=== PATIENT | male | born 1950 | race Caucasian/White ===

== ENCOUNTER 2018-06-30 00:02 | Inpatient (IN) | payer BC, MEDICARE ==
[2018-06-30 00:31] LABS: Actual Bicarbonate (HCO3a) 14.6 mEq/L (22-28); Analyzer IN Cardio ER; Base Excess (BEa) -11.5 mEq/L (-2.0 to +3.0); CO2 Tension 33.8 mmHg (35.0-45.0); Calcium, Ionized 1.04 mmol/L (1.12-1.30); Carboxyhemoglobin (COHb) 1.6 gm% (0.0-3.0); Hemoglobin (Hb) 13.7 g/dL (14.0-18.0); O2 Tension (PaO2) 92.9 mmHg (> 80.0); Potassium - ABG Lab 3.51 mmol/L (3.70-5.30)
[2018-06-30 00:34] LABS: pH, Arterial 7.25 (7.35-7.45)
[2018-06-30 00:35] LABS: Puncture Site RRA
[2018-06-30 00:57] LABS: Band 21 % (5-11); Hemoglobin 13.1 g/dL (14.0-18.0); Lymphocytes 8 % (21-51); MDiff Complete? YES; Mean Corpuscular HGB CONC 34.9 g/dL (32.0-36.0); Mean Corpuscular Hemoglobin 32.2 pg (27.0-31.0); Mean Corpuscular Volume 92.2 fL (78.0-98.0); Mean Platelet Volume 9.7 fL (7.4-10.4); Metamyelocyte 2 % (0-0); Monocytes 11 % (0-10); Myelocyte 4 % (0-0); Neutrophil 54 % (42-75); Platelet Count 93 thou/uL (130-400); Platelet Morphology Comment Appears Decreased; Red Blood Cell (RBC) Count 4.07 mill/uL (4.70-6.10); Toxic Granulation SLIGHT; White Blood Cell (WBC) Count 10.9 thou/uL (4.8-10.8)
[2018-06-30 00:58] LABS: ALT (SGPT) 26 U/L (8-55); AST (SGOT) 37 U/L (5-34); Albumin 2.7 g/dL (3.4-4.8); Alkaline Phosphatase 66 U/L (40-150); Anion Gap 23 mmol/L (10-20); BUN (Urea Nitrogen) 45 mg/dL (8.4-25.7); Bilirubin, Total 0.8 mg/dL (0.2-1.2); Calc. Creatinine Clearance 0 mL/min (70-130); Calcium 7.9 mg/dL (7.8-10.44); Carbon Dioxide 14 mmol/L (23-31); Chloride 94 mmol/L (98-107); Estimated GFR-MDRD 16; Glucose 477 mg/dL (80-115); Protein, Total 5.7 g/dL (5.8-8.1); Sodium 127 mmol/L (136-145)
[2018-06-30] MEDS ORDERED: Norepinephrine 8 MG/0.9% NS 250 ML ONE (01:38)
[2018-06-30] MEDS ORDERED: Insulin Regular 100 units/100 ml in NS IVPB SCH (02:00)
[2018-06-30] MEDS ORDERED: NS 0.9% w/ 40 MEQ KCL 1,000 ML IV SCH (02:00)
[2018-06-30 02:48] LABS: Anion Gap 22 mmol/L (10-20); BUN (Urea Nitrogen) 46 mg/dL (8.4-25.7); Calc. Creatinine Clearance 0 mL/min (70-130); Calcium 7.9 mg/dL (7.8-10.44); Carbon Dioxide 14 mmol/L (23-31); Chloride 94 mmol/L (98-107); Estimated GFR-MDRD 17; Glucose 430 mg/dL (80-115); Potassium 3.6 mmol/L (3.5-5.1); Sodium 126 mmol/L (136-145)
[2018-06-30] MEDS ORDERED: Norepinephrine 8 MG/250 ML BAG IVPB PRN (03:31)
[2018-06-30] MEDS ORDERED: NS 0.9% w/ 20 MEQ KCL 1,000 ML/1,000 ML BAG IV PRN ×2 (03:34)
[2018-06-30] MEDS ORDERED: Dextrose 5% in Water 1,000 ML IV PRN (03:34)
[2018-06-30] MEDS ORDERED: Dextrose 5 %-0.45 % NaCl 1,000 ML IV PRN ×2 (03:34→04:49)
[2018-06-30] MEDS ORDERED: Dextrose 50% Abboject 50 ML SYRINGE SLOW IVP PRN (03:34)
[2018-06-30] MEDS ORDERED: D5 1/2 NS w/20 mEq KCL 1,000 ML IV PRN (03:34)
[2018-06-30] MEDS ORDERED: Sodium Chloride 0.9% 1,000 ML IV PRN ×8 (03:34→04:49)
[2018-06-30] MEDS ORDERED: CCU ELECTROLYTE REPLACEMENT PROTOCOL FS PRN ×2 (03:35→05:19)
[2018-06-30] MEDS ORDERED: Magnesium Oxide 400 MG TAB PO PRN ×4 (03:35→05:19)
[2018-06-30] MEDS ORDERED: Potassium Phosphate 9 MMOL in Sodium Chloride 0.9% 100 ML IVPB PRN ×2 (03:35→05:19)
[2018-06-30] MEDS ORDERED: Potassium Chloride 20 MEQ TAB PO PRN ×2 (03:35→05:19)
[2018-06-30] MEDS ORDERED: Potassium Phosphate 15 MMOL in Sodium Chloride 0.9% 250 ML 250 ML IV PRN ×2 (03:35→05:19)
[2018-06-30] MEDS ORDERED: Potassium Chloride 40 MEQ in Premix Bag 1 BAG IVPB PRN ×2 (03:35→05:19)
[2018-06-30] MEDS ORDERED: Potassium Phosphate 12 MMOL in Sodium Chloride 0.9% 250 ML 250 ML IV PRN ×2 (03:35→05:19)
[2018-06-30] MEDS ORDERED: Potassium Chloride 40 MEQ in Sodium Chloride 0.9% 250 ML 250 ML IVPB PRN ×2 (03:35→05:19)
[2018-06-30] MEDS ORDERED: Magnesium 2 GM/NS 0.9% 100 ML 2 GM in Premix Bag 1 BAG IVPB PRN ×2 (03:35→05:19)
[2018-06-30 03:41] VITALS: BMI 33.7
[2018-06-30] MEDS ORDERED: HUMULIN R 100 UNITS in Sodium Chloride 0.9% 100 ML IVPB SCH (03:45)
[2018-06-30] MEDS ORDERED: ADD ELECTROLYTE REPLACEMENT SET TO PROFILE FS SCH (03:45)
[2018-06-30] MEDS ORDERED: Sodium Chloride 0.45% 1,000 ML IV SCH (03:45)
[2018-06-30] MEDS ORDERED: Sodium Chloride 0.9% 1,000 ML IV SCH (04:49)
[2018-06-30] MEDS ORDERED: NS 0.9% w/ 20 MEQ KCL 1,000 ML IV PRN ×2 (04:49)
[2018-06-30] MEDS ORDERED: Ondansetron PF 4 MG/2 ML Vial IVP PRN (04:49)
[2018-06-30] MEDS ORDERED: Ondansetron ODT 4 MG TAB PO PRN (04:49)
[2018-06-30] MEDS ORDERED: CCU Electrolyte Replacement 1 EACH IVPB ONE (04:49)
[2018-06-30 05:04] LABS: Lactic Acid 6.9 mmol/L (0.5-2.2)
[2018-06-30 05:13] LABS: Chloride 95 mmol/L (98-107); Potassium 3.8 mmol/L (3.5-5.1); Sodium 128 mmol/L (136-145)
[2018-06-30 05:14] LABS: Calcium 7.9 mg/dL (7.8-10.44); Glucose 384 mg/dL (80-115)
[2018-06-30 05:16] LABS: Anion Gap 21 mmol/L (10-20); Carbon Dioxide 16 mmol/L (23-31)
[2018-06-30 05:17] LABS: Calc. Creatinine Clearance 32 mL/min (70-130); Estimated GFR-MDRD 17
[2018-06-30 05:18] LABS: BUN (Urea Nitrogen) 47 mg/dL (8.4-25.7)
[2018-06-30] MEDS: Piperacillin/Tazobactam 3.375 GM in Sodium Chloride 0.9% 100 ML IVPB SCH ×4 (05:58→23:38)
[2018-06-30] MEDS ORDERED: HOLD VANCOMYCIN FOR LEVEL >20 FS SCH (06:00)
[2018-06-30] MEDS ORDERED: Vancomycin HCl 1.5 GM in Sodium Chloride 0.9% 250 ML 300 ML IVPB SCH ×2 (06:00→07:00)
[2018-06-30] MEDS ORDERED: Vancomycin HCl 750 MG in Sodium Chloride 0.9% 250 ML 250 ML IVPB SCH (06:00)
[2018-06-30] MEDS ORDERED: Vancomycin HCl 1 GM in Premix Bag 1 BAG IVPB SCH (06:00)
[2018-06-30] MEDS ORDERED: Digoxin 0.5 MG/2 ML AMP SLOW IVP SCH (06:00)
[2018-06-30] MEDS ORDERED: Vancomycin Sliding Scale 1 EACH FS SCH (06:00)
[2018-06-30] MEDS ORDERED: Vancomycin HCl 1.25 GM in Sodium Chloride 0.9% 250 ML 250 ML IVPB SCH (06:00)
[2018-06-30] MEDS ORDERED: Vancomycin HCl 2.5 GM in Sodium Chloride 0.9% 500 ML IVPB SCH (07:00)
[2018-06-30] MEDS: D5 1/2 NS w/20 mEq KCL 1,000 ML IV PRN ×4 (07:20→21:45)
--- NOTE | 2018-06-30 07:34 | HP ---
PRIMARY CARE PROVIDER: [facility]. CHIEF COMPLAINT: General weakness, shortness of breath, and left groin pain. HISTORY OF PRESENT ILLNESS: This is a 68-year-old male, who initially presented to [place] [facility] complaining of left groin swelling and pain with associated general fatigue, shortness of breath, and near syncope. The patient states he had been feeling ill over the last 3 to 5 days, worsening in the last 24 hours. The patient noticed a small red area on the left groin region, increasing in size with associated cellulitis. The patient was evaluated in the [place] [facility] and underwent incision and drainage of a small abscess in the groin region. The patient noted swelling and firmness to his entire left lower extremity and noted chills, but no documented fever. The patient admits to decreased energy and increasing shortness of breath, worsening in the last 48 hours. The patient admits to history of coronary artery disease, status post 5 cardiac stent placements since 1997. The patient also admits that he was recently increased on his subcutaneous insulin via his primary fish technologist. 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 The patient admits the fatigue had progressed to such an extent that he blacked out at home briefly. The patient denied any head injury, unilateral weakness, or difficulty with speech. The patient denied any prominent diarrhea, nausea, or vomiting. The patient denied dysuria. In the emergency room, the patient underwent general evaluation including incision and drainage of a small abscess in the left groin region. The patient was given vancomycin as well as intravenous normal saline. Screening metabolic survey showed a multitude of abnormalities including severe lactic acidosis with initial lactic acid level of 10.7. The patient was also noted with hyponatremia and metabolic acidosis and concern for diabetic ketoacidosis when ABG showed a pH of 7.25. The patient was also noted with criteria for septic shock and was placed on aggressive IV fluid hydration in addition to Levophed for pressor support. The patient was transferred to the Critical Care Unit for further evaluation. PAST MEDICAL HISTORY: 1. Coronary artery disease, status post cardiac stent placement x5. 2. Diabetes mellitus, type 2, insulin requiring, labile. 3. Hypertension. 4. Hyperlipidemia. 5. Tobacco use including smokeless tobacco. 6. Peripheral neuropathy secondary to diabetes mellitus. PAST SURGICAL HISTORY: 1. Status post cardiac stent placement x5 since 1997. 2. Status post left shoulder repair. 3. Status post knee surgery. CURRENT MEDICATIONS: 1. Amlodipine 2.5 mg p.o. daily. 2. Aspirin enteric-coated 81 mg p.o. daily. 3. Fenofibrate 160 mg p.o. daily. 4. [place]-3 fatty acids 1000 mg p.o. b.i.d. 5. NovoLog 70/30 of 35 units subcutaneously b.i.d. 6. Losartan/hydrochlorothiazide 100 mg/12.5 mg p.o. daily. 7. Metformin 1000 mg p.o. b.i.d. 8. Metoprolol succinate 100 mg p.o. daily. 9. Multivitamin 1 tab p.o. daily. ALLERGIES: TO MORPHINE SULFATE. FAMILY HISTORY: Positive for diabetes mellitus and hypertension. SOCIAL HISTORY: The patient is , accompanied by his and son in the hospital. Smokes up to half a pack of cigarettes daily. Dips snuff. Occasional alcohol use. No illicit drug use. 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 Resides in [place], [place]. REVIEW OF SYSTEMS: CONSTITUTIONAL: Negative for weight loss or gain, ability to conduct usual activities. SKIN: Negative for rash, itching. EYES: Negative for double vision, pain. ENT/MOUTH: Negative for nose bleeding, neck stiffness, pain, tenderness. CARDIOVASCULAR: Negative for palpitations, dyspnea on exertion, orthopnea. RESPIRATORY: Negative for shortness of breath, wheezing, cough, hemoptysis, fever or night sweats. GASTROINTESTINAL: Negative for poor appetite, abdominal pain, heartburn, nausea, vomiting, constipation, or diarrhea. GENITOURINARY: Negative for urgency, frequency, dysuria, nocturia. MUSCULOSKELETAL: Negative for pain, swelling. NEUROLOGIC/PSYCHIATRIC: Negative for anxiety, depression. ALLERGY/IMMUNOLOGIC: Negative for skin rash, bleeding tendency. Otherwise, negative except as stated per HPI. PHYSICAL EXAMINATION: VITAL SIGNS: On admission; blood pressure 105/70, pulse 126, respiratory rate 20, temperature 98.1 degrees Fahrenheit, and O2 saturation 98% on 2 L/minute by nasal cannula. GENERAL APPEARANCE: This is a 68-year-old male, alert and oriented x3, pleasant, in no acute distress. HEENT: Pupils are equal, round, and reactive to light and accommodation. Extraocular muscles are intact. No scleral icterus. No conjunctival injection. Nares patent. OP is clear. Teeth in fair repair. NECK: Supple. No cervical adenopathy. No thyromegaly. No carotid bruits. No JVD appreciated. Cervical spine with full active and passive range of motion. No meningeal signs noted. Right internal jugular vein central venous catheter in place. CHEST: Diminished breath sounds in the bases bilaterally. CARDIOVASCULAR: S1 and S2 with irregular rate and rhythm. Positive tachycardia. ABDOMEN: Obese, nontender, and nondistended. Landmarks difficult to palpate due to the patient's body habitus and obesity. Bowel sounds are positive in all 4 quadrants. EXTREMITIES: Warm and dry with fair turgor. Asymmetric edema of the left greater than right lower extremity. Positive erythema with small abscess noted in the left groin region approximately 2 cm in diameter. Central pustule with skin incision noted. Positive tenderness to palpation. Pulses are palpable distally at the dorsalis pedis, posterior tibial, and popliteal arteries bilaterally. Capillary refill less than 2 seconds. NEUROLOGIC: Cranial nerves II through XII are grossly intact. No focal or lateralizing signs appreciated. PERTINENT LABORATORY AND X-RAY FINDINGS: Sodium 126, potassium 3.6, chloride 94, CO2 of 14, anion gap of 22, BUN 46, creatinine 3.69, estimated GFR of 17, and glucose 430. Lactic acid level ranged between 6.9 to 10.7. Calcium is 7.9. AST 37, ALT of 26, and total bilirubin 0.8. Troponin I negative x1. CBC showed a white blood cell count of 10.9, hemoglobin 13, hematocrit 38, and platelet count 93,000 with 54% neutrophils, 21% bands. ABG dated 06/30/2018, showed a pH of 7.25, pCO2 of 34, pO2 of 93, bicarb of 14.6, and O2 saturation 95% on 21% FiO2. CT of the abdomen and pelvis dated 06/30/2018, showed no acute intraabdominal process. Portable chest x-ray dated 06/30/2018, by my interpretation shows no acute cardiopulmonary process. Cardiomegaly noted. Right internal jugular venous catheter with tip in appropriate positioning. EKG dated 06/29/2018, by my interpretation shows atrial fibrillation with heart rates in the 140s. Normal R-wave progression noted in the precordial leads. Normal axis. ASSESSMENT AND PLAN: 1. Septic shock. The patient will be admitted to the Critical Care Unit. We will continue Levophed for pressor support and continue IV fluids to maintain systolic greater than 100. Suspect secondary to left groin abscess. Blood and urine cultures are pending. We will continue sepsis protocol. Continue vancomycin 1 g IV q.12 hours with additional Zosyn 3.375 g IV every 6 hours. 2. Atrial fibrillation with rapid ventricular response. Apparent new onset per the patient report. We will continue rate control measures. Digoxin 0.25 mg IV x1 now. Due to hypotension, the patient is unable to use Cardizem currently. Check 2D transthoracic echocardiogram in the a.m. We will consult Cardiology Service for further management. Check TSH and magnesium level. 3. Diabetic ketoacidosis. I suspect the main component due to severe sepsis with septic shock and previous use of metformin. Continue diabetic ketoacidosis protocol. Continue aggressive IV fluid hydration and replacement. Continue regular insulin infusion at 8 units/hour. Serial beta-hydroxybutyrate sampling. 4. Left groin abscess, status post incision and drainage. We will continue vancomycin and Zosyn as stated previously. Consult Wound Care Service for local care and monitoring. 5. Diabetes mellitus, type 2, insulin requiring. Suspect poor control given presentation. We will check A1c level. Insulin sliding scale when taking regular ADA diet. 6. Acute kidney injury. Suspect multifactorial given the patient's ongoing use of nephrotoxic medications to include hydrochlorothiazide, JACY inhibitors, and metformin. We will hold all nephrotoxic agents and limit contrast exposure. Continue IV fluid hydration and monitor renal response. 7. Prophylaxis. SCDs while in bed. Pepcid 20 mg p.o. b.i.d. Smoking cessation resources. 8. Code status: Full. Surrogate medical decision maker is the patient's spouse. TIME SPENT: Total critical care time is 55 minutes. Job ID: [id number]
--- NOTE | 2018-06-30 08:02 | CT ---
CT ABDOMEN AND PELVIS NONCONTARST: INDICATION: Cellulitis, sepsis. 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 FINDINGS: There is abnormal increased density of the ventral and left lateral subcutaneous tissues of the proxi mal left thigh with overlying skin thickening. No soft tissue gas is seen. There is increased subcu taneous density of the scrotal soft tissues, incompletely evaluated. There is increased subcutaneous density of the scrotal soft tissues, incompletely evaluated. No soft tissue gas in this region. Th ere is hepatic steatosis. The gallbladder is contracted. There is bilateral mild perinephric fat st randing. Prostate calcification is seen. There is mild distention of the urinary bladder with mild w all prominence primarily to the incompletely distended state. Visualized lung bases reveal no consol idation or significant effusion. There is diffuse vascular calcification. No free air. Metallic cl ips are seen at the right lower quadrant. No acute osseous abnormality. Mild enlargement of left in guinal lymph nodes may be reactive. IMPRESSION: 1. Findings indicating cellulitis of the proximal left thigh and inguinal region with probable assoc iated left inguinal reactive adenopathy. No soft tissue gas is seen. 2. There is mild increased density of the soft tissues of the scrotum without soft tissue gas. If h ere is concern, consider followup with scrotal ultrasound as indicated. 3. Additional details are as described above. POS: EFRAIN
[2018-06-30] MEDS: Aspirin Chewable 81 MG TAB PO SCH (08:27)
[2018-06-30] MEDS: Famotidine 20 MG TAB PO SCH (08:27)
--- NOTE | 2018-06-30 08:49 | RAD ---
CHEST 1 VIEW: HISTORY: Chest pain. COMPARISON: Chest radiograph from prior day. FINDINGS: New right IJ central venous catheter is in place with tip at the mid SVC. No pneumothorax. The maged mercedes of the findings are unchanged. IMPRESSION: Uncomplicated placement right internal jugular central venous catheter. POS: CET
[2018-06-30] MEDS ORDERED: Vancomycin HCl 1 GM in Sodium Chloride 0.9% 250 ML 250 ML IVPB SCH (09:00)
--- NOTE | 2018-06-30 09:33 | PDOC.PN ---
- Subjective Encounter Start Date: 06/30/18 Encounter Start Time: 09:31 Subjective: some sob, no chest pain, fever - Objective Resuscitation Status - Order Detail: 06/30/18 04:33 Resuscitation Status Routine Resuscitation Status: FULL: Full Resuscitation MAR Reviewed: Yes Vital Signs & Weight: Vital Signs (12 hours) Temp Pulse Ox 06/30/18 07:00 97.9 F 06/30/18 05:00 98.1 F 06/30/18 04:00 95 06/30/18 03:40 98.1 F Weight Weight 249 lb 1.957 oz Most Recent Monitor Data Heart Rate from ECG 105 NIBP 124/62 NIBP BP-Mean 82 Respiration from ECG 33 SpO2 96 I&O: 06/29/18 06/30/18 07/01/18 06:59 06:59 06:59 Intake Total 1100.6 480 Output Total 250 20 Balance 850.6 460 Result Diagrams: 06/30/18 00:18 06/30/18 04:27 Additional Labs: Accuchecks 06/30/18 06/30/18 06/30/18 09:12 08:27 07:15 POC Glucose 205 H 215 H 208 H 06/30/18 06/30/18 06/30/18 06:13 05:22 04:30 POC Glucose 257 H 306 H 321 H 06/30/18 06/30/18 03:35 02:52 POC Glucose 425 H 376 H Phys Exam - Physical Examination Neck: no JVD Respiratory: clear to auscultation bilateral Cardiovascular: RRR, no significant murmur Gastrointestinal: soft, non-tender, positive bowel sounds tense edema L leg to groin, erythema, 2 cm open lesion L medial upper thigh Dx/Plan (1) Septic shock Code(s): A41.9 - SEPSIS, UNSPECIFIED ORGANISM; R65.21 - SEVERE SEPSIS WITH SEPTIC SHOCK Status: Acute (2) Acute renal failure Status: Acute (3) Abscess of left thigh Code(s): L02.416 - CUTANEOUS ABSCESS OF LEFT LOWER LIMB Status: Acute (4) CAD (coronary artery disease) Code(s): I25.10 - ATHSCL HEART DISEASE OF [place] CORONARY ARTERY W/O ANG PCTRS Status: Acute Qualifiers: Coronary Disease-Associated Artery/Lesion type: [place] artery [place] vs. 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
[2018-06-30 09:36] LABS: Anion Gap 17 mmol/L (10-20); BUN (Urea Nitrogen) 47 mg/dL (8.4-25.7); Calc. Creatinine Clearance 36 mL/min (70-130); Calcium 7.4 mg/dL (7.8-10.44); Carbon Dioxide 15 mmol/L (23-31); Chloride 99 mmol/L (98-107); Estimated GFR-MDRD 19; Glucose 207 mg/dL (80-115); Sodium 127 mmol/L (136-145)
--- NOTE | 2018-06-30 10:06 | CON ---
DATE OF CONSULTATION: HISTORY OF PRESENT ILLNESS: Fritz Lewis is a morbidly obese 68-year-old gentleman from [place], [place]. They states he is working in [place] when he presented with several day history of swelling of his left groin. He went to [place] where diagnosis of cellulitis and sepsis was made. His lactic acid was elevated at 7.7. His initial blood pressure was 98/61, pulse 135, O2 saturation is 98% on room air. Apparently, there was a swelling in the groin, which was lanced. He was admitted to the ICU with hypotension, uncontrolled diabetes, and sepsis syndrome. He has smoked a pack a day most of his life. Denies any prior history of TB, pneumonia, or bronchial asthma. According to his son, who is present at the bedside, he clearly snores. PAST MEDICAL HISTORY: Coronary artery disease, myocardial infarction, status post multiple stents at least 4, three last year in 2017, hypertension, diabetes, and high triglyceride. PREVIOUS SURGERIES: Including multiple stents, shoulder surgery, and knee surgery. SOCIAL HISTORY: Alcohol, none. Tobacco, as noted. 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 MEDICATIONS: From home includes; 1. Metformin 500 two tablets twice a day. 2. Metoprolol one tablet a day. 3. Losartan insulin 35 units twice a day. 4. Aspirin. 5. Amlodipine. He is now started on vancomycin and Zosyn. REVIEW OF SYSTEMS: Otherwise, 10-point negative. PHYSICAL EXAMINATION: GENERAL: Obese gentleman. VITAL SIGNS: O2 saturations are 99% on room air, pulse is 91, blood pressure is 140/72, respiratory rate 18. CHEST: Decreased breath sounds. No wheezing. CARDIAC: Normal S1, S2. No gallops. ABDOMEN: Obese. EXTREMITIES: His left leg is swollen. There is evidence of edema. DIAGNOSTIC DATA: Creatinine 3.62. Sodium is 128. His blood sugar is 257 in insulin drip. His calcium is 7.9, and his lactic acid is still elevated at 6.9, magnesium 0.7. Ultrasound has been ordered. Chest x-ray was otherwise unremarkable. He had a CT done of his abdomen and pelvis, which showed cellulitis above his proximal left thigh inguinal area. IMPRESSION: 1. Cellulitis, left leg. 2. Uncontrolled diabetes. 3. Renal failure. 4. Hypertension. 5. Coronary artery disease. 6. Sleep apnea. 7. Chronic obstructive pulmonary disease. PLAN: I agree with present antibiotic coverage. Ultrasound of leg is being ordered. Initiate some neb treatments. Diet, PT supportive Care. We will follow while in the ICU. Consultation note, 70 minutes, 50% direct patient care. Job ID: [id number]
--- NOTE | 2018-06-30 12:05 | ULT ---
ULTRASOUND WITH DOPPLER DUPLEX VENOUS LOWER EXTREMITY LEFT: CPT: 42595 ICD-10-PCS: B54D INDICATION: Left lower extremity edema. TECHNIQUE: Color flow Doppler, spectral waveform analysis of pulsed Doppler, and madrigal-scale imaging with muriel virgilio and augmentation, were used to evaluate the left common femoral, femoral, popliteal, posterior t ibial, and superficial femoral, veins; and the proximal portions of the profunda femoral and greater saphenous, veins. FINDINGS: There is appropriate compressibility and flow within the imaged dep vein system of the visualized lef t lower extremity. Incidental note of prominent sized left inguinal regional lymph node. There is sof t tissue edema. IMPRESSION: No deep venous thrombosis of the imaged left lower extremity. POS: SCOTT
[2018-06-30 13:08] LABS: Anion Gap 17 mmol/L (10-20); BUN (Urea Nitrogen) 50 mg/dL (8.4-25.7); Calc. Creatinine Clearance 33 mL/min (70-130); Calcium 7.4 mg/dL (7.8-10.44); Carbon Dioxide 17 mmol/L (23-31); Chloride 98 mmol/L (98-107); Estimated GFR-MDRD 18; Glucose 167 mg/dL (80-115); Sodium 128 mmol/L (136-145)
[2018-06-30] MEDS: HUMULIN R 100 UNITS in Sodium Chloride 0.9% 100 ML IVPB SCH (17:06)
--- NOTE | 2018-06-30 17:15 | EKG ---
Test Reason : Blood Pressure : / mmHG Vent. Rate : 102 BPM Atrial Rate : 102 BPM P-R Int : 096 ms QRS Dur : 090 ms QT Int : 334 ms P-R-T Axes : 031 027 011 degrees QTc Int : 435 ms Sinus tachycardia with short IN ns T wave changes When compared with ECG of 30-JUN-2018 00:17, (Unconfirmed) Sinus rhythm has replaced Atrial fibrillation Nonspecific T wave abnormality, improved in Lateral leads Confirmed by DR. Shruthi BABCOCK ([id number]) on 06/30/2018 5:14:59 PM Referred By: KENAN Confirmed By:DR. Shruthi BABCOCK
--- NOTE | 2018-06-30 22:21 | CON ---
DATE OF CONSULTATION: 06/30/2018 HISTORY OF PRESENT ILLNESS: Fritz Lewis is a 68-year-old white male, transferred from [place] with sepsis and atrial fibrillation. He has a previous cardiac history with history of myocardial infarction, as well as previous stents placed x5. Last time stents were placed was in September 2016. Currently, he is not on dual antiplatelet therapy and when asked about Plavix, Brilinta or Effient, he is not familiar with any of those medications. He has been noticing increasing edema and redness of his left leg. He began to have increasing weakness, shortness of breath and with the left groin pain, went to the emergency room in [place]. He underwent incision and drainage of a small abscess of the left groin. He was transferred here for further care. He is in atrial fibrillation with fast ventricular response, was given digoxin 0.25 IV and eventually has converted to sinus rhythm. He denied any palpitations or ever having A type of rhythm problems. He denied any chest discomfort or palpitations, but did have some shortness of breath. PAST MEDICAL HISTORY: 1. Coronary artery disease status post multiple stent placements since 1997. 2. Diabetes. 3. Hypertension. 4. Hyperlipidemia. 5. Smoker and uses smokeless tobacco. 6. Peripheral neuropathy. OPERATIONS: Cardiac stent placement, left shoulder repair, knee surgery. MEDICATIONS: 1. Amlodipine 2.5 mg daily. 2. Enteric-coated aspirin 81 daily. 3. Fenofibrate 160 daily. 4. [place]-3 of 1000 mg b.i.d. 5. NovoLog 70/30 of 35 units b.i.d. 6. Losartan/hydrochlorothiazide 100/12.5 daily. 7. Metformin 1000 mg b.i.d. 8. Metoprolol 100 daily. 9. Multivitamin daily. ALLERGIES: MORPHINE. SOCIAL HISTORY: He continues to smoke one-half to 1 pack per day and dips snuff. 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 He occasionally drinks alcohol. REVIEW OF SYSTEMS: A 12-point review of systems is otherwise unremarkable. PHYSICAL EXAMINATION: VITAL SIGNS: Blood pressure 85/69, pulse 86. HEENT: PERRL. NECK: Supple. CHEST: Clear. CARDIAC: S1 and S2 normal without any S3, S4, or murmurs. ABDOMEN: Obese. Normal bowel sounds. No tenderness. EXTREMITIES: Revealed 3 to 4+ tense edema of the left leg, trace edema of the right leg. NEUROLOGICAL: Grossly intact. SKIN: Warm and dry. LABORATORY DATA: EKG in [place] revealed atrial fibrillation with fast ventricular response of 140 per minute, nonspecific ST and T-wave changes. Another EKG here shows sinus tachycardia with rate of 102 per minute. White count 10,900; hemoglobin 13.1; hematocrit 37.5; platelets 93,000. PH 7.25, pCO2 of 33.8, PO2 of 92.9. Sodium 128, potassium 4.0, chloride 98, carbon dioxide 17, BUN 50, creatinine 3.51. Creatinine on admission was 4.39. Troponin I 0.054. IMPRESSION: 1. Septic shock with abscess in the left groin and hypotension. 2. Atrial fibrillation with fast ventricular response. He ultimately slowed and converted to sinus rhythm. 3. Diabetic ketoacidosis. 4. Left groin abscess, status post incision and drainage. 5. Diabetes. 6. Smoker. 7. Smokeless tobacco use. 8. Acute kidney injury. 9. Hypercholesterolemia. 10.Coronary artery disease, history of stent placement and [place]. PLAN: The patient at the present time has converted to sinus rhythm. Echocardiogram will be performed to assess left ventricular function. The patient will be maintained on his beta magy once his blood pressure is adequate. Job ID: [id number] [facility]
[2018-07-01] MEDS: D5 1/2 NS w/20 mEq KCL 1,000 ML IV PRN ×2 (02:07→22:48)
[2018-07-01] MEDS ORDERED: Digoxin 0.5 MG/2 ML AMP SLOW IVP SCH ×2 (04:00→08:30)
[2018-07-01 04:54] LABS: Hemoglobin A1c 9.4 % (4.0-6.0)
[2018-07-01 05:04] LABS: Anion Gap 17 mmol/L (10-20); BUN (Urea Nitrogen) 57 mg/dL (8.4-25.7); Calc. Creatinine Clearance 32 mL/min (70-130); Carbon Dioxide 14 mmol/L (23-31); Chloride 99 mmol/L (98-107); Estimated GFR-MDRD 17; Glucose 220 mg/dL (80-115); Potassium 4.1 mmol/L (3.5-5.1); Sodium 126 mmol/L (136-145)
[2018-07-01 05:06] LABS: Band 48 % (5-11); Dohle Bodies SLIGHT; Lymphocytes 3 % (21-51); MDiff Complete? YES; Mean Corpuscular Hemoglobin 31.6 pg (27.0-31.0); Mean Platelet Volume 9.5 fL (7.4-10.4); Metamyelocyte 5 % (0-0); Monocytes 3 % (0-10); Myelocyte 1 % (0-0); Neutrophil 40 % (42-75); Platelet Count 116 thou/uL (130-400); Platelet Morphology Comment Appears Decreased; RBC Distribution Width 12.6 % (11.5-14.5); Red Blood Cell (RBC) Count 3.81 mill/uL (4.70-6.10); Toxic Granulation SLIGHT; White Blood Cell (WBC) Count 12.2 thou/uL (4.8-10.8)
[2018-07-01] MEDS: Piperacillin/Tazobactam 3.375 GM in Sodium Chloride 0.9% 100 ML IVPB SCH (05:17)
[2018-07-01 05:27] LABS: Vancomycin, Trough 15.4 ug/mL
[2018-07-01] MEDS ORDERED: Vancomycin HCl 1.5 GM in Sodium Chloride 0.9% 250 ML 300 ML IVPB SCH (07:00)
[2018-07-01] MEDS: Clindamycin/D5W 900 MG in Premix Bag 1 BAG IVPB SCH ×2 (09:11→16:55)
[2018-07-01] MEDS: Amiodarone 450 MG in Dextrose 5% in Water 250 ML IVPB SCH ×2 (09:19→09:37)
--- NOTE | 2018-07-01 09:35 | PRG ---
DATE OF SERVICE: 07/01/2018 SUBJECTIVE: Fritz Lewis this morning remains in the ICU, confused and agitated. His pulse is 113, atrial fibrillation, respirations 34, blood pressure 110/86. Denies any pain. His family is at the bedside. His left leg is much more swollen with multiple blisters. He has an area in the left groin which looks infected. OBJECTIVE: CHEST: Decreased breath sounds. No wheezing. CARDIAC: Normal S1 and S2. No gallops. ABDOMEN: No masses. LABORATORY DATA: White count is 12,000, H and H 12 and 35, platelet count is 116, 40 segs, 48 bands. His creatinine 3.53. Cortisol level is 24. IMPRESSION: 1. Chronic obstructive pulmonary disease. 2. Sepsis syndrome. 3. Infected leg. 4. Encephalopathy. 5. Renal failure. 6. Sleep apnea. PLAN: Surgery is being consulted today to assess his leg. Additional intervention at this time is warranted. He is on broad-spectrum antibiotics including clindamycin, vancomycin. Continue nocturnal BiPAP, supportive care, PT. Continue observation in the ICU. Prognosis remains guarded. This is a one-half hour of critical time. Job ID: [id number]
[2018-07-01] MEDS: Aspirin Chewable 81 MG TAB PO SCH (10:00)
[2018-07-01] MEDS: Famotidine 20 MG TAB PO SCH (10:01)
[2018-07-01] MEDS: Enoxaparin Sodium 120 MG/0.8 ML SYRINGE SC SCH (10:01)
--- NOTE | 2018-07-01 10:14 | PDOC.PN ---
- Subjective Encounter Start Date: 07/01/18 Encounter Start Time: 10:13 Subjective: confused - Objective Resuscitation Status - Order Detail: 06/30/18 04:33 Resuscitation Status Routine Resuscitation Status: FULL: Full Resuscitation MAR Reviewed: Yes Vital Signs & Weight: Vital Signs (12 hours) Temp Pulse Resp Pulse Ox 07/01/18 09:11 113 H 07/01/18 07:55 113 H 34 H 99 07/01/18 07:00 98.1 F 07/01/18 04:07 127 H 07/01/18 04:00 97.8 F 07/01/18 01:16 90 20 98 Weight Admit Weight 249 lb Weight 249 lb 1.957 oz Most Recent Monitor Data Heart Rate from ECG 107 NIBP 111/66 NIBP BP-Mean 81 Respiration from ECG 20 SpO2 100 I&O: 06/30/18 07/01/18 07/02/18 06:59 06:59 06:59 Intake Total 1100.6 7591.8 Output Total 250 410 0 Balance 850.6 7181.8 0 Result Diagrams: 07/01/18 04:09 07/01/18 04:09 Additional Labs: Accuchecks 07/01/18 07/01/18 07/01/18 09:37 07:54 06:24 POC Glucose 174 H 174 H 180 H 07/01/18 07/01/18 07/01/18 05:21 04:13 03:37 POC Glucose 201 H 209 H 228 H 07/01/18 07/01/18 07/01/18 02:14 01:32 00:18 POC Glucose 194 H 181 H 178 H 06/30/18 06/30/18 06/30/18 23:39 22:22 21:36 POC Glucose 217 H 237 H 240 H 06/30/18 06/30/18 06/30/18 20:22 19:28 18:03 POC Glucose 252 H 231 H 186 H 06/30/18 06/30/18 06/30/18 17:17 16:19 15:10 POC Glucose 193 H 164 H 153 H 06/30/18 06/30/18 06/30/18 14:06 12:08 11:23 POC Glucose 147 H 166 H 180 H 06/30/18 10:12 POC Glucose 196 H Radiology Reviewed by me: No (echo-LVEF 40-45%) EKG Reviewed by me: Yes (AF with RVR) Phys Exam - Physical Examination Neck: no JVD Respiratory: clear to auscultation bilateral Cardiovascular: irregular tachy Gastrointestinal: soft, positive bowel sounds left leg-tense swelling to groin- purpura popliteal and calf area both feet warm Dx/Plan (1) Septic shock Code(s): A41.9 - SEPSIS, UNSPECIFIED ORGANISM; R65.21 - SEVERE SEPSIS WITH SEPTIC SHOCK Status: Acute (2) Acute renal failure Status: Acute Qualifiers: Acute renal failure type: with acute tubular necrosis Qualified Code(s): N17.0 - Acute kidney failure with tubular necrosis (3) Abscess of left thigh Code(s): L02.416 - CUTANEOUS ABSCESS OF LEFT LOWER LIMB Status: Acute (4) CAD (coronary artery disease) Code(s): I25.10 - ATHSCL HEART DISEASE OF [place] CORONARY ARTERY W/O ANG PCTRS Status: Acute Qualifiers: Coronary Disease-Associated Artery/Lesion type: [place] artery [place] vs. transplanted heart: [place] heart Associated angina: without angina Qualified Code(s): I25.10 - Atherosclerotic heart disease of [place] coronary artery without angina pectoris (5) HTN (hypertension) Code(s): I10 - ESSENTIAL (PRIMARY) HYPERTENSION Status: Acute Qualifiers: Hypertension type: essential hypertension Qualified Code(s): I10 - Essential (primary) hypertension (6) DM type 2 (diabetes mellitus, type 2) Status: Acute Qualifiers: Diabetes mellitus senior care insulin use: with manager long term care use Diabetes mellitus complication status: with kidney complications - Plan pressors as needed. iv amiodaarone for Atrial fib with RVR -: renal consult. surgery cnsult -: cont broad spectrum antibx * .
--- NOTE | 2018-07-01 10:25 | CON ---
DATE OF CONSULTATION: RENAL MEDICINE HISTORY OF PRESENT ILLNESS: Mr. Lewis is a 68-year-old white male, known history of diabetes mellitus and initially presented with generalized malaise and shortness of breath. He also complained of left groin pain based on the history. During the initial evaluation, the patient was noted to be hyponatremic and had metabolic acidosis. The consent was for DKA. He was admitted in the ICU and IV hydration has been done. IV fluid has been adjusted downwards. We are now being consulted for his acute kidney injury on top of his chronic renal failure. He tells me he has underlying chronic renal problem. He is originally from [place], but currently travels and has a temporary residence in [place]. REVIEW OF SYSTEMS: Positive for generalized malaise. Positive for left leg erythema and cellulitis. Positive for nausea, but no vomiting. Decreased energy level. Decreased appetite. No headache. No diplopia. No syncopal episode. Denies any fever or chills. No abdominal pain. No hematochezia. No melena. No hematemesis. MEDICATIONS: Currently on; 1. DuoNeb q.6 p.r.n. 2. Aspirin 81 mg tablet daily. 3. Clindamycin 900 mg IV q.8. 4. D5 half-normal saline at 150 mL an hour. 5. Lovenox 110 mg subcu daily. 6. Pepcid 20 mg daily. 7. Insulin drip. 8. Zofran 4 mg IV q.6 p.r.n. 9. Zosyn 2.25 g IV q.6. 10. Status post vancomycin. PAST MEDICAL HISTORY: 1. History of decreased EF. 2. Type 2 diabetes mellitus. 3. Chronic renal failure from ? diabetic nephropathy. 4. Hyperlipidemia. 5. Hypertension. 6. Coronary artery disease. PAST SURGICAL HISTORY: Status post cardiac cath with coronary stent placement, status post left shoulder surgery, and status post left knee surgery. SOCIAL HISTORY: The patient is . He is originally from [place], but temporarily resides in [place] due to his job. 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 He has 3 natural children and 1 step child. Smoke half a pack a day currently for the last 40 years. In addition, he dips snuff. Education, high school. No IV drug abuse. Alcohol rarely. ALLERGIES: MORPHINE SULFATE. TRAUMA: None. IMMUNIZATION: Up-to-date. HOSPITALIZATIONS: Please see past medical history. FAMILY HISTORY: No family history of ESRD. PHYSICAL EXAMINATION: VITAL SIGNS: Blood pressure is 111/66, heart rate 107, respiratory rate 20, and pulse ox 100%. GENERAL: Awake, alert, comfortable, obese, not in overt distress. SKIN: Adequate turgor. HEENT: He has a pinkish conjunctivae. Anicteric sclerae. NECK: No neck mass. No carotid bruits. No JVD. CHEST: No deformities. LUNGS: Decreased breath sounds. HEART: Normal sinus rhythm. No murmurs, gallops, or rubs. ABDOMEN: Globular, soft, and nontender. No masses. EXTREMITIES: No edema. Positive for erythema in left leg. LABORATORY DATA: Laboratories of June 2018, white count 12.2 and hemoglobin 12. June 2018; sodium 126, potassium 4.1, chloride 99, carbon dioxide 14, BUN 57, creatinine 3.53, glucose 220, and calcium 7.0. On June 30, 2018; sodium 128, BUN 50, and creatinine 3.51. Chest x-ray of June 30, 2018, shows no CHF. Cardiac echo, decreased EF of 45%. ASSESSMENT AND PLAN: 1. Hyponatremia - consider this secondary to the elevated blood sugar. If the serum sodium remains unimproved, I will change the IV fluid to a D5 normal saline. 2. Acute kidney injury on top of his chronic renal failure secondary to hemodynamically-mediated dysfunction. Please note, he has some degree of volume depletion on clinical exam. In addition, the patient has been taking losartan. Please note these losartan has been discontinued. Continue gentle volume repletion. Currently, on IV fluid. There is no indication for any dialytic intervention with this patient. 3. Sepsis syndrome - on IV antibiotics. 4. ? Diabetic ketoacidosis - currently on insulin regimen. 5. Left leg cellulitis. Dr. Parra to evaluate the patient. Job ID: [id number]
[2018-07-01] MEDS ORDERED: KETAMINE 100 MG/ML (5ML VIAL) ONE (11:31)
[2018-07-01] MEDS ORDERED: Piperacillin/Tazobactam 2.25 GM in Sodium Chloride 0.9% 100 ML IVPB SCH (12:00)
[2018-07-01 12:55] LABS: Actual Bicarbonate (HCO3a) 16.5 mEq/L (22-28); Base Excess (BEa) -12.5 mEq/L (-2.0 to +3.0); CO2 Tension 49.8 mmHg (35.0-45.0); Calcium, Ionized 0.99 mmol/L (1.12-1.30); O2 Tension (PaO2) 93.7 mmHg (> 80.0)
[2018-07-01 12:56] LABS: Puncture Site ALINE; pH, Arterial 7.14 (7.35-7.45)
--- NOTE | 2018-07-01 13:15 | ULT ---
ULTRASOUND RENAL BILATERAL STANDARD: HISTORY: Acute renal failure. COMPARISON: None. FINDINGS: Real-time, madrigal scale, and color evaluation of the kidneys and urinary bladder was performed. The right kidney measures 7.5 x 6.8 x 7.4 cm and the left kidney measures 13 x 7 x 7.2 cm. No renal mass, hydronephrosis, or abnormal calcifications. The urinary bladder is decompressed with a Pyle c atheter. IMPRESSION: No evidence for obstructive uropathy. POS: TPC
[2018-07-01] MEDS ORDERED: Propofol 1,000 MG/100 ML VIAL IV ONE (13:19)
[2018-07-01 13:53] LABS: Bilirubin Negative (Negative); Blood, Urine Large (Negative); Clarity CLOUDY (Clear); Glucose, Urine (Dipstick) Negative (Negative); Leukocyte Negative (Negative); Nitrite Negative (Negative); Protein, Urine (Dipstick) 30 mg/dL (Neg-Trace); Specific Gravity, Urine 1.011 (1.002-1.036)
[2018-07-01 13:54] LABS: Hyaline Casts/LPF 4-6 HYALINE CAST LPF (0-3 Hyaline); Pathc Cast-AUWi Flag 1.01 (0-2.49)
[2018-07-01 13:55] LABS: Yeast-AUWi Flag 157.5 (0-25.0)
[2018-07-01 14:04] LABS: Bacteria/HPF 1+ HPF (None Seen); Renal Epithelial None Seen HPF (0-3); Transitional Epithelial NONE SEEN HPF (0-3); Yeast-All Forms None Seen HPF (None Seen)
[2018-07-01 14:10] LABS: Creatinine, Urine 48.74 mg/dL (63-166)
[2018-07-01] MEDS ORDERED: Rocuronium Bromide 10 MG/ML (10ML VIAL) ONE (14:31)
[2018-07-01] MEDS ORDERED: PHENYLEPHRINE-NS 100 MCG/ML 10 ML SYRINGE ONE (14:31)
[2018-07-01] MEDS ORDERED: Propofol BOLUS 1,000 MG/100 ML VIAL IV PRN (14:44)
[2018-07-01] MEDS ORDERED: DISCONTINUE PREVIOUS NARCOTIC PAIN MEDICATIONS AND BENZODIAZEPINES FS SCH (14:44)
[2018-07-01] MEDS ORDERED: Fentanyl BOLUS 250 ML IVPB PRN (14:44)
--- NOTE | 2018-07-01 15:44 | CON ---
DATE OF CONSULTATION: 07/01/2018 REQUESTING PHYSICIAN: Dr. Hermosillo. HISTORY OF PRESENT ILLNESS: A 68-year-old morbidly obese man with history of diabetes mellitus. The patient was admitted yesterday with worsening painful left groin associated with redness and bullous lesions to the lower extremity. Five days previously, the patient was seen in an [facility] in [place] with malaise and left groin pain. Viral etiology was suspected, at which time, the patient was discharged home with conservative therapy. He presented again to the emergency department yesterday with redness to the left groin associated with worsening pain and swelling. I and D of suspected left groin abscess was performed. The patient was transferred to [place], [place], where he was admitted to intensive care unit with a diagnosis of septic shock complicating left lower extremity cellulitis. CT scan of the pelvis was obtained, which was suspicious for necrotizing soft tissue infection of the left groin and scrotum. I was asked to evaluate the patient to exclude necrotizing soft tissue infection. On my evaluation, the patient is awake, but confused, though interactive. He moves all extremities and complains of severe left lower extremity pain. PAST MEDICAL HISTORY: Significant for type 2 diabetes mellitus, coronary artery disease, essential hypertension, hyperlipidemia. SURGICAL HISTORY: Pertinent for five-vessel coronary artery stenting in 1997. Other surgical history includes left shoulder arthroplasty and arthroscopic knee surgery. SOCIAL HISTORY: The patient is . Lives at home with his . He smokes half pack of cigarettes per day and has about [id number] cigarette smoking history. He also dips snuff. The patient admits to occasional intake of ethanol in very moderate amounts. He denies any illicit drug abuse. FAMILY HISTORY: Noncontributory for this patient's age. CURRENT MEDICATIONS: Include, 1. Enoxaparin subcutaneously daily. 2. Famotidine 20 mg p.o. daily. 3. Zosyn 3.375 g IV q.6 hours. 4. Clindamycin 900 mg IV q.8 hours. 5. Amiodarone by continuous infusion. ALLERGIES: MORPHINE. REVIEW OF SYSTEMS: Essentially unremarkable except for as stated in the past medical history and chief complaint. PHYSICAL EXAMINATION: GENERAL: This reveals a 68-year-old normally developed man, who is although confused, but interactive and appears to be in no acute distress at the time of my evaluation. VITAL SIGNS: Today include blood pressure 99/56, pulse 121 and irregular, respiratory rate is 17, temperature is 97.8 degrees Fahrenheit, oxygen saturation 100% on 4 L by nasal cannula oxygen. HEENT: Reveals normocephalic and atraumatic. Pupils are equal, round, and reactive to light and accommodation. Extraocular muscles are intact bilaterally. No scleral icterus is present. HEART: Reveals irregular rate and irregular rhythm. LUNGS: Reveal bibasilar rhonchi. Breathing is otherwise regular and nonlabored. ABDOMEN: Soft and obese with no tenderness to palpation. Liver and spleen are nonpalpable below costal margin. EXTREMITIES: Reveal 2+ bilateral radial and pedal pulses. There are 2 punctate openings in the left groin laterally and medially with surrounding erythema. No active drainage from these openings, which represent recent incision and drainage of suspected groin abscesses. The left thigh is markedly edematous, but nontender. The patient has bullous lesions above the left popliteal fossa as well as diffuse area of the left leg below the knee extending to the left heel. Some of the bullous lesions are now open. No gross purulence noted. The patient has negative Homans sign. The left calf and left thigh, however, appeared tense. Left foot is warm to touch, although both the posterior tibial and dorsalis pedis pulses were not palpable. Capillary refills are less than 2 seconds in all extremities. NEUROLOGIC: Reveals no focal deficits present. LABORATORY DATA: Pertinent laboratory findings today include CBC with 12,200 white blood cells, hemoglobin and hematocrit 12.0 and 35.5 respectively, platelet count is 116,000. Differential count as follows; 40% segmented neutrophils, 48% bands, 3 lymphocytes, 3 monocytes. Metabolic profile; sodium 126, potassium is 4.1, chloride is 99, bicarb is 14, BUN 57, creatinine is 3.53, glucose is 220. I have personally reviewed the CT scan of the abdomen and pelvis, which was obtained on this admission. This is remarkable for cellulitis of the proximal left thigh region with associated inguinal adenopathy. I did not see any evidence of necrotizing soft tissue infection. No subcutaneous emphysema or fluid collection is evident. IMPRESSIONS: 1. Bullous cellulitis of the left groin and leg. 2. History of coronary artery disease. 3. History of diabetes mellitus. 4. Acute on chronic renal insufficiency. RECOMMENDATIONS: Continue with current antibiotic regimen. We will take the patient to the operating room and explore the left groin to exclude necrotizing soft tissue infection. Above findings and plan has been discussed with the patient and his at bedside. They both indicated understanding of the information given. I answered their questions. Job ID: [id number] MTDD
[2018-07-01] MEDS: fentaNYL Citrate/PF 2,000 MCG in Sodium Chloride 0.9% 60 ML IV SCH (16:00)
[2018-07-01] MEDS: Penicillin G Potassium 4 MILL.UNITS in Sodium Chloride 0.9% 100 ML IVPB SCH ×2 (17:15→22:51)
--- NOTE | 2018-07-01 17:38 | OP ---
DATE OF PROCEDURE: 07/01/2018 PREOPERATIVE DIAGNOSIS: Suspected necrotizing soft tissue infection, left groin. POSTOPERATIVE DIAGNOSES: Left groin and left leg bullous cellulitis. OPERATIONS PERFORMED: Incision and drainage of left groin cellulitis. ESTIMATED BLOOD LOSS: Less than 5 mL. COMPLICATIONS: None apparent. INDICATIONS FOR OPERATION: A 68-year-old morbidly obese male with history of type 2 diabetes mellitus, presented with worsening left groin pain associated with swelling and bullous lesions. Clinical radiographic examination was suspicious for necrotizing soft tissue infection of the left groin, for which the patient was brought to the operating room for left groin exploration. Findings consistent with profound edema and inflammation of the left groin. No active gross purulence on necrosis present. DESCRIPTION OF OPERATION: Informed consent was obtained from the patient, who was brought to the operating room and placed in supine position. Following general anesthesia, the left groin and left leg were widely prepped and draped in the usual fashion. Two previous openings of the left groin were noted. I then made an oblique incision to connect it to openings using a 10 scalpel. Incision was carried through subcutaneous tissues, maintain hemostasis using cautery. Healthy fat was encountered. There was profound amount of edema, serous fluid was poured out of the wound. Cultures were taken here. There was no gross purulence or necrosis encountered. Exploration was attempted at this juncture. The wound was packed with a saline saturated gauze. The patient tolerated this procedure without any apparent complication and was returned to the intensive care unit in critical, but stable condition. Job ID: [id number]
[2018-07-01] MEDS: HUMULIN R 100 UNITS in Sodium Chloride 0.9% 100 ML IVPB SCH (18:11)
[2018-07-01] MEDS: Propofol 1,000 MG/100 ML VIAL IV PRN (19:47)
[2018-07-01] MEDS ORDERED: Vasopressin 40 UNIT, Admixture Fee 1 EACH in Sodium Chloride 0.9% 100 ML IV SCH (21:30)
[2018-07-01] MEDS ORDERED: Sodium Chloride 0.9% 500 ML IVPB SCH (21:30)
[2018-07-01] MEDS ORDERED: Vasopressin 40 UNIT, Admixture Fee 1 EACH in Sodium Chloride 0.9% 100 ML IV PRN (21:30)
--- NOTE | 2018-07-01 22:00 | CON ---
DATE OF CONSULTATION: 07/01/2018 REASON FOR CONSULTATION: Sepsis with likely necrotizing fasciitis. HISTORY OF PRESENT ILLNESS: This is a 68-year-old who has a history of type 2 diabetes mellitus and coronary artery disease with prior revascularization and hypertension, who developed an acute inflammatory process left lower extremity associated with Streptococcus pyogenes bacteremia and now is in the intensive care unit septic with multiorgan dysfunction. Surgical evaluation has been done in the groin to see if there were necrotizing features and that was not the case, but he does have other findings described below in the lower extremity that are concerning for necrotizing process. The patient is intubated and sedated at this time. He is on pressors and broad-spectrum antimicrobial coverage. PAST MEDICAL HISTORY: Coronary artery disease, type 2 diabetes, hypertension, hyperlipidemia, peripheral neuropathy. PAST SURGICAL HISTORY: Shoulder repair, knee arthroscopy. MEDICATIONS: 1. Norvasc. 2. Aspirin. 3. Fenofibrate. 4. Insulin. 5. Losartan. 6. Metformin. 7. Metoprolol. 8. He is also on inhalers. 9. He had been on vancomycin, Zosyn, and clindamycin, and has been switched to clindamycin and penicillin G. PHYSICAL EXAMINATION: VITAL SIGNS: T-max 98.6, blood pressure 134/50, pulse 92, respirations 12, blood pressure 150/63, and O2 saturation 96%. SKIN: Exam shows multiple blisters with sort of a hemorrhagic fluid, some of them have ruptured in the left leg. The left thigh is swollen, but not as taut as it had been before. In the groin area, there is an area of surgical dissection which is limited to the subcutaneous tissue. : The patient has an indwelling Pyle catheter. Urinary output ranging from 200 to 410 per 24 hours. The patient has a right IJ central venous catheter in place. HEENT: His sclerae are white. Pupils are miotic. NECK: No jugular venous distention. LUNGS: Symmetric air entry. S1 and S2, regular rate. ABDOMEN: Soft, mildly distended. No bladder distention or organomegaly. The left leg has dopplerable dorsalis pedis pulses in the left side, the right side has 1+ cap refill is delayed. There is blanching of the second toe left foot, multiple blisters with a taut skin, some bluish discoloration of some segments of the anterior left leg. He has movements of the extremities, but does not follow commands. LABORATORY DATA: White cell count 10.9 and 12.2, hemoglobin 13, platelets 93 and 116,000, with 21 and now 48% bands, 2% metamyelocytes. PH of 7.14, pCO2 49, PO2 93. Sodium 126, creatinine 3.53, AST 37, ALT 26, and alkaline phosphatase 66. Bilirubin 0.8, albumin 2.7, globulin 3.0. Microbiology: We have a Strep pyogenes from June 29. Groin cultures have Strep pyogenes from 2 sets of blood cultures. Echocardiogram with LV size mildly increased, EF 40% to 45%, mild valvular regurgitation. Abdomen and pelvis CT with cellulitis, left thigh, inguinal region, reactive lymphadenopathy. Chest x-ray with no infiltrates. ASSESSMENT: 1. Type 2 diabetes. 2. Inflammatory process with aggressive features, left lower extremity. 3. Multiorgan dysfunction. 4. Strep pyogenes bacteremia as well as Strep pyogenes, recovering from groin blister. DISCUSSION: The patient has an aggressive necrotizing infection of the left lower extremity, ascending toward the groin with multiorgan dysfunction. We will switch him to pen G plus clindamycin. Pen G adjustment for renal function. Supportive care. The patient is at high risk for amputation. Consideration could be given to exploration of the soft tissues of the left leg to see if there is already evidence of necrosis that would warrant further debridement. The patient is at high risk for amputation of the left lower extremity at a high level. Job ID: [id number]
--- NOTE | 2018-07-01 22:31 | CON ---
DATE OF CONSULTATION: 07/01/2018 REQUESTING PHYSICIAN: Dr. Yobani Parra. BRIEF HISTORY OF PRESENT ILLNESS: The patient is a 68-year-old gentleman who I have examined in the intensive care unit at the request of Dr. Parra. The patient initially presented to the [facility] with complaints of left groin pain, fatigue, and shortness of breath. He states that he had been feeling ill over the prior 3-5 days. Upon evaluation, he was found to have two small areas that appeared to be small abscess cavities as well as cellulitic change in this thigh extending down towards the knee. Over the last 48 hours, his general health has significantly worsened and he now has lower extremity swelling that is extensive with punctate areas of erythema as well as some blistering at the popliteal fossa of the skin as well as along the boykin. On evaluation, he was found to have a very tense lower leg and concern was appropriately demonstrated regarding the possibility of compartment syndrome, as such Orthopedic consultation requested. PAST MEDICAL HISTORY: Remarkable for coronary artery disease, diabetes, hypertension, hyperlipidemia, and peripheral neuropathy. PAST SURGICAL HISTORY: Includes cardiac stents, left shoulder surgery, and knee surgery. MEDICATIONS: Include amlodipine, aspirin, fenofibrate, NovoLog, losartan, metformin, metoprolol, and multivitamins. ALLERGIES: TO MULTIPLE MORPHINE. FAMILY HISTORY: Noncontributory for this compartment syndrome. SOCIAL HISTORY: He is . Smokes half pack cigarettes daily. Also consumes snuff. Occasional alcohol. Denies recreational drug use. PHYSICAL EXAMINATION: VITAL SIGNS: He is found to have a temperature 98.6, heart rate of 92, respiratory rate of 34, blood pressure of 145/55. GENERAL: The patient is found to be awake, alert, and oriented, resting comfortably in his hospital bed. Breathing is unlabored. EXTREMITIES: Exam today is really limited to this left lower extremity as an urgent exam given concern for compartment. This extremity is remarkable for in the anteromedial groin 1-2 cm areas of what appeared to be superficial abscesses with now some fibrinous exudate over the top of both these areas. Around this area, the skin is felt to be woody and indurated with some erythema. As you head down the thigh, the erythema tends to dissipate, although he still has significant subcutaneous edema extending all the way down to the level of the knee. At this level, the erythema begins to recur and he is found to have this punctate almost bruised type appearance of the lower leg with a number of areas of blistering of the skin. This extends all the way down to the foot. There is no full-thickness loss of skin. These blisters are predominantly serous filled. He is found to have a calf that feels tense, however, I believe this is subcutaneous fluid that is giving this feel. The patient does not have pain with passive stretch of his great toe or lesser toes. He has minimal pain with passive plantar and dorsiflexion of the ankle and I do not find any evidence for compartment syndrome at this time. LABORATORY DATA: He was found to have a white blood cell count of 12.2, hematocrit of 35.5 and 116,000 platelets. ASSESSMENT: A 68-year-old gentleman with clinical evidence for sepsis and significant cellulitic change in the left lower extremity without evidence for obvious lower leg abscess and certainly no evidence for compartment syndrome at this time. PLAN: Today, I did discuss these findings with Dr. Parra. Our plan at this time is for Dr. Parra to proceed to the operating room for incision and drainage of these two small groin subcu abscesses. If there is found to be more extensive tissue deeper, then obviously a more extensive debridement will be necessary, however, I do not see an obvious surgical lesion in the lower leg and again no evidence for compartment syndrome at this time. We will follow the patient while he is in the hospital. Job ID: [id number]
[2018-07-01] MEDS: Norepinephrine 8 MG/0.9% NS 250 ML IVPB SCH (22:49)
[2018-07-02] MEDS: Clindamycin/D5W 900 MG in Premix Bag 1 BAG IVPB SCH ×3 (00:55→16:35)
[2018-07-02] MEDS: Norepinephrine 8 MG/0.9% NS 250 ML IVPB SCH ×5 (02:18→20:45)
[2018-07-02] MEDS: Penicillin G Potassium 4 MILL.UNITS in Sodium Chloride 0.9% 100 ML IVPB SCH ×3 (06:00→21:04)
[2018-07-02] MEDS: Propofol 1,000 MG/100 ML VIAL IV PRN ×4 (06:08→22:29)
[2018-07-02 06:26] LABS: Hemoglobin 11.3 g/dL (14.0-18.0); Mean Corpuscular HGB CONC 33.6 g/dL (32.0-36.0); Mean Corpuscular Hemoglobin 31.4 pg (27.0-31.0); Mean Corpuscular Volume 93.3 fL (78.0-98.0); Mean Platelet Volume 9.2 fL (7.4-10.4); Platelet Count 152 thou/uL (130-400); RBC Distribution Width 12.9 % (11.5-14.5); Red Blood Cell (RBC) Count 3.61 mill/uL (4.70-6.10); White Blood Cell (WBC) Count 23.5 thou/uL (4.8-10.8)
[2018-07-02 06:36] LABS: Digoxin 1.39 ng/mL (0.8-2.0)
[2018-07-02 06:46] LABS: Anion Gap 15 mmol/L (10-20); BUN (Urea Nitrogen) 59 mg/dL (8.4-25.7); Calc. Creatinine Clearance 35 mL/min (70-130); Carbon Dioxide 14 mmol/L (23-31); Chloride 102 mmol/L (98-107); Cholesterol 124 mg/dl (< 200 Desired); Estimated GFR-MDRD 19; Glucose 218 mg/dL (80-115); HDL Cholesterol Less than 8 mg/dL (>60 Neg Risk); Potassium 4.4 mmol/L (3.5-5.1); Sodium 127 mmol/L (136-145); Triglycerides 492 mg/dL (Less than 150)
[2018-07-02 06:56] LABS: Cardiac Risk TEST NOT PERFORMED (Less than 4.5)
[2018-07-02 06:57] LABS: Actual Bicarbonate (HCO3a) 14.7 mEq/L (22-28); Base Excess (BEa) -11.4 mEq/L (-2.0 to +3.0); CO2 Tension 33.9 mmHg (35.0-45.0); Calcium, Ionized 0.96 mmol/L (1.12-1.30); Carboxyhemoglobin (COHb) 0.9 gm% (0.0-3.0); Hemoglobin (Hb) 12.1 g/dL (14.0-18.0); O2 Tension (PaO2) 123.4 mmHg (> 80.0); Potassium - ABG Lab 4.43 mmol/L (3.70-5.30); pH, Arterial 7.26 (7.35-7.45)
[2018-07-02 06:58] LABS: ALV-art Gradient 155.075 (0-20); Puncture Site ALINE
[2018-07-02 07:18] LABS: Band 36 % (5-11); Dohle Bodies SLIGHT; Lymphocytes 3 % (21-51); MDiff Complete? YES; Monocytes 4 % (0-10); Neutrophil 57 % (42-75); Platelet Morphology Comment Appears Adequate; Polychromasia SLIGHT = 2-3 cells (100X) (0-2/hpf); Vacuoles SLIGHT
[2018-07-02] MEDS: Famotidine 20 MG TAB PO SCH (08:14)
[2018-07-02] MEDS: D5 1/2 NS w/20 mEq KCL 1,000 ML IV PRN (08:14)
[2018-07-02] MEDS: Aspirin Chewable 81 MG TAB PO SCH (08:14)
--- NOTE | 2018-07-02 08:24 | PDOC.PN ---
- Subjective Encounter Start Date: 07/02/18 Encounter Start Time: 08:22 Subjective: intubated, arousable - Objective Resuscitation Status - Order Detail: 06/30/18 04:33 Resuscitation Status Routine Resuscitation Status: FULL: Full Resuscitation MAR Reviewed: Yes Vital Signs & Weight: Vital Signs (12 hours) Temp Pulse Resp BP Pulse Ox 07/02/18 08:00 24 H 07/02/18 07:44 96 07/02/18 07:00 99.4 F 07/02/18 06:42 81 125/51 L 07/02/18 06:39 81 20 98 07/02/18 06:00 20 07/02/18 05:00 99.0 F 07/02/18 04:00 20 07/02/18 02:00 20 07/02/18 00:00 99.1 F 20 07/01/18 23:37 81 20 97 07/01/18 22:00 20 Weight Admit Weight 249 lb Weight 249 lb 1.957 oz Most Recent Monitor Data Heart Rate from ECG 83 NIBP 124/58 NIBP BP-Mean 80 Respiration from ECG 16 SpO2 98 I&O: 07/01/18 07/02/18 07/03/18 06:59 06:59 06:59 Intake Total 7591.8 4454.1 Output Total 410 1515 80 Balance 7181.8 2939.1 -80 Result Diagrams: 07/02/18 05:30 07/02/18 05:30 Additional Labs: Accuchecks 07/02/18 07/02/18 07/02/18 06:14 05:36 04:28 POC Glucose 190 H 196 H 196 H 07/02/18 07/02/18 07/02/18 03:36 02:31 01:37 POC Glucose 177 H 171 H 161 H 07/02/18 07/01/18 07/01/18 00:35 23:41 22:43 POC Glucose 144 H 136 H 133 H 07/01/18 07/01/18 07/01/18 21:34 20:30 19:37 POC Glucose 127 H 128 H 132 H 07/01/18 07/01/18 07/01/18 17:22 15:10 13:34 POC Glucose 149 H 172 H 174 H 07/01/18 07/01/18 07/01/18 11:09 09:37 07:54 POC Glucose 157 H 174 H 174 H Radiology Reviewed by me: Yes (cxr-ET tube, plate atelectasis) Phys Exam - Physical Examination Neck: no JVD coarse BS Cardiovascular: RRR, no significant murmur Gastrointestinal: soft, non-tender, positive bowel sounds left leg-tense swelling foot to groin, purpura and areas of eschar on calf Dx/Plan (1) Septic shock Code(s): A41.9 - SEPSIS, UNSPECIFIED ORGANISM; R65.21 - SEVERE SEPSIS WITH SEPTIC SHOCK Status: Acute (2) Acute renal failure Status: Acute Qualifiers: Acute renal failure type: with acute tubular necrosis Qualified Code(s): N17.0 - Acute kidney failure with tubular necrosis (3) Abscess of left thigh Code(s): L02.416 - CUTANEOUS ABSCESS OF LEFT LOWER LIMB Status: Acute (4) CAD (coronary artery disease) Code(s): I25.10 - ATHSCL HEART DISEASE OF [place] CORONARY ARTERY W/O ANG PCTRS Status: Acute Qualifiers: Coronary Disease-Associated Artery/Lesion type: [place] artery [place] vs. transplanted heart: [place] heart Associated angina: without angina Qualified Code(s): I25.10 - Atherosclerotic heart disease of [place] coronary artery without angina pectoris (5) HTN (hypertension) Code(s): I10 - ESSENTIAL (PRIMARY) HYPERTENSION Status: Acute Qualifiers: Hypertension type: essential hypertension Qualified Code(s): I10 - Essential (primary) hypertension (6) DM type 2 (diabetes mellitus, type 2) Status: Acute Qualifiers: Diabetes mellitus alf insulin use: with alf use Diabetes mellitus complication status: with kidney complications - Plan cont iv antibx -: cont accu/ iv insulin -: 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
[2018-07-02] MEDS: Enoxaparin Sodium 120 MG/0.8 ML SYRINGE SC SCH (08:30)
--- NOTE | 2018-07-02 08:37 | RAD ---
PORTABLE SEMIUPRIGHT FRONTAL CHEST: Date: 07/02/18 COMPARISON: 06/30/18. HISTORY: Ventilated patient. FINDINGS: Shallow inspiration, body habitus, and portable technique limit detailed assessment. Right-sided vasc ular catheter terminates over the region of the SVC. Endotracheal tube and nasogastric tube in proper position. Increased density in the medial left base suggests infiltrate or volume loss. Pulmonary va scular congestion noted with mild nonspecific increased density in the right paratracheal region. IMPRESSION: Lines and tubes as above. Nonspecific increased density in right perihilar region and medial left la g base. POS: [facility]
[2018-07-02] MEDS: Lorazepam 2 MG/ML VIAL SLOW IVP PRN ×2 (08:44→20:49)
[2018-07-02] MEDS: Sodium Chloride 0.9% 1,000 ML IV SCH ×2 (08:57→17:11)
[2018-07-02] MEDS: Pantoprazole 40 MG VIAL IVP SCH ×2 (08:58→19:49)
--- NOTE | 2018-07-02 09:23 | PRG ---
DATE OF SERVICE: Fritz Lewis remains intubated in the vent, sedated on Diprivan and fentanyl. OBJECTIVE: VITAL SIGNS: Pulse 85, blood pressure 116/60, respiratory set at 20. He opens his eyes. His urine output is 4454 in, 1515 out. His maximum temperature has been 99. CHEST: Decreased breath sounds, no wheezing. CARDIAC: Normal S1 and S2. No gallops. ABDOMEN: No masses. His left leg still remains markedly swollen with extensive blistering. His white count is 23,000. His platelet count is normal. H and H are unremarkable. He has 57 segs, 36 bands. PO2 is 123, pCO2 of rate of 20, 45%. Creatinine is 3.27. Sodium 127. ASSESSMENT: 1. Sepsis syndrome, cellulitis, left leg. 2. Diabetes. 3. Renal failure. 4. Decreased ejection fraction, supraventricular tachycardia. PLAN: He is not weanable. Continue clindamycin, Zosyn, neb treatments, supportive care. I am going to initiate low-dose steroids because of his relative adrenal insufficiency. One half hour critical time. Job ID: [id number]
--- NOTE | 2018-07-02 09:34 | PRG ---
DATE OF SERVICE: 07/02/2018 RENAL MEDICINE SUBJECTIVE: Mr. Lewis is a 68-year-old white male, who was seen by the Renal Service for his acute kidney injury secondary to a presumed hemodynamically mediated renal dysfunction. The patient was admitted due to severely elevated blood sugar and for a sepsis syndrome. He was also diagnosed to have necrotizing fasciitis. Renal function has slowly been sterilizing with IV volume repletion. Most recent creatinine is now noted at 3.27 and yesterday, this was noted to be 3.53. No acute events noted last night. The patient is noted to be diuresing. OBJECTIVE: VITAL SIGNS: Blood pressure is 106/44, heart rate 84, respiratory rate is 20, pulse ox is 97%. GENERAL: The patient is sedated and intubated on ventilator support. SKIN: Adequate turgor. HEENT: He has pinkish conjunctivae. Anicteric sclerae. No neck mass. No carotid bruits. No JVD. CHEST: No deformities. LUNGS: Decreased breath sounds. HEART: Normal sinus rhythm. No murmur. No gallops. No rubs. ABDOMEN: Globular, soft, nontender. No masses. EXTREMITIES: Trace edema. MEDICATIONS: Medications of July 02, 2018 was reviewed. LABORATORY DATA: Laboratories of July 02, 2018; sodium 127, potassium 4.4, chloride 102, carbon dioxide 14, BUN 59, creatinine 3.27, glucose 218, calcium 7.0. Triglycerides 492, cholesterol 124. Urinalysis of July 01, 2018, protein is 30. No pigmented granular casts. July 01, 2018, renal ultrasound shows no evidence for obstructive uropathy. ASSESSMENT AND PLAN: 1. Acute kidney injury, consider hemodynamically mediated renal dysfunction. Continue to optimize hemodynamics. Continue IV fluids-currently on normal saline. Please note, the patient is diuresing at least 50 mL an hour. Continue supportive care. There is no indication for any acute dialytic intervention. 2. Chronic renal failure-the patient most likely has underlying diabetic nephropathy. 3. Necrotizing fasciitis, currently on IV antibiotics. ID and surgery are following. Job ID: [id number]
[2018-07-02] MEDS ORDERED: Dextrose 5% in Water 1,000 ML IV PRN (11:31)
[2018-07-02] MEDS ORDERED: Dextrose 50% Abboject 50 ML SYRINGE IVP PRN (11:31)
[2018-07-02] MEDS: Hydrocortisone Sod Succ/PF 100 mg/2 ml Vial IVP SCH ×3 (11:46→23:07)
[2018-07-02] MEDS: Insulin Regular 300 UNITS/3 ML VIAL SC PRN ×4 (11:54→23:05)
[2018-07-02] MEDS: Metoclopramide HCl 10 MG/2 ML VIAL IVP SCH ×2 (13:22→21:04)
--- NOTE | 2018-07-02 15:47 | PRG ---
DATE OF SERVICE: 07/02/2018 SUBJECTIVE: The patient is in the ICU, intubated. OBJECTIVE: VITAL SIGNS: T-max 99.4, blood pressure 150/68, pulse 84, respirations 21, O2 saturation 95%. His urine output has picked up quite a bit over the past 24 hours. HEENT: His ocular movements are conjugate. Pupils are miotic. LUNGS: With coarse breath sounds with no crackles or wheezing. HEART: S1, S2. Regular rate. ABDOMEN: Soft, mildly distended. EXTREMITIES: Left leg, the skin of the leg is more supple, still there are those blisters, hemorrhagic. The ones that are ruptured have a sort of necrotic base. LABORATORY DATA: Microbiology with group A Streptococcus, Streptococcus pyogenes from 2 sets of blood cultures. IMAGING STUDIES: Chest x-ray with lines and tubes as above, nonspecific, increased density in right perihilar region. ASSESSMENT AND DISCUSSION: Type 2 diabetes inflammatory process with aggressive features in left lower extremity, multiorgan dysfunction with Streptococcus pyogenes bacteremia. The patient continues on supportive therapy, clindamycin, and penicillin G, adjusted for renal function. 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 The concern with necrotizing infection persists, and we will continue monitoring. Job ID: [id number]
[2018-07-02] MEDS: Amiodarone 450 MG in Dextrose 5% in Water 250 ML IVPB SCH (19:50)
[2018-07-03] MEDS: Clindamycin/D5W 900 MG in Premix Bag 1 BAG IVPB SCH ×3 (00:08→17:20)
[2018-07-03] MEDS: Norepinephrine 8 MG/0.9% NS 250 ML IVPB SCH ×3 (02:35→14:43)
[2018-07-03] MEDS: Insulin Regular 300 UNITS/3 ML VIAL SC PRN ×5 (03:11→20:33)
[2018-07-03] MEDS: fentaNYL Citrate/PF 2,000 MCG in Sodium Chloride 0.9% 60 ML IV SCH ×2 (03:17→22:15)
[2018-07-03] MEDS: Propofol 1,000 MG/100 ML VIAL IV PRN ×3 (05:03→20:11)
[2018-07-03] MEDS: Metoclopramide HCl 10 MG/2 ML VIAL IVP SCH ×3 (05:03→21:49)
[2018-07-03] MEDS: Sodium Chloride 0.9% 1,000 ML IV SCH ×2 (05:03→16:38)
[2018-07-03] MEDS: Penicillin G Potassium 4 MILL.UNITS in Sodium Chloride 0.9% 100 ML IVPB SCH ×3 (05:04→21:49)
[2018-07-03] MEDS: Hydrocortisone Sod Succ/PF 100 mg/2 ml Vial IVP SCH ×3 (05:04→17:20)
[2018-07-03 06:40] LABS: Band 24 % (5-11); Dohle Bodies SLIGHT; Hemoglobin 11.2 g/dL (14.0-18.0); Lymphocytes 4 % (21-51); MDiff Complete? YES; Mean Corpuscular HGB CONC 32.4 g/dL (32.0-36.0); Mean Corpuscular Hemoglobin 30.8 pg (27.0-31.0); Mean Corpuscular Volume 95.1 fL (78.0-98.0); Mean Platelet Volume 8.5 fL (7.4-10.4); Metamyelocyte 1 % (0-0); Monocytes 2 % (0-10); Myelocyte 4 % (0-0); Neutrophil 65 % (42-75); Platelet Count 160 thou/uL (130-400); RBC Distribution Width 13.4 % (11.5-14.5); Red Blood Cell (RBC) Count 3.63 mill/uL (4.70-6.10); White Blood Cell (WBC) Count 30.2 thou/uL (4.8-10.8)
[2018-07-03 06:44] LABS: Anion Gap 20 mmol/L (10-20); BUN (Urea Nitrogen) 66 mg/dL (8.4-25.7); Calc. Creatinine Clearance 33 mL/min (70-130); Calcium 7.4 mg/dL (7.8-10.44); Carbon Dioxide 10 mmol/L (23-31); Chloride 105 mmol/L (98-107); Estimated GFR-MDRD 17; Glucose 300 mg/dL (80-115); Potassium 5.4 mmol/L (3.5-5.1); Sodium 130 mmol/L (136-145)
[2018-07-03 07:43] LABS: Actual Bicarbonate (HCO3a) 11.2 mEq/L (22-28); Base Excess (BEa) -16.7 mEq/L (-2.0 to +3.0); CO2 Tension 33.9 mmHg (35.0-45.0); Calcium, Ionized 1.02 mmol/L (1.12-1.30); Carboxyhemoglobin (COHb) 0.3 gm% (0.0-3.0); Hemoglobin (Hb) 11.9 g/dL (14.0-18.0); O2 Tension (PaO2) 107.2 mmHg (> 80.0); Potassium - ABG Lab 5.28 mmol/L (3.70-5.30)
[2018-07-03 07:45] LABS: Puncture Site ALINE; pH, Arterial 7.14 (7.35-7.45)
[2018-07-03 07:46] LABS: ALV-art Gradient 135.625 (0-20)
--- NOTE | 2018-07-03 07:47 | PDOC.PN ---
- Subjective Encounter Start Date: 07/03/18 Encounter Start Time: 07:43 Subjective: intubated, confused, restless - Objective Resuscitation Status - Order Detail: 06/30/18 04:33 Resuscitation Status Routine Resuscitation Status: FULL: Full Resuscitation MAR Reviewed: Yes Vital Signs & Weight: Vital Signs (12 hours) Temp Pulse Resp BP Pulse Ox 07/03/18 07:20 79 147/55 H 07/03/18 07:00 98.2 F 07/03/18 06:00 20 07/03/18 04:00 20 07/03/18 03:00 98.2 F 07/03/18 02:00 20 07/03/18 00:00 20 07/02/18 23:22 84 19 98 07/02/18 23:00 99.1 F 07/02/18 22:00 20 07/02/18 20:00 20 Weight Admit Weight 249 lb Weight 249 lb 1.957 oz Most Recent Monitor Data Heart Rate from ECG 76 NIBP 150/54 NIBP BP-Mean 86 Respiration from ECG 23 SpO2 96 I&O: 07/02/18 07/03/18 07/04/18 06:59 06:59 06:59 Intake Total 4454.1 4575.4 Output Total 1515 2545 160 Balance 2939.1 2030.4 -160 Result Diagrams: 07/03/18 06:14 07/03/18 06:14 Additional Labs: Accuchecks 07/03/18 07/02/18 07/02/18 03:11 23:06 19:15 POC Glucose 240 H 220 H 211 H 07/02/18 07/02/18 07/02/18 16:08 11:53 10:12 POC Glucose 208 H 191 H 214 H 07/02/18 07/02/18 07/02/18 09:31 08:28 07:37 POC Glucose 196 H 194 H 194 H Radiology Reviewed by me: Yes (ET tube, scattered infiltrates) Phys Exam - Physical Examination Neck: no JVD scatterd rhonchi Cardiovascular: RRR, no significant murmur Gastrointestinal: soft, positive bowel sounds distended tense swelling left leg with purpura, bullae Dx/Plan (1) Septic shock Code(s): A41.9 - SEPSIS, UNSPECIFIED ORGANISM; R65.21 - SEVERE SEPSIS WITH SEPTIC SHOCK Status: Acute (2) Acute renal failure Status: Acute Qualifiers: Acute renal failure type: with acute tubular necrosis Qualified Code(s): N17.0 - Acute kidney failure with tubular necrosis (3) Abscess of left thigh Code(s): L02.416 - CUTANEOUS ABSCESS OF LEFT LOWER LIMB Status: Acute (4) CAD (coronary artery disease) Code(s): I25.10 - ATHSCL HEART DISEASE OF [place] CORONARY ARTERY W/O ANG PCTRS Status: Acute Qualifiers: Coronary Disease-Associated Artery/Lesion type: [place] artery [place] vs. transplanted heart: [place] heart Associated angina: without angina Qualified Code(s): I25.10 - Atherosclerotic heart disease of [place] coronary artery without angina pectoris (5) HTN (hypertension) Code(s): I10 - ESSENTIAL (PRIMARY) HYPERTENSION Status: Acute Qualifiers: Hypertension type: essential hypertension Qualified Code(s): I10 - Essential (primary) hypertension (6) DM type 2 (diabetes mellitus, type 2) Status: Acute Qualifiers: Diabetes mellitus side splitter insulin use: with skilled nursing use Diabetes mellitus complication status: with kidney complications - Plan on iv pressors -: vent dependent -: on iv antibx -: still at risk for limb loss -: on iv amiodarone for Atrial fib * .
[2018-07-03] MEDS: Enoxaparin Sodium 120 MG/0.8 ML SYRINGE SC SCH (08:24)
[2018-07-03] MEDS: Pantoprazole 40 MG VIAL IVP SCH ×2 (08:25→21:49)
--- NOTE | 2018-07-03 08:29 | RAD ---
CHEST 1 VIEW: INDICATION: History of intubation. COMPARISON: Prior exam dated 07/02/2018. FINDINGS: Left lung base opacity persists. Pulmonary vascular congestion and perihilar edema is similar-appear ing. ET tube, gastric catheter, and right IJ central venous catheter is unchanged. Tiny bilateral p leural effusions remain. No pneumothorax is evident. IMPRESSION: Stable exam. No pneumothorax. POS: [facility]
[2018-07-03] MEDS ORDERED: Sodium Bicarb 50 MEQ/50 ML Abboject 8.4% SYRINGE IVP SCH (08:30)
[2018-07-03] MEDS: Lorazepam 2 MG/ML VIAL SLOW IVP PRN (08:36)
[2018-07-03] MEDS: Sodium Bicarbonate 100 MEQ in Sodium Chloride 0.45% 1,000 ML IV SCH ×2 (08:56→22:14)
[2018-07-03] MEDS ORDERED: Sodium Bicarb 50 MEQ/50 ML VIAL IVP SCH (09:00)
[2018-07-03] MEDS ORDERED: Albumin 25% 25 GM/100 ML BOT IVPB SCH (09:04)
--- NOTE | 2018-07-03 09:23 | PRG ---
DATE OF SERVICE: SUBJECTIVE: A 68-year-old gentleman, morbidly obese, remains intubated on the vent. OBJECTIVE: VITAL SIGNS: His blood pressure is 147/57, temperature 98, respirations of 20, sats are 95%. GENERAL: He opens his eyes, does move all four extremities. His left leg is still markedly swollen. CHEST: Decreased breath sounds and wheezing. CARDIAC: Sinus tach. ABDOMEN: Distended and soft. DIAGNOSTIC DATA: White count is 30,000, H and H 11 and 34, platelet count is normal. PO2 is 107, pCO2 of 33%, pH 7.14, at the rate of 20, 40%. His bicarb is 10. Potassium is 5.4, sodium 130, BUN and creatinine 66 and 3.5. IMPRESSION: 1. Sepsis syndrome. 2. Cellulitis. 3. Diabetes. 4. Renal failure. 5. Severe metabolic acidosis. 6. Encephalopathy. PLAN: He is not weanable. Continue nutrition. Start long-acting insulin. PT supportive care. This is one-half hour of critical time. Job ID: [id number]
[2018-07-03] MEDS: Insulin Glargine 15 UNITS in Pre-Filled Syringe 1 EACH SC SCH ×2 (09:49→21:48)
--- NOTE | 2018-07-03 10:05 | PRG ---
DATE OF SERVICE: 07/03/2018 RENAL MEDICINE SUBJECTIVE: Mr. Lewis is a 68-year-old white male, who came in for septic shock and seen by the Renal Service for his acute kidney injury. We feel that this could be a hemodynamically-mediated renal dysfunction. He is currently on fluid support. I have restarted back his IV infusion. He continues to diurese well. He has a presumptive diagnosis of left necrotizing fascitis of the left leg causing sepsis. Creatinine is slightly higher today from yesterday. His last urine output the last 24 hours was noted 2.4 L. He is averaging about 100 to 150 mL of urine per hour. No acute events noted. OBJECTIVE: VITAL SIGNS: Blood pressure 113/50, heart rate 108, respiratory rate 71, O2 saturation 94%. GENERAL: The patient is sedated, intubated, on ventilator support. SKIN: Adequate turgor. HEENT: He has pinkish conjunctivae. Anicteric sclerae. No neck mass. No carotid bruits. No JVD. CHEST: No deformities. LUNGS: Clear breath sounds. No wheezing. No crackles. HEART: Normal sinus rhythm. No murmurs, gallops, or rubs. ABDOMEN: Globular, soft, nontender. No masses. EXTREMITIES: Positive for edema. Left leg erythema. MEDICATIONS: Medications of July 03, 2018, was reviewed. LABORATORY DATA: Laboratories of July 03, 2018, white count 30.2, hemoglobin 11.2. On July 03, 2018, sodium 130, potassium 5.4, chloride 105, carbon dioxide 10, BUN 66, creatinine 3.52, glucose 300, calcium 7.4. ASSESSMENT AND PLAN: 1. Acute kidney injury, secondary to presumed hemodynamically-mediated renal dysfunction. Creatinine has worsen from yesterday's value of 3.27, to a most recent value of 3.52. He is noted also to have severe with significant metabolic acidosis, which would be also secondary to multifactorial etiology, which includes lactic acidosis as well as renal failure. We are trying to hold off dialysis. If the renal function will further worsen in a.m., we will probably consider initiating dialysis with this patient. For the moment, he is adequately making urine output. In addition, he has only a mild hyperkalemia. The metabolic acidosis is being addressed with p.r.n. sodium bicarbonate. I have started him back on salt poor albumin 25 g IV q.6. 2. Sepsis/necrotizing fascitis, on IV antibiotics. ID is following. 3. So far, blood culture shows no growth to date. 4. Overall, agree with current management. Job ID: [id number]
--- NOTE | 2018-07-03 12:35 | PRG ---
DATE OF SERVICE: 07/03/2018 SUBJECTIVE: Mr. Lewis is a 68-year-old man with history of strep infection with septicemia and bullous left lower extremity cellulitis. The patient remains on mechanical ventilator support. Blood pressure is improving with non-escalating dose of norepinephrine. Urinary output is adequate. OBJECTIVE: VITAL SIGNS: Today include blood pressure 120/52, pulse 94, respiratory rate is 20, temperature is 98.2 degrees Fahrenheit, and oxygen saturation is 96% on FiO2 of 40%. HEART: Reveals regular rate and rhythm. LUNGS: Clear to auscultation bilaterally. Breathing regular and nonlabored. ABDOMEN: Soft, nontender, and nondistended. EXTREMITIES: Revealed 2+ radial and pedal pulses bilaterally. Left thigh and calf much softer today. The bullous lesions to the left lower extremity resolving. Capillary refill remains less than 2 seconds in all extremities. NEUROLOGIC: Reveals no focal deficits present. LABORATORY DATA: Laboratory findings include CBC with 30,200 white blood cells, hemoglobin and hematocrit are 11.2 and 34.5 respectively. Platelet count is 162,000. Differential count is as follows; 65% segmented neutrophils, 24% bands, 4 lymphocytes, and 2 monocytes. Metabolic profile; sodium 130, potassium is 5.4, chloride is 105, bicarb is 10, BUN 66, creatinine is 3.52, glucose is 300. IMPRESSION: 1. Left lower extremity bullous cellulitis, resolving. 2. Streptococcus pyogenes septicemia, resolving. 3. Septic shock, resolving. PLAN: 1. There remains no acute surgical indication for this patient at this time. 2. Recommend weaning off vasopressor support as tolerated. Job ID: [id number]
[2018-07-03] MEDS: Amiodarone 450 MG in Dextrose 5% in Water 250 ML IVPB SCH (13:11)
[2018-07-03] MEDS: Albumin 25% 25 GM/100 ML BOT IVPB SCH ×2 (16:12→21:50)
--- NOTE | 2018-07-03 16:12 | PRG ---
DATE OF SERVICE: 07/03/2018 SUBJECTIVE: Mr. Lewis is in the ICU. He is intubated and sedated. OBJECTIVE: VITAL SIGNS: Show normal temperature. Other vital signs, he is still on a little bit of vasopressors, being titrated down. His BP 119/51 and heart rate 92, and O2 saturations are 95%. EXTREMITIES: The left leg is better. The temperature is warmer and appears more supple. Still with those areas of hemorrhagic blisters, but overall clear-cut improvement in the appearance of the leg. He is moving around. LUNGS: Somewhat coarse breath sounds. HEART: S1, S2. Regular rate. ABDOMEN: Mildly distended. LABORATORY DATA: White cell count is up to 30,000, hemoglobin 11, platelets 160, which is improved. The bands are down to 24%. Chemistry shows creatinine, which is 3.52. Urine output is good. Chest x-ray with no pneumothorax. Left lung base opacity. ASSESSMENT: Type 2 diabetes with aggressive Strep pyogenes infection with bacteremia and now with evidence of improvement in the left lower extremity with the risk of amputation somewhat receding now. Job ID: [id number]
[2018-07-04] MEDS: Propofol 1,000 MG/100 ML VIAL IV PRN ×6 (00:32→23:48)
[2018-07-04] MEDS: Clindamycin/D5W 900 MG in Premix Bag 1 BAG IVPB SCH ×3 (00:33→16:58)
[2018-07-04] MEDS: Hydrocortisone Sod Succ/PF 100 mg/2 ml Vial IVP SCH ×5 (00:33→23:48)
[2018-07-04] MEDS: Insulin Regular 300 UNITS/3 ML VIAL SC PRN ×4 (00:37→20:32)
[2018-07-04] MEDS: Sodium Chloride 0.9% 1,000 ML IV SCH (01:18)
[2018-07-04] MEDS: Amiodarone 450 MG in Dextrose 5% in Water 250 ML IVPB SCH ×2 (04:43→20:03)
[2018-07-04] MEDS: Albumin 25% 25 GM/100 ML BOT IVPB SCH ×3 (04:43→15:39)
[2018-07-04 05:53] LABS: Band 26 % (5-11); Hemoglobin 9.7 g/dL (14.0-18.0); Lymphocytes 3 % (21-51); MDiff Complete? YES; Mean Corpuscular HGB CONC 33.9 g/dL (32.0-36.0); Mean Corpuscular Hemoglobin 31.3 pg (27.0-31.0); Mean Corpuscular Volume 92.2 fL (78.0-98.0); Mean Platelet Volume 8.5 fL (7.4-10.4); Metamyelocyte 2 % (0-0); Monocytes 2 % (0-10); Myelocyte 1 % (0-0); Neutrophil 66 % (42-75); Platelet Count 133 thou/uL (130-400); Platelet Morphology Comment Appears Adequate; RBC Distribution Width 13.2 % (11.5-14.5)
[2018-07-04 05:59] LABS: Anion Gap 16 mmol/L (10-20); BUN (Urea Nitrogen) 78 mg/dL (8.4-25.7); Calc. Creatinine Clearance 35 mL/min (70-130); Calcium 7.5 mg/dL (7.8-10.44); Carbon Dioxide 17 mmol/L (23-31); Chloride 107 mmol/L (98-107); Estimated GFR-MDRD 19; Glucose 195 mg/dL (80-115); Potassium 4.4 mmol/L (3.5-5.1); Sodium 136 mmol/L (136-145)
[2018-07-04] MEDS: Penicillin G Potassium 4 MILL.UNITS in Sodium Chloride 0.9% 100 ML IVPB SCH ×3 (06:07→21:56)
[2018-07-04] MEDS: Metoclopramide HCl 10 MG/2 ML VIAL IVP SCH ×4 (06:08→23:48)
[2018-07-04 07:02] LABS: Actual Bicarbonate (HCO3a) 17.9 mEq/L (22-28); Base Excess (BEa) -8.5 mEq/L (-2.0 to +3.0); CO2 Tension 40.4 mmHg (35.0-45.0); Carboxyhemoglobin (COHb) 0.3 gm% (0.0-3.0); O2 Tension (PaO2) 100.6 mmHg (> 80.0); Potassium - ABG Lab 4.29 mmol/L (3.70-5.30); pH, Arterial 7.27 (7.35-7.45)
[2018-07-04 07:12] LABS: Puncture Site ALINE
[2018-07-04] MEDS: Pantoprazole 40 MG VIAL IVP SCH ×2 (08:26→20:30)
--- NOTE | 2018-07-04 08:59 | RAD ---
SINGLE VIEW OF THE CHEST: Comparison: 07-03-18 History: Ventilated patient with respiratory failure. FINDINGS: Single view of the chest shows an enlarged but stable cardiomediastinal silhouette. The lines and tub es are unchanged in position. There are diffuse mixed alveolar/interstitial opacities, unchanged. IMPRESSION: Stable exam. POS: [facility]
[2018-07-04] MEDS ORDERED: Laxative Of Choice PO PRN (09:00)
[2018-07-04] MEDS ORDERED: Furosemide 40 MG/4 ML VIAL SLOW IVP SCH (09:00)
[2018-07-04] MEDS: Enoxaparin Sodium 120 MG/0.8 ML SYRINGE SC SCH (09:17)
[2018-07-04] MEDS: Insulin Glargine 20 UNITS in Pre-Filled Syringe 1 EACH SC SCH ×2 (09:30→20:30)
--- NOTE | 2018-07-04 09:38 | PRG ---
DATE OF SERVICE: 07/04/2018 SUBJECTIVE: This morning, he remains intubated in the vent, sedated, and remains still quite agitated. OBJECTIVE: VITAL SIGNS: His blood pressure is 110/44, pulse 87, saturations 90%, and respirations 18. CHEST: Extensive rhonchi and crackles. CARDIAC: Sinus tach. ABDOMEN: Distended and soft. Decreased bowel sounds. LABORATORY DATA: Still got left shift, 66 segs, 26 bands, white count 20,000, platelet count is normal. PO2 is 100, pCO2 is at a rate of 60. Creatinine 3.3, BUN is 78, glucose 185. IMPRESSION: 1. Multiorgan failure and sepsis. 2. Renal failure. 3. with congestive heart failure. 4. Extensive cellulitis. PLAN: He is not weanable at this stage. Trial of Lasix, dulcolax, supportive care. Continue antibiotics. Prognosis is guarded. Discussed with family at the bedside. We will continue stress dose of steroids. One half hour critical time. Job ID: [id number]
--- NOTE | 2018-07-04 10:30 | PRG ---
DATE OF SERVICE: 07/04/2018 SUBJECTIVE: Mr. Lewis is a 68-year-old man with group A strep septicemia. He also has the left lower extremity bullous cellulitis, which is stable. OBJECTIVE: VITAL SIGNS: Today include blood pressure 124/44, pulse 79, respiratory rate 20, temperature is 98.7 degrees Fahrenheit, and oxygen saturation is 97%. EXTREMITIES: Left lower extremity swelling is markedly improved. There is no progressive bullous formation. The patient has 2+ radial and pedal pulses bilaterally. The left groin wound is stable and no erythema or purulence present. IMPRESSION: Stable left lower extremity bullous cellulitis secondary to group A strep infection. PLAN: 1. Continue current antibiotic regimen. 2. There is no acute surgical indication for this patient at this time. Job ID: [id number]
--- NOTE | 2018-07-04 11:24 | PRG ---
DATE OF SERVICE: 07/04/2018 RENAL MEDICINE SUBJECTIVE: Mr. Lewis is a 68-year-old white male, who was seen for his acute kidney injury secondary to a presumed prerenal azotemia. Volume depletion has been given with this patient in addition, he has been placed on pressor support. He was admitted for sepsis secondary to a possible necrotizing fasciitis. Doing stable for the last 24 hours. Renal function is holding steady. OBJECTIVE: VITAL SIGNS: Blood pressure is 101/42, heart rate 79, respiratory rate is 12, and pulse ox 93%. GENERAL: The patient is sedated, intubated on ventilator support. SKIN: Adequate turgor. HEENT: Slightly pale conjunctivae. Anicteric sclerae. No neck mass. No carotid bruits. No JVD. CHEST: No deformities. LUNGS: Decreased breath sounds. HEART: Normal sinus rhythm. No murmurs, no gallops, no rubs. ABDOMEN: Globular, soft, nontender. No masses. EXTREMITIES: Positive for edema. Positive for erythema and bullous lesions of the left leg. MEDICATIONS: Medications of July 04, 2018 was reviewed. LABORATORY DATA: Laboratories of July 04, 2018; sodium 136, potassium 4.4, chloride 107, carbon dioxide 17, BUN 78, creatinine 3.31, glucose 195, calcium 7.5. White count 20, hemoglobin 9.7. ASSESSMENT AND PLAN: 1. Acute kidney injury-initially felt to be a hemodynamically-mediated renal dysfunction. However, in spite of colloids and crystalloids, renal function has not dramatically improved. A superimposed acute tubular necrosis is a possibility with this patient. So far, the patient is diuresing. His potassium is within normal and he is not in volume overload. We will continue to hold off any dialytic intervention. 2. Sepsis syndrome/necrotizing fasciitis, on IV antibiotics. ID is following. 3. Agree with current management. Job ID: [id number] [facility]
--- NOTE | 2018-07-04 11:30 | PRG ---
DATE OF SERVICE: 07/04/2018 SUBJECTIVE: The patient is seen and examined at the bedside. He is feeling significantly better. This morning, his blood spitting is significantly improved. His shortness of breath is significantly improved. OBJECTIVE: VITAL SIGNS: Blood pressure is 101/42, pulse is 79, respiratory rate is 20 times per minute. O2 saturation is 96% on room air. HEENT: His head is atraumatic, normocephalic. Eyes are PERRLA. Sclerae are nonicteric. Oral mucosa is moist. NECK: Supple. LUNGS: Breath sounds diminished at both bases with few crackles bilaterally. HEART: S1, S2 normal. No S3. No S4. ABDOMEN: Soft, obese, nontender, nondistended. EXTREMITIES: CANCELED DICTATION Job ID: [id number]
--- NOTE | 2018-07-04 11:34 | PQF ---
DATE: 07-07-18 ATTN: DR. MAGDALENA GRAYSON / DR. AVI TRONCOSO Please exercise your independent, professional judgment in responding to the clarification form. Clinical indicators are provided on the bottom of this form for your review Please check appropriate box(s): [ ] Acute Respiratory Failure: [ ] with Hypoxia[ ] with Hypercapnia [ ] Acute Respiratory Failure due to: (etiology) [ ] Other diagnosis [ ] Unable to determine In addition, please specify: Present on Admission (POA): [ ] Yes [ ] No [ ] Unable to determine For continuity of documentation, please document condition throughout progress notes and discharge summary. Thank You. CLINICAL INDICATORS - SIGNS / SYMPTOMS / LABS H&P: INCREASING SHORTNESS OF BREATH, WORSENING IN THE LAST 48 HRS, O2 SAT 98 % ON 2LNC, DIMINISHED BREATH SOUNDS IN THE BASES BILATERALLY CONSULT DR. CHÁVEZ 06-30-18: COPD CONSULT DR. CHÁVEZ 07-04-18: REMAINS INTUBATED IN THE VENT CXR 05-04-19: HISTORY: VENTILATED PATIENT WITH RESP FAILURE CONSULT NOTE DR. CHÁVEZ 07-04-18: MULTIORGAN FAILURE AND SEPSIS, HE IS NOT WEANABLE AT THIS STAGE RISK FACTOR: H&P: HX OF SMOKING CONSULT DR. CHÁVEZ 06-30-18: COPD PROCEDURE 07-01-18: I&D LEFT GROIN, INSERTION OF HEMODIALYSIS CATH L GROIN VENT STATUS: SIMV 07-01-18 TO PRESENT TREATMENTS: VENT STATUS: SIMV 07-01-18 TO PRESENT MAR: DUONEBS 06-30-18, LASIX IVP 07-04-18 SERIAL CXR'S PULMONARY CONSULT 06-30-18 (This form is maintained as a part of the permanent medical record) 2014 [employer]. All Rights Reserved MORRIS [email or web address] Office: [phone] [facility]
[2018-07-04] MEDS: Milk Of Magnesia 30 ML UDCUP PO PRN (11:42)
[2018-07-04] MEDS: Bisacodyl 10 MG SUPP PR PRN (11:47)
--- NOTE | 2018-07-04 11:52 | PQF ---
DATE: 07-07-18 ATTN: JP GRAYSON / DR. AVI TRONCOSO / DR. CHERYL DE LA CRUZ Please exercise your independent, professional judgment in responding to the clarification form. Clinical indicators are provided on the bottom of this form for your review Please check appropriate box(s): [ x ] Encephalopathy: Type: [ x ] Acute [ ] Subacute [ ] Chronic Etiology: [ x ] Metabolic [ ] Toxic [ ] Hypoxic [ ] Septic [ ] Other (please specify) [ ] Transient Alteration of Awareness [ ] Other diagnosis [ ] Unable to determine In addition, please specify: Present on Admission (POA): [ x ] Yes [ ] No [ ] Unable to determine For continuity of documentation, please document condition throughout progress notes and discharge summary. Thank You. CLINICAL INDICATORS - SIGNS / SYMPTOMS / LABS CONSULT NOTE DR. CHÁVEZ 07-01-18: REMAINS IN ICU, CONFUSED AND AGITATED, ENCEPHALOPATHY PN DR. GRAYSON 07-01-18: CONFUSED CONSULT NOTE DR. CHÁVEZ 07-03-18: SEPSIS SYNDROME, SEVERE METABOLIC ACIDOSIS, ENCEPHALOPATHY RISK FACTORS: CONSULT NOTE DR. CHÁVEZ 07-03-18: SEPSIS SYNDROME, SEVERE METABOLIC ACIDOSIS, ENCEPHALOPATHY H&P: SEPTIC SHOCK, DKA, L GROIN ABSCESS, DM 2, EDGAR, TREATMENTS: VENT STATUS 07-01-18 TO PRESENT SIMV MAR: SODIUM BICARBONATE IVF, NS IVF, PENICILLIN G IV, CLEOCIN IV, LANTUS SC (This form is maintained as a part of the permanent medical record) 2014 [employer] All Rights Reserved MORRIS [email or web address] Office: [phone] [place]
--- NOTE | 2018-07-04 12:04 | PRG ---
DATE OF SERVICE: 07/04/2018 SUBJECTIVE: The patient is seen and examined at the bedside. The daughter is present at the bedside. OBJECTIVE: GENERAL: He is sedated and intubated orally. HEENT: His pupils respond to light. Sclerae are nonicteric. Conjunctivae are pinkish. LUNGS: Breath sounds diminished at both bases. HEART: S1 and S2, somewhat irregular. No S3. No S4. ABDOMEN: Soft. Distended mildly. Bowel sounds are sluggish. EXTREMITIES: Peripheral edema present, 1 to 2+ on extremities. The left groin is dressed. The left lower extremity with open bullae. NEUROLOGICAL: Postponed since he is sedated. LABORATORY DATA: White count of 20,000, hemoglobin 9.7, hematocrit 28.6, and platelet count 133,000. ABGs; pH of 7.27, pCO2 of 40.4, pO2 of 100.6, base excess is 29.0. A-a gradient 276. Sodium of 136, potassium 4.4, chloride 107, CO2 of 17, BUN 78, creatinine 3.3, and glucose 195, is ranging from 153 to 278. IMAGING DATA: Chest x-ray this morning showed no new findings. Mixed alveolar/interstitial opacities unchanged. IMPRESSION: 1. Septic shock. 2. Acute renal failure. 3. Abscess of the left thigh. 4. Coronary artery disease. 5. Hypertension. 6. Diabetes mellitus. PLAN: The plan is to continue critical care per Pulmonology/Critical Care Service. Increase the dose of his metoclopramide since he was not able to tolerate any feeding. Also, he received Lasix for his swelling. We will continue his antibiotics, which is doxycycline and penicillin G. We will continue full dose of Lovenox and amiodarone drip along with albumins. We will continue his insulin glargine and the dose will be increased from 20 to 25 units. Job ID: [id number]
[2018-07-04] MEDS: Sodium Bicarbonate 100 MEQ in Sodium Chloride 0.45% 1,000 ML IV SCH (15:12)
[2018-07-04] MEDS: Lorazepam 2 MG/ML VIAL SLOW IVP PRN (15:30)
[2018-07-04] MEDS: Silver Sulfadiazine 1% Cream 50 GM JAR TOP SCH (20:31)
[2018-07-05] MEDS: Insulin Regular 300 UNITS/3 ML VIAL SC PRN ×7 (00:04→23:05)
[2018-07-05] MEDS: Clindamycin/D5W 900 MG in Premix Bag 1 BAG IVPB SCH ×3 (00:07→16:42)
[2018-07-05] MEDS: Propofol 1,000 MG/100 ML VIAL IV PRN ×2 (05:02→08:14)
[2018-07-05 05:06] LABS: Anion Gap 17 mmol/L (10-20); BUN (Urea Nitrogen) 88 mg/dL (8.4-25.7); Calc. Creatinine Clearance 36 mL/min (70-130); Calcium 7.7 mg/dL (7.8-10.44); Carbon Dioxide 18 mmol/L (23-31); Chloride 105 mmol/L (98-107); Estimated GFR-MDRD 20; Glucose 217 mg/dL (80-115); Potassium 4.3 mmol/L (3.5-5.1); Sodium 136 mmol/L (136-145)
[2018-07-05 05:10] LABS: Band 10 % (5-11); Hemoglobin 9.3 g/dL (14.0-18.0); Hypochromia SLIGHT = 6-15 cells (100X) (0-5/hpf); Lymphocytes 3 % (21-51); MDiff Complete? YES; Mean Corpuscular HGB CONC 34.2 g/dL (32.0-36.0); Mean Corpuscular Hemoglobin 31.4 pg (27.0-31.0); Mean Corpuscular Volume 91.7 fL (78.0-98.0); Mean Platelet Volume 8.5 fL (7.4-10.4); Monocytes 2 % (0-10); Neutrophil 85 % (42-75); Platelet Count 150 thou/uL (130-400); Platelet Morphology Comment Appears Adequate; RBC Distribution Width 13.2 % (11.5-14.5); Red Blood Cell (RBC) Count 2.98 mill/uL (4.70-6.10); White Blood Cell (WBC) Count 18.4 thou/uL (4.8-10.8)
[2018-07-05] MEDS: Metoclopramide HCl 10 MG/2 ML VIAL IVP SCH ×4 (05:13→23:05)
[2018-07-05] MEDS: Hydrocortisone Sod Succ/PF 100 mg/2 ml Vial IVP SCH ×4 (05:13→23:05)
[2018-07-05] MEDS: Penicillin G Potassium 4 MILL.UNITS in Sodium Chloride 0.9% 100 ML IVPB SCH ×3 (05:17→21:01)
[2018-07-05 07:49] LABS: Actual Bicarbonate (HCO3a) 20.5 mEq/L (22-28); Base Excess (BEa) -5.4 mEq/L (-2.0 to +3.0); CO2 Tension 41.6 mmHg (35.0-45.0); Calcium, Ionized 1.03 mmol/L (1.12-1.30); Carboxyhemoglobin (COHb) 0.1 gm% (0.0-3.0); O2 Tension (PaO2) 98.7 mmHg (> 80.0); Potassium - ABG Lab 4.27 mmol/L (3.70-5.30); pH, Arterial 7.31 (7.35-7.45)
[2018-07-05 07:51] LABS: Puncture Site ART LINE
--- NOTE | 2018-07-05 07:52 | RAD ---
PORTABLE UPRIGHT FRONTAL CHEST RADIOGRAPH: DATE: 07/05/2018. COMPARISON: 07/04/2018. HISTORY: Respiratory failure, intubated patient. FINDINGS: Endotracheal tube in place, terminating at the level of the clavicles. Nasogastric tube is faintly v isualized and appears to extend into the left upper quadrant. Stable right vascular catheter. Stabl e nonspecific diffuse interstitial opacity with pulmonary vascular congestion and hazy ground-glass o pacity bilaterally. IMPRESSION: No significant interval change. POS: [facility]
[2018-07-05] MEDS: Insulin Glargine 20 UNITS in Pre-Filled Syringe 1 EACH SC SCH ×2 (08:14→19:25)
[2018-07-05] MEDS: Pantoprazole 40 MG VIAL IVP SCH ×2 (08:17→19:26)
[2018-07-05] MEDS: Enoxaparin Sodium 120 MG/0.8 ML SYRINGE SC SCH (08:18)
[2018-07-05] MEDS: Bisacodyl 10 MG SUPP PR PRN (08:32)
[2018-07-05] MEDS: Milk Of Magnesia 30 ML UDCUP PO PRN (08:32)
--- NOTE | 2018-07-05 09:38 | PRG ---
DATE OF SERVICE: 07/05/2018 SUBJECTIVE: He remains intubated in the vent, sedated. He still remains encephalopathic. OBJECTIVE: VITAL SIGNS: Blood pressure 130/54, pulse 91, respirations 20, sats are 98% to 99%. His urine output is improved 4559 in, 2810 out. CHEST: Bilateral rhonchi. CARDIAC: Normal S1, S2. No gallops. ABDOMEN: No masses. NEUROLOGICAL: He is sedated. EXTREMITIES: His left leg is still somewhat swollen. LABORATORY DATA: White count 18,000, H and H are 9 and 27, platelet count 150. PO2 is 98, pCO2 is 41, pH is 7.31, on 50%, rate of 20. Creatinine is 3.1, BUN 88. IMPRESSION: 1. Streptococcus sepsis, left leg. 2. Respiratory failure. 3. Congestive heart failure. 4. Renal failure. PLAN: Continue nutrition, PT, supportive care. Still not weanable. One-half hour of critical time. Job ID: [id number]
[2018-07-05] MEDS: Lorazepam 2 MG/ML VIAL SLOW IVP PRN ×4 (09:59→20:18)
[2018-07-05] MEDS: Silver Sulfadiazine 1% Cream 50 GM JAR TOP SCH ×2 (10:05→19:27)
[2018-07-05] MEDS: fentaNYL Citrate/PF 2,000 MCG in Sodium Chloride 0.9% 60 ML IV SCH ×2 (10:24→14:06)
[2018-07-05] MEDS: Amiodarone 450 MG in Dextrose 5% in Water 250 ML IVPB SCH (13:50)
--- NOTE | 2018-07-05 14:13 | PRG ---
DATE OF SERVICE: 07/05/2018 SUBJECTIVE: The patient is seen and examined at the bedside. He is off vasopressors at this point. He started on a tube feeding at 20 mL/h. Apparently, he had bowel movement and he started tolerating the feeding better. He is on amiodarone drip. He is on bicarb drip. OBJECTIVE: VITAL SIGNS: Blood pressure is 168/73, pulse is 79, respiratory rate is 20. He is intubated orally and mechanically ventilated. Temperature today is 98.6. GENERAL: He is awake at this point. He is trying to fight the ventilator and wrist restraints. LUNGS: His breath sounds diminished at both bases. HEART: S1, S2 normal. No S3. No S4. ABDOMEN: Distended, obese. Bowel sounds are sluggish. EXTREMITIES: The left lower extremity is wrapped. The swelling of the right lower extremity is significantly improved since yesterday. HEENT: His pupils are responding to light properly. NEURO EXAM: Postponed. LABORATORY DATA: White count of 18.4, hemoglobin 9.3, hematocrit 27.3, platelet count 150,000, 85% of neutrophils, 10 bands. ABGs; pH of 7.31, pCO2 41.6, PO2 98.7. Base excess is -5.4. Sodium of 136, potassium 4.3, chloride 105, CO2 of 18, BUN 88, creatinine 3.19, glycemia is ranging from 178 to 206, calcium 7.7. Microbiology, no new findings. The last blood culture came back negative. Dipstick negative for 48 hours. The left groin wound reveals growth of Streptococcus pyogenes. IMPRESSION: 1. Septic shock. 2. Acute renal failure. 3. Abscess of the left thigh with positive culture of Streptococcus pyogenes. 4. Coronary artery disease. 5. Respiratory failure, currently on mechanical ventilation. 6. Hypotension, requiring vasopressors. 7. History of hypertension. 8. Diabetes mellitus. PLAN: Plan is to continue his IV penicillin plus clindamycin. He will continue on his mechanical ventilation. We will continue on metoclopramide. He will continue on amiodarone drip. He will continue on hydrocortisone 25 mg IV push every 6 hours. He was started on insulin glargine 20 units twice a day yesterday. If his glycemia is not any better by tomorrow, we will have to go up on the dose of insulin glargine to 25 units twice a day. We will try to increase the feeding rate as tolerated. He will stay in the Critical Care Unit. Job ID: [id number]
[2018-07-05] MEDS: Sodium Chloride 0.9% 1,000 ML IV SCH (19:31)
[2018-07-05] MEDS: Insulin Glargine 15 UNITS in Pre-Filled Syringe 1 EACH SC SCH (19:31)
[2018-07-05] MEDS: Sodium Bicarbonate 100 MEQ in Sodium Chloride 0.45% 1,000 ML IV SCH (19:31)
[2018-07-06] MEDS: Clindamycin/D5W 900 MG in Premix Bag 1 BAG IVPB SCH ×4 (00:14→23:59)
[2018-07-06] MEDS: Lorazepam 2 MG/ML VIAL SLOW IVP PRN ×5 (00:58→21:45)
[2018-07-06] MEDS: Amiodarone 450 MG in Dextrose 5% in Water 250 ML IVPB SCH ×2 (02:29→20:25)
[2018-07-06] MEDS: Insulin Regular 300 UNITS/3 ML VIAL SC PRN ×4 (03:07→23:55)
[2018-07-06] MEDS: Hydrocortisone Sod Succ/PF 100 mg/2 ml Vial IVP SCH ×4 (05:03→23:52)
[2018-07-06] MEDS: Penicillin G Potassium 4 MILL.UNITS in Sodium Chloride 0.9% 100 ML IVPB SCH ×3 (05:04→21:34)
[2018-07-06] MEDS: Metoclopramide HCl 10 MG/2 ML VIAL IVP SCH ×4 (05:04→23:53)
[2018-07-06 06:32] LABS: Band 23 % (5-11); Hemoglobin 8.9 g/dL (14.0-18.0); Lymphocytes 6 % (21-51); MDiff Complete? YES; Mean Corpuscular HGB CONC 34.5 g/dL (32.0-36.0); Mean Corpuscular Hemoglobin 31.5 pg (27.0-31.0); Mean Corpuscular Volume 91.2 fL (78.0-98.0); Mean Platelet Volume 7.9 fL (7.4-10.4); Metamyelocyte 3 % (0-0); Myelocyte 2 % (0-0); Neutrophil 66 % (42-75); Platelet Count 168 thou/uL (130-400); Platelet Morphology Comment Appears Adequate; RBC Distribution Width 13.4 % (11.5-14.5); Red Blood Cell (RBC) Count 2.81 mill/uL (4.70-6.10); White Blood Cell (WBC) Count 17.6 thou/uL (4.8-10.8)
[2018-07-06 06:43] LABS: Anion Gap 16 mmol/L (10-20); BUN (Urea Nitrogen) 101 mg/dL (8.4-25.7); Calc. Creatinine Clearance 37 mL/min (70-130); Calcium 7.9 mg/dL (7.8-10.44); Carbon Dioxide 24 mmol/L (23-31); Chloride 106 mmol/L (98-107); Estimated GFR-MDRD 20; Glucose 161 mg/dL (80-115); Potassium 4.6 mmol/L (3.5-5.1); Sodium 141 mmol/L (136-145)
[2018-07-06 07:36] LABS: Actual Bicarbonate (HCO3a) 22.5 mEq/L (22-28); Base Excess (BEa) -2.7 mEq/L (-2.0 to +3.0); CO2 Tension 40.6 mmHg (35.0-45.0); Calcium, Ionized 1.07 mmol/L (1.12-1.30); Carboxyhemoglobin (COHb) 1.1 gm% (0.0-3.0); Hemoglobin (Hb) 10.4 g/dL (14.0-18.0); O2 Tension (PaO2) 91.9 mmHg (> 80.0); pH, Arterial 7.36 (7.35-7.45)
[2018-07-06 07:38] LABS: Puncture Site RRA
--- NOTE | 2018-07-06 08:26 | RAD ---
PORTABLE SEMIUPRIGHT FRONTAL CHEST RADIOGRAPH: DATE: 07/06/2018. COMPARISON: 07/05/2018. HISTORY: Respiratory failure, intubated patient. FINDINGS: Stable endotracheal tube, nasogastric tube, and right vascular catheter. Extensive interstitial and alveolar opacities noted bilaterally with a perihilar predominance, stable and nonspecific. Mild oumou vation of right hemidiaphragm noted, stable. IMPRESSION: Stable appearance of the chest as detailed above. POS: [facility]
[2018-07-06] MEDS: fentaNYL Citrate/PF 2,000 MCG in Sodium Chloride 0.9% 60 ML IV SCH (08:49)
[2018-07-06] MEDS: Enoxaparin Sodium 120 MG/0.8 ML SYRINGE SC SCH (08:52)
[2018-07-06] MEDS: Pantoprazole 40 MG VIAL IVP SCH ×2 (08:52→20:22)
[2018-07-06] MEDS: Silver Sulfadiazine 1% Cream 50 GM JAR TOP SCH ×2 (08:53→23:59)
--- NOTE | 2018-07-06 08:57 | PDOC.PN ---
- Subjective Encounter Start Date: 07/06/18 Encounter Start Time: 08:55 Subjective: Seen and examined still intubated - Objective Resuscitation Status - Order Detail: 06/30/18 04:33 Resuscitation Status Routine Resuscitation Status: FULL: Full Resuscitation Vital Signs & Weight: Vital Signs (12 hours) Temp Pulse Resp BP 07/06/18 07:29 84 174/75 H 07/06/18 06:00 20 07/06/18 04:00 20 07/06/18 03:00 98.1 F 07/06/18 02:09 63 07/06/18 02:00 20 07/06/18 00:00 20 07/05/18 23:37 63 07/05/18 23:00 97.8 F 07/05/18 22:09 64 07/05/18 22:00 20 Weight Admit Weight 249 lb Weight 249 lb 1.957 oz Most Recent Monitor Data Heart Rate from ECG 77 NIBP 140/64 NIBP BP-Mean 89 Respiration from ECG 23 SpO2 99 I&O: 07/05/18 07/06/18 07/07/18 06:59 06:59 06:59 Intake Total 3618 3982.1 Output Total 2810 2345 Balance 808 1637.1 Result Diagrams: 07/06/18 06:15 07/06/18 06:15 Additional Labs: Accuchecks 07/06/18 07/05/18 07/05/18 03:08 23:05 19:23 POC Glucose 187 H 166 H 203 H 07/05/18 07/05/18 16:48 11:36 POC Glucose 214 H 206 H Phys Exam - Physical Examination intubated Neck: no nodes vented sounds Cardiovascular: no significant murmur Gastrointestinal: soft, non-tender Musculoskeletal: pulses present Dx/Plan (1) Abscess of left thigh Code(s): L02.416 - CUTANEOUS ABSCESS OF LEFT LOWER LIMB Status: Acute (2) Acute renal failure Status: Acute Qualifiers: Acute renal failure type: with acute tubular necrosis Qualified Code(s): N17.0 - Acute kidney failure with tubular necrosis (3) DM type 2 (diabetes mellitus, type 2) Status: Acute Qualifiers: Diabetes mellitus 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 project 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
[2018-07-06] MEDS: Insulin Glargine 20 UNITS in Pre-Filled Syringe 1 EACH SC SCH ×2 (09:44→20:22)
[2018-07-06] MEDS: Bisacodyl 10 MG SUPP PR PRN (09:44)
[2018-07-06] MEDS: Sodium Chloride 0.9% 1,000 ML IV SCH ×2 (09:50→20:22)
--- NOTE | 2018-07-06 13:01 | PRG ---
DATE OF SERVICE: 07/06/2018 SUBJECTIVE: The patient remains in the critical care unit on full mechanical ventilatory support. The patient is being seen by service status post incision and drainage of a thigh wound that wound is continuing to be dressed daily and appears to be improving. The left lower extremity swelling continues to decrease, though his skin changes with some sloughing of the previous vesicles and blisters is more apparent. IMPRESSION: Stable left lower extremity bullous cellulitis, secondary to group A streptococcus. PLAN: 1. Continue all supportive care to include appropriate antibiotics by the primary team. 2. There continues to be no acute surgical indications at this time, we will continue to check on this patient. Job ID: [id number]
--- NOTE | 2018-07-07 02:37 | PRG ---
DATE OF SERVICE: 07/06/2018 SUBJECTIVE: He remains in the ICU, intubated on the vent, sedated, on Diprivan and Precedex. X-ray still shows diffuse pulmonary infiltrates. His white count is still 17,000, H and H 8 and 25, and platelet count normal. He still has a big left shift, 66 segs, 23 bands. PO2 is 91, pCO2 is 40%, , at the rate of 20, 40%; 600 tidal volume. Creatinine is 3 and his BUN is 100. His urine output is 4559 in, 2810 out. OBJECTIVE: CHEST: Decreased breath sounds. Bilateral rhonchi. There is no wheezing. CARDIAC: Sinus tach. ABDOMEN: Soft. IMPRESSION: 1. Sepsis, cellulitis, left leg. 2. Respiratory failure. 3. Acute respiratory distress syndrome. 4. Congestive heart failure. 5. Renal failure. PLAN: He is on full-dose Lovenox for his SVT. He is on lot of pressors. He is on clindamycin and Levaquin. He is not weanable at this stage. We will continue sedation and PT. Continue nutrition. One-half hour of critical care time. Job ID: [id number]
[2018-07-07] MEDS: Lorazepam 2 MG/ML VIAL SLOW IVP PRN ×4 (03:25→23:00)
[2018-07-07] MEDS: Insulin Regular 300 UNITS/3 ML VIAL SC PRN ×4 (04:23→20:34)
[2018-07-07] MEDS: Sodium Chloride 0.9% 1,000 ML IV SCH ×2 (04:25→20:53)
[2018-07-07 04:56] LABS: Hemoglobin 9.7 g/dL (14.0-18.0); Mean Corpuscular HGB CONC 35.1 g/dL (32.0-36.0); Mean Corpuscular Volume 93.9 fL (78.0-98.0); Mean Platelet Volume 8.2 fL (7.4-10.4); Platelet Count 200 thou/uL (130-400); RBC Distribution Width 13.6 % (11.5-14.5); Red Blood Cell (RBC) Count 2.93 mill/uL (4.70-6.10); White Blood Cell (WBC) Count 16.4 thou/uL (4.8-10.8)
[2018-07-07 04:57] LABS: Band 3 % (5-11); Hypochromia SLIGHT = 6-15 cells (100X) (0-5/hpf); Lymphocytes 7 % (21-51); MDiff Complete? YES; Neutrophil 90 % (42-75); Platelet Morphology Comment Appears Adequate
[2018-07-07 05:04] LABS: Anion Gap 15 mmol/L (10-20); BUN (Urea Nitrogen) 101 mg/dL (8.4-25.7); Calc. Creatinine Clearance 41 mL/min (70-130); Calcium 8.3 mg/dL (7.8-10.44); Carbon Dioxide 23 mmol/L (23-31); Chloride 110 mmol/L (98-107); Estimated GFR-MDRD 23; Glucose 233 mg/dL (80-115); Sodium 143 mmol/L (136-145)
[2018-07-07] MEDS: Penicillin G Potassium 4 MILL.UNITS in Sodium Chloride 0.9% 100 ML IVPB SCH ×3 (05:04→21:25)
[2018-07-07] MEDS: Metoclopramide HCl 10 MG/2 ML VIAL IVP SCH ×3 (05:04→20:54)
[2018-07-07] MEDS: Hydrocortisone Sod Succ/PF 100 mg/2 ml Vial IVP SCH ×2 (05:04→21:25)
[2018-07-07 07:21] LABS: Actual Bicarbonate (HCO3a) 24.6 mEq/L (22-28); Base Excess (BEa) -1.7 mEq/L (-2.0 to +3.0); CO2 Tension 49.9 mmHg (35.0-45.0); Calcium, Ionized 1.11 mmol/L (1.12-1.30); Carboxyhemoglobin (COHb) 1.4 gm% (0.0-3.0); Hemoglobin (Hb) 8.5 g/dL (14.0-18.0); O2 Tension (PaO2) 143.1 mmHg (> 80.0); Potassium - ABG Lab 4.98 mmol/L (3.70-5.30); pH, Arterial 7.31 (7.35-7.45)
[2018-07-07 07:22] LABS: Puncture Site RR
[2018-07-07 07:23] LABS: ALV-art Gradient 79.725 (0-20)
[2018-07-07] MEDS: Enoxaparin Sodium 120 MG/0.8 ML SYRINGE SC SCH (08:32)
[2018-07-07] MEDS: Pantoprazole 40 MG VIAL IVP SCH ×2 (08:32→21:25)
[2018-07-07] MEDS: Clindamycin/D5W 900 MG in Premix Bag 1 BAG IVPB SCH ×2 (08:32→16:35)
[2018-07-07] MEDS: Insulin Glargine 20 UNITS in Pre-Filled Syringe 1 EACH SC SCH ×2 (08:33→21:59)
[2018-07-07] MEDS: Silver Sulfadiazine 1% Cream 50 GM JAR TOP SCH ×2 (08:35→21:32)
--- NOTE | 2018-07-07 08:53 | RAD ---
FRONTAL VIEW CHEST: Date: 07/07/18 COMPARISON: Previous day. INDICATION: Respiratory failure. Intubated patient. FINDINGS: Supportive lines and tubes remain. There are numerous extrinsic artifacts limiting detail. Persistent patchy bilateral alveolar and interstitial opacities favor edema. No significant interval change oth erwise depicted. IMPRESSION: Stable findings to indicate edema. POS: [facility]
--- NOTE | 2018-07-07 10:25 | PRG ---
DATE OF SERVICE: 07/07/2018 RENAL MEDICINE. SUBJECTIVE: Mr. Lewis is a 68-year-old white male, who came in septic secondary to left leg cellulitis/necrotizing fascitis. Renal Service saw the patient for his acute kidney injury. We still feel that this is hemodynamically-mediated renal dysfunction. His urine output remains constantly adequate for the moment. His last 24-hour urine was noted at 3.9 L. Please note, the patient has been receiving p.r.n. furosemide in the past. OBJECTIVE: VITAL SIGNS: Blood pressure is 170/78, heart rate is 77, respiratory rate 13, and pulse ox 100%. GENERAL: Sedated, intubated on ventilator support. SKIN: Adequate turgor. HEENT: He has pinkish conjunctivae. Anicteric sclerae. NECK: No neck mass. No carotid bruits. No JVD. CHEST: No deformities. LUNGS: Decreased breath sounds. HEART: Normal sinus rhythm. No murmur. No gallops. No rubs. ABDOMEN: Globular, soft, and nontender. EXTREMITIES: No edema. Positive for left leg cellulitis. MEDICATIONS: Medications of July 07, 2018, reviewed. LABORATORY DATA: Laboratories of July 07, 2018, white count 16.4 and hemoglobin 9.7. Sodium 143, potassium 5, chloride 110, carbon dioxide 23, BUN 101, creatinine 2.79, GFR 23 mL/minute, and calcium is 8.3. ASSESSMENT AND PLAN: 1. Acute kidney injury - hemodynamically-mediated renal dysfunction with the possibility of superimposed acute tubular necrosis. Stabilizing renal function. Creatinine is much improved from yesterday's value of 3.12 to the most recent value of 2.79. Continue supportive care. The patient has received colloids and crystalloids in the past. He did receive also a p.r.n. Lasix. 2. Left leg cellulitis/necrotizing fasciitis - on antibiotics. Surgery and ID are following. No indication for any dialytic intervention. Job ID: [id number]
--- NOTE | 2018-07-07 10:32 | PRG ---
DATE OF SERVICE: 07/07/2018 SUBJECTIVE: Fritz Lewis is a 68-year-old morbidly obese gentleman, intubated on the vent, still encephalopathic. His blood sugar is 244, creatinine is 2, BUN is 100, slow improvement. OBJECTIVE: VITAL SIGNS: Blood pressure 170/78, pulse 101, saturations 90%, respiratory rate 18. CHEST: Decreased breath sounds. No wheezing. CARDIAC: Normal S1 and S2. No gallops. ABDOMEN: Soft. LABORATORY DATA: White count 16,000. His pO2 is 143, pCO2 is . IMPRESSION: Respiratory failure, morbid obesity sleep apnea, supraventricular tachycardia, sepsis syndrome. PLAN: Minimize sedation. Continue nutrition and PT. Start slowly weaning. Antibiotics. One hour of critical time. Job ID: [id number]
--- NOTE | 2018-07-07 10:59 | PQF ---
DATE: 07-07-18 ATTN: DR. AVI TRONCOSO Please exercise your independent, professional judgment in responding to the clarification form. Clinical indicators are provided on the bottom of this form for your review Please check appropriate box(s): HEART FAILURE: A. TYPE: [ ] Systolic / HFrEF [ ] Diastolic / HFpEF [ ] Combined Systolic / Diastolic B. ACUITY [ ] Acute [ ] Acute on Chronic [ ] Chronic [ ] Other diagnosis [ ] Unable to determine In addition, please specify: Present on Admission (POA): [ ] Yes [ ] No [ ] Unable to determine For continuity of documentation, please document condition throughout progress notes and discharge summary. Thank You. CLINICAL INDICATORS - SIGNS / SYMPTOMS / LABS CONSULT NOTE DR. CHÁVEZ 07-04-18: WITH CONGESTIVE HEART FAILURE, TRIAL OF LASIX CONSULT NOTE DR. CHÁVEZ 07-05-18: CONGESTIVE HEART FAILURE CXR: 07-05-18: STABLE NONSPECIFIC DIFFUSE INTERSTITIAL OPACITITY WITH PULMONARY VASCULAR CONGESTION AND HAZY GROUND- GLASS OPACITY BILATERALLY ECHO 06-30-18: OVERALL L VENTRICULAR FUNCTION IS MILDLY DEPRESSED, EF IS VISUALLY ESTIMATED 40-45% RISKS: ER: HX HTN, DM 2, MO, SMOKER H&P: HX OF CAD, DM 2, HTN, HYPERLIPIDEMIA, PVD SECONDARY TO DM 2 TREATMENTS: CONSULT NOTE DR. CHÁVEZ 07-04-18: WITH CONGESTIVE HEART FAILURE, TRIAL OF LASIX RT OXYGEN: 06-30-18: O2 NC (This form is maintained as a part of the permanent medical record) 2014 [employer]. All Rights Reserved [email or web address] Office: [phone] [facility]
--- NOTE | 2018-07-07 11:52 | PRG ---
DATE OF SERVICE: 07/07/2018 SUBJECTIVE: Mr. Lewis is a 68-year-old man, who was admitted with bullous cellulitis involving the left lower extremity secondary to group A streptococcus infection. The patient has been on mechanical ventilator support since admission. Group A strep septicemia appears to be resolving. The patient is currently on no vasopressor or inotropic support. OBJECTIVE: VITAL SIGNS: Today include blood pressure 149/62, pulse 77, respiratory rate is 13, temperature 99.1 degrees Fahrenheit, oxygen saturation is 100% on FiO2 of 30%. EXTREMITIES: Left lower extremity, the groin incision is clean with no gross purulence or necrosis. The multiple left lower extremity bullous lesions have coalesced into second-degree burn type wound. The left thigh and left calf are soft to palpation. He has 2+ radial and pedal pulses bilaterally. Capillary refill is less than 2 seconds in all extremities. LABORATORY FINDINGS: Today includes [place] [address], hemoglobin and hematocrit are 9.7 and 27.5 respectively. Platelet count is 200,000. Metabolic profile; sodium 143, potassium 5, chloride is 110, bicarb 23, BUN 101, creatinine is 2.79 and improving, glucose is 233. IMPRESSION: 1. Left lower extremity bullous cellulitis secondary to group A soft tissue infection. 2. Resolving group A Strep septicemia. 3. Resolving acute kidney injury. PLAN: Continue with local wound care. There remains no acute surgical indication for this patient at this time. Job ID: [id number]
[2018-07-07] MEDS: Amiodarone 450 MG in Dextrose 5% in Water 250 ML IVPB SCH (12:10)
[2018-07-07] MEDS: fentaNYL Citrate/PF 2,000 MCG in Sodium Chloride 0.9% 60 ML IV SCH (12:11)
--- NOTE | 2018-07-07 15:47 | PDOC.PN ---
- Subjective Encounter Start Date: 07/07/18 Encounter Start Time: 15:45 Subjective: Seen and examined still on life support - Objective Resuscitation Status - Order Detail: 06/30/18 04:33 Resuscitation Status Routine Resuscitation Status: FULL: Full Resuscitation Vital Signs & Weight: Vital Signs (12 hours) Temp Pulse Pulse Resp BP BP Pulse Ox 07/07/18 15:25 98 176/81 H 07/07/18 13:44 104 H 176/68 H 07/07/18 13:22 95 176/68 H 07/07/18 12:00 98.9 F 22 H 07/07/18 10:21 97 141/64 H 07/07/18 10:00 22 H 07/07/18 08:38 104 H 170/78 H 07/07/18 08:00 98 F 16 98 07/07/18 06:00 14 07/07/18 04:00 99.1 F 17 Pulse Ox 07/07/18 15:25 07/07/18 13:44 98 07/07/18 13:22 07/07/18 12:00 07/07/18 10:21 07/07/18 10:00 07/07/18 08:38 07/07/18 08:00 07/07/18 06:00 07/07/18 04:00 Weight Admit Weight 249 lb Weight 249 lb 1.957 oz Most Recent Monitor Data Heart Rate from ECG 110 NIBP 176/68 NIBP BP-Mean 104 Respiration from ECG 16 SpO2 98 I&O: 07/06/18 07/07/18 07/08/18 06:59 06:59 06:59 Intake Total 3982.1 4346 160 Output Total 2345 3935 1080 Balance 1637.1 411 -920 Result Diagrams: 07/07/18 04:34 07/07/18 04:34 Additional Labs: Accuchecks 07/07/18 07/07/18 07/07/18 12:00 08:28 04:24 POC Glucose 228 H 244 H 227 H 07/06/18 07/06/18 07/06/18 23:52 20:18 16:57 POC Glucose 214 H 186 H 174 H Phys Exam - Physical Examination intubated HEENT: PERRLA, moist MMs, sclera anicteric, TM's clear Neck: no nodes, no JVD Respiratory: no wheezing vented sounds Cardiovascular: RRR, no significant murmur, no rub Gastrointestinal: soft, non-tender, no distention, positive bowel sounds Musculoskeletal: no edema, pulses present Dx/Plan (1) Abscess of left thigh Code(s): L02.416 - CUTANEOUS ABSCESS OF LEFT LOWER LIMB Status: Acute (2) Acute renal failure Status: Acute Qualifiers: Acute renal failure type: with acute tubular necrosis Qualified Code(s): N17.0 - Acute kidney failure with tubular necrosis (3) DM type 2 (diabetes mellitus, type 2) Status: Acute Qualifiers: Diabetes mellitus 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: with middle or 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 school 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 use Diabetes mellitus complication status: with kidney complications (4) HTN (hypertension) Code(s): I10 - ESSENTIAL (PRIMARY) HYPERTENSION Status: Acute Qualifiers: Hypertension type: essential hypertension Qualified Code(s): I10 - Essential (primary) hypertension (5) Septic shock Code(s): A41.9 - SEPSIS, UNSPECIFIED ORGANISM; R65.21 - SEVERE SEPSIS WITH SEPTIC SHOCK Status: Acute (6) CHF (congestive heart failure) Code(s): I50.9 - HEART FAILURE, UNSPECIFIED Status: Acute (7) Diastolic CHF Code(s): I50.30 - UNSPECIFIED DIASTOLIC (CONGESTIVE) HEART FAILURE Status: Acute - Plan PT/OT, social science teacher, respiratory therapy Appreciate Renal and pulmonary ,Trauma and ID input * .
--- NOTE | 2018-07-07 15:53 | RAD ---
CHEST 1 VIEW: HISTORY: Dyspnea. Respiratory failure. COMPARISON: 07/07/2018. FINDINGS: Cardiac silhouette is magnified and upper limits of normal in size. Pulmonary vasculature is more en gorged than on the prior study with worsening bilateral perihilar infiltrate and diffuse reticulonodu lar interstitial prominence. Mediastinum is midline. Lines and tubes appear unchanged in position. No evidence of pneumothorax. IMPRESSION: Radiographic worsening of pulmonary vascular congestion/developing edema. POS: [facility]
[2018-07-08] MEDS: Metoclopramide HCl 10 MG/2 ML VIAL IVP SCH ×4 (00:50→17:23)
[2018-07-08] MEDS: Clindamycin/D5W 900 MG in Premix Bag 1 BAG IVPB SCH ×3 (00:51→17:24)
[2018-07-08] MEDS: Sodium Chloride 0.9% 1,000 ML IV SCH ×2 (00:51→09:10)
[2018-07-08] MEDS: Insulin Regular 300 UNITS/3 ML VIAL SC PRN ×6 (00:56→20:45)
[2018-07-08 04:39] LABS: Anion Gap 14 mmol/L (10-20); BUN (Urea Nitrogen) 104 mg/dL (8.4-25.7); Calc. Creatinine Clearance 44 mL/min (70-130); Calcium 8.3 mg/dL (7.8-10.44); Carbon Dioxide 24 mmol/L (23-31); Chloride 115 mmol/L (98-107); Estimated GFR-MDRD 25; Glucose 219 mg/dL (80-115); Potassium 6.2 mmol/L (3.5-5.1); Sodium 147 mmol/L (136-145)
[2018-07-08 04:40] LABS: Band 20 % (5-11); Hemoglobin 9.5 g/dL (14.0-18.0); Lymphocytes 7 % (21-51); MDiff Complete? YES; Mean Corpuscular Hemoglobin 31.5 pg (27.0-31.0); Mean Corpuscular Volume 95.6 fL (78.0-98.0); Mean Platelet Volume 8.6 fL (7.4-10.4); Metamyelocyte 2 % (0-0); Monocytes 2 % (0-10); Myelocyte 1 % (0-0); Neutrophil 68 % (42-75); Platelet Count 240 thou/uL (130-400); Platelet Morphology Comment Appears Adequate; RBC Distribution Width 13.9 % (11.5-14.5); Red Blood Cell (RBC) Count 3.01 mill/uL (4.70-6.10); White Blood Cell (WBC) Count 17.1 thou/uL (4.8-10.8)
[2018-07-08] MEDS: Penicillin G Potassium 4 MILL.UNITS in Sodium Chloride 0.9% 100 ML IVPB SCH ×3 (05:32→21:46)
[2018-07-08] MEDS: Amiodarone 450 MG in Dextrose 5% in Water 250 ML IVPB SCH ×2 (06:18→23:09)
[2018-07-08] MEDS: fentaNYL Citrate/PF 2,000 MCG in Sodium Chloride 0.9% 60 ML IV SCH ×2 (06:20→17:24)
[2018-07-08 07:28] LABS: Actual Bicarbonate (HCO3a) 24.5 mEq/L (22-28); Base Excess (BEa) -2.1 mEq/L (-2.0 to +3.0); CO2 Tension 50.5 mmHg (35.0-45.0); Calcium, Ionized 1.15 mmol/L (1.12-1.30); Carboxyhemoglobin (COHb) 1.8 gm% (0.0-3.0); Hemoglobin (Hb) 9.7 g/dL (14.0-18.0); O2 Tension (PaO2) 75.6 mmHg (> 80.0); Potassium - ABG Lab 5.35 mmol/L (3.70-5.30)
[2018-07-08 07:29] LABS: ALV-art Gradient 146.475 (0-20); Puncture Site LR
[2018-07-08 08:29] LABS: Potassium 5.9 mmol/L (3.5-5.1)
[2018-07-08] MEDS ORDERED: Furosemide 40 MG/4 ML VIAL SLOW IVP SCH (08:30)
--- NOTE | 2018-07-08 08:52 | RAD ---
PORTABLE AP CHEST RADIOGRAPH: Date: 07-08-18 History: Respiratory failure. Intubated. Comparison: 07-07-18 FINDINGS: Endotracheal tube remains in place. Multiple security monitor leads overlie the chest. This exam was o btained in shallow depth of inspiration and in combination with portable technique accentuates the ca rdiac silhouette and the bronchovascular markings. However, there is evidence of increased interstiti al alveolar opacities within the perihilar regions bilaterally. Findings may be related to an element of pulmonary edema. Pulmonary vasculature remains increased. No other interval change. IMPRESSION: Limited exam due to depth of inspiration and portable technique, but there are findings suggestive of pulmonary vascular congestion as well as pulmonary edema. Follow up examination is recommended. POS: [facility]
[2018-07-08] MEDS: Hydrocortisone Sod Succ/PF 100 mg/2 ml Vial IVP SCH ×2 (09:10→21:07)
[2018-07-08] MEDS: Carvedilol 3.125 MG TAB PER TUBE SCH ×2 (09:10→17:25)
[2018-07-08] MEDS: Enoxaparin Sodium 120 MG/0.8 ML SYRINGE SC SCH (09:11)
[2018-07-08] MEDS: Pantoprazole 40 MG VIAL IVP SCH ×2 (09:11→21:08)
[2018-07-08] MEDS: Insulin Glargine 20 UNITS in Pre-Filled Syringe 1 EACH SC SCH ×2 (09:11→21:07)
--- NOTE | 2018-07-08 09:14 | PRG ---
DATE OF SERVICE: 07/08/2018 SUBJECTIVE: This morning remains intubated in the vent on Precedex and fentanyl. Still having asynchronous vent. OBJECTIVE: VITAL SIGNS: Pulse is 97, blood pressure 108/80, saturations are 90%, respiratory rate 19. His I's and O's are 4346 in, 3935 out. CHEST: Decreased breath sounds. Bilateral rhonchi. CARDIAC: Sinus tach. ABDOMEN: Soft. LABORATORY STUDIES: White count 17,000, H and H 9 and 28, platelet count 240. PO2 is 75, pCO2 of 30%. Potassium is 6.2, BUN is 104, creatinine is 2.53. IMAGING STUDIES: X-ray shows diffuse pulmonary infiltrates, now some pleural effusion. IMPRESSION: 1. Respiratory failure. 2. Renal failure. 3. Congestive heart failure. 4. Supraventricular tachycardia. 5. Sepsis syndrome. 6. Encephalopathy. 7. He is clearly not weanable. He is day #8 on the vent. PLAN: 1. Precedex is not helping his overall encephalopathy. 2. Adjust his vent. Continue Nutrition and PT. He is probably going to need dialysis for his elevated potassium, worsening renal function, worsening chest x-ray. Discuss with Nephrology. 3. Prognosis is guarded. We will follow. This is one-half hour critical time. Job ID: [id number]
[2018-07-08] MEDS: Silver Sulfadiazine 1% Cream 50 GM JAR TOP SCH ×2 (09:15→21:23)
[2018-07-08] MEDS ORDERED: Heparin 10,000 UNITS/ 10 ML VIAL ONE (10:00)
--- NOTE | 2018-07-08 10:10 | PRG ---
DATE OF SERVICE: 07/08/2018 SUBJECTIVE: Mr. Lewis is a 68-year-old white male, who was admitted for sepsis. We are following this patient for his acute kidney injury. Renal function has been stabilizing. However, he is noted to have worsening mental status change. In addition, he has been noted to be in volume overload. I did discuss the case with Dr. Hermos[place] and consideration for hemodialysis was made for fluid removal with this patient. OBJECTIVE: VITAL SIGNS: Blood pressure is 182/108 with a heart rate of 114, respiratory rate 27, and pulse ox 93%. GENERAL: The patient is sedated, intubated, on ventilator support. SKIN: Adequate turgor. HEENT: He has slightly pale conjunctivae. Anicteric sclerae. NECK: No neck mass. No carotid bruits. No JVD. CHEST: No deformities. LUNGS: Decreased breath sounds. HEART: Normal sinus rhythm. No murmur. No gallops. No rubs. ABDOMEN: Globular, soft, nontender. No masses. EXTREMITIES: Positive for edema. MEDICATIONS: Medications of July 08, 2018 was reviewed. LABORATORY DATA: Laboratories of July 08, 2018; white count 17.1, hemoglobin 9.5. On July 08, 2018; sodium 142, potassium 6.2, chloride 115, carbon dioxide 24, BUN 104, creatinine 2.58, glucose 219, calcium 8.3. ASSESSMENT AND PLAN: 1. Acute kidney injury - consider possibility of ischemic ATN. Although creatinine is improving, his overall status remains unimproved. He may be uremic to explain the decreased mentation. He is also noted to be hypokalemic and volume overload. For this reason, we will initiate dialysis. We will consult Surgery for placement of a temporary femoral dialysis catheter. 2. Sepsis - on antibiotics. Continue supportive care. 3. Leg cellulitis/necrotizing fasciitis - clinically improving on antibiotics. Surgery and ID following. 4. Overall prognosis remains guarded. Job ID: [id number]
[2018-07-08 10:35] LABS: HBSAB Concentration 1.69 mIU/mL; HBSAg Index 0.44 S/CO (0-0.99); Hep B Core Total Ab Non-Reactive (NonReactive); Hep B Core Total Index 0.17 S/CO (0-0.79); Hep B Surf AB Non-Reactive (NonReactive); Hep B Surf Ag Non-Reactive S/CO (NonReactive); Hep C IgG Ab Non-Reactive (NonReactive); Hep C Index 0.12 S/CO (0-0.79)
--- NOTE | 2018-07-08 14:32 | PRG ---
DATE OF SERVICE: 07/08/2018 SUBJECTIVE: This is a 68-year-old male whom the surgical team is seeing in consultation for bullous cellulitis of the left lower extremity secondary to group A streptococcus infection. The patient remains on mechanical ventilator support. He is not on any vasopressor or inotropic support at this time. Dressing changes are being performed by nursing staff. He has been afebrile overnight. OBJECTIVE: VITAL SIGNS: Temperature 99.3, pulse 114, blood pressure 182/108, and respiratory rate 22. GENERAL: Intubated and sedated. PULMONARY: Symmetric chest rise. CARDIOVASCULAR: Tachycardic. No obvious murmurs, rubs, or gallops. GI: Abdomen is soft, nontender, and nondistended. MUSCULOSKELETAL: Left lower extremity dressing. Groin wound is clean without any obvious areas of necrosis. The left thigh wounds, left calf wounds, and ankle wounds were evaluated. There does not appear to be any superimposed infection. Erythema is stable. LABORATORY FINDINGS: WBC 17.1, hemoglobin 9.5, hematocrit 28.8, platelet count 240, and bandemia at 20%. Sodium 147, potassium 5.9, chloride 115, carbon dioxide 24, BUN 104, creatinine 2.58, and glucose 219. ASSESSMENT: 1. Left lower extremity bullous cellulitis secondary to group A soft tissue infection. 2. Resolving group A strep septicemia. 3. Acute kidney injury, improving. 4. Hyperkalemia. 5. Hyperglycemia. PLAN: Continue with local wound care as ordered. We will have wound team re-evaluate and re-document wounds. There is no acute surgical indication for this patient at this time. Nephrology has contacted Dr. Clark for dialysis catheter placement. Otherwise, care per primary team. We will continue to follow. Plan of care was discussed with the patient's and nurse at bedside, and all questions were answered at the time of this dictation. The patient was discussed with attending. Job ID: [id number]
--- NOTE | 2018-07-08 14:48 | ULT ---
BILATERAL UPPER EXTREMITY VEIN MAPPING: Date: 07/08/18 HISTORY: End-stage renal disease; evaluate for dialysis access. FINDINGS: RIGHT UPPER EXTREMITY CEPHALIC VEIN Proximal Arm: 2.7 mm Mid Arm: 2.0 mm Distal Arm: 1.9 mm Antecubital Fossa: 3.3 mm Proximal Forearm: 2.4 mm Mid Forearm: 1.7 mm Distal Forearm: 2.8 mm BASILIC VEIN Proximal Arm: 2.6 mm Mid Arm: 2.5 mm Distal Arm: 2.1 mm Antecubital Fossa: 1.8 mm Proximal Forearm: 1.2 mm Mid Forearm: 1.4 mm Distal Forearm: 0.9 mm LEFT UPPER EXTREMITY CEPHALIC VEIN Proximal Arm: 1.2 mm Mid Arm: 1.9 mm Distal Arm: 1.4 mm Antecubital Fossa: 1.8 mm Proximal Forearm: 3.5 mm Mid Forearm: 3.6 mm Distal Forearm: 3.2 mm BASILIC VEIN Proximal Arm: 4.1 mm Mid Arm: 5.2 mm Distal Arm: Not visualized due to bandage Antecubital Fossa: 5.4 mm Proximal Forearm: 3.5 mm Mid Forearm: 1.1 mm Distal Forearm: 1.0 mm RIGHT BRACHIAL ARTERY: 4.9 mm RIGHT RADIAL ARTERY: 2.5 mm RIGHT ULNAR ARTERY: 1.0 mm LEFT BRACHIAL ARTERY: 6.6 mm LEFT RADIAL ARTERY: 1.7 mm LEFT ULNAR ARTERY: 2.0 mm IMPRESSION: Vein mapping as discussed above. POS: TPC
--- NOTE | 2018-07-08 21:43 | PDOC.PN ---
- Subjective Encounter Start Date: 07/08/18 Encounter Start Time: 14:00 Intubated, sedated. - Objective Resuscitation Status - Order Detail: 06/30/18 04:33 Resuscitation Status Routine Resuscitation Status: FULL: Full Resuscitation Vital Signs & Weight: Vital Signs (12 hours) Temp Pulse Resp BP 07/08/18 20:00 13 07/08/18 19:00 97.2 F L 07/08/18 18:16 81 07/08/18 18:00 12 07/08/18 16:00 11 L 07/08/18 15:11 86 104/57 L 07/08/18 14:00 15 07/08/18 13:19 84 148/74 H 07/08/18 12:00 99.3 F 19 07/08/18 11:01 91 110/59 L 07/08/18 10:00 17 Weight Admit Weight 249 lb Weight 249 lb 1.957 oz Most Recent Monitor Data Heart Rate from ECG 75 NIBP 139/54 NIBP BP-Mean 82 Respiration from ECG 13 SpO2 92 I&O: 07/07/18 07/08/18 07/09/18 06:59 06:59 06:59 Intake Total 4346 4618.1 1813.2 Output Total 3935 5315 2370 Balance 411 -696.9 -556.8 Result Diagrams: 07/08/18 04:14 07/08/18 08:06 Additional Labs: Accuchecks 07/08/18 07/08/18 07/08/18 17:34 12:43 08:52 POC Glucose 235 H 206 H 233 H 07/08/18 07/07/18 00:37 20:34 POC Glucose 166 H 156 H Phys Exam - Physical Examination Constitutional: NAD Intubated. Moves spontaneously. Not interactive. Does not track. Respiratory: no wheezing, no rales, no rhonchi, clear to auscultation bilateral Cardiovascular: RRR, no significant murmur, no rub Gastrointestinal: soft, non-tender, no distention, positive bowel sounds Musculoskeletal: no edema Skin: normal turgor Dx/Plan (1) Cellulitis of left groin Code(s): L03.314 - CELLULITIS OF GROIN Status: Acute (2) Group A streptococcal infection Code(s): B95.0 - STREPTOCOCCUS, GROUP A, CAUSING DISEASES CLASSD ELSWHR Status : Acute (3) Toxic metabolic encephalopathy Code(s): G92 - TOXIC ENCEPHALOPATHY Status: Acute (4) Acute renal failure Status: Acute Qualifiers: Acute renal failure type: with acute tubular necrosis Qualified Code(s): N17.0 - Acute kidney failure with tubular necrosis (5) CAD (coronary artery disease) Code(s): I25.10 - ATHSCL HEART DISEASE OF [place] CORONARY ARTERY W/O ANG PCTRS Status: Acute Qualifiers: Coronary Disease-Associated Artery/Lesion type: [place] artery [place] vs. 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 Surg following. * Dialysis to be initiated today. Hope is that his encephalopathy may be related to uremia and HD will help clear it. * Discussed case with patient's .
[2018-07-09] MEDS: Insulin Regular 300 UNITS/3 ML VIAL SC PRN ×4 (00:29→16:13)
[2018-07-09] MEDS: Metoclopramide HCl 10 MG/2 ML VIAL IVP SCH ×4 (00:32→17:22)
[2018-07-09] MEDS: Clindamycin/D5W 900 MG in Premix Bag 1 BAG IVPB SCH ×3 (01:58→17:22)
[2018-07-09] MEDS: fentaNYL Citrate/PF 2,000 MCG in Sodium Chloride 0.9% 60 ML IV SCH ×3 (02:23→19:59)
[2018-07-09 04:57] LABS: #Eosinphils 0.1 thou/uL (0.0-0.7); #Lymphocytes 0.9 thou/uL (1.20-3.40); #Monocytes 0.3 thou/uL (0.11-0.59); #Neutrophils 13.3 thou/uL (1.40-6.50); %Basophils 0.2 % (0.0-1.0); %Eosinophils 0.6 % (0.0-10.0); %Lymphocytes 6.4 % (21.0-51.0); %Monocytes 2.2 % (0.0-10.0); %Neutrophils 90.6 % (42.0-75.0); Hemoglobin 8.9 g/dL (14.0-18.0); Mean Corpuscular HGB CONC 31.5 g/dL (32.0-36.0); Mean Corpuscular Hemoglobin 30.8 pg (27.0-31.0); Mean Corpuscular Volume 97.9 fL (78.0-98.0); Mean Platelet Volume 8.4 fL (7.4-10.4); Platelet Count 218 thou/uL (130-400); RBC Distribution Width 13.9 % (11.5-14.5); Red Blood Cell (RBC) Count 2.88 mill/uL (4.70-6.10); White Blood Cell (WBC) Count 14.7 thou/uL (4.8-10.8)
[2018-07-09] MEDS: Penicillin G Potassium 4 MILL.UNITS in Sodium Chloride 0.9% 100 ML IVPB SCH ×3 (05:00→21:49)
[2018-07-09 05:09] LABS: Anion Gap 11 mmol/L (10-20); BUN (Urea Nitrogen) 98 mg/dL (8.4-25.7); Calc. Creatinine Clearance 48 mL/min (70-130); Calcium 8.5 mg/dL (7.8-10.44); Carbon Dioxide 28 mmol/L (23-31); Chloride 114 mmol/L (98-107); Estimated GFR-MDRD 27; Glucose 248 mg/dL (80-115); Sodium 148 mmol/L (136-145)
[2018-07-09] MEDS: Sodium Chloride 0.9% 1,000 ML IV SCH ×2 (06:13→16:30)
[2018-07-09 08:00] LABS: Actual Bicarbonate (HCO3a) 24.9 mEq/L (22-28); Base Excess (BEa) -2.8 mEq/L (-2.0 to +3.0); CO2 Tension 58.5 mmHg (35.0-45.0); Carboxyhemoglobin (COHb) 1.6 gm% (0.0-3.0); Hemoglobin (Hb) 9.7 g/dL (14.0-18.0); O2 Tension (PaO2) 105.5 mmHg (> 80.0); Potassium - ABG Lab 4.92 mmol/L (3.70-5.30)
[2018-07-09 08:03] LABS: Puncture Site L.R.; pH, Arterial 7.25 (7.35-7.45)
[2018-07-09 08:04] LABS: ALV-art Gradient 106.575 (0-20)
--- NOTE | 2018-07-09 08:30 | PRG ---
DATE OF SERVICE: 07/09/2018 SUBJECTIVE: Fritz Lewis remains intubated in the vent, still quite encephalopathic, he was dialyzed yesterday. OBJECTIVE: VITAL SIGNS: Stable. Sats 100%. Blood pressure 148/86, pulse 82, respiratory rate 18. I's and O's have been good at 3055 in and 3320 out. CHEST: Bilateral rhonchi and crackles. CARDIAC: Normal S1 and S2. No gallops. ABDOMEN: No masses. LABORATORY DATA: White count 14,000, platelet count is 218. BUN and creatinine 98 and 2.39. Glucose 240. IMPRESSION: 1. Sepsis syndrome. 2. Encephalopathy. 3. Renal failure. 4. Acute respiratory distress syndrome. 5. Congestive heart failure. 6. Supraventricular tachycardia. Day #8 on the vent. Added low-dose risperidone to control his encephalopathy. Overall, he remains relatively stable. Unable to get him off the vent in the next several days when he has a trach and a PEG. I will add a liver profile as he appears to be somewhat jaundiced. One-half hour of critical time. Job ID: [id number]
[2018-07-09 08:52] LABS: ALT (SGPT) 39 U/L (8-55); AST (SGOT) 23 U/L (5-34); Albumin 2.4 g/dL (3.4-4.8); Alkaline Phosphatase 96 U/L (40-150); Bilirubin, Direct 0.7 mg/dL (0.1-0.3); Protein, Total 6.9 g/dL (5.8-8.1)
[2018-07-09] MEDS: Hydrocortisone Sod Succ/PF 100 mg/2 ml Vial IVP SCH ×2 (08:53→21:48)
[2018-07-09] MEDS: Enoxaparin Sodium 120 MG/0.8 ML SYRINGE SC SCH (08:53)
[2018-07-09] MEDS: Carvedilol 3.125 MG TAB PER TUBE SCH ×2 (08:53→16:29)
[2018-07-09] MEDS: risperiDONE 0.25 MG TAB PO SCH ×2 (08:53→21:48)
[2018-07-09] MEDS: Insulin Glargine 20 UNITS in Pre-Filled Syringe 1 EACH SC SCH ×2 (08:54→21:11)
[2018-07-09] MEDS: Propofol 1,000 MG/100 ML VIAL IV PRN ×2 (09:02→17:26)
--- NOTE | 2018-07-09 09:49 | PRG ---
DATE OF SERVICE: 07/09/2018 RENAL MEDICINE. SUBJECTIVE: Mr. Lewis is a 68-year-old white male, who was admitted for sepsis, developed acute kidney injury secondary to presumed ischemic ATN. We have initiated dialysis due to his mental status change that could be related to underlying uremia. He dialyzed 1-hour yesterday with fluid removal. The plan is to do another 2-hour hemodialysis with this patient today with again fluid removal. He is still not able to be extubated. We will try to max out fluid removal. No acute events noted last night. OBJECTIVE: VITAL SIGNS: Blood pressure 159/77, heart rate 88, respiratory rate 7, and pulse ox is 100%. GENERAL: He is sedated, intubated on ventilator support. SKIN: Adequate turgor, obese. HEENT: Pinkish conjunctivae. Anicteric sclerae. No neck mass. No carotid bruits. No JVD. LUNGS: Decreased breath sounds-occasional crackles. HEART: Normal sinus rhythm. No gallops. No rubs. ABDOMEN: Globular, soft, nontender. EXTREMITIES: Positive for edema. MEDICATIONS: Medications of July 09, 2018 was reviewed. LABORATORY DATA: Laboratories of July 09, 2018; white count 14.7, hemoglobin 8.9, sodium 148, potassium 5, chloride 114, carbon dioxide 28, BUN 98, creatinine 2.39, glucose 248, and calcium 8.5. ASSESSMENT AND PLAN: 1. Acute kidney injury-secondary to superimposed acute tubular necrosis, continue dialytic regimen. We will plan for daily dialysis with incremental increase in time by 1 hour until we reach 4 hours. After reaching 4 hours, we will consider three times a week hemodialysis with this patient. 2. Sepsis syndrome-on antibiotics. Continue supportive care. 3. Metabolic encephalopathy-continue dialysis regimen. Overall prognosis remains guarded. Case discussed with the . Job ID: [id number]
[2018-07-09] MEDS: Pantoprazole 40 MG VIAL IVP SCH ×2 (10:24→21:48)
[2018-07-09] MEDS: Silver Sulfadiazine 1% Cream 50 GM JAR TOP SCH ×2 (11:45→22:28)
--- NOTE | 2018-07-09 14:46 | PRG ---
DATE OF SERVICE: 07/09/2018 SUBJECTIVE: This is a 68-year-old male patient, whom the surgical team is seeing as a consultation for bullous cellulitis to the left lower extremity secondary to group A streptococcus infection. The patient remains mechanically ventilated today. He did also receive dialysis yesterday evening. His left lower extremity currently has dressings, which are being changed by nursing staff. Wound Care is also seeing the patient and is documenting the wound progress. He has been afebrile, hemodynamically stable, not on any pressures. OBJECTIVE: VITAL SIGNS: Pulse is 73, blood pressure 101/41, and O2 saturation 100% on mechanical ventilation. GENERAL: The patient is intubated and sedated, comfortable in bed. PULMONARY: He has equal chest rise and fall. Clear breath sounds. CARDIOVASCULAR: No longer tachycardic. No murmurs, gallops, or rubs. GI: Abdomen is soft, nontender, and nondistended. Positive bowel sounds. MUSCULOSKELETAL: He has a dressing over his left lower extremity from above the knee to the ankle. He also has another dressing to the left upper medial thigh with packing into the wound. The left upper thigh wound appears clean and dry with no obvious of purulence or necrosis. The multiple wounds on his left lower extremity starting from the knee to the ankle look improved today with diminishing erythema. LABORATORY FINDINGS: White count is 14.7, hemoglobin is 8.9, hematocrit 28.2, and platelets are 218. Sodium is 148, potassium 5.0, chloride 114, carbon dioxide 28, BUN is 98, creatinine is 2.39, and glucose is 248. ASSESSMENT: 1. Left lower extremity bullous cellulitis secondary to group A soft tissue infection. 2. Resolving group A strep septicemia. 3. Acute kidney injury, now on dialysis. 4. Hyperkalemia, improved. 5. Hyperglycemia, stable. 6. Hypernatremia, stable. PLAN: Continue with the local wound care b.i.d. as ordered. Pending re- evaluation by Wound Care for further instructions. There is no surgical indication at this time. Nephrology seeing the patient after dialysis catheter placed yesterday. Continue care per Nephrology team. Surgery will continue to follow. Plan of care was discussed with the patient's and nurse at bedside. All questions were answered at that time. This patient was discussed with the attending. Job ID: [id number] MTDD
[2018-07-09] MEDS: Amiodarone 450 MG in Dextrose 5% in Water 250 ML IVPB SCH (15:18)
--- NOTE | 2018-07-09 15:45 | PDOC.PN ---
- Subjective Encounter Start Date: 07/09/18 Encounter Start Time: 13:15 -: non-verbal - Objective Resuscitation Status - Order Detail: 06/30/18 04:33 Resuscitation Status Routine Resuscitation Status: FULL: Full Resuscitation Vital Signs & Weight: Vital Signs (12 hours) Temp Pulse Pulse Pulse Resp BP BP 07/09/18 14:00 13 07/09/18 13:51 73 101/41 L 07/09/18 13:50 76 11 L 07/09/18 12:00 97.8 F 15 07/09/18 11:22 87 165/71 H 07/09/18 10:00 12 07/09/18 09:30 84 79 91/43 L 07/09/18 08:00 97.7 F 12 07/09/18 07:38 79 148/86 H 07/09/18 07:36 82 12 07/09/18 06:00 15 07/09/18 04:00 97.8 F 14 BP Pulse Ox Pulse Ox Pulse Ox 07/09/18 14:00 07/09/18 13:51 07/09/18 13:50 100 07/09/18 12:00 07/09/18 11:22 07/09/18 10:00 07/09/18 09:30 86/42 L 97 97 07/09/18 08:00 100 07/09/18 07:38 07/09/18 07:36 100 07/09/18 06:00 07/09/18 04:00 Weight Admit Weight 249 lb Weight 249 lb 1.957 oz Most Recent Monitor Data Heart Rate from ECG 83 NIBP 132/67 NIBP BP-Mean 88 Respiration from ECG 8 SpO2 99 I&O: 07/08/18 07/09/18 07/10/18 06:59 06:59 06:59 Intake Total 4618.1 3055.2 502.8 Output Total 5315 3320 725 Balance -696.9 -264.8 -222.2 Result Diagrams: 07/09/18 04:38 07/09/18 04:38 Additional Labs: Accuchecks 07/09/18 07/09/18 07/09/18 12:06 08:39 04:37 POC Glucose 231 H 206 H 240 H 07/09/18 07/08/18 07/08/18 00:27 20:44 17:34 POC Glucose 253 H 211 H 235 H Phys Exam - Physical Examination Constitutional: NAD Intubated, sedated. Respiratory: no wheezing, no rales, no rhonchi, clear to auscultation bilateral Cardiovascular: RRR, no significant murmur Gastrointestinal: soft, no distention, positive bowel sounds Musculoskeletal: no edema Left LE with wound dressings. Persistent erythema, but improved. Dx/Plan (1) Cellulitis and abscess of left leg Code(s): L03.116 - CELLULITIS OF LEFT LOWER LIMB; L02.416 - CUTANEOUS ABSCESS OF LEFT LOWER LIMB Status: Acute (2) Group A streptococcal infection Code(s): B95.0 - STREPTOCOCCUS, GROUP A, CAUSING DISEASES CLASSD ELSWHR Status : Acute (3) Toxic metabolic encephalopathy Code(s): G92 - TOXIC ENCEPHALOPATHY Status: Acute (4) Acute renal failure Status: Acute Qualifiers: Acute renal failure type: with acute tubular necrosis Qualified Code(s): N17.0 - Acute kidney failure with tubular necrosis (5) CAD (coronary artery disease) Code(s): I25.10 - ATHSCL HEART DISEASE OF [place] CORONARY ARTERY W/O ANG PCTRS Status: Acute Qualifiers: Coronary Disease-Associated Artery/Lesion type: [place] artery [place] vs. 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 Will get again today with longer course. * Continue Abx per ID recs. * Continue wound care. * Pulm following. Back on modest precedex and fentanyl. * Discussed with Pulm. Likely is heading for trach and PEG. * Encephalopathy persists. On Risperdal.
[2018-07-10] MEDS: Clindamycin/D5W 900 MG in Premix Bag 1 BAG IVPB SCH ×3 (00:05→16:35)
[2018-07-10] MEDS: Metoclopramide HCl 10 MG/2 ML VIAL IVP SCH ×4 (00:08→17:51)
[2018-07-10] MEDS: Insulin Regular 300 UNITS/3 ML VIAL SC PRN ×3 (04:16→17:19)
[2018-07-10 04:28] LABS: #Eosinphils 0.1 thou/uL (0.0-0.7); #Lymphocytes 0.9 thou/uL (1.20-3.40); #Monocytes 0.3 thou/uL (0.11-0.59); #Neutrophils 10.4 thou/uL (1.40-6.50); %Basophils 0.3 % (0.0-1.0); %Eosinophils 0.5 % (0.0-10.0); %Lymphocytes 7.6 % (21.0-51.0); %Monocytes 2.4 % (0.0-10.0); %Neutrophils 89.2 % (42.0-75.0); Hemoglobin 8.2 g/dL (14.0-18.0); Mean Corpuscular HGB CONC 31.9 g/dL (32.0-36.0); Mean Corpuscular Hemoglobin 31.4 pg (27.0-31.0); Mean Corpuscular Volume 98.3 fL (78.0-98.0); Mean Platelet Volume 8.3 fL (7.4-10.4); Platelet Count 178 thou/uL (130-400); RBC Distribution Width 13.6 % (11.5-14.5); White Blood Cell (WBC) Count 11.7 thou/uL (4.8-10.8)
[2018-07-10] MEDS: Propofol 1,000 MG/100 ML VIAL IV PRN ×3 (04:32→16:35)
[2018-07-10 04:41] LABS: Anion Gap 11 mmol/L (10-20); BUN (Urea Nitrogen) 84 mg/dL (8.4-25.7); Calc. Creatinine Clearance 54 mL/min (70-130); Calcium 8.4 mg/dL (7.8-10.44); Carbon Dioxide 29 mmol/L (23-31); Chloride 111 mmol/L (98-107); Estimated GFR-MDRD 31; Glucose 239 mg/dL (80-115); Potassium 4.8 mmol/L (3.5-5.1); Sodium 146 mmol/L (136-145)
[2018-07-10] MEDS: Amiodarone 450 MG in Dextrose 5% in Water 250 ML IVPB SCH (05:13)
[2018-07-10] MEDS: fentaNYL Citrate/PF 2,000 MCG in Sodium Chloride 0.9% 60 ML IV SCH ×2 (06:29→17:51)
[2018-07-10] MEDS: Penicillin G Potassium 4 MILL.UNITS in Sodium Chloride 0.9% 100 ML IVPB SCH ×3 (06:34→21:17)
[2018-07-10 07:18] LABS: Actual Bicarbonate (HCO3a) 26.9 mEq/L (22-28); Base Excess (BEa) 1.1 mEq/L (-2.0 to +3.0); CO2 Tension 48.4 mmHg (35.0-45.0); Calcium, Ionized 1.19 mmol/L (1.12-1.30); Hemoglobin (Hb) 8.7 g/dL (14.0-18.0); O2 Tension (PaO2) 135.3 mmHg (> 80.0); Potassium - ABG Lab 4.67 mmol/L (3.70-5.30); pH, Arterial 7.36 (7.35-7.45)
[2018-07-10 07:19] LABS: Puncture Site RR
--- NOTE | 2018-07-10 09:11 | RAD ---
AP VIEW CHEST: Date: 07/10/18 HISTORY: Ventilator-dependent patient. FINDINGS: Comparison made to previous exam from 07/08/18. AP view of chest demonstrates EKG leads seen over the chest. Endotracheal tube overlies the tracheal air column. Cardiomegaly is seen. Pulmonary vascular congestion seen. Diffuse bilateral perihilar air space opacities seen compatible with pulmonary edema or pneumonia. Small bilateral pleural effusions seen. IMPRESSION: Stable AP view of chest, not significantly changed since the previous exam. POS: [facility]
--- NOTE | 2018-07-10 09:32 | PRG ---
DATE OF SERVICE: 07/10/2018 RENAL MEDICINE SUBJECTIVE: Mr. Lewis is a 68-year-old white male admitted for sepsis, bullous cellulitis, and seen by the Renal Service for his acute kidney injury. He initially had an acute kidney injury, which we thought was prerenal. However, it remains unimproved. He most likely has superimposed ATN. Dialysis was initiated due to mental status change/uremic signs and symptoms. He underwent a 2-hour dialysis yesterday. We are going to schedule him for a 3-hour hemodialysis and max out fluid removal. He is also in some degree of volume overload. No acute events last night. OBJECTIVE: VITAL SIGNS: Blood pressure is 166/74, heart rate 65, and respiratory rate 11. GENERAL: He is awake, agitated, and intubated on ventilator support. SKIN: Adequate turgor. HEENT: He has a slightly pale conjunctivae. Anicteric sclerae. NECK: No neck mass. No carotid bruits. No JVD. CHEST: No deformities. LUNGS: Decreased breath sounds. HEART: Normal sinus rhythm. No murmurs. No gallops. No rubs. ABDOMEN: Globular, soft, and nontender. No masses. EXTREMITIES: No edema. No deformities. Left leg - bullous cellulitis. MEDICATIONS: Medications of July 10, 2018 were reviewed. LABORATORY DATA: Laboratories of July 10, 2018; white count 11.7, hemoglobin 8.2. Sodium 146, potassium 4.8, chloride 111, carbon dioxide 29, BUN is 84, creatinine 2.13, glucose 239, and calcium 8.4. ASSESSMENT AND PLAN: 1. Acute kidney injury - consider ischemic acute tubular necrosis. Continue daily dialysis. Fluid removal as tolerated by the patient. 2. Holding off heparin. 3. Sepsis/left leg cellulitis - on antibiotics. 4. Metabolic encephalopathy, still is unimproved. This could be secondary to his underlying sepsis. Overall prognosis remains guarded. Job ID: [id number]
[2018-07-10] MEDS: Carvedilol 3.125 MG TAB PER TUBE SCH ×3 (09:34→19:07)
--- NOTE | 2018-07-10 09:34 | PRG ---
DATE OF SERVICE: 07/10/2018 SUBJECTIVE: He remains intubated on the vent and sedated. OBJECTIVE: VITAL SIGNS: Pulse is 100, blood pressure 106/74, saturations _98%, and respiratory rate 17. GENERAL: He is being dialyzed. CHEST: Decreased breath sounds. No wheezing. CARDIAC: Normal S1 and S2. No gallops. ABDOMEN: No masses. IMAGING DATA: Chest x-ray still shows bilateral infiltrates. LABORATORY DATA: PO2 is 135, pCO2 of 48, pH is 7.37 on a bilevel. White count 11,000, H and H 8 and 25, and platelet count 178. BUN and creatinine 84 and 2.14. IMPRESSION: 1. Sepsis syndrome. 2. Respiratory failure. 3. Renal failure. 4. Encephalopathy. 5. Diabetes. PLAN: He is still not weanable. He more than likely is going to need a trach and PEG. He is still on amiodarone for his SVT, full-dose Lovenox. He has had a week of hydrocortisone and dc it ,,_ neb treatments, nutrition, PT, antibiotics. One half hour critical time. We will follow. Job ID: [id number] [facility]
[2018-07-10] MEDS: Enoxaparin Sodium 120 MG/0.8 ML SYRINGE SC SCH (09:35)
[2018-07-10] MEDS: Pantoprazole 40 MG VIAL IVP SCH ×2 (09:35→21:17)
[2018-07-10] MEDS: risperiDONE 0.25 MG TAB PO SCH ×2 (09:35→21:17)
[2018-07-10] MEDS: Insulin Glargine 20 UNITS in Pre-Filled Syringe 1 EACH SC SCH ×2 (09:39→21:17)
[2018-07-10] MEDS: Silver Sulfadiazine 1% Cream 50 GM JAR TOP SCH ×3 (09:53→21:19)
--- NOTE | 2018-07-10 11:28 | PDOC.OP ---
Operative Note - Operative Note Operative Note: PROCEDURE: Right femoral hemodialysis catheter placement with ultrasound guidance DATE OF PROCEDURE: 07/08/2018 SURGEON: Rafat Ochoa M.D. PREOPERATIVE DIAGNOSES: Renal failure POSTOPERATIVE DIAGNOSIS: Renal failure HISTORY: Patient with acute renal failure with hyperkalemia and fluid overload who requires access for immediate dialysis. PROCEDURE IN DETAIL: After informed consent was obtained and an ultrasound used to confirm presence of a patent compressible right femoral vein, the groin was prepped and draped in standard sterile fashion. Local anesthesia was infused over the femoral vein which was accessed under direct ultrasound guidance with excellent flow of dark venous nonpulsatile blood. Ultrasound was used to confirm the presence of the wire within the patent compressible femoral vein. A skin incision was made and the tract was serially dilated over the wire. The dialysis catheter was placed over the wire and secured to the skin with sutures. All ports easily aspirated and easily flushed without resistance. A chlorhexidine and Tegaderm dressing was placed. The patient tolerated the procedure well. Estimated blood loss was minimal. There were no complications. There were no specimens.
[2018-07-10] MEDS ORDERED: Heparin 10,000 UNITS/ 10 ML VIAL ONE (14:07)
--- NOTE | 2018-07-10 14:15 | PRG ---
DATE OF SERVICE: 07/10/2018 SUBJECTIVE: This is a 68-year-old male patient, whom the surgical team is seeing as a consultation for bullous cellulitis to the left lower extremity secondary to group A streptococcus infection. The patient remains mechanically ventilated. He did also receive dialysis. His left lower extremity is currently receiving dressing changes b.i.d. by Wound Care. The left lower extremity looks to be improving daily. He is afebrile and hemodynamically stable. His white count is continuing to improve. OBJECTIVE: VITAL SIGNS: Heart rate is 71, blood pressure is 93/44, respirations are 11, and oxygen saturation is 100%. GENERAL: The patient is intubated and sedated, minimally agitated in bed, no signs of acute distress. PULMONARY: Equal chest rise and fall, clear equal breath sounds, ET tube in place. CARDIOVASCULAR: Normal sinus rhythm. No murmurs, gallops, or rubs. GI: Abdomen is soft, nontender, and nondistended. Positive bowel sounds. MUSCULOSKELETAL: He has a dressing over his left lower extremity from above the knee to the ankle. He also has another dressing in the left upper mid thigh with wet-to-dry packing into the wound. The left upper thigh appears clean and dry with no purulence or necrosis. The multiple wounds on his left lower extremity starting from the knee to the ankle looked similar to yesterday. Dressing knot continues to improve. LABORATORY FINDINGS: White count 11.7, hemoglobin 8.2, hematocrit 25.6, platelets 178. Sodium 146, potassium 4.8, chloride 111, carbon dioxide 29, BUN 84, creatinine 2.1, and glucose 239. ASSESSMENT: 1. Left lower extremity bullous cellulitis secondary to group A soft tissue infection. 2. Resolving group A strep septicemia. 3. Acute kidney injury, now on dialysis. 4. Hyperkalemia, improved. 5. Hyperglycemia, stable. 6. Hypernatremia, stable. PLAN: Continue with local wound care b.i.d. as ordered. We will continue to monitor the wounds daily. No surgical indication at this time. All questions and plan of care were discussed with the patient's family present during examination. The patient was discussed with the attending. Job ID: [id number]
--- NOTE | 2018-07-10 16:18 | PDOC.PN ---
- Subjective Encounter Start Date: 07/10/18 Encounter Start Time: 13:40 -: non-verbal - Objective Resuscitation Status - Order Detail: 06/30/18 04:33 Resuscitation Status Routine Resuscitation Status: FULL: Full Resuscitation Vital Signs & Weight: Vital Signs (12 hours) Temp Pulse Resp BP Pulse Ox 07/10/18 15:41 76 158/68 H 07/10/18 14:00 17 07/10/18 12:35 66 87/43 L 07/10/18 12:00 97.8 F 17 07/10/18 10:48 72 89/42 L 07/10/18 10:00 11 L 07/10/18 08:13 90 166/74 H 07/10/18 08:00 98.0 F 12 100 07/10/18 06:00 15 Weight Admit Weight 249 lb Weight 249 lb 1.957 oz Most Recent Monitor Data Heart Rate from ECG 73 NIBP 158/68 NIBP BP-Mean 98 Respiration from ECG 11 SpO2 95 I&O: 07/09/18 07/10/18 07/11/18 06:59 06:59 06:59 Intake Total 3055.2 3348.2 180 Output Total 3320 1895 675 Balance -264.8 1453.2 -495 Result Diagrams: 07/10/18 04:14 07/10/18 04:14 Additional Labs: Accuchecks 07/10/18 07/10/18 07/10/18 12:32 08:36 04:14 POC Glucose 121 H 155 H 228 H 07/10/18 07/09/18 07/09/18 00:38 21:08 16:11 POC Glucose 200 H 178 H 221 H Phys Exam - Physical Examination Constitutional: NAD Intubated and sedated. Eyes open. Does not track. Respiratory: no wheezing, no rales, no rhonchi, clear to auscultation bilateral Cardiovascular: RRR, no significant murmur Gastrointestinal: soft, no distention, positive bowel sounds Musculoskeletal: no edema LLE with dressed, desquamated areas. Cellulitis improving. Dx/Plan (1) Cellulitis and abscess of left leg Code(s): L03.116 - CELLULITIS OF LEFT LOWER LIMB; L02.416 - CUTANEOUS ABSCESS OF LEFT LOWER LIMB Status: Acute (2) Group A streptococcal infection Code(s): B95.0 - STREPTOCOCCUS, GROUP A, CAUSING DISEASES CLASSD ELSWHR Status : Acute (3) Toxic metabolic encephalopathy Code(s): G92 - TOXIC ENCEPHALOPATHY Status: Acute (4) Acute renal failure Status: Acute Qualifiers: Acute renal failure type: with acute tubular necrosis Qualified Code(s): N17.0 - Acute kidney failure with tubular necrosis (5) CAD (coronary artery disease) Code(s): I25.10 - ATHSCL HEART DISEASE OF [place] CORONARY ARTERY W/O ANG PCTRS Status: Acute Qualifiers: Coronary Disease-Associated Artery/Lesion type: [place] artery [place] vs. transplanted heart: [place] heart Associated angina: without angina Qualified Code(s): I25.10 - Atherosclerotic heart disease of [place] coronary artery without angina pectoris (6) DKA (diabetic ketoacidoses) Code(s): E13.10 - OTH DIABETES MELLITUS WITH KETOACIDOSIS WITHOUT COMA Status : Acute (7) DM type 2 (diabetes mellitus, type 2) Status: Acute Qualifiers: Diabetes mellitus snf insulin use: with exterminator use Diabetes mellitus complication status: with kidney complications (8) Diastolic CHF Code(s): I50.30 - UNSPECIFIED DIASTOLIC (CONGESTIVE) HEART FAILURE Status: Acute (9) HTN (hypertension) Code(s): I10 - ESSENTIAL (PRIMARY) HYPERTENSION Status: Acute Qualifiers: Hypertension type: essential hypertension Qualified Code(s): I10 - Essential (primary) hypertension - Plan * Continuing dialysis for possible uremic encephalopathy. * continue abx. * Vent support with Pulm. * Anemia stable.
[2018-07-10] MEDS: Sodium Chloride 0.9% 1,000 ML IV SCH (16:37)
[2018-07-10] MEDS: Amiodarone 200 MG TAB PER TUBE SCH (21:17)
[2018-07-11] MEDS: Metoclopramide HCl 10 MG/2 ML VIAL IVP SCH ×4 (00:38→17:05)
[2018-07-11] MEDS: Clindamycin/D5W 900 MG in Premix Bag 1 BAG IVPB SCH ×2 (00:38→08:46)
[2018-07-11] MEDS: fentaNYL Citrate/PF 2,000 MCG in Sodium Chloride 0.9% 60 ML IV SCH ×2 (04:01→16:28)
[2018-07-11] MEDS: Propofol 1,000 MG/100 ML VIAL IV PRN ×3 (04:05→20:40)
[2018-07-11 04:45] LABS: #Eosinphils 0.1 thou/uL (0.0-0.7); #Lymphocytes 0.9 thou/uL (1.20-3.40); #Monocytes 0.3 thou/uL (0.11-0.59); %Basophils 0.3 % (0.0-1.0); %Eosinophils 1.4 % (0.0-10.0); %Lymphocytes 10.9 % (21.0-51.0); %Monocytes 3.2 % (0.0-10.0); %Neutrophils 84.3 % (42.0-75.0); Hemoglobin 7.7 g/dL (14.0-18.0); Mean Corpuscular HGB CONC 31.4 g/dL (32.0-36.0); Mean Corpuscular Hemoglobin 31.6 pg (27.0-31.0); Mean Platelet Volume 8.4 fL (7.4-10.4); Platelet Count 191 thou/uL (130-400); RBC Distribution Width 13.4 % (11.5-14.5); Red Blood Cell (RBC) Count 2.43 mill/uL (4.70-6.10); White Blood Cell (WBC) Count 8.3 thou/uL (4.8-10.8)
[2018-07-11 05:05] LABS: Anion Gap 10 mmol/L (10-20); BUN (Urea Nitrogen) 56 mg/dL (8.4-25.7); Calc. Creatinine Clearance 66 mL/min (70-130); Calcium 8.4 mg/dL (7.8-10.44); Carbon Dioxide 30 mmol/L (23-31); Chloride 105 mmol/L (98-107); Estimated GFR-MDRD 39; Glucose 131 mg/dL (80-115); Potassium 4.2 mmol/L (3.5-5.1); Sodium 141 mmol/L (136-145)
[2018-07-11] MEDS: Penicillin G Potassium 4 MILL.UNITS in Sodium Chloride 0.9% 100 ML IVPB SCH ×2 (05:58→17:35)
[2018-07-11 07:03] LABS: Actual Bicarbonate (HCO3a) 29.3 mEq/L (22-28); Base Excess (BEa) 3.4 mEq/L (-2.0 to +3.0); CO2 Tension 52.6 mmHg (35.0-45.0); Calcium, Ionized 1.16 mmol/L (1.12-1.30); Carboxyhemoglobin (COHb) 1.8 gm% (0.0-3.0); Hemoglobin (Hb) 8.1 g/dL (14.0-18.0); O2 Tension (PaO2) 137.9 mmHg (> 80.0); Potassium - ABG Lab 4.15 mmol/L (3.70-5.30); pH, Arterial 7.36 (7.35-7.45)
[2018-07-11 07:10] LABS: Puncture Site RR
--- NOTE | 2018-07-11 07:44 | PRG ---
DATE OF SERVICE: 07/11/2018 RENAL MEDICINE. SUBJECTIVE: Mr. Lewis is a 68-year-old white male, who was admitted for sepsis/bullous left leg cellulitis and seen by the Renal Service for his acute kidney injury. He was initiated on dialysis for volume overload and for uremic signs and symptoms-mental status change. He has been undergoing daily dialysis. The plan today is to do a 4-hour dialysis with fluid removal as tolerated by the patient. No acute events noted. OBJECTIVE: VITAL SIGNS: Blood pressure 142/57, heart rate 75, respiratory rate 12, pulse ox 100%. GENERAL: The patient is awake, but not following commands, intubating with ventilator support. HEENT: He has slightly pale conjunctivae. Anicteric sclerae. No neck mass. No carotid bruits. No JVD. CHEST: No deformities. LUNGS: Decreased breath sounds. HEART: Normal sinus rhythm. No murmur. No gallops or rubs. ABDOMEN: Globular, soft, nontender. No masses. EXTREMITIES: Positive for edema. Positive for left leg bullous cellulitis. MEDICATIONS: Medications of July 11, 2018 was reviewed. LABORATORY DATA: Laboratories of July 11, 2018, white count 8.3, hemoglobin 7.7, sodium 141, potassium 4.2, chloride 105, carbon dioxide 30, BUN 56, creatinine 1.74, glucose 131, calcium 8.4. ASSESSMENT AND PLAN: 1. Acute kidney injury - Secondary to ischemic acute tubular necrosis, continuing daily dialysis with this patient. Fluid removal as tolerated by the patient. We will attempt a 4-hour hemodialysis today with maximal fluid removal. 2. Mental status change - This is secondary to metabolic encephalopathy possibly from his sepsis. 3. Sepsis - The patient is currently on antibiotics. 4. Acute respiratory failure - Still dependent on ventilator support. Overall prognosis remains guarded. Job ID: [id number]
--- NOTE | 2018-07-11 08:22 | RAD ---
CHEST 1 VIEW: HISTORY: Respiratory insufficiency, patient on ventilator. COMPARISON: 07/10/2018. FINDINGS: Monitor leads overlie the chest. Endotracheal tube in position. There are some patchy alveolar and interstitial parenchymal changes, particularly in the perihilar regions with small pleural effusions. Appearance is stable to possibly slightly improved from most recent prior studies. No new confluen t process. No pneumothorax. IMPRESSION: Persistent overall stable bilateral patchy interstitial and alveolar opacities and pleural effusion c [place]. POS: TPC
[2018-07-11] MEDS: Amiodarone 200 MG TAB PER TUBE SCH ×2 (08:45→20:41)
[2018-07-11] MEDS: Carvedilol 3.125 MG TAB PER TUBE SCH ×2 (08:45→17:04)
[2018-07-11] MEDS: Enoxaparin Sodium 120 MG/0.8 ML SYRINGE SC SCH (08:46)
[2018-07-11] MEDS: Insulin Glargine 20 UNITS in Pre-Filled Syringe 1 EACH SC SCH ×2 (08:46→21:04)
[2018-07-11] MEDS: risperiDONE 0.25 MG TAB PO SCH ×2 (08:47→21:04)
[2018-07-11] MEDS: Silver Sulfadiazine 1% Cream 50 GM JAR TOP SCH ×2 (08:48→10:09)
[2018-07-11] MEDS: Pantoprazole 40 MG VIAL IVP SCH ×2 (08:53→20:41)
--- NOTE | 2018-07-11 09:08 | PRG ---
DATE OF SERVICE: 07/11/2018 SUBJECTIVE: This morning he remains intubated in the vent, slightly sedated, still has some . His x-ray is much improved. Minimal infiltrates. OBJECTIVE: VITAL SIGNS: Sats are 100% on 40% FiO2, respirations 12, pulse 80, he is afebrile. I's and O's are good. He is being dialyzed. CHEST: Decreased breath sounds, no wheezing. CARDIAC: Normal S1 and S2. No gallops. ABDOMEN: No masses. DIAGNOSTIC DATA: White count 8000. H and H 7 and 24. Platelet count 191. pO2 is 137, pCO2 is . Creatinine is 1.74, BUN is 56. IMPRESSION: 1. Metabolic encephalopathy. 2. Sepsis syndrome. 3. Left leg cellulitis, possibly streptococcus. 4. His renal failure improving. 5. Diabetes. PLAN: 1. Continue clindamycin, penicillin. 2. Try and wean once his encephalopathy improves. 3. He is likely going to require trach and PEG. He is day #11 on the vent. One half hour critical time. Job ID: [id number]
--- NOTE | 2018-07-11 11:19 | PRG ---
DATE OF SERVICE: 07/11/2018 SUBJECTIVE: Mr. Lewis is a 68-year-old man with recent bullous cellulitis involving the left lower extremity. The patient remains on mechanical ventilator support. He is receiving no vasopressor or inotropic support. The left lower extremity wound is healing. The thigh and calf are soft. No evidence of compartment. The remainder of the left lower extremity wound is without any active purulence. The surrounding erythema is resolving. The patient has 2+ radial and pedal pulses in all extremities. There is no acute surgical indication for this patient at this time. I recommend ongoing local wound care per wound care nursing. General surgeon will sign off and be available to re-evaluate the patient on demand. Job ID: [id number]
--- NOTE | 2018-07-11 12:55 | PDOC.PN ---
- Subjective Encounter Start Date: 07/11/18 Encounter Start Time: 08:50 -: non-verbal - Objective Resuscitation Status - Order Detail: 06/30/18 04:33 Resuscitation Status Routine Resuscitation Status: FULL: Full Resuscitation Vital Signs & Weight: Vital Signs (12 hours) Temp Pulse Resp BP Pulse Ox 07/11/18 10:45 69 113/48 L 07/11/18 10:00 12 07/11/18 08:00 98.8 F 11 L 100 07/11/18 07:57 75 142/52 H 07/11/18 07:51 72 143/52 H 07/11/18 06:00 12 07/11/18 04:00 98.9 F 12 07/11/18 02:20 70 07/11/18 02:00 13 Weight Admit Weight 249 lb Weight 249 lb 1.957 oz Most Recent Monitor Data Heart Rate from ECG 69 NIBP 112/50 NIBP BP-Mean 70 Respiration from ECG 4 SpO2 99 I&O: 07/10/18 07/11/18 07/12/18 06:59 06:59 06:59 Intake Total 3348.2 3367.2 175 Output Total 1895 1630 370 Balance 1453.2 1737.2 -195 Result Diagrams: 07/11/18 03:56 07/11/18 03:56 Additional Labs: Accuchecks 07/11/18 07/11/18 07/11/18 11:35 03:46 00:36 POC Glucose 101 127 H 133 H 07/10/18 07/10/18 20:26 17:18 POC Glucose 126 H 168 H Phys Exam - Physical Examination Constitutional: NAD Intubated. Slightly sedated. Moves, but does not make eye contact or track Respiratory: no wheezing, no rales, no rhonchi, clear to auscultation bilateral Cardiovascular: RRR, no significant murmur, no rub Gastrointestinal: soft, non-tender, no distention, positive bowel sounds Musculoskeletal: no edema LLE wrapped. Well demarcated denuded area without erythema halo. Dx/Plan (1) Cellulitis and abscess of left leg Code(s): L03.116 - CELLULITIS OF LEFT LOWER LIMB; L02.416 - CUTANEOUS ABSCESS OF LEFT LOWER LIMB Status: Acute (2) Group A streptococcal infection Code(s): B95.0 - STREPTOCOCCUS, GROUP A, CAUSING DISEASES CLASSD ELSWHR Status : Acute (3) Toxic metabolic encephalopathy Code(s): G92 - TOXIC ENCEPHALOPATHY Status: Acute (4) Acute renal failure Status: Acute Qualifiers: Acute renal failure type: with acute tubular necrosis Qualified Code(s): N17.0 - Acute kidney failure with tubular necrosis (5) CAD (coronary artery disease) Code(s): I25.10 - ATHSCL HEART DISEASE OF [place] CORONARY ARTERY W/O ANG PCTRS Status: Acute Qualifiers: Coronary Disease-Associated Artery/Lesion type: [place] artery [place] vs. transplanted heart: [place] heart Associated angina: without angina Qualified Code(s): I25.10 - Atherosclerotic heart disease of [place] coronary artery without angina pectoris (6) DKA (diabetic ketoacidoses) Code(s): E13.10 - OTH DIABETES MELLITUS WITH KETOACIDOSIS WITHOUT COMA Status : Resolved (7) DM type 2 (diabetes mellitus, type 2) Status: Acute Qualifiers: Diabetes mellitus mcfp insulin use: with mcfp use Diabetes mellitus complication status: with kidney complications (8) Diastolic CHF Code(s): I50.30 - UNSPECIFIED DIASTOLIC (CONGESTIVE) HEART FAILURE Status: Acute (9) HTN (hypertension) Code(s): I10 - ESSENTIAL (PRIMARY) HYPERTENSION Status: Acute Qualifiers: Hypertension type: essential hypertension Qualified Code(s): I10 - Essential (primary) hypertension - Plan * continuing on abx, but infection appears to be largely resolved now. * continue HD for renal failure. * encephalopathy does not appear to be clearing with resolution of the infection and clearing of the uremia. * may need track, PEG.
--- NOTE | 2018-07-11 14:40 | PRG ---
DATE OF SERVICE: 07/11/2018 SUBJECTIVE: Mr. Lewis is still having a lot of agitation whenever the sedation is tapered. No diarrhea. OBJECTIVE: VITAL SIGNS: His T-max 98.9, blood pressure 122/54, pulse 70, still being dialyzed. HEENT: Ocular movements conjugate. LUNGS: Symmetric air entry. HEART: S1 and S2, regular rate. ABDOMEN: Soft. EXTREMITIES: Left leg is improving steadily. LABORATORY DATA: White cell count 8.3, hemoglobin 7.7, platelets 191. Chemistry with a creatinine of 1.74. Chest x-ray with patchy interstitial alveolar opacities. ASSESSMENT AND DISCUSSION: Strep pyogenes bacteremia with severe cellulitis of left lower extremity, which is steadily improving. The patient developed multiorgan dysfunction and has required hemodialysis, still having delirium requiring sedation. We will discontinue clindamycin and penicillin, switch him to Rocephin 1 g daily few more days and then discontinue antimicrobial therapy. Job ID: [id number]
[2018-07-11] MEDS ORDERED: Heparin 10,000 UNITS/ 10 ML VIAL ONE (15:00)
[2018-07-11] MEDS: cefTRIAXone\\ROCEPHIN 1 GM in Sodium Chloride 0.9% 100 ML IVPB SCH (17:03)
[2018-07-11] MEDS: Lorazepam 2 MG/ML VIAL SLOW IVP PRN (18:02)
[2018-07-11] MEDS: Sodium Chloride 0.9% 1,000 ML IV SCH (18:41)
[2018-07-12] MEDS: Metoclopramide HCl 10 MG/2 ML VIAL IVP SCH ×4 (02:26→16:34)
[2018-07-12] MEDS: Propofol 1,000 MG/100 ML VIAL IV PRN ×2 (02:27→12:08)
[2018-07-12] MEDS: fentaNYL Citrate/PF 2,000 MCG in Sodium Chloride 0.9% 60 ML IV SCH ×2 (02:40→17:06)
[2018-07-12 04:42] LABS: #Eosinphils 0.1 thou/uL (0.0-0.7); #Lymphocytes 0.8 thou/uL (1.20-3.40); #Monocytes 0.4 thou/uL (0.11-0.59); #Neutrophils 9.3 thou/uL (1.40-6.50); %Basophils 0.3 % (0.0-1.0); %Eosinophils 1.1 % (0.0-10.0); %Lymphocytes 7.3 % (21.0-51.0); %Monocytes 3.3 % (0.0-10.0); Mean Corpuscular HGB CONC 32.2 g/dL (32.0-36.0); Mean Corpuscular Volume 99.4 fL (78.0-98.0); Platelet Count 202 thou/uL (130-400); Red Blood Cell (RBC) Count 2.49 mill/uL (4.70-6.10); White Blood Cell (WBC) Count 10.6 thou/uL (4.8-10.8)
[2018-07-12 04:59] LABS: Anion Gap 9 mmol/L (10-20); BUN (Urea Nitrogen) 38 mg/dL (8.4-25.7); Calc. Creatinine Clearance 76 mL/min (70-130); Calcium 8.3 mg/dL (7.8-10.44); Carbon Dioxide 28 mmol/L (23-31); Chloride 104 mmol/L (98-107); Estimated GFR-MDRD 47; Glucose 138 mg/dL (80-115); Potassium 4.1 mmol/L (3.5-5.1); Sodium 137 mmol/L (136-145)
[2018-07-12] MEDS: Lorazepam 2 MG/ML VIAL SLOW IVP PRN (05:40)
[2018-07-12] MEDS: Sodium Chloride 0.9% 1,000 ML IV SCH (05:40)
[2018-07-12 07:12] LABS: Actual Bicarbonate (HCO3a) 30.6 mEq/L (22-28); Base Excess (BEa) 4.9 mEq/L (-2.0 to +3.0); CO2 Tension 52.2 mmHg (35.0-45.0); Calcium, Ionized 1.17 mmol/L (1.12-1.30); Carboxyhemoglobin (COHb) 1.7 gm% (0.0-3.0); Hemoglobin (Hb) 8.3 g/dL (14.0-18.0); O2 Tension (PaO2) 110.5 mmHg (> 80.0); pH, Arterial 7.39 (7.35-7.45)
[2018-07-12 07:13] LABS: Puncture Site RRA
--- NOTE | 2018-07-12 08:10 | RAD ---
PORTABLE CHEST: Date: 07/12/18 PROVIDED CLINICAL HISTORY: Respiratory insufficiency. FINDINGS: Comparison with 07/11/18. Examination is rotated, limiting assessment. Given this limitation, significant interval change with respect to the prior examination is not apparent. IMPRESSION: As above. POS: SCOTT
[2018-07-12] MEDS: Enoxaparin Sodium 120 MG/0.8 ML SYRINGE SC SCH (08:33)
[2018-07-12] MEDS: risperiDONE 0.25 MG TAB PO SCH ×2 (08:35→21:25)
[2018-07-12] MEDS: Amiodarone 200 MG TAB PER TUBE SCH ×2 (08:35→21:28)
[2018-07-12] MEDS: Carvedilol 3.125 MG TAB PER TUBE SCH ×2 (08:35→16:34)
[2018-07-12] MEDS: Insulin Glargine 20 UNITS in Pre-Filled Syringe 1 EACH SC SCH ×2 (08:35→21:26)
[2018-07-12] MEDS: Silver Sulfadiazine 1% Cream 50 GM JAR TOP SCH ×2 (08:36→21:28)
[2018-07-12] MEDS: Pantoprazole 40 MG VIAL IVP SCH ×2 (08:36→21:28)
--- NOTE | 2018-07-12 11:25 | PRG ---
DATE OF SERVICE: 07/12/2018 Renal Medicine SUBJECTIVE: Mr. Lewis is a 68-year-old white male, who was admitted for sepsis and developed acute kidney injury. He became volume overloaded, had mental status change secondary to renal. For that reason, hemodialysis have been initiated. He has been tolerating the said dialysis. He is still confused. OBJECTIVE: VITAL SIGNS: Blood pressure is 91/43, heart rate 77, respiratory rate 14, and pulse ox 100%. GENERAL: The patient is confused, but awake, intubated on ventilator support. SKIN: Adequate turgor. HEENT: He has slightly pale conjunctivae. Anicteric sclerae. NECK: No neck mass. No carotid bruits. No JVD. CHEST: No deformities. LUNGS: Decreased breath sounds. HEART: Normal sinus rhythm. No murmur. No gallops. No rubs. ABDOMEN: Globular, soft, and nontender. No masses. EXTREMITIES: Trace edema. MEDICATIONS: Medications of July 12, 2018, was reviewed. LABORATORY DATA: Laboratories of July 12, 2018, sodium 137, potassium 4.1, chloride 104, carbon dioxide 28, BUN 38, creatinine 1.5, glucose 138, and calcium 8.3. White count 10.6, hemoglobin 8, and hematocrit 24.8. ASSESSMENT AND PLAN: 1. No acute kidney injury - secondary to presumed ischemic acute tubular necrosis. The patient underwent a 4-hour hemodialysis yesterday. We will hold off dialysis today. Continue to observe for possible renal recovery. 2. Anemia, p.r.n. blood transfusion. 3. Sepsis, on empiric antibiotics. Job ID: [id number]
[2018-07-12] MEDS: cefTRIAXone\\ROCEPHIN 1 GM in Sodium Chloride 0.9% 100 ML IVPB SCH (14:37)
--- NOTE | 2018-07-12 19:11 | PDOC.PN ---
- Subjective Encounter Start Date: 07/12/18 Encounter Start Time: 11:10 No significant change. - Objective Resuscitation Status - Order Detail: 06/30/18 04:33 Resuscitation Status Routine Resuscitation Status: FULL: Full Resuscitation Vital Signs & Weight: Vital Signs (12 hours) Temp Pulse Pulse Pulse Resp BP BP 07/12/18 19:09 82 14 07/12/18 18:00 16 07/12/18 16:00 99 F 17 07/12/18 14:38 79 07/12/18 14:00 12 07/12/18 13:00 78 114/58 L 07/12/18 12:00 98.1 F 16 07/12/18 11:00 73 111/46 L 07/12/18 10:44 75 72 120/50 L 07/12/18 10:00 14 07/12/18 08:08 81 125/62 07/12/18 08:00 98.9 F 17 BP Pulse Ox Pulse Ox Pulse Ox 07/12/18 19:09 97 07/12/18 18:00 07/12/18 16:00 07/12/18 14:38 07/12/18 14:00 07/12/18 13:00 07/12/18 12:00 07/12/18 11:00 07/12/18 10:44 111/48 L 100 100 07/12/18 10:00 07/12/18 08:08 07/12/18 08:00 97 Weight Admit Weight 249 lb Weight 249 lb 1.957 oz Most Recent Monitor Data Heart Rate from ECG 81 NIBP 136/58 NIBP BP-Mean 84 Respiration from ECG 13 SpO2 98 I&O: 07/11/18 07/12/18 07/13/18 06:59 06:59 06:59 Intake Total 3367.2 2069.1 1017.2 Output Total 1630 1704 890 Balance 1737.2 365.1 127.2 Result Diagrams: 07/12/18 04:00 07/12/18 04:00 Additional Labs: Accuchecks 07/12/18 07/12/18 07/12/18 16:34 11:31 08:04 POC Glucose 151 H 150 H 140 H 07/12/18 07/11/18 02:32 20:45 POC Glucose 128 H 125 H Phys Exam - Physical Examination Constitutional: NAD Intubated. Encephalopathic Respiratory: no wheezing, no rales, no rhonchi, clear to auscultation bilateral Cardiovascular: RRR, no significant murmur, no rub Gastrointestinal: soft, no distention, positive bowel sounds Musculoskeletal: no edema Left leg with well demarcated area in full-thickness debridement healing Dx/Plan (1) Cellulitis and abscess of left leg Code(s): L03.116 - CELLULITIS OF LEFT LOWER LIMB; L02.416 - CUTANEOUS ABSCESS OF LEFT LOWER LIMB Status: Acute (2) Group A streptococcal infection Code(s): B95.0 - STREPTOCOCCUS, GROUP A, CAUSING DISEASES CLASSD ELSWHR Status : Acute (3) Toxic metabolic encephalopathy Code(s): G92 - TOXIC ENCEPHALOPATHY Status: Acute (4) Acute renal failure Status: Acute Qualifiers: Acute renal failure type: with acute tubular necrosis Qualified Code(s): N17.0 - Acute kidney failure with tubular necrosis (5) CAD (coronary artery disease) Code(s): I25.10 - ATHSCL HEART DISEASE OF [place] CORONARY ARTERY W/O ANG PCTRS Status: Acute Qualifiers: Coronary Disease-Associated Artery/Lesion type: [place] artery [place] vs. transplanted heart: [place] heart Associated angina: without angina Qualified Code(s): I25.10 - Atherosclerotic heart disease of [place] coronary artery without angina pectoris (6) DKA (diabetic ketoacidoses) Code(s): E13.10 - OTH DIABETES MELLITUS WITH KETOACIDOSIS WITHOUT COMA Status : Resolved (7) DM type 2 (diabetes mellitus, type 2) Status: Acute Qualifiers: Diabetes mellitus fourdrinier machine tender insulin use: with detention use Diabetes mellitus complication status: with kidney complications (8) Diastolic CHF Code(s): I50.30 - UNSPECIFIED DIASTOLIC (CONGESTIVE) HEART FAILURE Status: Acute (9) HTN (hypertension) Code(s): I10 - ESSENTIAL (PRIMARY) HYPERTENSION Status: Acute Qualifiers: Hypertension type: essential hypertension Qualified Code(s): I10 - Essential (primary) hypertension - Plan * Continue vent support. * Will likely need trach and PEG soon. * Holding HD today. Numbers better * No significant improvement with encephalopathy with HD.
--- NOTE | 2018-07-12 22:44 | PRG ---
DATE OF SERVICE: 07/12/2018 SUBJECTIVE: Mr. Lewis remains encephalopathic. He moves all of his extremities. OBJECTIVE: VITAL SIGNS: Heart rate is 82, respiratory rate 14, oximetry is 97% , blood pressure 131/52. LUNGS: Clear. HEART: Regular rhythm. S1, S2 normal. ABDOMEN: Soft and nontender. EXTREMITIES: Without clubbing, cyanosis or edema. LABORATORY DATA: White count 10.6, hemoglobin 8.0, platelets 202,000. Sodium 137, potassium 4.1, chloride 104, bicarb 28, BUN 38, creatinine 1.5. pH 7.39, CO2 52 , pO2 110. IMPRESSION: 1. Respiratory failure associated with streptococcus pyogenes, cellulitis and soft tissue infection in his left lower extremity. 2. Acute renal failure associated with his sepsis. 3. Diabetes. He checks his sugar according to his , maybe once daily. I suspect his diabetes is poorly controlled. He had symptoms for several days prior to admission. Fortunately, he appears to be stabilizing. His encephalopathy most likely is related to his critical illness. He was conversant according to his for the first 3 days, he was here and then clinically deteriorated. I suspect his encephalopathy will gradually improve. I feel we do not need neurology input or imaging of his brain at this point in time, he unlikely has encephalitis or structural brain abnormality given the history provided. This is almost expected with the critical illness of this nature. I would recommend a tracheostomy and a PEG tube. Surgery is being consulted. Critical care time 30 minutes. Job ID: [id number] MTDD
[2018-07-13] MEDS: Metoclopramide HCl 10 MG/2 ML VIAL IVP SCH ×4 (00:57→17:23)
[2018-07-13] MEDS: Sodium Chloride 0.9% 1,000 ML IV SCH (05:47)
[2018-07-13 05:48] LABS: #Eosinphils 0.1 thou/uL (0.0-0.7); #Lymphocytes 0.8 thou/uL (1.20-3.40); #Monocytes 0.3 thou/uL (0.11-0.59); #Neutrophils 8.4 thou/uL (1.40-6.50); %Basophils 0.3 % (0.0-1.0); %Eosinophils 1.1 % (0.0-10.0); %Lymphocytes 7.9 % (21.0-51.0); %Monocytes 3.3 % (0.0-10.0); %Neutrophils 87.4 % (42.0-75.0); Mean Corpuscular HGB CONC 32.2 g/dL (32.0-36.0); Mean Corpuscular Hemoglobin 31.8 pg (27.0-31.0); Mean Corpuscular Volume 98.9 fL (78.0-98.0); Mean Platelet Volume 7.6 fL (7.4-10.4); Platelet Count 210 thou/uL (130-400); RBC Distribution Width 13.2 % (11.5-14.5); Red Blood Cell (RBC) Count 2.19 mill/uL (4.70-6.10); White Blood Cell (WBC) Count 9.7 thou/uL (4.8-10.8)
[2018-07-13 06:07] LABS: Anion Gap 10 mmol/L (10-20); BUN (Urea Nitrogen) 39 mg/dL (8.4-25.7); Calc. Creatinine Clearance 74 mL/min (70-130); Calcium 7.8 mg/dL (7.8-10.44); Carbon Dioxide 24 mmol/L (23-31); Chloride 110 mmol/L (98-107); Estimated GFR-MDRD 45; Glucose 111 mg/dL (80-115); Potassium 3.8 mmol/L (3.5-5.1); Sodium 140 mmol/L (136-145)
[2018-07-13] MEDS: Propofol 1,000 MG/100 ML VIAL IV PRN (06:09)
[2018-07-13 07:21] LABS: Actual Bicarbonate (HCO3a) 27.4 mEq/L (22-28); CO2 Tension 41.1 mmHg (35.0-45.0); Calcium, Ionized 1.21 mmol/L (1.12-1.30); Carboxyhemoglobin (COHb) 1.7 gm% (0.0-3.0); Hemoglobin (Hb) 8.1 g/dL (14.0-18.0); Potassium - ABG Lab 4.17 mmol/L (3.70-5.30); Puncture Site RRA; pH, Arterial 7.44 (7.35-7.45)
[2018-07-13 07:22] LABS: ALV-art Gradient 86.175 (0-20)
[2018-07-13] MEDS: Carvedilol 3.125 MG TAB PER TUBE SCH ×2 (08:47→17:22)
[2018-07-13] MEDS: Pantoprazole 40 MG VIAL IVP SCH ×2 (08:47→21:15)
[2018-07-13] MEDS: risperiDONE 0.25 MG TAB PO SCH ×2 (08:47→21:15)
[2018-07-13] MEDS: Insulin Glargine 20 UNITS in Pre-Filled Syringe 1 EACH SC SCH ×2 (09:05→21:17)
[2018-07-13] MEDS: Silver Sulfadiazine 1% Cream 50 GM JAR TOP SCH ×2 (09:20→21:18)
--- NOTE | 2018-07-13 10:18 | PRG ---
DATE OF SERVICE: 07/13/2018 Renal Medicine. SUBJECTIVE: Mr. Lewis is a 68-year-old white male, who was admitted for sepsis secondary to left leg cellulitis/bullous cellulitis and developed an acute kidney injury. This is most likely ischemic ATN. He has undergone daily dialysis in the last several days. He has some increase urine output. He continues to be encephalopathic. The encephalopathy is most likely multifactorial etiology. Uremia was a consideration. OBJECTIVE: VITAL SIGNS: Blood pressure is 139/80, heart rate 81, respiratory rate 15, and pulse ox 98%. GENERAL: The patient is sedated, intubated, on ventilator support. Obese. SKIN: Adequate turgor. HEENT: He has pale conjunctivae. Anicteric sclerae. No neck mass. No carotid bruits. No JVD. CHEST: No deformities. LUNGS: Decreased breath sounds. No wheezing. HEART: Normal sinus rhythm. No murmur. No gallops. No rubs. ABDOMEN: Globular, soft, nontender. No masses. EXTREMITIES: Positive for edema. Positive for left leg cellulitis. LABORATORY DATA: Laboratories July 13, 2018, white count 9.7, hemoglobin 7, sodium 140, potassium 3.8, chloride 110, carbon dioxide 24, BUN 39, creatinine 1.55, glucose 111, calcium 7.8. ASSESSMENT AND PLAN: 1. Acute kidney injury, secondary to presumed ischemic acute tubular necrosis. Stabilizing renal function. Holding off dialysis today. Re-evaluate in a.m. 2. Decreased mentation, most likely from metabolic encephalopathy. This is multifactorial etiology. 3. Sepsis, on antibiotics. Continue supportive care. 4. Acute respiratory failure, still on a ventilator. Planned PEG tube as well as tracheostomy has been considered. 5. Anemia. We will transfuse 1 unit of packed RBC today. 6. Overall, I agree with current management. Job ID: [id number]
[2018-07-13] MEDS: fentaNYL Citrate/PF 2,000 MCG in Sodium Chloride 0.9% 60 ML IV SCH (13:02)
--- NOTE | 2018-07-13 13:31 | PRG ---
DATE OF SERVICE: 07/13/2018 SUBJECTIVE: Mr. Lewis remains hemodynamically stable. He still encephalopathic. He does open his eyes, but he will not make eye contact or follow commands. OBJECTIVE: VITAL SIGNS: Heart rate is 80, blood pressure 139/60, and respiratory rates in the teens. GENERAL: He is still on propofol and fentanyl. I wean off propofol today and start Precedex. Hopefully, his encephalopathy will gradually improve. He is tentatively on the schedule for tracheostomy and PEG. LUNGS: Clear. HEART: Regular rhythm. ABDOMEN: Soft. LABORATORY DATA: His hemoglobin is down to 7 g today. He will receive blood with dialysis or if he is not having dialysis, he still received blood today. Electrolytes are unremarkable. Potassium is 3.8, BUN 39, and creatinine is 1.55. Intake and output positive 71 mL. Urine output was 1790 mL. Blood gas today shows pH of 7.44, CO2 of 41, pO2 of 112. His ventilatory rate will be turned down to 6. I met with family and answered all their questions. Critical care time 30 minutes. Job ID: [id number]
[2018-07-13] MEDS: Amiodarone 200 MG TAB PER TUBE SCH ×3 (14:27→21:15)
[2018-07-13] MEDS: Enoxaparin Sodium 120 MG/0.8 ML SYRINGE SC SCH (14:27)
[2018-07-13] MEDS: cefTRIAXone\\ROCEPHIN 1 GM in Sodium Chloride 0.9% 100 ML IVPB SCH (14:29)
--- NOTE | 2018-07-13 16:09 | PDOC.PN ---
- Subjective Encounter Start Date: 07/13/18 Encounter Start Time: 09:20 -: non-verbal - Objective Resuscitation Status - Order Detail: 06/30/18 04:33 Resuscitation Status Routine Resuscitation Status: FULL: Full Resuscitation Vital Signs & Weight: Vital Signs (12 hours) Temp Pulse Pulse Resp BP BP Pulse Ox 07/13/18 15:21 85 115/53 L 07/13/18 15:00 98.6 F 07/13/18 13:45 99.6 F 87 18 119/55 L 96 07/13/18 13:30 100.2 F H 89 15 124/50 L 94 L 07/13/18 13:10 101 H 145/66 H 07/13/18 12:00 99.6 F 07/13/18 10:50 79 07/13/18 08:02 81 139/60 07/13/18 07:00 98.0 F 07/13/18 06:00 16 07/13/18 05:00 98.4 F Weight Admit Weight 249 lb Weight 249 lb 1.957 oz Most Recent Monitor Data Heart Rate from ECG 83 NIBP 115/53 NIBP BP-Mean 73 Respiration from ECG 16 SpO2 98 I&O: 07/12/18 07/13/18 07/14/18 06:59 06:59 06:59 Intake Total 2069.1 1861.2 169 Output Total 1704 1790 1155 Balance 365.1 71.2 -986 Result Diagrams: 07/13/18 05:25 07/13/18 05:25 Additional Labs: Accuchecks 07/13/18 07/13/18 07/13/18 12:56 05:25 01:05 POC Glucose 113 H 110 127 H 07/12/18 07/12/18 20:55 16:34 POC Glucose 133 H 151 H Phys Exam - Physical Examination Constitutional: NAD Still encephalopathic, intubated, sedate. Respiratory: no wheezing, no rales, no rhonchi, clear to auscultation bilateral Cardiovascular: RRR, no significant murmur, no rub Gastrointestinal: soft, no distention, positive bowel sounds Musculoskeletal: no edema Skin: normal turgor Deviation from normal: Mild diffuse edema. Dx/Plan (1) Cellulitis and abscess of left leg Code(s): L03.116 - CELLULITIS OF LEFT LOWER LIMB; L02.416 - CUTANEOUS ABSCESS OF LEFT LOWER LIMB Status: Acute (2) Group A streptococcal infection Code(s): B95.0 - STREPTOCOCCUS, GROUP A, CAUSING DISEASES CLASSD ELSWHR Status : Acute (3) Toxic metabolic encephalopathy Code(s): G92 - TOXIC ENCEPHALOPATHY Status: Acute (4) Acute renal failure Status: Acute Qualifiers: Acute renal failure type: with acute tubular necrosis Qualified Code(s): N17.0 - Acute kidney failure with tubular necrosis (5) CAD (coronary artery disease) Code(s): I25.10 - ATHSCL HEART DISEASE OF [place] CORONARY ARTERY W/O ANG PCTRS Status: Acute Qualifiers: Coronary Disease-Associated Artery/Lesion type: [place] artery [place] vs. transplanted heart: [place] heart Associated angina: without angina Qualified Code(s): I25.10 - Atherosclerotic heart disease of [place] coronary artery without angina pectoris (6) DKA (diabetic ketoacidoses) Code(s): E13.10 - OTH DIABETES MELLITUS WITH KETOACIDOSIS WITHOUT COMA Status : Resolved (7) DM type 2 (diabetes mellitus, type 2) Status: Acute Qualifiers: Diabetes mellitus 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 project manager insulin use: with 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 project manager use Diabetes mellitus complication status: with kidney complications (8) Diastolic CHF Code(s): I50.30 - UNSPECIFIED DIASTOLIC (CONGESTIVE) HEART FAILURE Status: Acute (9) HTN (hypertension) Code(s): I10 - ESSENTIAL (PRIMARY) HYPERTENSION Status: Acute Qualifiers: Hypertension type: essential hypertension Qualified Code(s): I10 - Essential (primary) hypertension - Plan * trach and PEG today. * Transfusion today. * Discussed with patient's and daughter.
[2018-07-14] MEDS: Metoclopramide HCl 10 MG/2 ML VIAL IVP SCH ×4 (00:53→17:06)
[2018-07-14] MEDS: Sodium Chloride 0.9% 1,000 ML IV SCH ×2 (00:54→20:35)
[2018-07-14] MEDS: Lorazepam 2 MG/ML VIAL SLOW IVP PRN (03:50)
[2018-07-14 04:40] LABS: #Eosinphils 0.1 thou/uL (0.0-0.7); #Lymphocytes 0.6 thou/uL (1.20-3.40); #Monocytes 0.3 thou/uL (0.11-0.59); #Neutrophils 6.4 thou/uL (1.40-6.50); %Basophils 0.2 % (0.0-1.0); %Eosinophils 1.2 % (0.0-10.0); %Lymphocytes 7.8 % (21.0-51.0); %Monocytes 4.6 % (0.0-10.0); %Neutrophils 86.2 % (42.0-75.0); Hemoglobin 7.6 g/dL (14.0-18.0); Mean Corpuscular Hemoglobin 31.2 pg (27.0-31.0); Mean Corpuscular Volume 97.5 fL (78.0-98.0); Mean Platelet Volume 7.6 fL (7.4-10.4); Platelet Count 234 thou/uL (130-400); RBC Distribution Width 13.6 % (11.5-14.5); Red Blood Cell (RBC) Count 2.44 mill/uL (4.70-6.10); White Blood Cell (WBC) Count 7.5 thou/uL (4.8-10.8)
[2018-07-14 04:54] LABS: Anion Gap 14 mmol/L (10-20); BUN (Urea Nitrogen) 49 mg/dL (8.4-25.7); Calc. Creatinine Clearance 53 mL/min (70-130); Calcium 8.5 mg/dL (7.8-10.44); Carbon Dioxide 24 mmol/L (23-31); Chloride 109 mmol/L (98-107); Estimated GFR-MDRD 31; Glucose 115 mg/dL (80-115); Potassium 4.1 mmol/L (3.5-5.1); Sodium 143 mmol/L (136-145)
[2018-07-14 06:57] LABS: Actual Bicarbonate (HCO3a) 25.2 mEq/L (22-28); CO2 Tension 37.8 mmHg (35.0-45.0); Calcium, Ionized 1.21 mmol/L (1.12-1.30); Carboxyhemoglobin (COHb) 1.9 gm% (0.0-3.0); Hemoglobin (Hb) 7.9 g/dL (14.0-18.0); O2 Tension (PaO2) 103.2 mmHg (> 80.0); Potassium - ABG Lab 4.01 mmol/L (3.70-5.30); pH, Arterial 7.44 (7.35-7.45)
[2018-07-14 06:58] LABS: Puncture Site RRA
[2018-07-14] MEDS ORDERED: Lidocaine 1% w/Epinephrine 1:100K 20 ML VIAL ONE ×2 (07:00→08:25)
[2018-07-14] MEDS: fentaNYL Citrate/PF 2,000 MCG in Sodium Chloride 0.9% 60 ML IV SCH (07:02)
[2018-07-14] MEDS ORDERED: Midazolam HCl 2 mg/2 ml Vial ONE (07:58)
[2018-07-14] MEDS ORDERED: Vecuronium 10 MG VIAL ONE ×2 (07:58→08:33)
[2018-07-14] MEDS: Pantoprazole 40 MG VIAL IVP SCH ×2 (10:29→20:06)
[2018-07-14] MEDS: Carvedilol 3.125 MG TAB PER TUBE SCH ×2 (11:10→15:51)
[2018-07-14] MEDS: Amiodarone 200 MG TAB PER TUBE SCH ×3 (11:11→22:04)
[2018-07-14] MEDS: Enoxaparin Sodium 120 MG/0.8 ML SYRINGE SC SCH (11:12)
[2018-07-14] MEDS: Insulin Glargine 20 UNITS in Pre-Filled Syringe 1 EACH SC SCH (11:12)
[2018-07-14] MEDS: risperiDONE 0.25 MG TAB PO SCH ×2 (11:12→20:08)
[2018-07-14] MEDS: Silver Sulfadiazine 1% Cream 50 GM JAR TOP SCH ×2 (11:13→22:03)
--- NOTE | 2018-07-14 13:04 | PRG ---
DATE OF SERVICE: 07/14/2018 SUBJECTIVE: Mr. Lewis is a 68-year-old white male, who was admitted with sepsis secondary to left leg cellulitis and developed acute kidney injury secondary to acute tubular necrosis. Currently, I am dialyzing the patient. I am at the bedside supervising his dialysis. Fluid removal is being done only as tolerated. OBJECTIVE: VITAL SIGNS: Blood pressure is 117/59, heart rate 66, respiratory rate is 12, and pulse ox 100%. GENERAL: Noted to be comfortable, not in overt distress. SKIN: Adequate turgor. HEENT: He has slightly pale conjunctivae. Anicteric sclerae. NECK: No neck mass. No carotid bruits. No JVD. LUNGS: Decreased breath sounds. HEART: Normal sinus rhythm. No murmur. No gallops. No rubs. ABDOMEN: Globular, soft, nontender. No masses. EXTREMITIES: No edema. Possible left leg cellulitis. MEDICATIONS: Medications of July 14, 2018 were reviewed. LABORATORY DATA: Laboratories of July 14, 2018; white count 7.5, hemoglobin 7.6, hematocrit 23.8. Sodium 143, potassium 4.1, chloride 109, carbon dioxide 24, BUN 49, creatinine 2.15, glucose 115, calcium 8.5. ASSESSMENT AND PLAN: 1. Acute kidney injury secondary to acute tubular necrosis. Continue supportive care. Creatinine noted slightly high today at 2.15. Please note, he has been off dialysis for the last 2 days. My plan is to do a 4-hour hemodialysis, again fluid removal as tolerated. Avoiding heparin use for the moment. 2. Anemia, p.r.n. blood transfusion. 3. Sepsis - the patient is currently on antibiotics. Continue supportive care. 4. Mental status change - secondary to metabolic encephalopathy. Supportive care. Job ID: [id number]
--- NOTE | 2018-07-14 14:37 | PRG ---
DATE OF SERVICE: 07/14/2018 SUBJECTIVE: Mr. Lewis's heart rate in the 60s, blood pressure 126/55, respiratory rates in the teens. I think he makes a little more eye contact today, but it is transient. He will not reliably follow commands. OBJECTIVE: LUNGS: Remarkable for coarse equal breath sounds. HEART: Regular rhythm. ABDOMEN: Soft. EXTREMITIES: Without asymmetry. LABORATORY DATA: White count 7.5, hemoglobin 7.6, platelets 234. Sodium 143, potassium 4.1, chloride 109, bicarb 24, BUN 49, creatinine 2.15. He has been dialyzed today. IMPRESSION: 1. Status post incision and drainage of strep pyogenes infection. 2. Respiratory failure. We will continue to slowly wean him. He was fully anticoagulated with his renal failure and I would feel more comfortable given the bleeding risk with him be on prophylactic dose Lovenox for now. He is still on amiodarone. He is still on antimicrobial therapy intravenously per Dr. Jay. Hopefully, we can gradually wean him to daytime trach collar as week progresses. Job ID: [id number]
[2018-07-14] MEDS: cefTRIAXone\\ROCEPHIN 1 GM in Sodium Chloride 0.9% 100 ML IVPB SCH (15:52)
--- NOTE | 2018-07-14 17:04 | PDOC.PN ---
- Subjective Encounter Start Date: 07/14/18 Encounter Start Time: 10:10 -: non-verbal - Objective Resuscitation Status - Order Detail: 06/30/18 04:33 Resuscitation Status Routine Resuscitation Status: FULL: Full Resuscitation Vital Signs & Weight: Vital Signs (12 hours) Temp Pulse Resp BP Pulse Ox 07/14/18 16:00 98 F 28 H 07/14/18 14:32 73 129/60 07/14/18 14:00 28 H 07/14/18 12:40 68 126/55 L 07/14/18 12:00 21 H 07/14/18 11:13 65 117/56 L 07/14/18 11:00 97.8 F 07/14/18 10:00 22 H 07/14/18 09:20 100 07/14/18 08:00 24 H 07/14/18 07:29 74 141/64 H 07/14/18 07:00 97.9 F 07/14/18 06:00 20 Weight Admit Weight 249 lb Weight 249 lb 1.957 oz Most Recent Monitor Data Heart Rate from ECG 67 NIBP 117/52 NIBP BP-Mean 73 Respiration from ECG 19 SpO2 100 I&O: 07/13/18 07/14/18 07/15/18 06:59 06:59 06:59 Intake Total 1861.2 1700 727 Output Total 1790 1910 235 Balance 71.2 -210 492 Result Diagrams: 07/14/18 04:29 07/14/18 03:30 Additional Labs: Accuchecks 07/14/18 07/14/18 07/14/18 16:08 12:55 07:57 POC Glucose 99 102 104 07/14/18 07/13/18 07/13/18 07:16 23:51 21:02 POC Glucose 108 105 112 H 07/13/18 17:39 POC Glucose 116 H Phys Exam - Physical Examination Constitutional: NAD Trached. Ventilated Respiratory: no wheezing, no rales, no rhonchi, clear to auscultation bilateral Cardiovascular: RRR, no significant murmur, no rub Gastrointestinal: soft, no distention, positive bowel sounds Moderate diffuse edema Dx/Plan (1) Cellulitis and abscess of left leg Code(s): L03.116 - CELLULITIS OF LEFT LOWER LIMB; L02.416 - CUTANEOUS ABSCESS OF LEFT LOWER LIMB Status: Acute (2) Group A streptococcal infection Code(s): B95.0 - STREPTOCOCCUS, GROUP A, CAUSING DISEASES CLASSD ELSWHR Status : Acute (3) Toxic metabolic encephalopathy Code(s): G92 - TOXIC ENCEPHALOPATHY Status: Acute (4) Acute renal failure Status: Acute Qualifiers: Acute renal failure type: with acute tubular necrosis Qualified Code(s): N17.0 - Acute kidney failure with tubular necrosis (5) CAD (coronary artery disease) Code(s): I25.10 - ATHSCL HEART DISEASE OF [place] CORONARY ARTERY W/O ANG PCTRS Status: Acute Qualifiers: Coronary Disease-Associated Artery/Lesion type: [place] artery [place] vs. transplanted heart: [place] heart Associated angina: without angina Qualified Code(s): I25.10 - Atherosclerotic heart disease of [place] coronary artery without angina pectoris (6) DKA (diabetic ketoacidoses) Code(s): E13.10 - OTH DIABETES MELLITUS WITH KETOACIDOSIS WITHOUT COMA Status : Resolved (7) DM type 2 (diabetes mellitus, type 2) Status: Acute Qualifiers: Diabetes mellitus halfway insulin use: with moth exterminator use Diabetes mellitus complication status: with kidney complications (8) Diastolic CHF Code(s): I50.30 - UNSPECIFIED DIASTOLIC (CONGESTIVE) HEART FAILURE Status: Acute (9) HTN (hypertension) Code(s): I10 - ESSENTIAL (PRIMARY) HYPERTENSION Status: Acute Qualifiers: Hypertension type: essential hypertension Qualified Code(s): I10 - Essential (primary) hypertension - Plan * Trach and PEG placed. * Continue to wean sedation and allow him to awaken as much as possible. * Continue antibiotics, but infection appears to be largely resolved. ID following. * HD today.
--- NOTE | 2018-07-14 18:30 | PRG ---
DATE OF SERVICE: 07/14/2018 SUBJECTIVE: Mr. Lewis has had a tracheostomy and gastrostomy. He is still encephalopathic. According to the family, he will be briefly establish eye contact, but not for a long period of time. Does not communicate. Does not follow commands. OBJECTIVE: VITAL SIGNS: His temperature max 100.2, otherwise afebrile. BP and pulse O2 saturations are good. HEENT: His ocular movements are conjugate. He does not establish eye contact. Oral cavity is moist. LUNGS: Symmetric, coarse breath sounds. HEART: S1 and S2. Regular rate. ABDOMEN: Soft, not distended or tender. EXTREMITIES: Left leg with those areas of ulceration in the left anterior leg. SKIN: Warm and well vascularized. LABORATORY DATA: White cell count 7.5, hemoglobin 7.6, and platelets 234. Sodium 143 and creatinine 2.15. I do not think he has been dialyzed any longer. ASSESSMENT AND DISCUSSION: Severe Streptococcus pyogenes infection with bacteremia and severe cellulitis, but the extremity has improved markedly. At this point, I do not see any risk of amputation. The main issue now is the encephalopathy and renal insufficiency and hopefully those things will turn around in the next few days. Should be able to stop Rocephin in next few days as well. Job ID: [id number]
[2018-07-14] MEDS: Acetaminophen 500 MG TAB PO PRN (22:02)
--- NOTE | 2018-07-14 22:53 | OP ---
DATE OF PROCEDURE: 07/14/2018 PREOPERATIVE DIAGNOSES: 1. Acute respiratory failure. 2. Resolving group A streptococcus bacteremia with left lower extremity bullous cellulitis. POSTOPERATIVE DIAGNOSES: 1. Acute respiratory failure. 2. Resolving group A streptococcus bacteremia with left lower extremity bullous cellulitis. PROCEDURES PERFORMED: 1. Percutaneous tracheostomy tube placement. 2. Percutaneous endoscopic gastrostomy tube placement. 3. ANESTHESIA: Deep sedation and local. INDICATIONS FOR PROCEDURE: A 68-year-old man was admitted on 06/30/2018 with acute group A Streptococcus cellulitis with septicemia complicated by multiple organ failure syndrome. The patient has been on full mechanical ventilator support all this while. I was asked to evaluate the patient for placement of a percutaneous tracheostomy tube in anticipation of potential prolonged mechanical ventilator support and to facilitate ventilator wean. The gastrostomy tube was also warranted at this time to provide the patient with prolonged enteral nutritional supplementation. DESCRIPTION OF PROCEDURE: Informed consent obtained from the patient's . The patient was placed in supine position. He is on full mechanical ventilatory support. FiO2 is 100%. The patient was then given aliquots of midazolam and fentanyl to achieve comfort followed by vecuronium 10 mg intravenously. Fiberoptic bronchoscope was introduced through the previous endotracheal tube and advanced to visualize the carolyn. The tip of the endotracheal tube was withdrawn to approximately 6 cm above the carolyn, transilluminating the anterior neck, the area chosen for the placement of the tracheostomy tube. At this juncture, the anterior neck was sterilely prepped and draped in usual fashion. The skin two fingerbreadths above the suprasternal notch was anesthetized with 1% lidocaine with epinephrine. One cm vertical incision was made here using a 15 scalpel. Introducer needle was inserted through this incision and advanced through the anterior tracheal wall. Through this, a guidewire is advanced into the distal tracheal lumen without resistance. The needle was withdrawn over the guidewire. Proper placement of the guidewire was confirmed by bronchoscopy. The anterior tracheal wall was then sterilely dilated over the guidewire. Finally, a size #8 tracheostomy tube with a dilator and introducer catheter were advanced as a unit over the guidewire and placed in the distal tracheal lumen without resistance. The dilator, guidewire, and introducer catheter were removed as a unit, leaving the tracheostomy tube in place. Inner cannula was then inserted and the patient was connected to mechanical ventilator support, we had a newly placed tracheostomy tube. Once the cuff was inflated good tidal volume is returned. Tracheostomy tube was secured to anterior neck using 0-silk suture at two points. Trach dressings and tie were applied. The bronchoscope was withdrawn with the previous endotracheal tube as a unit visualizing the tracheostomy site from above with good hemostasis. Once the endotracheal tube was removed, the bronchoscope was reintroduced into the newly placed tracheostomy tube and advanced to visualize the carolyn. No active bleeding was noted from below. The bronchoscope was then withdrawn visualizing intact tracheobronchial mucosa. The patient tolerated the operation without any apparent complication. He remains hemodynamically stable following completion of procedure. Oxygen saturation remained 100% at all times. At this juncture, attention was then directed to the abdomen for the placement of the gastrostomy tube. A mouth guard was put in place, through this an endoscope was advanced over the tongue and gently intubating the esophagus. The esophagus was visualized and is intact. The endoscope was advanced into the gastric lumen, which was then insufflated. The scope was advanced into the proximal duodenum under direct vision. No peptic ulcerative disease was noted. The scope was withdrawn into the stomach and the left upper quadrant was transilluminated in the area chosen for placement of the gastrostomy tube. The skin here was anesthetized with 1% lidocaine. A stab incision was made using #1 scalpel. Introducer needle was inserted through this incision, advanced into the gastric lumen. Through this, a guidewire was advanced into the gastric lumen and captured with an Endo-Snare, which was introduced through the endoscope. The guidewire was connected to a 20-N[place]ali gastrostomy tube. The distal end of the guidewire was then pulled out through the insertion site on the abdomen leaving the mushroom end of the gastrostomy tube abutting the gastric lumen. This was visualized by endoscopy, sitting in the right position with no active bleeding present. The gastrostomy tube was then fashioned to length and secured to the anterior abdominal wall at 3 cm using a bolster. The mushroom end of the gastrostomy tube again was well visualized abutting the gastric wall within the lumen. No active bleeding noted here. The abdomen was desufflated. The endoscope was withdrawn visualizing intact esophageal mucosa. The patient tolerated this operation without any apparent complication and remains hemodynamically stable following completion of the procedure. Job ID: [id number]
[2018-07-15] MEDS: Metoclopramide HCl 10 MG/2 ML VIAL IVP SCH ×4 (03:27→16:50)
[2018-07-15 05:31] LABS: #Basophils 0.1 thou/uL (0.0-0.2); #Eosinphils 0.1 thou/uL (0.0-0.7); #Lymphocytes 0.6 thou/uL (1.20-3.40); #Monocytes 0.3 thou/uL (0.11-0.59); #Neutrophils 4.3 thou/uL (1.40-6.50); %Eosinophils 1.2 % (0.0-10.0); %Lymphocytes 11.7 % (21.0-51.0); %Monocytes 5.3 % (0.0-10.0); %Neutrophils 80.8 % (42.0-75.0); Hemoglobin 7.1 g/dL (14.0-18.0); Mean Corpuscular HGB CONC 30.7 g/dL (32.0-36.0); Mean Corpuscular Hemoglobin 29.9 pg (27.0-31.0); Mean Corpuscular Volume 97.4 fL (78.0-98.0); Mean Platelet Volume 7.9 fL (7.4-10.4); Platelet Count 239 thou/uL (130-400); RBC Distribution Width 13.2 % (11.5-14.5); Red Blood Cell (RBC) Count 2.36 mill/uL (4.70-6.10); White Blood Cell (WBC) Count 5.4 thou/uL (4.8-10.8)
[2018-07-15 05:47] LABS: Anion Gap 12 mmol/L (10-20); BUN (Urea Nitrogen) 31 mg/dL (8.4-25.7); Calc. Creatinine Clearance 69 mL/min (70-130); Calcium 8.2 mg/dL (7.8-10.44); Carbon Dioxide 26 mmol/L (23-31); Chloride 106 mmol/L (98-107); Estimated GFR-MDRD 41; Glucose 106 mg/dL (80-115); Potassium 3.8 mmol/L (3.5-5.1); Sodium 140 mmol/L (136-145)
[2018-07-15] MEDS: Sodium Chloride 0.9% 1,000 ML IV SCH (06:40)
[2018-07-15 07:44] LABS: Actual Bicarbonate (HCO3a) 24.4 mEq/L (22-28); Base Excess (BEa) 1.9 mEq/L (-2.0 to +3.0); CO2 Tension 30.1 mmHg (35.0-45.0); Calcium, Ionized 1.17 mmol/L (1.12-1.30); Carboxyhemoglobin (COHb) 0.8 gm% (0.0-3.0); Hemoglobin (Hb) 8.9 g/dL (14.0-18.0); O2 Tension (PaO2) 125.3 mmHg (> 80.0); Potassium - ABG Lab 3.83 mmol/L (3.70-5.30); pH, Arterial 7.53 (7.35-7.45)
[2018-07-15 07:47] LABS: Puncture Site RRA
[2018-07-15 07:48] LABS: ALV-art Gradient 122.275 (0-20)
[2018-07-15] MEDS: Enoxaparin Sodium 30 MG/0.3 ML SYRINGE SC SCH (09:03)
[2018-07-15] MEDS: Carvedilol 3.125 MG TAB PER TUBE SCH ×2 (09:03→16:50)
[2018-07-15] MEDS: Amiodarone 200 MG TAB PER TUBE SCH ×3 (09:03→20:54)
[2018-07-15] MEDS: Silver Sulfadiazine 1% Cream 50 GM JAR TOP SCH ×2 (09:26→21:00)
[2018-07-15] MEDS: Pantoprazole 40 MG VIAL IVP SCH ×2 (09:26→20:54)
[2018-07-15] MEDS: risperiDONE 0.25 MG TAB PO SCH ×2 (09:31→20:53)
--- NOTE | 2018-07-15 10:10 | PRG ---
DATE OF SERVICE: 07/15/2018 RENAL MEDICINE SUBJECTIVE: Mr. Lewis is a 68-year-old white male, who was seen by the Renal Service for his acute kidney injury secondary to acute tubular necrosis. He was admitted for sepsis. In the interim, he has undergone a tracheostomy and a PEG tube placement. This morning, the patient is stable. In addition, 1 unit of packed RBC will be given. OBJECTIVE: VITAL SIGNS: Blood pressure is 125/61, heart rate 69, respiratory rate 24, and pulse ox 99%. GENERAL: Arousable, comfortable, not in distress. HEENT: Pale conjunctivae. Anicteric sclerae. No neck mass. No carotid bruits. No JVD. Positive for tracheostomy. LUNGS: Clear breath sounds. No wheezing. No crackles. HEART: Normal sinus rhythm. No murmur. No gallops. No rubs. ABDOMEN: Globular, soft, nontender. No masses. Positive for PEG tube. EXTREMITIES: Trace edema. MEDICATIONS: Medications of July 15, 2018, was reviewed. LABORATORY DATA: Laboratories of July 15, 2018; white count 5.4, hemoglobin 7.1. Sodium 140, potassium 3.8, chloride 106, carbon dioxide 26, BUN 31, creatinine 1.67, glucose 106, and calcium 8.2. ASSESSMENT AND PLAN: 1. Acute kidney injury secondary to ischemic acute tubular necrosis. We will continue to observe for possible renal recovery. No indication for any dialytic intervention this morning. Continue supportive care. 2. Sepsis-on IV antibiotics. This secondary to the left leg cellulitis. 3. Acute respiratory failure-the patient currently now extubated and has a tracheostomy. Continue supportive care. 4. Anemia. Agree with planned 1 unit packed RBC today. Job ID: [id number]
--- NOTE | 2018-07-15 14:15 | PRG ---
DATE OF SERVICE: 07/15/2018 The patient was seen this morning on rounds with Dr. Parra and trauma team. His PEG and trach site were both evaluated. No signs of bleeding or infection at this time. PEG tube can be used today for medications and nutrition. Trach sutures will need to be removed in 1 week. Trauma Team will now sign off from the patient. Please call with any questions or concerns. The patient was seen and discussed with Dr. Parra, on morning rounds. Job ID: [id number]
--- NOTE | 2018-07-15 15:30 | PRG ---
DATE OF SERVICE: 07/15/2018 SUBJECTIVE: Mr. Lewis's encephalopathy appears to be slowly improving. OBJECTIVE: VITAL SIGNS: He is afebrile, respiratory rate is 22, oximetry is 99, blood pressure 129/55. Intake and output coming into today was positive 2081. LUNGS: Clear anteriorly. HEART: Regular rhythm. ABDOMEN: Soft. EXTREMITIES: His left lower extremity remains bandaged. LABORATORY DATA: White count 5.4, hemoglobin 7.1, platelets 239,000. He will receive a unit of blood today. Electrolytes are normal. BUN 31, creatinine 1.67. IMPRESSION: 1. Strep pyogenes soft tissue infection, status post incision and debridement, on antimicrobial therapy. 2. Respiratory failure, now with a trach and PEG, made a significant move to decrease ventilatory support today. He will continue on Precedex. Hopefully, we will have him to a trach collar maybe by tomorrow. Critical care time 30 minutes. Job ID: [id number]
[2018-07-15] MEDS: cefTRIAXone\\ROCEPHIN 1 GM in Sodium Chloride 0.9% 100 ML IVPB SCH (15:33)
--- NOTE | 2018-07-15 23:13 | PDOC.PN ---
- Subjective Encounter Start Date: 07/15/18 Encounter Start Time: 10:00 Non-verbal, but apparently was waking better and recognized family. - Objective Resuscitation Status - Order Detail: 06/30/18 04:33 Resuscitation Status Routine Resuscitation Status: FULL: Full Resuscitation Vital Signs & Weight: Vital Signs (12 hours) Temp Pulse Pulse Pulse Pulse Resp BP 07/15/18 22:15 81 119/64 07/15/18 22:00 24 H 07/15/18 20:00 22 H 07/15/18 19:00 99.2 F 07/15/18 18:33 73 127/59 L 07/15/18 18:00 33 H 07/15/18 16:00 28 H 07/15/18 15:13 76 122/56 L 07/15/18 15:00 99 F 79 34 H 07/15/18 14:32 77 81 07/15/18 14:01 99.4 F 81 22 H 07/15/18 14:00 34 H 07/15/18 13:41 99.6 F 78 33 H 07/15/18 13:25 78 129/63 07/15/18 12:00 34 H BP BP BP Pulse Ox Pulse Ox Pulse Ox 07/15/18 22:15 07/15/18 22:00 07/15/18 20:00 07/15/18 19:00 07/15/18 18:33 07/15/18 18:00 07/15/18 16:00 07/15/18 15:13 07/15/18 15:00 137/61 99 07/15/18 14:32 124/54 L 167/70 H 98 99 07/15/18 14:01 129/55 L 99 07/15/18 14:00 07/15/18 13:41 133/54 L 98 07/15/18 13:25 07/15/18 12:00 Weight Admit Weight 249 lb Weight 249 lb 1.957 oz Most Recent Monitor Data Heart Rate from ECG 75 NIBP 136/62 NIBP BP-Mean 86 Respiration from ECG 33 SpO2 99 I&O: 07/14/18 07/15/18 07/16/18 06:59 06:59 06:59 Intake Total 1700 2797 2009 Output Total 2907 274 6002 Balance -210 2081 690 Result Diagrams: 07/15/18 04:28 07/15/18 04:28 Additional Labs: Accuchecks 07/15/18 07/15/18 08:07 04:21 POC Glucose 106 105 Phys Exam - Physical Examination Constitutional: NAD Respiratory: no wheezing, no rales, no rhonchi Cardiovascular: RRR, no significant murmur, no rub Gastrointestinal: soft, non-tender, no distention, positive bowel sounds Diffusely edematous. Dx/Plan (1) Cellulitis and abscess of left leg Code(s): L03.116 - CELLULITIS OF LEFT LOWER LIMB; L02.416 - CUTANEOUS ABSCESS OF LEFT LOWER LIMB Status: Resolved Comment: Status post debridement of infection. Active infection now resolved. (2) Group A streptococcal infection Code(s): B95.0 - STREPTOCOCCUS, GROUP A, CAUSING DISEASES CLASSD ELSWHR Status : Resolved (3) Toxic metabolic encephalopathy Code(s): G92 - TOXIC ENCEPHALOPATHY Status: Acute (4) Acute renal failure Status: Acute Qualifiers: Acute renal failure type: with acute tubular necrosis Qualified Code(s): N17.0 - Acute kidney failure with tubular necrosis Comment: On hemodialysis (5) CAD (coronary artery disease) Code(s): I25.10 - ATHSCL HEART DISEASE OF [place] CORONARY ARTERY W/O ANG PCTRS Status: Acute Qualifiers: Coronary Disease-Associated Artery/Lesion type: [place] artery [place] vs. 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 S/P debridement. Infection resolved. * Sepsis related renal failure. On hemodialysis. Still some fluid overload. * Respiratory failure. Had encephalopathy and was not weanable. Trach and PEG placed. * Sedation weaned and he is showing signs of improvement with the encephalopathy.
[2018-07-16 04:58] LABS: #Lymphocytes 0.8 thou/uL (1.20-3.40); #Monocytes 0.5 thou/uL (0.11-0.59); #Neutrophils 4.9 thou/uL (1.40-6.50); %Basophils 0.3 % (0.0-1.0); %Eosinophils 0.8 % (0.0-10.0); %Lymphocytes 12.2 % (21.0-51.0); %Monocytes 7.9 % (0.0-10.0); %Neutrophils 78.8 % (42.0-75.0); Hemoglobin 7.9 g/dL (14.0-18.0); Mean Corpuscular HGB CONC 32.7 g/dL (32.0-36.0); Mean Corpuscular Hemoglobin 30.9 pg (27.0-31.0); Mean Corpuscular Volume 94.5 fL (78.0-98.0); Mean Platelet Volume 7.4 fL (7.4-10.4); Platelet Count 246 thou/uL (130-400); Red Blood Cell (RBC) Count 2.54 mill/uL (4.70-6.10); White Blood Cell (WBC) Count 6.2 thou/uL (4.8-10.8)
[2018-07-16 05:17] LABS: Anion Gap 14 mmol/L (10-20); BUN (Urea Nitrogen) 35 mg/dL (8.4-25.7); Calc. Creatinine Clearance 63 mL/min (70-130); Calcium 8.3 mg/dL (7.8-10.44); Carbon Dioxide 22 mmol/L (23-31); Chloride 108 mmol/L (98-107); Estimated GFR-MDRD 38; Glucose 192 mg/dL (80-115); Potassium 3.5 mmol/L (3.5-5.1); Sodium 140 mmol/L (136-145)
[2018-07-16] MEDS: Metoclopramide HCl 10 MG/2 ML VIAL IVP SCH ×5 (05:22→23:55)
[2018-07-16 07:21] LABS: Actual Bicarbonate (HCO3a) 22.6 mEq/L (22-28); Base Excess (BEa) -0.1 mEq/L (-2.0 to +3.0); CO2 Tension 29.9 mmHg (35.0-45.0); Carboxyhemoglobin (COHb) 0.9 gm% (0.0-3.0); Hemoglobin (Hb) 9.4 g/dL (14.0-18.0); O2 Tension (PaO2) 108.1 mmHg (> 80.0); Potassium - ABG Lab 3.41 mmol/L (3.70-5.30)
[2018-07-16 07:22] LABS: ALV-art Gradient 139.725 (0-20); Puncture Site RR
[2018-07-16] MEDS ORDERED: Nitroglycerin 2% Ointment 1 INCH/1 GM Packet TOP SCH ×2 (08:45→09:00)
[2018-07-16] MEDS ORDERED: Digoxin 0.5 MG/2 ML AMP SLOW IVP SCH (08:45)
[2018-07-16] MEDS: Pantoprazole 40 MG VIAL IVP SCH ×2 (09:50→20:27)
[2018-07-16] MEDS: Enoxaparin Sodium 30 MG/0.3 ML SYRINGE SC SCH (09:50)
[2018-07-16] MEDS: Carvedilol 3.125 MG TAB PER TUBE SCH ×2 (09:51→16:58)
[2018-07-16] MEDS: risperiDONE 0.25 MG TAB PO SCH ×2 (09:51→20:27)
[2018-07-16] MEDS: Amiodarone 200 MG TAB PER TUBE SCH ×2 (09:51→20:27)
[2018-07-16] MEDS: Silver Sulfadiazine 1% Cream 50 GM JAR TOP SCH ×2 (09:53→20:28)
[2018-07-16 09:59] LABS: Troponin I 0.221 ng/mL (< 0.028)
[2018-07-16] MEDS ORDERED: Aspirin 325 MG TAB ONE (10:54)
[2018-07-16] MEDS: Aspirin 325 MG TAB PER TUBE SCH (10:55)
[2018-07-16 12:36] LABS: Troponin I 0.249 ng/mL (< 0.028)
--- NOTE | 2018-07-16 12:41 | PRG ---
DATE OF SERVICE: 07/16/2018 SUBJECTIVE: Mr. Lewis is a 68-year-old white male, who was admitted for septic shock/left leg cellulitis and seen by the Renal Service for his acute kidney injury. He was initiated on dialysis due to volume overload. He most likely has superimposed ischemic ATN. Cardiology has evaluated this patient, and a planned cardiac cath is being entertained this coming Saturday. I have scheduled this patient for 3-hour hemodialysis for fluid removal today. Please note, his creatinine is noted to be stable with most recent creatinine noted at 1.81. No other complaints today. His confusion is much improved. In the interim, he has had a PEG tube and tracheostomy placed. OBJECTIVE: VITAL SIGNS: Blood pressure is 133/75, heart rate 87, respiratory rate is 38?, pulse ox 100%. GENERAL: Awake, comfortable, not in distress. SKIN: Adequate turgor. HEENT: Slightly pale conjunctivae. Anicteric sclerae. No neck mass. No carotid bruits. No JVD. Positive for tracheostomy. LUNGS: Decreased breath sounds. HEART: Normal sinus rhythm. No murmurs, gallops, or rubs. ABDOMEN: Globular, soft, nontender. No masses. EXTREMITIES: No edema. No deformities. MEDICATIONS: Medications of July 16, 2018 were reviewed. LABORATORY DATA: Laboratories of July 16, 2018; sodium 140, potassium 3.5, chloride 108, carbon dioxide 22, BUN 35, creatinine 1.81, glucose 192, calcium 8.3. Hemoglobin 7.9. ASSESSMENT AND PLAN: 1. Anemia, p.r.n. blood transfusion. 2. Acute kidney injury - stable. We will continue current hemodialysis regimen. I will re-evaluate this patient in the next several days. It is possible we may be able to discontinue his dialysis due to the much improved creatinine and improved volume status. He is scheduled for shorter dialysis today for 3 hours with fluid removal as tolerated. 3. Acute respiratory failure, much improved. The patient has had tracheostomy. Overall prognosis remains guarded. ADDENDUM: The patient continues to be on antibiotics. Job ID: [id number]
--- NOTE | 2018-07-16 13:02 | PDOC.PN ---
- Subjective Encounter Start Date: 07/16/18 Encounter Start Time: 07:45 Subjective: awake, not fully oriented despite nodding -: and daughter at bedside - Objective Resuscitation Status - Order Detail: 06/30/18 04:33 Resuscitation Status Routine Resuscitation Status: FULL: Full Resuscitation MAR Reviewed: Yes Vital Signs & Weight: Vital Signs (12 hours) Temp Pulse Resp BP Pulse Ox 07/16/18 11:51 83 18 100 07/16/18 10:23 85 137/70 07/16/18 09:51 88 07/16/18 07:07 88 133/75 07/16/18 07:06 87 38 H 100 07/16/18 06:00 25 H 07/16/18 04:00 99.2 F 18 07/16/18 02:25 85 130/57 L 07/16/18 02:00 27 H Weight Admit Weight 249 lb Weight 249 lb 1.957 oz Most Recent Monitor Data Heart Rate from ECG 102 NIBP 133/75 NIBP BP-Mean 94 Respiration from ECG 37 SpO2 99 I&O: 07/15/18 07/16/18 07/17/18 06:59 06:59 06:59 Intake Total 2797 3094 Output Total 715 2155 125 Balance 2082 939 -125 Result Diagrams: 07/16/18 04:30 07/16/18 04:30 Phys Exam - Physical Examination HEENT: PERRLA, sclera anicteric Neck: no JVD trach+ Respiratory: no wheezing, no rales Cardiovascular: RRR, no significant murmur Gastrointestinal: soft, positive bowel sounds peg+ Musculoskeletal: pulses present, edema present Neurological: non-focal, moves all 4 limbs Dx/Plan (1) Acute respiratory failure with hypoxia Code(s): J96.01 - ACUTE RESPIRATORY FAILURE WITH HYPOXIA Status: Acute Comment: s/p trach (2) Toxic metabolic encephalopathy Code(s): G92 - TOXIC ENCEPHALOPATHY Status: Acute (3) Sepsis Code(s): A41.9 - SEPSIS, UNSPECIFIED ORGANISM Status: Acute Qualifiers: Sepsis type: Streptococcus group B Qualified Code(s): A40.1 - Sepsis due to streptococcus, group B (4) Physical deconditioning Code(s): R53.81 - OTHER MALAISE Status: Acute (5) Acute renal failure Status: Acute Qualifiers: Acute renal failure type: with acute tubular necrosis Qualified Code(s): N17.0 - Acute kidney failure with tubular necrosis Comment: On hemodialysis (6) CAD (coronary artery disease) Code(s): I25.10 - ATHSCL HEART DISEASE OF [place] CORONARY ARTERY W/O ANG PCTRS Status: Chronic Qualifiers: Coronary Disease-Associated Artery/Lesion type: [place] artery [place] vs. transplanted heart: ruby heart Associated angina: without angina Qualified Code(s): I25.10 - Atherosclerotic heart disease of [place] coronary artery without angina pectoris (7) CHF (congestive heart failure) Code(s): I50.9 - HEART FAILURE, UNSPECIFIED Status: Acute Qualifiers: Heart failure type: combined systolic and diastolic Comment: ef of 45% (8) DM type 2 (diabetes mellitus, type 2) Status: Chronic Qualifiers: Diabetes mellitus intermodal dispatcher insulin use: with intermodal dispatcher use Diabetes mellitus complication status: with kidney complications Diabetes mellitus complication detail: with chronic kidney disease Chronic kidney disease stage : on chronic dialysis Qualified Code(s): E11.22 - Type 2 diabetes mellitus with diabetic chronic kidney disease; N18.6 - End stage renal disease; Z79.4 - prison (current) use of 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 (11) Group A streptococcal infection Code(s): B95.0 - STREPTOCOCCUS, GROUP A, CAUSING DISEASES CLASSD ELSWHR Status : Acute - Plan is on ceftriaxone -: peg feeding -: weaning per pulm adv -: is on amiodarone, coreg, risperdal * . Review of Systems - Medications/Allergies Allergies/Adverse Reactions: Allergies Allergy/AdvReac Type Severity Reaction Status Date / Time morphine Allergy Anaphylaxis Verified 06/30/18 03:57 Medications: Current Medications Acetaminophen (Tylenol) 1,000 mg PO Q6H PRN PRN Reason: Mild Pain (1-3) Last Admin: 07/14/18 22:02 Dose: 1,000 mg Albuterol/Ipratropium (Duoneb) 3 ml NEB [id number] [facility] Last Admin: 07/16/18 11:51 Dose: 3 ml Amiodarone HCl (Cordarone) 400 mg PER TUBE BID [facility] Last Admin: 07/16/18 09:51 Dose: 400 mg Aspirin (Aspirin) 325 mg PER TUBE DAILY [facility] Last Admin: 07/16/18 10:55 Dose: 325 mg Bisacodyl (Dulcolax) 10 mg OR DAILY PRN PRN Reason: Constipation Last Admin: 07/06/18 09:44 Dose: 10 mg Carvedilol (Coreg) 3.125 mg PER TUBE BID-[facility] Last Admin: 07/16/18 09:51 Dose: 3.125 mg Dextrose/Water (Dextrose 50%) 25 gm IVP PRN PRN PRN Reason: HYPOGLYCEMIA PROTOCOL Enoxaparin Sodium (Lovenox) 30 mg SC 0900 [facility] Last Admin: 07/16/18 09:50 Dose: 30 mg Glucagon (Glucagon) 1 mg IM PRN PRN PRN Reason: HYPOGLYCEMIA PROTOCOL Norepinephrine Bitartrate (Levophed) 250 mls @ 0 mls/hr IVPB INF [facility]; Protocol Last Admin: 07/03/18 14:43 Dose: 250 mls Fentanyl Citrate 2,000 mcg/ (Sodium Chloride) 100 mls @ 0 mls/hr IV INF [facility]; Protocol Stop: 07/31/18 14:44 Last Admin: 07/14/18 07:02 Dose: 100 mls Fentanyl Citrate (Fentanyl Bolus) 250 mls @ 0 mls/hr IVPB PRN PRN PRN Reason: Breakthrough pain/agitation Stop: 07/31/18 14:44 Vasopressin 40 unit/Miscellaneous Medication 1 each/ Sodium Chloride 102 mls @ 0 mls/hr IV INF PRN; Protocol PRN Reason: SBP>90 Dextrose/Water (D5w) 1,000 mls @ 0 mls/hr IV INF PRN PRN Reason: HYPOGLYCEMIA PROTOCOL Sodium Chloride (Normal Saline 0.9%) 1,000 mls @ 50 mls/hr IV .Q20H [facility] Last Admin: 07/15/18 06:40 Dose: 1,000 mls Ceftriaxone Sodium 1 gm/ (Sodium Chloride) 100 mls @ 100 mls/hr IVPB 1500 [facility] Last Admin: 07/15/18 15:33 Dose: 100 mls Dexmedetomidine HCl 400 mcg/ (Sodium Chloride) 100 mls @ 0 mls/hr IVPB INF [facility] ; Protocol Last Admin: 07/16/18 10:34 Dose: 100 mls Insulin Human Regular (Humulin R) 0 units SC .MODERATE SLIDING SC PRN; Protocol PRN Reason: MODERATE SLIDING SCALE Last Admin: 07/10/18 17:19 Dose: 2 units Laxative/Stool Softener (Laxative Of Choice) 1 each PO DAILY PRN PRN Reason: Constipation Lorazepam (Ativan) 2 mg SLOW IVP Q1H PRN PRN Reason: Breakthrough agitation Stop: 07/31/18 14:44 Last Admin: 07/14/18 03:50 Dose: 2 mg Magnesium Hydroxide (Milk Of Magnesium) 30 ml PO DAILY PRN PRN Reason: Constipation Last Admin: 07/05/18 08:32 Dose: 30 ml Metoclopramide HCl (Reglan) 10 mg IVP Q6HR [facility] Last Admin: 07/16/18 05:22 Dose: Not Given Nitroglycerin (Nitro-Bid 2% Ointment) 1 inch TOP Q8HR [facility] Discontinue Previous Narcotic Pain Medications And Benzodiazepines 1 each FS .ONE [facility] Stop: 07/31/18 14:44 Ondansetron HCl (Zofran Odt) 4 mg PO Q6H PRN PRN Reason: Nausea/Vomiting Ondansetron HCl (Zofran) 4 mg IVP Q6H PRN PRN Reason: Nausea/Vomiting Pantoprazole Sodium (Protonix) 40 mg IVP Q12HR [facility] Last Admin: 07/16/18 09:50 Dose: 40 mg Risperidone (Risperidone) 0.5 mg PO BID [facility] Last Admin: 07/16/18 09:51 Dose: 0.5 mg Silver Sulfadiazine (Silvadene) 0 gm TOP BID [facility] Last Admin: 07/16/18 09:53 Dose: 1 applic Sodium Chloride (Flush - Normal Saline) 10 ml IVF Q12HR [facility] Last Admin: 07/16/18 09:54 Dose: 10 ml Sodium Chloride (Flush - Normal Saline) 10 ml IVF PRN PRN PRN Reason: Saline Flush Last Admin: 07/16/18 09:52 Dose: 10 ml Sodium Chloride (Flush - Normal Saline) 10 ml IV Q12HR [facility] Last Admin: 07/16/18 09:53 Dose: 10 ml
--- NOTE | 2018-07-16 14:33 | PRG ---
DATE OF SERVICE: SUBJECTIVE: Fritz Lewis was evaluated. He is actually getting progressively more alert. He has been interacting with his in a positive fashion. OBJECTIVE: VITAL SIGNS: Unfortunately, his minute volume still 15 L/minute QAMARKER] tidal volumes were approximately 400 mL with pressure support. Heart rate 85, blood pressure 137/70, and respiratory rate 18. LUNGS: Clear. HEART: Regular rhythm. ABDOMEN: Soft and nontender. EXTREMITIES: His left extremity is bandaged. LABORATORY DATA: White count 6.3, hemoglobin 7.9, and platelets 246. Sodium 140, potassium 3.5, chloride 108, bicarb 22, BUN 35, creatinine 1.81. PH 7.5, CO2 of 29, PO2 of 108. He is being dialyzed today. IMPRESSION: 1. Respiratory failure, status post tracheostomy. 2. Probable critical illness, weakness. 3. Status post Strep pyogenes, cellulitis, an abscess without bacteremia, status post incision and drainage. 4. Obesity. 5. Status post tracheostomy and feeding tube placement. PLAN: Continue current ventilatory support. We will check a chest x-ray in the morning. Continue lab checks. Continue with attempts at weaning. Job ID: [id number] [facility]
[2018-07-16] MEDS ORDERED: Dextrose 5% in Water 1,000 ML IV PRN (16:06)
[2018-07-16] MEDS ORDERED: Dextrose 50% Abboject 50 ML SYRINGE SLOW IVP PRN (16:06)
[2018-07-16] MEDS: cefTRIAXone\\ROCEPHIN 1 GM in Sodium Chloride 0.9% 100 ML IVPB SCH (16:55)
[2018-07-16] MEDS: Nitroglycerin 2% Ointment 1 INCH/1 GM Packet TOP SCH ×2 (16:58→21:00)
[2018-07-16] MEDS: HumaLOG 300 UNITS/3 ML VIAL SC PRN ×2 (17:10→23:59)
[2018-07-16] MEDS: Sodium Chloride 0.9% 1,000 ML IV SCH (17:10)
[2018-07-17] MEDS: Acetaminophen 500 MG TAB PO PRN ×3 (02:21→14:59)
[2018-07-17] MEDS: HumaLOG 300 UNITS/3 ML VIAL SC PRN ×3 (05:03→17:55)
[2018-07-17 05:17] LABS: #Basophils 0.1 thou/uL (0.0-0.2); #Eosinphils 0.1 thou/uL (0.0-0.7); #Lymphocytes 0.9 thou/uL (1.20-3.40); #Monocytes 0.4 thou/uL (0.11-0.59); #Neutrophils 4.4 thou/uL (1.40-6.50); %Basophils 0.9 % (0.0-1.0); %Eosinophils 1.6 % (0.0-10.0); %Lymphocytes 15.8 % (21.0-51.0); %Monocytes 6.3 % (0.0-10.0); %Neutrophils 75.4 % (42.0-75.0); Hemoglobin 7.6 g/dL (14.0-18.0); Mean Corpuscular HGB CONC 32.7 g/dL (32.0-36.0); Mean Corpuscular Hemoglobin 30.8 pg (27.0-31.0); Mean Corpuscular Volume 94.2 fL (78.0-98.0); Mean Platelet Volume 7.4 fL (7.4-10.4); Platelet Count 223 thou/uL (130-400); RBC Distribution Width 14.7 % (11.5-14.5); Red Blood Cell (RBC) Count 2.47 mill/uL (4.70-6.10); White Blood Cell (WBC) Count 5.9 thou/uL (4.8-10.8)
[2018-07-17 05:32] LABS: Anion Gap 13 mmol/L (10-20); BUN (Urea Nitrogen) 25 mg/dL (8.4-25.7); Calc. Creatinine Clearance 75 mL/min (70-130); Calcium 8.1 mg/dL (7.8-10.44); Carbon Dioxide 24 mmol/L (23-31); Chloride 106 mmol/L (98-107); Estimated GFR-MDRD 46; Glucose 188 mg/dL (80-115); Potassium 3.6 mmol/L (3.5-5.1); Sodium 139 mmol/L (136-145)
[2018-07-17] MEDS: Metoclopramide HCl 10 MG/2 ML VIAL IVP SCH ×4 (05:47→23:03)
[2018-07-17 07:16] LABS: Actual Bicarbonate (HCO3a) 27.8 mEq/L (22-28); Base Excess (BEa) 4.7 mEq/L (-2.0 to +3.0); CO2 Tension 35.8 mmHg (35.0-45.0); Calcium, Ionized 1.17 mmol/L (1.12-1.30); Carboxyhemoglobin (COHb) 0.7 gm% (0.0-3.0); Hemoglobin (Hb) 11.2 g/dL (14.0-18.0); O2 Tension (PaO2) 110.5 mmHg (> 80.0); Potassium - ABG Lab 3.51 mmol/L (3.70-5.30); pH, Arterial 7.51 (7.35-7.45)
[2018-07-17 07:38] LABS: Puncture Site LR
[2018-07-17] MEDS: Nitroglycerin 2% Ointment 1 INCH/1 GM Packet TOP SCH ×3 (07:39→20:55)
--- NOTE | 2018-07-17 08:14 | RAD ---
CHEST 1 VIEW: Date: 07/17/18 HISTORY: Dyspnea. Intubated. Follow-up. COMPARISON: 07/12/18. FINDINGS: Cardiac silhouette is magnified and enlarged. Pulmonary vasculature remains engorged with patchy bila teral perihilar and bibasilar infiltrates. Mediastinum is midline. Tracheostomy appliance is now in p lace. Endotracheal catheter and nasogastric tube are no longer visible. No evidence of pneumothorax. IMPRESSION: 1. Good radiographic position of tracheostomy appliance. 2. Mild pulmonary vascular congestion appears stable. POS: [facility]
[2018-07-17] MEDS: Amiodarone 200 MG TAB PER TUBE SCH ×2 (09:13→20:53)
[2018-07-17] MEDS: Carvedilol 3.125 MG TAB PER TUBE SCH ×2 (09:13→17:56)
[2018-07-17] MEDS: Aspirin 325 MG TAB PER TUBE SCH (09:13)
[2018-07-17] MEDS: risperiDONE 0.25 MG TAB PO SCH ×2 (09:13→20:54)
[2018-07-17] MEDS: Enoxaparin Sodium 30 MG/0.3 ML SYRINGE SC SCH (09:13)
[2018-07-17] MEDS: Silver Sulfadiazine 1% Cream 50 GM JAR TOP SCH ×2 (09:14→20:54)
[2018-07-17] MEDS: Pantoprazole 40 MG VIAL IVP SCH ×2 (09:21→20:54)
--- NOTE | 2018-07-17 10:23 | PRG ---
DATE OF SERVICE: 07/17/2018 SUBJECTIVE: Mr. Lewis is a 68-year-old white male, who was admitted for sepsis. He developed acute kidney injury secondary to presumed ATN. We have placed him on dialysis due to volume overload. Renal function is relatively stable with this patient. His most recent creatinine is noted at 1.53 and he is diuresing. However, he developed cardiac event with chest pain and EKG changes. Cardiology has evaluated the patient. He has recommended a cardiac cath tomorrow. I did discuss the case with Dr. Duffy. We will work around our schedule with dialysis. We will probably dialyze him after the said cardiac cath. I think he will tolerate the said procedure. No acute events noted. OBJECTIVE: VITAL SIGNS: Blood pressure 137/55, heart rate 74, respiratory rate 12, pulse ox 100%. GENERAL: The patient is awake, comfortable, obese, not in distress. SKIN: Adequate turgor. HEENT/NECK: He has a slightly pale conjunctivae. Anicteric sclerae. No neck mass. No carotid bruits. No JVD. CHEST: No deformities. LUNGS: Decreased breath sounds. HEART: Normal sinus rhythm. No murmur. No gallops. No rubs. ABDOMEN: Globular, soft, nontender. Positive for PEG tube. EXTREMITIES: Trace edema. Please note, the patient has a tracheostomy. MEDICATIONS: Medications of July 17, 2018, reviewed. LABORATORY DATA: Laboratories on July 17, 2018, potassium 3.6, BUN 25, creatinine 1.53. Hemoglobin 7.6, white count 5.9. ASSESSMENT AND PLAN: 1. Acute kidney injury - secondary to presumed ischemic acute tubular necrosis. Continue supportive care. Continued dialytic intervention. We will dialyze him immediately after his cardiac catheterization. 2. Coronary artery disease - for planned cardiac cath. Possibility of 3-vessel disease remains with this patient. 3. Acute respiratory failure - the patient is status post tracheostomy, stable, oxygenating well. 4. Sepsis - the patient is noted on antibiotics. Overall, prognosis remains guarded. Job ID: [id number] [facility]
--- NOTE | 2018-07-17 12:59 | PDOC.PN ---
- Subjective Encounter Start Date: 07/17/18 Encounter Start Time: 07:45 Subjective: awake, on vent -: at bedside - Objective Resuscitation Status - Order Detail: 06/30/18 04:33 Resuscitation Status Routine Resuscitation Status: FULL: Full Resuscitation MAR Reviewed: Yes Vital Signs & Weight: Vital Signs (12 hours) Pulse Pulse Pulse Resp BP BP BP 07/17/18 10:46 79 134/52 L 07/17/18 08:47 83 90 133/56 L 150/60 H 07/17/18 07:04 74 137/88 07/17/18 07:00 73 35 H 07/17/18 06:00 33 H 07/17/18 04:00 34 H 07/17/18 02:13 83 126/54 L 07/17/18 02:00 34 H Pulse Ox Pulse Ox Pulse Ox 07/17/18 10:46 07/17/18 08:47 100 100 07/17/18 07:04 07/17/18 07:00 100 07/17/18 06:00 07/17/18 04:00 07/17/18 02:13 07/17/18 02:00 Weight Admit Weight 249 lb Weight 249 lb 1.957 oz Most Recent Monitor Data Heart Rate from ECG 82 NIBP 133/56 NIBP BP-Mean 81 Respiration from ECG 35 SpO2 100 I&O: 07/16/18 07/17/18 07/18/18 06:59 06:59 06:59 Intake Total 3094 2887 Output Total 2155 1098 100 Balance 939 1789 -100 Result Diagrams: 07/17/18 05:06 07/17/18 05:06 Additional Labs: Accuchecks 07/17/18 07/16/18 07/16/18 04:50 23:58 16:44 POC Glucose 185 H 190 H 169 H Phys Exam - Physical Examination HEENT: PERRLA, moist MMs Neck: no JVD trach+ Respiratory: no wheezing, no rales Cardiovascular: RRR, no significant murmur Gastrointestinal: soft, non-tender, positive bowel sounds peg+ Musculoskeletal: pulses present, edema present Neurological: non-focal, moves all 4 limbs Dx/Plan (1) Acute respiratory failure with hypoxia Code(s): J96.01 - ACUTE RESPIRATORY FAILURE WITH HYPOXIA Status: Acute Comment: s/p trach (2) Toxic metabolic encephalopathy Code(s): G92 - TOXIC ENCEPHALOPATHY Status: Acute (3) Sepsis Code(s): A41.9 - SEPSIS, UNSPECIFIED ORGANISM Status: Acute Qualifiers: Sepsis type: Streptococcus group B Qualified Code(s): A40.1 - Sepsis due to streptococcus, group B (4) Physical deconditioning Code(s): R53.81 - OTHER [place]AISE Status: Acute (5) Acute renal failure Status: Acute Qualifiers: Acute renal failure type: with acute tubular necrosis Qualified Code(s): N17.0 - Acute kidney failure with tubular necrosis Comment: On hemodialysis (6) CAD (coronary artery disease) Code(s): I25.10 - ATHSCL HEART DISEASE OF [place] CORONARY ARTERY W/O ANG PCTRS Status: Chronic Qualifiers: Coronary Disease-Associated Artery/Lesion type: [place] artery [place] vs. transplanted heart: [place] heart Associated angina: without angina Qualified Code(s): I25.10 - Atherosclerotic heart disease of [place] coronary artery without angina pectoris (7) CHF (congestive heart failure) Code(s): I50.9 - HEART FAILURE, UNSPECIFIED Status: Acute Qualifiers: Heart failure type: combined systolic and diastolic Comment: ef of 45% (8) DM type 2 (diabetes mellitus, type 2) Status: Chronic Qualifiers: Diabetes mellitus jail insulin use: with jail use Diabetes mellitus complication status: with kidney complications Diabetes mellitus complication detail: with chronic kidney disease Chronic kidney disease stage : on chronic dialysis Qualified Code(s): E11.22 - Type 2 diabetes mellitus with diabetic chronic kidney disease; N18.6 - End stage renal disease; 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 (11) Group A streptococcal infection Code(s): B95.0 - STREPTOCOCCUS, GROUP A, CAUSING DISEASES CLASSD ELSWHR Status : Acute - Plan is on ceftriaxone, had HD yesterday with removal of 4 lts -: weaning per pulm adv -: will likely need ltac -: for cath in am, HD after that -: continue amiodarone, coreg, risperdal * . Review of Systems - Medications/Allergies Allergies/Adverse Reactions: Allergies Allergy/AdvReac Type Severity Reaction Status Date / Time morphine Allergy Anaphylaxis Verified 06/30/18 03:57 Medications: Current Medications Acetaminophen (Tylenol) 1,000 mg PO Q6H PRN PRN Reason: Mild Pain (1-3) Last Admin: 07/17/18 09:37 Dose: 1,000 mg Albuterol/Ipratropium (Duoneb) 3 ml NEB [id number] [facility] Last Admin: 07/17/18 07:00 Dose: 3 ml Amiodarone HCl (Cordarone) 400 mg PER TUBE BID [facility] Last Admin: 07/17/18 09:13 Dose: 400 mg Aspirin (Aspirin) 325 mg PER TUBE DAILY [facility] Last Admin: 07/17/18 09:13 Dose: 325 mg Bisacodyl (Dulcolax) 10 mg LA DAILY PRN PRN Reason: Constipation Last Admin: 07/06/18 09:44 Dose: 10 mg Carvedilol (Coreg) 3.125 mg PER TUBE BID-[facility] Last Admin: 07/17/18 09:13 Dose: 3.125 mg Dextrose/Water (Dextrose 50%) 25 gm SLOW IVP PRN PRN PRN Reason: Hypoglycemia Enoxaparin Sodium (Lovenox) 30 mg SC 0900 [facility] Last Admin: 07/17/18 09:13 Dose: 30 mg Glucagon (Glucagon) 1 mg IM PRN PRN PRN Reason: Hypoglycemia Norepinephrine Bitartrate (Levophed) 250 mls @ 0 mls/hr IVPB INF [facility]; Protocol Last Admin: 07/03/18 14:43 Dose: 250 mls Fentanyl Citrate 2,000 mcg/ (Sodium Chloride) 100 mls @ 0 mls/hr IV INF [facility]; Protocol Stop: 07/31/18 14:44 Last Admin: 07/14/18 07:02 Dose: 100 mls Fentanyl Citrate (Fentanyl Bolus) 250 mls @ 0 mls/hr IVPB PRN PRN PRN Reason: Breakthrough pain/agitation Stop: 07/31/18 14:44 Vasopressin 40 unit/Miscellaneous Medication 1 each/ Sodium Chloride 102 mls @ 0 mls/hr IV INF PRN; Protocol PRN Reason: SBP>90 Sodium Chloride (Normal Saline 0.9%) 1,000 mls @ 50 mls/hr IV .Q20H [facility] Last Admin: 07/16/18 17:10 Dose: 1,000 mls Ceftriaxone Sodium 1 gm/ (Sodium Chloride) 100 mls @ 100 mls/hr IVPB 1500 [facility] Last Admin: 07/16/18 16:55 Dose: 100 mls Dexmedetomidine HCl 400 mcg/ (Sodium Chloride) 100 mls @ 0 mls/hr IVPB INF [facility] ; Protocol Last Admin: 07/17/18 06:14 Dose: 100 mls Dextrose/Water (D5w) 1,000 mls @ 0 mls/hr IV .Q0M PRN PRN Reason: Hypoglycemia Insulin Human Lispro (Humalog) 0 units SC .MODERATE SLIDING SC PRN PRN Reason: Moderate [place] Scale Last Admin: 07/17/18 12:54 Dose: 2 unit Insulin Human Regular (Humulin R) 0 units SC .MODERATE SLIDING SC PRN; Protocol PRN Reason: MODERATE SLIDING SCALE Last Admin: 07/10/18 17:19 Dose: 2 units Laxative/Stool Softener (Laxative Of Choice) 1 each PO DAILY PRN PRN Reason: Constipation Lorazepam (Ativan) 2 mg SLOW IVP Q1H PRN PRN Reason: Breakthrough agitation Stop: 07/31/18 14:44 Last Admin: 07/14/18 03:50 Dose: 2 mg Magnesium Hydroxide (Milk Of Magnesium) 30 ml PO DAILY PRN PRN Reason: Constipation Last Admin: 07/05/18 08:32 Dose: 30 ml Metoclopramide HCl (Reglan) 10 mg IVP Q6HR [facility] Last Admin: 07/17/18 12:25 Dose: 10 mg Nitroglycerin (Nitro-Bid 2% Ointment) 1 inch TOP Q8HR [facility] Last Admin: 07/17/18 07:39 Dose: 1 inch Discontinue Previous Narcotic Pain Medications And Benzodiazepines 1 each FS .ONE [facility] Stop: 07/31/18 14:44 Ondansetron HCl (Zofran Odt) 4 mg PO Q6H PRN PRN Reason: Nausea/Vomiting Ondansetron HCl (Zofran) 4 mg IVP Q6H PRN PRN Reason: Nausea/Vomiting Pantoprazole Sodium (Protonix) 40 mg IVP Q12HR [facility] Last Admin: 07/17/18 09:21 Dose: 40 mg Risperidone (Risperidone) 0.5 mg PO BID [facility] Last Admin: 07/17/18 09:13 Dose: 0.5 mg Silver Sulfadiazine (Silvadene) 0 gm TOP BID [facility] Last Admin: 07/17/18 09:14 Dose: 1 applic Sodium Chloride (Flush - Normal Saline) 10 ml IVF Q12HR [facility] Last Admin: 07/17/18 09:14 Dose: 10 ml Sodium Chloride (Flush - Normal Saline) 10 ml IVF PRN PRN PRN Reason: Saline Flush Last Admin: 07/16/18 09:52 Dose: 10 ml Sodium Chloride (Flush - Normal Saline) 10 ml IV Q12HR [facility] Last Admin: 07/17/18 09:14 Dose: 10 ml
[2018-07-17] MEDS: Sodium Chloride 0.9% 1,000 ML IV SCH (13:04)
[2018-07-17] MEDS: cefTRIAXone\\ROCEPHIN 1 GM in Sodium Chloride 0.9% 100 ML IVPB SCH (14:59)
[2018-07-17] MEDS ORDERED: Vancomycin HCl 1 GM in Sodium Chloride 0.9% 250 ML 250 ML IVPB SCH (15:45)
[2018-07-17] MEDS ORDERED: HOLD VANCOMYCIN FOR LEVEL >20 FS SCH (16:30)
[2018-07-17] MEDS ORDERED: Vancomycin HCl 750 MG in Sodium Chloride 0.9% 250 ML 250 ML IVPB SCH (16:30)
[2018-07-17] MEDS ORDERED: Vancomycin HCl 1 GM in Premix Bag 1 BAG IVPB SCH (16:30)
[2018-07-17] MEDS ORDERED: Vancomycin HCl 1.25 GM in Sodium Chloride 0.9% 250 ML 250 ML IVPB SCH (16:30)
[2018-07-17] MEDS ORDERED: Vancomycin HCl 1.5 GM in Sodium Chloride 0.9% 250 ML 300 ML IVPB SCH (16:30)
--- NOTE | 2018-07-17 16:48 | PRG ---
DATE OF SERVICE: 07/17/2018 SUBJECTIVE: Mr. Lewis had a fever of 101 earlier today, and there were some concerns with his right upper extremity. He is getting dialysis tomorrow after the catheterization. He is going to have a heart catheterization because of concerns with unstable coronary syndrome associated with chest pain. He is much more alert. He follows commands and establishes eye contact. He is making sense. He is weak to talk, but I can understand a few spoken words. No headaches. No chest pain at this moment. No abdominal pain. He still has a Pyle catheter with good urinary output. His I's and O's have been positive for the past many days. OBJECTIVE: VITAL SIGNS: T-max 100.6 on the and looks like he had 101 earlier today, that is not recorded in the computer here. His respiratory rate is 24 to 30, O2 saturation 100%, 74 beats per minute, and BP 140/65. EXTREMITIES: The left lower extremity with those areas of what appears to be superficial necrosis. The wound care person has been gently debriding the physical measures, and there seems to be a healthy tissue right under that layer of necrosis. He has a right tunneled hemodialysis catheter Trialysis catheter being used for IV access. His ocular movements are conjugate. A little bit of periorbital edema. The right elbow has somewhat swollen olecranon bursa, but it does not appear to be tender and no erythema. He does have some pain on mobilization of the upper extremity, but it seems to hurt all over anyways when he is moved. LUNGS: Symmetric air entry. Tracheostomy appears okay. ABDOMEN: Gastrostomy exit site appears okay. Abdomen soft and not distended. LABORATORY DATA: White cell count 5.9, hemoglobin 7.6, platelets 223 with creatinine of 1.53. Two sets of blood cultures have been drawn just now. Chest x-ray from this morning with some mild congestion. ASSESSMENT AND PLAN: Severe Streptococcus pyogenes infection with bacteremia, multiorgan dysfunction with steady improvement, now with concerns regarding an unstable coronary syndrome, going for catheterization tomorrow and dialysis after that. Hopefully, the dialysis catheter can be removed after the last dialysis tomorrow. In the meantime, the fever may be related to the catheter with colonization by resistant pathogens and yeast, and we will add broad-spectrum coverage until the blood cultures are resulted. Ideally, one would like to remove this as soon as possible, but we will have to wait until tomorrow's procedure. The right upper extremity is a concern too, but it seems to be less of an issue. We will ultrasound that area to make sure there is no deep vein thrombosis. The olecranon bursa will continue to be observed, but it does not look like it is infected at this point in time. He has diarrhea still, but it has been Clostridium difficile negative. Job ID: [id number]
[2018-07-17] MEDS ORDERED: Communication Order-Pharmacy FS SCH (17:00)
[2018-07-17] MEDS: Fluconazole In NaCl,Iso-Osm 200 MG in Premix Bag 1 BAG IVPB SCH (17:57)
[2018-07-17] MEDS: MEROPENEM 1 GM/50 ML 1 GM in Premix Bag 1 BAG IVPB SCH (17:57)
--- NOTE | 2018-07-17 19:33 | PRG ---
DATE OF SERVICE: 07/17/2018 SUBJECTIVE: Fritz Lewis was febrile today. He had no new complaints. He has a chronic bursal fluid collection in his right elbow and this is a little tender, but his says that is always there. He had no other new exam findings. OBJECTIVE: VITAL SIGNS: Remained stable. Blood pressure 133/55, heart rate 77 , respiratory rates in the low 20s. GENERAL: We actually placed him on a trach collar at [facility], but we will continue with nocturnal ventilation. LUNGS: Clear. HEART: Regular rhythm. S1 and S2 are normal. ABDOMEN: Soft. EXTREMITIES: Bandaged. DIAGNOSTIC STUDIES: Chest radiograph still shows pulmonary edema. He is still being dialyzed. Blood cultures were drawn today. White count 5.9, hemoglobin 7.6, platelets 223. Electrolytes are normal. Creatinine is 1.53. PH 7.51, CO2 of 35, PO2 of 110. IMPRESSION: 1. Respiratory failure associated with Strep pyogenes infection in his leg. 2. Obesity, deconditioning, possible sleep apnea. 3. Status post tracheostomy and feeding tube placement. 4. Fever today. Dialysis access would be the source I am concerned about. One culture is to be drawn from the access and one from the peripheral site. Dr. Jay will decide on antibiotics. It would not be unreasonable just to continue with careful observation. We will continue with slow attempts at weaning. We have made some progress this week. I met with the and answered all of her questions. Critical care time 30 minutes. crirical care time 30 minutes Job ID: [id number] MTDD
[2018-07-18] MEDS: HumaLOG 300 UNITS/3 ML VIAL SC PRN (01:37)
[2018-07-18] MEDS: MEROPENEM 1 GM/50 ML 1 GM in Premix Bag 1 BAG IVPB SCH ×2 (04:15→17:30)
[2018-07-18 05:01] LABS: #Eosinphils 0.2 thou/uL (0.0-0.7); #Monocytes 0.4 thou/uL (0.11-0.59); #Neutrophils 5.3 thou/uL (1.40-6.50); %Basophils 0.5 % (0.0-1.0); %Lymphocytes 13.8 % (21.0-51.0); %Monocytes 6.4 % (0.0-10.0); %Neutrophils 76.3 % (42.0-75.0); Hemoglobin 7.5 g/dL (14.0-18.0); Mean Corpuscular Hemoglobin 30.3 pg (27.0-31.0); Mean Corpuscular Volume 94.8 fL (78.0-98.0); Mean Platelet Volume 7.4 fL (7.4-10.4); Platelet Count 214 thou/uL (130-400); RBC Distribution Width 14.6 % (11.5-14.5); Red Blood Cell (RBC) Count 2.48 mill/uL (4.70-6.10); White Blood Cell (WBC) Count 6.9 thou/uL (4.8-10.8)
[2018-07-18 05:20] LABS: Anion Gap 12 mmol/L (10-20); BUN (Urea Nitrogen) 32 mg/dL (8.4-25.7); Calc. Creatinine Clearance 73 mL/min (70-130); Calcium 8.3 mg/dL (7.8-10.44); Carbon Dioxide 24 mmol/L (23-31); Chloride 108 mmol/L (98-107); Estimated GFR-MDRD 45; Glucose 149 mg/dL (80-115); Potassium 3.6 mmol/L (3.5-5.1); Sodium 140 mmol/L (136-145)
[2018-07-18] MEDS: Metoclopramide HCl 10 MG/2 ML VIAL IVP SCH ×4 (06:24→23:35)
[2018-07-18] MEDS ORDERED: Midazolam HCl 2 mg/2 ml Vial ONE ×2 (06:39→07:58)
[2018-07-18] MEDS ORDERED: Lidocaine 1% (PF) 30 ML VIAL ONE (06:40)
[2018-07-18] MEDS ORDERED: Fentanyl 100 MCG/2 ML VIAL ONE (06:40)
[2018-07-18] MEDS: Nitroglycerin 2% Ointment 1 INCH/1 GM Packet TOP SCH ×3 (06:49→22:25)
[2018-07-18] MEDS ORDERED: Heparin 10,000 UNITS/1 ML VIAL ONE (07:18)
[2018-07-18] MEDS ORDERED: Clopidogrel Bisulfate 300 MG TAB ONE (07:36)
[2018-07-18] MEDS ORDERED: Bivalirudin 250 MG VIAL ONE ×2 (07:36→09:04)
[2018-07-18] MEDS: Carvedilol 3.125 MG TAB PER TUBE SCH ×2 (08:00→17:30)
[2018-07-18] MEDS: Sodium Chloride 0.9% 1,000 ML IV SCH ×3 (08:22→17:46)
[2018-07-18] MEDS: Amiodarone 200 MG TAB PER TUBE SCH ×2 (09:00→21:00)
[2018-07-18] MEDS: Aspirin 325 MG TAB PER TUBE SCH (09:00)
[2018-07-18] MEDS: risperiDONE 0.25 MG TAB PO SCH ×2 (09:00→22:27)
[2018-07-18] MEDS ORDERED: Iopamidol 370 76% 100 ML VIAL ONE (09:29)
[2018-07-18] MEDS ORDERED: Iopamidol 370 76% 50 ML VIAL FS ONE (09:29)
[2018-07-18] MEDS ORDERED: Nitroglycerin 0.4 MG TAB (25 Tab Bottle) SL PRN (09:50)
[2018-07-18 10:29] LABS: Vancomycin, Random 15.1 ug/mL (See Comment)
[2018-07-18] MEDS ORDERED: Heparin 10,000 UNITS/ 10 ML VIAL ONE (11:00)
--- NOTE | 2018-07-18 11:52 | PRG ---
DATE OF SERVICE: 07/18/2018 Fritz Lewis continues to make slow progress. He was down for cardiac catheterization today. He remains mechanically ventilated. Once he is back from cardiac catheterization, he can be placed back on a trach collar during the day and continue with nocturnal ventilation. Job ID: [id number]
[2018-07-18] MEDS: Silver Sulfadiazine 1% Cream 50 GM JAR TOP SCH ×2 (12:40→23:35)
[2018-07-18] MEDS: Pantoprazole 40 MG VIAL IVP SCH ×2 (13:02→22:25)
--- NOTE | 2018-07-18 13:20 | PDOC.PN ---
- Subjective Encounter Start Date: 07/18/18 Encounter Start Time: 12:35 Subjective: awakens to touch -: is on vent - Objective Resuscitation Status - Order Detail: 06/30/18 04:33 Resuscitation Status Routine Resuscitation Status: FULL: Full Resuscitation MAR Reviewed: Yes Vital Signs & Weight: Vital Signs (12 hours) Temp Pulse Resp BP Pulse Ox 07/18/18 12:55 76 28 H 100 07/18/18 10:54 54 L 123/44 L 07/18/18 06:40 68 140/64 07/18/18 06:39 73 29 H 100 07/18/18 06:00 25 H 07/18/18 04:00 100.0 F H 26 H 07/18/18 02:31 75 129/57 L 07/18/18 02:00 24 H Weight Admit Weight 249 lb Weight 249 lb 1.957 oz Most Recent Monitor Data Heart Rate from ECG 72 NIBP 140/64 NIBP BP-Mean 89 Respiration from ECG 29 SpO2 100 I&O: 07/17/18 07/18/18 07/19/18 06:59 06:59 06:59 Intake Total 2887 4339 Output Total 1098 1727 30 Balance 1789 2612 -30 Result Diagrams: 07/18/18 04:47 07/18/18 04:47 Additional Labs: Accuchecks 07/18/18 07/18/18 07/17/18 10:05 01:30 15:49 POC Glucose 137 H 180 H 195 H 07/17/18 12:53 POC Glucose 177 H Phys Exam - Physical Examination HEENT: PERRLA, sclera anicteric Neck: no JVD trach+ Respiratory: no wheezing, no rales Cardiovascular: RRR, no significant murmur Gastrointestinal: soft, no distention, positive bowel sounds peg+ Musculoskeletal: pulses present, edema present Neurological: non-focal, moves all 4 limbs Dx/Plan (1) Acute respiratory failure with hypoxia Code(s): J96.01 - ACUTE RESPIRATORY FAILURE WITH HYPOXIA Status: Acute Comment: s/p trach (2) Toxic metabolic encephalopathy Code(s): G92 - TOXIC ENCEPHALOPATHY Status: Acute (3) Sepsis Code(s): A41.9 - SEPSIS, UNSPECIFIED ORGANISM Status: Acute Qualifiers: Sepsis type: Streptococcus group B Qualified Code(s): A40.1 - Sepsis due to streptococcus, group B (4) Physical deconditioning Code(s): R53.81 - OTHER MALAISE Status: Acute (5) Acute renal failure Status: Acute Qualifiers: Acute renal failure type: with acute tubular necrosis Qualified Code(s): N17.0 - Acute kidney failure with tubular necrosis Comment: On hemodialysis (6) CAD (coronary artery disease) Code(s): I25.10 - ATHSCL HEART DISEASE OF [place] CORONARY ARTERY W/O ANG PCTRS Status: Chronic Qualifiers: Coronary Disease-Associated Artery/Lesion type: [place] artery [place] vs. transplanted heart: jackson heart Associated angina: without angina Qualified Code(s): I25.10 - Atherosclerotic heart disease of [place] coronary artery without angina pectoris (7) CHF (congestive heart failure) Code(s): I50.9 - HEART FAILURE, UNSPECIFIED Status: Acute Qualifiers: Heart failure type: combined systolic and diastolic Comment: ef of 45% (8) DM type 2 (diabetes mellitus, type 2) Status: Chronic Qualifiers: Diabetes mellitus 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 designer insulin use: with 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 designer use Diabetes mellitus complication status: with kidney complications Diabetes mellitus complication detail: with chronic kidney disease Chronic kidney disease stage : on chronic dialysis Qualified Code(s): E11.22 - Type 2 diabetes mellitus with diabetic chronic kidney disease; N18.6 - End stage renal disease; Z79.4 - retirement (current) use of 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 (11) Group A streptococcal infection Code(s): B95.0 - STREPTOCOCCUS, GROUP A, CAUSING DISEASES CLASSD ELSWHR Status : Acute - Plan had cath this am, will f/u with report -: on vanc, meropenem, fluconazole, repeat cultures 1/2 g + cocci -: has been on trach collar yesterday -: has severe deconditioning, will need ltac/rehab -: prognosis guarded, continue asp, plavix, amiodarone, coreg * . Review of Systems - Medications/Allergies Allergies/Adverse Reactions: Allergies Allergy/AdvReac Type Severity Reaction Status Date / Time morphine Allergy Anaphylaxis Verified 06/30/18 03:57 Medications: Current Medications Acetaminophen (Tylenol) 1,000 mg PO Q6H PRN PRN Reason: Mild Pain (1-3) Last Admin: 07/17/18 14:59 Dose: 1,000 mg Albuterol/Ipratropium (Duoneb) 3 ml NEB [id number] [facility] Last Admin: 07/18/18 12:55 Dose: 3 ml Amiodarone HCl (Cordarone) 400 mg PER TUBE BID [facility] Last Admin: 07/17/18 20:53 Dose: 400 mg Aspirin (Aspirin) 325 mg PER TUBE DAILY [facility] Last Admin: 07/17/18 09:13 Dose: 325 mg Aspirin (Aspirin Chewable) 81 mg PO DAILY [facility] Bisacodyl (Dulcolax) 10 mg VT DAILY PRN PRN Reason: Constipation Last Admin: 07/06/18 09:44 Dose: 10 mg Carvedilol (Coreg) 3.125 mg PER TUBE BID-[facility] Last Admin: 07/17/18 17:56 Dose: 3.125 mg Clopidogrel Bisulfate (Plavix) 75 mg PO DAILY [facility] Dextrose/Water (Dextrose 50%) 25 gm SLOW IVP PRN PRN PRN Reason: Hypoglycemia Glucagon (Glucagon) 1 mg IM PRN PRN PRN Reason: Hypoglycemia Norepinephrine Bitartrate (Levophed) 250 mls @ 0 mls/hr IVPB INF RADHA; Protocol Last Admin: 07/03/18 14:43 Dose: 250 mls Fentanyl Citrate 2,000 mcg/ (Sodium Chloride) 100 mls @ 0 mls/hr IV INF RADHA; Protocol Stop: 07/31/18 14:44 Last Admin: 07/14/18 07:02 Dose: 100 mls Fentanyl Citrate (Fentanyl Bolus) 250 mls @ 0 mls/hr IVPB PRN PRN PRN Reason: Breakthrough pain/agitation Stop: 07/31/18 14:44 Vasopressin 40 unit/Miscellaneous Medication 1 each/ Sodium Chloride 102 mls @ 0 mls/hr IV INF PRN; Protocol PRN Reason: SBP>90 Dexmedetomidine HCl 400 mcg/ (Sodium Chloride) 100 mls @ 0 mls/hr IVPB INF RADHA ; Protocol Last Admin: 07/18/18 12:27 Dose: 100 mls Dextrose/Water (D5w) 1,000 mls @ 0 mls/hr IV .Q0M PRN PRN Reason: Hypoglycemia Fluconazole/Sodium Chloride (200 mg/ Device) 100 mls @ 100 mls/hr IVPB 1800 [facility] Last Admin: 07/17/18 17:57 Dose: 100 mls Meropenem 1 gm/ Device 50 mls @ 100 mls/hr IVPB 0430,1630 [facility] Last Admin: 07/18/18 04:15 Dose: 50 mls Vancomycin HCl 1.5 gm/ Sodium (Chloride) 300 mls @ 200 mls/hr IVPB WILLCALL RADHA Vancomycin HCl 1.25 gm/ Sodium (Chloride) 250 mls @ 166.667 mls/hr IVPB WILLCALL RADHA Vancomycin HCl 1 gm/ Device 200 mls @ 200 mls/hr IVPB WILLCALL [facility]HA Vancomycin HCl 750 mg/ Sodium (Chloride) 250 mls @ 250 mls/hr IVPB WILLCALL [facility]HA Sodium Chloride (Normal Saline 0.9%) 1,000 mls @ 125 mls/hr IV .Q8H [facility] Insulin Human Lispro (Humalog) 0 units SC .MODERATE SLIDING SC PRN PRN Reason: Moderate Correctional Scale Last Admin: 07/18/18 01:37 Dose: 2 unit Insulin Human Regular (Humulin R) 0 units SC .MODERATE SLIDING SC PRN; Protocol PRN Reason: MODERATE SLIDING SCALE Last Admin: 07/10/18 17:19 Dose: 2 units Laxative/Stool Softener (Laxative Of Choice) 1 each PO DAILY PRN PRN Reason: Constipation Lorazepam (Ativan) 2 mg SLOW IVP Q1H PRN PRN Reason: Breakthrough agitation Stop: 07/31/18 14:44 Last Admin: 07/14/18 03:50 Dose: 2 mg Magnesium Hydroxide (Milk Of Magnesium) 30 ml PO DAILY PRN PRN Reason: Constipation Last Admin: 07/05/18 08:32 Dose: 30 ml Metoclopramide HCl (Reglan) 10 mg IVP Q6HR [facility] Last Admin: 07/18/18 06:24 Dose: 10 mg Nitroglycerin (Nitro-Bid 2% Ointment) 1 inch TOP Q8HR [facility] Last Admin: 07/18/18 06:49 Dose: Not Given Nitroglycerin (Nitrostat) 0.4 mg SL Q5MIN PRN PRN Reason: Chest Pain Discontinue Previous Narcotic Pain Medications And Benzodiazepines 1 each FS .ONE [facility] Stop: 07/31/18 14:44 Hold Vancomycin For (Level >20) 0 each FS .AT DIALYSIS [facility] Ondansetron HCl (Zofran Odt) 4 mg PO Q6H PRN PRN Reason: Nausea/Vomiting Ondansetron HCl (Zofran) 4 mg IVP Q6H PRN PRN Reason: Nausea/Vomiting Pantoprazole Sodium (Protonix) 40 mg IVP Q12HR [facility] Last Admin: 07/18/18 13:02 Dose: 40 mg Risperidone (Risperidone) 0.5 mg PO BID [facility] Last Admin: 07/17/18 20:54 Dose: 0.5 mg Silver Sulfadiazine (Silvadene) 0 gm TOP BID [facility] Last Admin: 07/18/18 12:40 Dose: 1 applic Sodium Chloride (Flush - Normal Saline) 10 ml IVF Q12HR [facility] Last Admin: 07/18/18 13:03 Dose: 10 ml Sodium Chloride (Flush - Normal Saline) 10 ml IVF PRN PRN PRN Reason: Saline Flush Last Admin: 07/16/18 09:52 Dose: 10 ml Sodium Chloride (Flush - Normal Saline) 10 ml IV Q12HR [facility] Last Admin: 07/18/18 13:03 Dose: 10 ml
--- NOTE | 2018-07-18 15:14 | PRG ---
DATE OF SERVICE: 07/18/2018 SUBJECTIVE: Mr. Lewis is awake. He is in no distress. He had a catheterization, and couple of stents were placed. He was dialyzed today. He is still having fever intermittently. T-max 101.4 yesterday at 12 o'clock. It is now 100. OBJECTIVE: GENERAL: He is awake and oriented. Follows commands. HEAD AND NECK: Tracheostomy in place with normal-appearing exit site. LUNGS: Coarse breath sounds. HEART: S1 and S2. Regular rate. ABDOMEN: Soft. Still has a left-sided port for the angiogram and a right Trialysis catheter. EXTREMITIES: He is able to move extremities. LABORATORY DATA: White cell count 6.9, hemoglobin 7.5, platelets 214. Creatinine 1.56. ASSESSMENT AND DISCUSSION: Severe Streptococcus pyogenes bacteremia with soft tissue infection. The left lower extremity is progressing well. Still with areas of superficial necrosis. The patient now has had fever recrudescence. He had chest pain, and two stents were placed following angiogram today. Hopefully, we will be able to stop dialysis and remove the catheter in the right groin, which I suspect is colonized by either a bacterial pathogen or yeast. The right upper extremity issues do not seem to be causing problem today. I do not think there is evidence to suggest inflammatory arthropathy there at this point in time. Job ID: [id number]
[2018-07-18] MEDS: Fluconazole In NaCl,Iso-Osm 200 MG in Premix Bag 1 BAG IVPB SCH (17:46)
--- NOTE | 2018-07-18 21:18 | CCL ---
PROCEDURE: Selective coronary arteriography, stent placement in the distal right coronary artery to the ostial right coronary artery. INDICATION: Chest pain and ST segment depression in someone with known coronary artery disease. Patient was brought to cardiac lab analyst and the left groin was prepped and draped in usual fashion. Patient had dialysis catheter in the right femoral artery. A 6-Russian sheath was inserted and heparin 3000 units given. A 5- Russian left 4 and 5-Russian right 4 were used for diagnostic arteriography. Patient was given Angiomax bolus and drip as well as Plavix 600 mg. During the procedure he received multiple doses of IV versed 1 mg and IV Fentanyl 25 mg for sedation which at times was difficult. Right 4 guide catheter was inserted and a floppy choice wire was advanced to the distal RCA. The wire would not adequately advance. Multiple other guide catheters were attempted including 6 Russian AL1, 6 Russian AL2, 6 Russian RCV, 6 Russian IM guide catheter, 6 Russian multipurpose guide catheter. The problem was that there was a 70% very near ostial lesion and difficulty with engaging the right coronary artery as well as advancing any balloons passed this area of stenosis. Finally the decision was made to go back to the right 4 guide. A schoox wire was used. Emerge 3.0 x 20 mm balloon was the inserted into the proximal portion of the RCA and the lesion very near the ostium was dilated. An Emerge 4.0 x 15 mm balloon was also inserted and the proximal portion was dilated. This 4.0 was then advanced further down the RCA and inflated to very low pressures in the areas of severe stenosis (in-stent restenosis) in the mid RCA. Rebel 3.5 x 20 mm, 3.5 x 24 mm and 3.5 x 28 mm stents were positioned and deployed. Then a Rebel 4.0 x 20 mm was positioned proximally extending into the ostium and was positioned and deployed. Final result was excellent. The sheaths were sutured in place. Patient was transferred to the CCU. RESULTS: PRESSURES: Aorta 132/57, mean of 88. CORONARY ARTERIOGRAPHY:. 1. The left main had a 20% stenosis. 2. The LAD had a 30% proximal stenosis. The LAD was a wrapped around the apex to the inferior wall. 3. The circumflex was small with 30% mid stenosis. 4. The right coronary artery had a 70% near ostial stenosis that was proximal stents. In the mid RCA there was a 90%, 70% and 90% in-stent restenosis. INTERVENTION RESULTS: The three lesions in the mid RCA were reduced to 0%. The near ostial lesion was reduced to 0%. IMPRESSION: 1. One vessel coronary artery disease (RCA). 2. Successful bare metal stent from the distal to the ostial right coronary artery. MINE
[2018-07-19] MEDS: MEROPENEM 1 GM/50 ML 1 GM in Premix Bag 1 BAG IVPB SCH ×2 (03:29→16:23)
[2018-07-19 03:51] LABS: #Eosinphils 0.2 thou/uL (0.0-0.7); #Lymphocytes 1.1 thou/uL (1.20-3.40); #Monocytes 0.3 thou/uL (0.11-0.59); #Neutrophils 4.1 thou/uL (1.40-6.50); %Basophils 0.7 % (0.0-1.0); %Eosinophils 4.3 % (0.0-10.0); %Lymphocytes 18.9 % (21.0-51.0); %Monocytes 5.7 % (0.0-10.0); %Neutrophils 70.4 % (42.0-75.0); Hemoglobin 7.3 g/dL (14.0-18.0); Mean Corpuscular Hemoglobin 30.9 pg (27.0-31.0); Mean Corpuscular Volume 93.6 fL (78.0-98.0); Platelet Count 178 thou/uL (130-400); RBC Distribution Width 14.5 % (11.5-14.5); Red Blood Cell (RBC) Count 2.36 mill/uL (4.70-6.10); White Blood Cell (WBC) Count 5.8 thou/uL (4.8-10.8)
[2018-07-19 04:15] LABS: ALT (SGPT) 29 U/L (8-55); AST (SGOT) 21 U/L (5-34); Albumin 2.1 g/dL (3.4-4.8); Alkaline Phosphatase 61 U/L (40-150); Anion Gap 13 mmol/L (10-20); BUN (Urea Nitrogen) 22 mg/dL (8.4-25.7); Bilirubin, Total 0.3 mg/dL (0.2-1.2); Calc. Creatinine Clearance 80 mL/min (70-130); Calcium 8.2 mg/dL (7.8-10.44); Carbon Dioxide 24 mmol/L (23-31); Chloride 104 mmol/L (98-107); Estimated GFR-MDRD 49; Globulin 4.6 g/dL (2.4-3.5); Glucose 148 mg/dL (80-115); Potassium 3.7 mmol/L (3.5-5.1); Protein, Total 6.7 g/dL (5.8-8.1); Sodium 137 mmol/L (136-145)
[2018-07-19] MEDS: Metoclopramide HCl 10 MG/2 ML VIAL IVP SCH ×2 (06:02→12:30)
[2018-07-19] MEDS: Nitroglycerin 2% Ointment 1 INCH/1 GM Packet TOP SCH ×3 (06:02→22:16)
[2018-07-19] MEDS: Sodium Chloride 0.9% 1,000 ML IV SCH ×3 (06:12→19:58)
--- NOTE | 2018-07-19 08:16 | PRG ---
DATE OF SERVICE: 07/19/2018 RENAL MEDICINE SUBJECTIVE: Mr. Lewis is a 68-year-old white male, who was admitted for sepsis, developed multiorgan dysfunction including acute kidney injury from ATN. He also underwent a cardiac cath yesterday and single-vessel disease was noted. A successful bare metal stent was placed distal to the ostial right coronary artery disease. We continued to place him on maintenance hemodialysis. He did undergo dialysis after the said cardiac cath. This morning, the patient is stable. No acute complaints. OBJECTIVE: VITAL SIGNS: Blood pressure is noted at 141/64 with heart rate 69, respiratory rate 27, and pulse ox 99%. GENERAL: Awake, supine, comfortable, not in distress. SKIN: Adequate turgor. HEENT: He has a slightly pale conjunctivae. Anicteric sclerae. No neck mass. No carotid bruits. No JVD. CHEST: No deformities. LUNGS: Decreased breath sounds. HEART: Normal sinus rhythm. No murmur. No gallops. No rubs. ABDOMEN: Globular, soft. Positive for PEG. EXTREMITIES: Positive for edema. NEUROLOGICAL: Awake and follows simple commands, not in distress. Positive for tracheostomy. Please note, he is currently on a T-piece. MEDICATIONS: Medications of July 19, 2018 reviewed. LABORATORY DATA: Laboratories of July 19, 2018, white count 5.8, hemoglobin 7.3. Sodium 137, potassium 3.7, chloride 104, carbon dioxide 24, BUN 22, creatinine 1.43, glucose 148, calcium 8.2, and albumin 2.1. ASSESSMENT AND PLAN: 1. Acute kidney injury secondary to presumed ischemic acute tubular necrosis-hemodialysis was initiated due to volume overload. He looks euvolemic today. No indication for an emergent hemodialysis. He did receive a 4-hour hemodialysis yesterday. 2. Coronary artery disease-status post cardiac cath with coronary stent placement. 3. Acute respiratory failure, off vent, currently on a T-piece, doing well. 4. Sepsis, clinically much improved. Overall, prognosis remains guarded. Job ID: [id number]
--- NOTE | 2018-07-19 09:00 | PRG ---
DATE OF SERVICE: 07/19/2018 PULMONARY/CRITICAL CARE PROGRESS NOTE SUBJECTIVE: He seems to be doing fairly well. Has no acute complaints. He is currently off the ventilator, on a trach collar. OBJECTIVE: VITAL SIGNS: On exam, his temperature is 98.8 with T-max of 100.0, pulse 69, blood pressure 141/56, O2 saturation 99%. Intake 2103, output 1193. HEENT: Unremarkable. NECK: No JVD. LUNGS: Clear anteriorly. CARDIOVASCULAR: S1 and S2, regular. ABDOMEN: Soft and obese. PEG tube noted. EXTREMITIES: He has dialysis catheter in the right groin. He has an I and D in the left groin. LABORATORY DATA: White blood cell count 5.8, hematocrit 22.1, platelet count 178. Activated clotting time 171. Sodium 137, potassium 3.7, chloride 104, CO2 of 24, BUN 22, creatinine 1.4, glucose 148. ASSESSMENT: 1. Acute respiratory failure requiring mechanical ventilation and tracheostomy placement-now on trach collar most of the time. 2. Obesity. 3. Coronary artery disease requiring stent. 4. Renal failure requiring intermittent hemodialysis. PLAN: 1. Supportive care, on and off ventilator as tolerated. 2. Hopeful removal of the right groin catheter at earliest convenience. 3. Reviewed medications. Antibiotics are currently being written for by Dr. Jay. We will continue to monitor pulmonary issues. Job ID: [id number]
[2018-07-19] MEDS: Pantoprazole 40 MG VIAL IVP SCH ×2 (09:43→19:57)
[2018-07-19] MEDS: Carvedilol 3.125 MG TAB PER TUBE SCH ×2 (09:43→18:26)
[2018-07-19] MEDS: Clopidogrel Bisulfate 75 MG TAB PO SCH (09:43)
[2018-07-19] MEDS: Amiodarone 200 MG TAB PER TUBE SCH ×2 (09:43→19:57)
[2018-07-19] MEDS: Aspirin 325 MG TAB PER TUBE SCH (09:43)
[2018-07-19] MEDS: Silver Sulfadiazine 1% Cream 50 GM JAR TOP SCH ×2 (09:44→21:00)
[2018-07-19] MEDS: Aspirin Chewable 81 MG TAB PO SCH (09:45)
[2018-07-19] MEDS: risperiDONE 0.25 MG TAB PO SCH ×2 (10:48→19:57)
--- NOTE | 2018-07-19 14:52 | PDOC.CTH ---
Cardiology Progress Note - Subjective No new issues. - Objective Vital Signs Pulse Resp Pulse Ox 07/19/18 13:38 70 24 H 100 07/19/18 07:29 67 28 H 100 07/19/18 06:00 27 H 07/19/18 04:00 19 Admit Weight 249 lb Weight 249 lb 1.957 oz 07/18/18 07/19/18 07/20/18 06:59 06:59 06:59 Intake Total 4339 2103 Output Total 1727 1193 Balance 2612 910 - Physical Examination General/Neuro: NAD Neck: no JVD present Lungs: unlabored respirations Heart: RRR Abdomen: NT/ND Extremities: + edema B (2+) - Telemetry Telemetry Rhythm: NSR - Labs Result Diagrams: 07/19/18 03:25 07/19/18 03:25 Troponin/CKMB Troponin I 0.249 ng/mL (< 0.028) H 07/16/18 12:03 - Assessment/Plan 1. CAD 2. S/P BMS to RCA 3. Acute hypoxic respiratory insufficiency 4. S/P Trach. 5. EDGAR requiring dialysis PLAN: - Continue SPARKLE with Plavix and Aspirin - Continue BB. - Continue other meds.
--- NOTE | 2018-07-19 15:12 | PDOC.PN ---
- Subjective Encounter Start Date: 07/19/18 Encounter Start Time: 07:45 Subjective: on trach collar, awakens easily -: not fully oriented - Objective Resuscitation Status - Order Detail: 06/30/18 04:33 Resuscitation Status Routine Resuscitation Status: FULL: Full Resuscitation MAR Reviewed: Yes Vital Signs & Weight: Vital Signs (12 hours) Pulse Resp Pulse Ox 07/19/18 13:38 70 24 H 100 07/19/18 07:29 67 28 H 100 07/19/18 06:00 27 H 07/19/18 04:00 19 Weight Admit Weight 249 lb Weight 249 lb 1.957 oz Most Recent Monitor Data Heart Rate from ECG 70 NIBP 142/62 NIBP BP-Mean 88 Respiration from ECG 30 SpO2 100 I&O: 07/18/18 07/19/18 07/20/18 06:59 06:59 06:59 Intake Total 4339 2103 Output Total 1727 1193 Balance 2612 910 Result Diagrams: 07/19/18 03:25 07/19/18 03:25 Additional Labs: Accuchecks 07/19/18 07/19/18 07/18/18 06:18 00:02 17:23 POC Glucose 146 H 147 H 136 H Phys Exam - Physical Examination HEENT: PERRLA, sclera anicteric Neck: no JVD trach+ Respiratory: no wheezing, no rales Cardiovascular: RRR, no significant murmur Gastrointestinal: soft, no distention, positive bowel sounds peg+ Musculoskeletal: pulses present, edema present Neurological: non-focal, moves all 4 limbs Dx/Plan (1) Acute respiratory failure with hypoxia Code(s): J96.01 - ACUTE RESPIRATORY FAILURE WITH HYPOXIA Status: Acute Comment: s/p trach (2) Toxic metabolic encephalopathy Code(s): G92 - TOXIC ENCEPHALOPATHY Status: Acute (3) Sepsis Code(s): A41.9 - SEPSIS, UNSPECIFIED ORGANISM Status: Acute Qualifiers: Sepsis type: Streptococcus group B Qualified Code(s): A40.1 - Sepsis due to streptococcus, group B (4) Physical deconditioning Code(s): R53.81 - OTHER MALAISE Status: Acute Comment: severe (5) Acute renal failure Status: Acute Qualifiers: Acute renal failure type: with acute tubular necrosis Qualified Code(s): N17.0 - Acute kidney failure with tubular necrosis Comment: On hemodialysis (6) CAD (coronary artery disease) Code(s): I25.10 - ATHSCL HEART DISEASE OF [place] CORONARY ARTERY W/O ANG PCTRS Status: Chronic Qualifiers: Coronary Disease-Associated Artery/Lesion type: [place] artery [place] vs. transplanted heart: [place] heart Associated angina: without angina Qualified Code(s): I25.10 - Atherosclerotic heart disease of [place] coronary artery without angina pectoris Comment: s/p cath with bare metal stent to rca (7) CHF (congestive heart failure) Code(s): I50.9 - HEART FAILURE, UNSPECIFIED Status: Acute Qualifiers: Heart failure type: combined systolic and diastolic Comment: ef of 45% (8) DM type 2 (diabetes mellitus, type 2) Status: Chronic Qualifiers: Diabetes mellitus care home insulin use: with care home use Diabetes mellitus complication status: with kidney complications Diabetes mellitus complication detail: with chronic kidney disease Chronic kidney disease stage : on chronic dialysis Qualified Code(s): E11.22 - Type 2 diabetes mellitus with diabetic chronic kidney disease; N18.6 - End stage renal disease; Z79.4 - half-way (current) use of 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 (11) Group A streptococcal infection Code(s): B95.0 - STREPTOCOCCUS, GROUP A, CAUSING DISEASES CLASSD ELSWHR Status : Acute - Plan repeat blood cs are growing coag -ve staph -: is on vanc and meropenem with diflucan -: continue asp, plavix, coreg, amiodarone -: alb in 2.1, has severe deconditioning -: prognosis guarded, will need aggressive PT * . Had urine output of 1 litre, has anasarca, likely will need to continue HD, ? diuretics per nephrology advice. Review of Systems - Medications/Allergies Allergies/Adverse Reactions: Allergies Allergy/AdvReac Type Severity Reaction Status Date / Time morphine Allergy Anaphylaxis Verified 06/30/18 03:57 Medications: Current Medications Acetaminophen (Tylenol) 1,000 mg PO Q6H PRN PRN Reason: Mild Pain (1-3) Last Admin: 07/17/18 14:59 Dose: 1,000 mg Albuterol/Ipratropium (Duoneb) 3 ml NEB [id number] [facility] Last Admin: 07/19/18 13:38 Dose: 3 ml Amiodarone HCl (Cordarone) 400 mg PER TUBE BID [facility] Last Admin: 07/19/18 09:43 Dose: 400 mg Aspirin (Aspirin Chewable) 81 mg PO DAILY [facility] Last Admin: 07/19/18 09:45 Dose: Not Given Bisacodyl (Dulcolax) 10 mg TN DAILY PRN PRN Reason: Constipation Last Admin: 07/06/18 09:44 Dose: 10 mg Carvedilol (Coreg) 3.125 mg PER TUBE BID-[facility] Last Admin: 07/19/18 09:43 Dose: 3.125 mg Clopidogrel Bisulfate (Plavix) 75 mg PO DAILY [facility] Last Admin: 07/19/18 09:43 Dose: 75 mg Dextrose/Water (Dextrose 50%) 25 gm SLOW IVP PRN PRN PRN Reason: Hypoglycemia Glucagon (Glucagon) 1 mg IM PRN PRN PRN Reason: Hypoglycemia Norepinephrine Bitartrate (Levophed) 250 mls @ 0 mls/hr IVPB INF [facility]; Protocol Last Admin: 07/03/18 14:43 Dose: 250 mls Fentanyl Citrate 2,000 mcg/ (Sodium Chloride) 100 mls @ 0 mls/hr IV INF [facility]; Protocol Stop: 07/31/18 14:44 Last Admin: 07/14/18 07:02 Dose: 100 mls Fentanyl Citrate (Fentanyl Bolus) 250 mls @ 0 mls/hr IVPB PRN PRN PRN Reason: Breakthrough pain/agitation Stop: 07/31/18 14:44 Vasopressin 40 unit/Miscellaneous Medication 1 each/ Sodium Chloride 102 mls @ 0 mls/hr IV INF PRN; Protocol PRN Reason: SBP>90 Dexmedetomidine HCl 400 mcg/ (Sodium Chloride) 100 mls @ 0 mls/hr IVPB INF [facility] ; Protocol Last Admin: 07/19/18 09:20 Dose: 100 mls Dextrose/Water (D5w) 1,000 mls @ 0 mls/hr IV .Q0M PRN PRN Reason: Hypoglycemia Fluconazole/Sodium Chloride (200 mg/ Device) 100 mls @ 100 mls/hr IVPB 1800 [facility] Last Admin: 07/18/18 17:46 Dose: 100 mls Meropenem 1 gm/ Device 50 mls @ 100 mls/hr IVPB 0430,1630 [facility] Last Admin: 07/19/18 03:29 Dose: 50 mls Vancomycin HCl 1.5 gm/ Sodium (Chloride) 300 mls @ 200 mls/hr IVPB WILLCALL [facility] Vancomycin HCl 1.25 gm/ Sodium (Chloride) 250 mls @ 166.667 mls/hr IVPB [facility] Vancomycin HCl 1 gm/ Device 200 mls @ 200 mls/hr IVPB WILLCALL [facility] Vancomycin HCl 750 mg/ Sodium (Chloride) 250 mls @ 250 mls/hr IVPB WILLCALL [facility] Last Admin: 07/18/18 15:41 Dose: 250 mls Insulin Human Lispro (Humalog) 0 units SC .MODERATE SLIDING SC PRN PRN Reason: Moderate Correctional Scale Last Admin: 07/18/18 01:37 Dose: 2 unit Insulin Human Regular (Humulin R) 0 units SC .MODERATE SLIDING SC PRN; Protocol PRN Reason: MODERATE SLIDING SCALE Last Admin: 07/10/18 17:19 Dose: 2 units Laxative/Stool Softener (Laxative Of Choice) 1 each PO DAILY PRN PRN Reason: Constipation Lorazepam (Ativan) 2 mg SLOW IVP Q1H PRN PRN Reason: Breakthrough agitation Stop: 07/31/18 14:44 Last Admin: 07/14/18 03:50 Dose: 2 mg Magnesium Hydroxide (Milk Of Magnesium) 30 ml PO DAILY PRN PRN Reason: Constipation Last Admin: 07/05/18 08:32 Dose: 30 ml Nitroglycerin (Nitro-Bid 2% Ointment) 1 inch TOP Q8HR [facility] Last Admin: 07/19/18 06:02 Dose: 1 inch Nitroglycerin (Nitrostat) 0.4 mg SL Q5MIN PRN PRN Reason: Chest Pain Discontinue Previous Narcotic Pain Medications And Benzodiazepines 1 each FS .ONE [facility] Stop: 07/31/18 14:44 Hold Vancomycin For (Level >20) 0 each FS .AT DIALYSIS [facility] Ondansetron HCl (Zofran Odt) 4 mg PO Q6H PRN PRN Reason: Nausea/Vomiting Ondansetron HCl (Zofran) 4 mg IVP Q6H PRN PRN Reason: Nausea/Vomiting Pantoprazole Sodium (Protonix) 40 mg IVP Q12HR [facility] Last Admin: 07/19/18 09:43 Dose: 40 mg Risperidone (Risperidone) 0.5 mg PO BID [facility] Last Admin: 07/19/18 10:48 Dose: 0.5 mg Silver Sulfadiazine (Silvadene) 0 gm TOP BID [facility] Last Admin: 07/19/18 09:44 Dose: 1 applic Sodium Chloride (Flush - Normal Saline) 10 ml IVF Q12HR [facility] Last Admin: 07/19/18 09:43 Dose: 10 ml Sodium Chloride (Flush - Normal Saline) 10 ml IVF PRN PRN PRN Reason: Saline Flush Last Admin: 07/16/18 09:52 Dose: 10 ml Sodium Chloride (Flush - Normal Saline) 10 ml IV Q12HR [facility] Last Admin: 07/18/18 22:28 Dose: 10 ml
[2018-07-19] MEDS: HumaLOG 300 UNITS/3 ML VIAL SC PRN (16:17)
[2018-07-19] MEDS: Fluconazole In NaCl,Iso-Osm 200 MG in Premix Bag 1 BAG IVPB SCH (18:20)
[2018-07-20] MEDS: Lorazepam 2 MG/ML VIAL SLOW IVP PRN (01:50)
[2018-07-20 04:22] LABS: #Eosinphils 0.4 thou/uL (0.0-0.7); #Lymphocytes 1.2 thou/uL (1.20-3.40); #Monocytes 0.4 thou/uL (0.11-0.59); #Neutrophils 4.9 thou/uL (1.40-6.50); %Basophils 0.6 % (0.0-1.0); %Eosinophils 6.2 % (0.0-10.0); %Lymphocytes 16.9 % (21.0-51.0); %Monocytes 5.3 % (0.0-10.0); Mean Corpuscular HGB CONC 33.3 g/dL (32.0-36.0); Mean Corpuscular Hemoglobin 30.9 pg (27.0-31.0); Mean Corpuscular Volume 92.9 fL (78.0-98.0); Mean Platelet Volume 7.3 fL (7.4-10.4); Platelet Count 176 thou/uL (130-400); White Blood Cell (WBC) Count 6.9 thou/uL (4.8-10.8)
[2018-07-20 04:42] LABS: Anion Gap 13 mmol/L (10-20); BUN (Urea Nitrogen) 31 mg/dL (8.4-25.7); Calc. Creatinine Clearance 76 mL/min (70-130); Calcium 8.2 mg/dL (7.8-10.44); Carbon Dioxide 23 mmol/L (23-31); Chloride 106 mmol/L (98-107); Estimated GFR-MDRD 47; Glucose 154 mg/dL (80-115); Potassium 3.4 mmol/L (3.5-5.1); Sodium 139 mmol/L (136-145)
[2018-07-20] MEDS: MEROPENEM 1 GM/50 ML 1 GM in Premix Bag 1 BAG IVPB SCH ×2 (04:47→16:21)
[2018-07-20] MEDS: Nitroglycerin 2% Ointment 1 INCH/1 GM Packet TOP SCH (04:48)
[2018-07-20] MEDS: Sodium Chloride 0.9% 1,000 ML IV SCH (06:39)
[2018-07-20] MEDS: HumaLOG 300 UNITS/3 ML VIAL SC PRN ×3 (06:41→18:28)
--- NOTE | 2018-07-20 08:53 | PRG ---
DATE OF SERVICE: 07/20/2018 SUBJECTIVE: Mr. Lewis is doing very well. He is up in a chair. He used the ventilator briefly last night. His is at the bedside. OBJECTIVE: VITAL SIGNS: On exam, temperature 98.8, pulse 70, blood pressure 124/50. He continues on Precedex. HEENT: Unremarkable. NECK: No adenopathy or JVD. CHEST: Coarse rhonchi especially around his neck area. CARDIAC: S1 and S2, regular. ABDOMEN: Soft. PEG tube noted. EXTREMITIES: No edema. LABORATORY DATA: White blood cell count 6.9, hematocrit 24.2, and platelet count 176. Sodium 139, potassium 3.4, chloride 106, CO2 of 23, BUN 31, creatinine 1.5, and glucose 154. ASSESSMENT: 1. Respiratory failure, requiring mechanical ventilation and tracheostomy placement. 2. Obesity. 3. Coronary artery disease. 4. Renal failure requiring dialysis. PLAN: 1. We will go ahead and try to stop the Precedex and see how he does. It can always be restarted if he has trouble. 2. Discontinue ventilator from the room as he does not seem to need that anymore. 3. Continue aggressive suctioning. 4. Discussed with at bedside. Above encompassed 35 minutes of critical care time. Job ID: [id number]
[2018-07-20] MEDS: Pantoprazole 40 MG VIAL IVP SCH ×2 (09:33→20:30)
[2018-07-20] MEDS: risperiDONE 0.25 MG TAB PO SCH ×2 (09:33→20:30)
[2018-07-20] MEDS: Aspirin Chewable 81 MG TAB PO SCH (09:33)
[2018-07-20] MEDS: Clopidogrel Bisulfate 75 MG TAB PO SCH (09:34)
[2018-07-20] MEDS: Carvedilol 3.125 MG TAB PER TUBE SCH ×2 (09:34→16:38)
[2018-07-20] MEDS: Amiodarone 200 MG TAB PER TUBE SCH ×2 (09:34→20:31)
[2018-07-20] MEDS: Silver Sulfadiazine 1% Cream 50 GM JAR TOP SCH ×2 (09:35→20:31)
--- NOTE | 2018-07-20 11:19 | PDOC.CTH ---
Cardiology Progress Note - Subjective No new issues. Sitting on chair. - Objective Vital Signs Temp Pulse Pulse Resp BP Pulse Ox 07/20/18 07:13 72 14 99 07/20/18 06:00 18 07/20/18 04:00 98.8 F 22 H 07/20/18 02:00 24 H 07/20/18 00:29 99.1 F 80 18 143/58 H 97 07/20/18 00:00 99.1 F 18 100 07/19/18 23:20 72 28 H 100 Admit Weight 249 lb Weight 249 lb 1.957 oz 07/19/18 07/20/18 07/21/18 06:59 06:59 06:59 Intake Total 2103 3215 Output Total 1193 1307 Balance 910 1908 - Physical Examination General/Neuro: NAD Neck: no JVD present Lungs: CTA, unlabored respirations Heart: RRR Abdomen: NT/ND Extremities: + edema B (1+) - Telemetry Telemetry Rhythm: NSR - Labs Result Diagrams: 07/20/18 04:14 07/20/18 04:14 Troponin/CKMB Troponin I 0.249 ng/mL (< 0.028) H 07/16/18 12:03 - Assessment/Plan 1. CAD 2. S/P BMS to RCA 3. Acute hypoxic respiratory insufficiency 4. S/P Trach. 5. EDGAR requiring dialysis PLAN: - Continue SPARKLE with Plavix and Aspirin - Continue BB. - Continue other meds. - CV stable, no new recs.
--- NOTE | 2018-07-20 11:48 | PRG ---
DATE OF SERVICE: 07/20/2018 RENAL MEDICINE. SUBJECTIVE: Mr. Lewis is a 68-year-old white male, who was initially admitted for sepsis with multiorgan dysfunction. He developed acute kidney injury from presumed ischemic ATN. He was placed on dialysis for volume overload. In the interim, he had a cardiac cath with coronary artery stent placement. He is now weaned off his ventilator. He also had a tracheostomy and a PEG tube placed. No acute events noted last night. OBJECTIVE: VITAL SIGNS: Blood pressure is 124/50 with a heart rate of 70, and temperature 98.8. GENERAL: Noted to be awake, alert, comfortable, obese, not in distress. SKIN: Adequate turgor. HEENT: Pinkish conjunctivae. Anicteric sclerae. NECK: No neck mass. No carotid bruits. No JVD. Positive for tracheostomy. He is on T-piece. LUNGS: Harsh breath sounds. HEART: Normal sinus rhythm. No murmur. No gallops. No rubs. ABDOMEN: Globular, soft, and nontender. Positive for PEG tube. EXTREMITIES: No edema. MEDICATIONS: Medications of July 20, 2018, was reviewed. LABORATORY DATA: Laboratories of July 20, 2018; white count 6.9, hemoglobin is 8, and hematocrit 24.2. Sodium 139, potassium 3.4, chloride 106, carbon dioxide 23, BUN 31, creatinine 1.5, glucose 154, and calcium 8.2. ASSESSMENT AND PLAN: 1. Acute kidney injury secondary to ischemic acute tubular necrosis, stable. No indication for any emergent dialysis this morning. Continue supportive care. I do anticipate some degree of renal recovery, where I can wean him off from dialysis. 2. Sepsis, much improved. 3. Acute respiratory failure, currently on T-piece. 4. Anemia, p.r.n. blood transfusion. Job ID: [id number]
--- NOTE | 2018-07-20 12:56 | PDOC.PN ---
- Subjective Encounter Start Date: 07/20/18 Encounter Start Time: 09:20 Subjective: is on trach collar, sitting in chair -: follows verbal stimuli this morning, at bedside - Objective Resuscitation Status - Order Detail: 06/30/18 04:33 Resuscitation Status Routine Resuscitation Status: FULL: Full Resuscitation MAR Reviewed: Yes Vital Signs & Weight: Vital Signs (12 hours) Temp Pulse Resp Pulse Ox 07/20/18 07:13 72 14 99 07/20/18 06:00 18 07/20/18 04:00 98.8 F 22 H 07/20/18 02:00 24 H Weight Admit Weight 249 lb Weight 249 lb 1.957 oz Most Recent Monitor Data Heart Rate from ECG 85 NIBP 153/74 NIBP BP-Mean 100 Respiration from ECG 30 SpO2 96 I&O: 07/19/18 07/20/18 07/21/18 06:59 06:59 06:59 Intake Total 2103 3215 Output Total 1193 1307 Balance 910 1908 Result Diagrams: 07/20/18 04:14 07/20/18 04:14 Additional Labs: Accuchecks 07/20/18 07/20/18 07/20/18 11:58 06:01 00:25 POC Glucose 174 H 169 H 154 H 07/19/18 16:14 POC Glucose 167 H Phys Exam - Physical Examination HEENT: PERRLA, moist MMs Neck: no JVD trach+ Respiratory: no wheezing, no rales Cardiovascular: RRR, no significant murmur Gastrointestinal: soft, non-tender, positive bowel sounds peg+ Musculoskeletal: pulses present, edema present Neurological: non-focal, moves all 4 limbs Dx/Plan (1) Acute respiratory failure with hypoxia Code(s): J96.01 - ACUTE RESPIRATORY FAILURE WITH HYPOXIA Status: Acute Comment: s/p trach (2) Toxic metabolic encephalopathy Code(s): G92 - TOXIC ENCEPHALOPATHY Status: Acute (3) Sepsis Code(s): A41.9 - SEPSIS, UNSPECIFIED ORGANISM Status: Acute Qualifiers: Sepsis type: Streptococcus group B Qualified Code(s): A40.1 - Sepsis due to streptococcus, group B (4) Physical deconditioning Code(s): R53.81 - OTHER MALAISE Status: Acute Comment: severe (5) Acute renal failure Status: Acute Qualifiers: Acute renal failure type: with acute tubular necrosis Qualified Code(s): N17.0 - Acute kidney failure with tubular necrosis Comment: HD held to see if he responds (6) CAD (coronary artery disease) Code(s): I25.10 - ATHSCL HEART DISEASE OF [place] CORONARY ARTERY W/O ANG PCTRS Status: Chronic Qualifiers: Coronary Disease-Associated Artery/Lesion type: [place] artery [place] vs. 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 Diabetes mellitus complication status: with kidney complications Diabetes mellitus complication detail: with chronic kidney disease Chronic kidney disease stage : on chronic dialysis Qualified Code(s): E11.22 - Type 2 diabetes mellitus with diabetic chronic kidney disease; N18.6 - End stage renal disease; Z79.4 - long-term (current) use of 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 (11) Group A streptococcal infection Code(s): B95.0 - STREPTOCOCCUS, GROUP A, CAUSING DISEASES CLASSD ELSWHR Status : Acute - Plan is on vanc and meropenem, may de-escalate -: continue asp, plavix, coreg, amiodarone, crestor -: PT for aggressive mobilization -: may become a candidate for rehab if he improves some more * . Review of Systems - Medications/Allergies Allergies/Adverse Reactions: Allergies Allergy/AdvReac Type Severity Reaction Status Date / Time morphine Allergy Anaphylaxis Verified 06/30/18 03:57 Medications: Current Medications Acetaminophen (Tylenol) 1,000 mg PO Q6H PRN PRN Reason: Mild Pain (1-3) Last Admin: 07/17/18 14:59 Dose: 1,000 mg Albuterol/Ipratropium (Duoneb) 3 ml NEB [id number] [facility] Last Admin: 07/20/18 07:13 Dose: 3 ml Amiodarone HCl (Cordarone) 400 mg PER TUBE BID [facility] Last Admin: 07/20/18 09:34 Dose: 400 mg Aspirin (Aspirin Chewable) 81 mg PO DAILY [facility] Last Admin: 07/20/18 09:33 Dose: 81 mg Bisacodyl (Dulcolax) 10 mg SC DAILY PRN PRN Reason: Constipation Last Admin: 07/06/18 09:44 Dose: 10 mg Carvedilol (Coreg) 3.125 mg PER TUBE BID-[facility] Last Admin: 07/20/18 09:34 Dose: 3.125 mg Clopidogrel Bisulfate (Plavix) 75 mg PO DAILY [facility] Last Admin: 07/20/18 09:34 Dose: 75 mg Dextrose/Water (Dextrose 50%) 25 gm SLOW IVP PRN PRN PRN Reason: Hypoglycemia Glucagon (Glucagon) 1 mg IM PRN PRN PRN Reason: Hypoglycemia Norepinephrine Bitartrate (Levophed) 250 mls @ 0 mls/hr IVPB INF [facility]; Protocol Last Admin: 07/03/18 14:43 Dose: 250 mls Fentanyl Citrate 2,000 mcg/ (Sodium Chloride) 100 mls @ 0 mls/hr IV INF [facility]; Protocol Stop: 07/31/18 14:44 Last Admin: 07/14/18 07:02 Dose: 100 mls Fentanyl Citrate (Fentanyl Bolus) 250 mls @ 0 mls/hr IVPB PRN PRN PRN Reason: Breakthrough pain/agitation Stop: 07/31/18 14:44 Vasopressin 40 unit/Miscellaneous Medication 1 each/ Sodium Chloride 102 mls @ 0 mls/hr IV INF PRN; Protocol PRN Reason: SBP>90 Dextrose/Water (D5w) 1,000 mls @ 0 mls/hr IV .Q0M PRN PRN Reason: Hypoglycemia Fluconazole/Sodium Chloride (200 mg/ Device) 100 mls @ 100 mls/hr IVPB 1800 [facility] Last Admin: 07/19/18 18:20 Dose: 100 mls Meropenem 1 gm/ Device 50 mls @ 100 mls/hr IVPB 0430,1630 [facility] Last Admin: 07/20/18 04:47 Dose: 50 mls Vancomycin HCl 1.5 gm/ Sodium (Chloride) 300 mls @ 200 mls/hr IVPB WILLCALL [facility] Vancomycin HCl 1.25 gm/ Sodium (Chloride) 250 mls @ 166.667 mls/hr IVPB WILLCALL [facility] Vancomycin HCl 1 gm/ Device 200 mls @ 200 mls/hr IVPB WILLCALL [facility] Vancomycin HCl 750 mg/ Sodium (Chloride) 250 mls @ 250 mls/hr IVPB [facility]CALL [facility] Last Admin: 07/18/18 15:41 Dose: 250 mls Sodium Chloride (Normal Saline 0.9%) 1,000 mls @ 50 mls/hr IV .Q20H [facility] Last Admin: 07/20/18 06:39 Dose: 1,000 mls Insulin Human Lispro (Humalog) 0 units SC .MODERATE SLIDING SC PRN PRN Reason: Moderate Correctional Scale Last Admin: 07/20/18 06:41 Dose: 2 unit Insulin Human Regular (Humulin R) 0 units SC .MODERATE SLIDING SC PRN; Protocol PRN Reason: MODERATE SLIDING SCALE Last Admin: 07/10/18 17:19 Dose: 2 units Laxative/Stool Softener (Laxative Of Choice) 1 each PO DAILY PRN PRN Reason: Constipation Lorazepam (Ativan) 2 mg SLOW IVP Q1H PRN PRN Reason: Breakthrough agitation Stop: 07/31/18 14:44 Last Admin: 07/20/18 01:50 Dose: 2 mg Magnesium Hydroxide (Milk Of Magnesium) 30 ml PO DAILY PRN PRN Reason: Constipation Last Admin: 07/05/18 08:32 Dose: 30 ml Nitroglycerin (Nitro-Bid 2% Ointment) 1 inch TOP Q8HR [facility] Last Admin: 07/20/18 04:48 Dose: 1 inch Nitroglycerin (Nitrostat) 0.4 mg SL Q5MIN PRN PRN Reason: Chest Pain Discontinue Previous Narcotic Pain Medications And Benzodiazepines 1 each FS .ONE [facility] Stop: 07/31/18 14:44 Hold Vancomycin For (Level >20) 0 each FS .AT DIALYSIS [facility] Ondansetron HCl (Zofran Odt) 4 mg PO Q6H PRN PRN Reason: Nausea/Vomiting Ondansetron HCl (Zofran) 4 mg IVP Q6H PRN PRN Reason: Nausea/Vomiting Pantoprazole Sodium (Protonix) 40 mg IVP Q12HR [facility] Last Admin: 07/20/18 09:33 Dose: 40 mg Risperidone (Risperidone) 0.5 mg PO BID [facility] Last Admin: 07/20/18 09:33 Dose: 0.5 mg Silver Sulfadiazine (Silvadene) 0 gm TOP BID [facility] Last Admin: 07/20/18 09:35 Dose: 1 applic Sodium Chloride (Flush - Normal Saline) 10 ml IVF Q12HR [facility] Last Admin: 07/20/18 09:33 Dose: 10 ml Sodium Chloride (Flush - Normal Saline) 10 ml IVF PRN PRN PRN Reason: Saline Flush Last Admin: 07/16/18 09:52 Dose: 10 ml Sodium Chloride (Flush - Normal Saline) 10 ml IV Q12HR [facility] Last Admin: 07/20/18 09:33 Dose: 10 ml
--- NOTE | 2018-07-20 16:05 | PRG ---
DATE OF SERVICE: 07/20/2018 OBJECTIVE: GENERAL: Awake and alert, follows commands. Tracheostomy in place. Gastrostomy in place. VITAL SIGNS: The T-max is 99.6, BP 140/76, pulse is 88. LUNGS: Clear. HEART: S1, S2. Regular rate. ABDOMEN: Soft. LABORATORY DATA: White cell count 6.9, hemoglobin 8.0, platelets 176. Chemistry with creatinine of 1.5, does not look like he is going to get dialyzed again. ASSESSMENT/DISCUSSION: Severe strep pyogenes infection with left lower extremity involvement with marked improvement, multiorgan dysfunction with improvement as well. Hopefully, we will be able to remove the right groin hemodialysis catheter and then should be able to discontinue antimicrobials if he remains afebrile in the next few days. Job ID: [id number]
[2018-07-20] MEDS: Acetaminophen 500 MG TAB PO PRN (16:37)
[2018-07-20] MEDS: Fluconazole In NaCl,Iso-Osm 200 MG in Premix Bag 1 BAG IVPB SCH (18:19)
[2018-07-20] MEDS: Rosuvastatin 10 MG TAB PO SCH (20:30)
[2018-07-21] MEDS: MEROPENEM 1 GM/50 ML 1 GM in Premix Bag 1 BAG IVPB SCH ×2 (04:36→16:59)
[2018-07-21 08:30] LABS: #Eosinphils 0.5 thou/uL (0.0-0.7); #Lymphocytes 1.7 thou/uL (1.20-3.40); #Monocytes 0.5 thou/uL (0.11-0.59); #Neutrophils 6.3 thou/uL (1.40-6.50); %Basophils 0.5 % (0.0-1.0); %Eosinophils 5.1 % (0.0-10.0); %Lymphocytes 19.5 % (21.0-51.0); Hemoglobin 8.7 g/dL (14.0-18.0); Mean Corpuscular HGB CONC 31.6 g/dL (32.0-36.0); Mean Corpuscular Hemoglobin 29.6 pg (27.0-31.0); Mean Corpuscular Volume 93.7 fL (78.0-98.0); Mean Platelet Volume 6.9 fL (7.4-10.4); Platelet Count 203 thou/uL (130-400); RBC Distribution Width 14.3 % (11.5-14.5); Red Blood Cell (RBC) Count 2.93 mill/uL (4.70-6.10)
[2018-07-21 08:52] LABS: Anion Gap 11 mmol/L (10-20); BUN (Urea Nitrogen) 29 mg/dL (8.4-25.7); Calc. Creatinine Clearance 76 mL/min (70-130); Calcium 8.8 mg/dL (7.8-10.44); Carbon Dioxide 24 mmol/L (23-31); Chloride 110 mmol/L (98-107); Estimated GFR-MDRD 47; Glucose 153 mg/dL (80-115); Potassium 3.3 mmol/L (3.5-5.1); Sodium 142 mmol/L (136-145)
--- NOTE | 2018-07-21 09:11 | PRG ---
DATE OF SERVICE: 07/21/2018 SUBJECTIVE: Fritz Lewis is a 68-year-old gentleman, status post trach for respiratory failure, renal failure, sepsis, and coronary artery disease. He is off the vent, appears quite appropriate. Denies any distress or pain. Moves both extremities. OBJECTIVE: VITAL SIGNS: Blood pressure is 171/74, saturations are 100%, respiratory rate 28, and pulse 89. CHEST: Reveal decreased breath sounds without any wheezing. CARDIAC: Normal S1 and S2. No gallops. ABDOMEN: No masses. LABORATORY DATA: White count 9000, H and H 8 and 27, and platelet count is 203. All cultures are negative, except for streptococcus. ASSESSMENT: 1. Left leg cellulitis, streptococcus. 2. Respiratory failure. 3. Congestive heart failure, pneumonia, and renal failure. PLAN: The patient is much improved. Continue aggressive PT. Antibiotics as per Infectious Disease. Supportive care. Nutrition. We will follow, eventually long-term placement. One-half hour of critical care time. Job ID: [id number]
[2018-07-21] MEDS: risperiDONE 0.25 MG TAB PO SCH ×2 (09:31→21:03)
[2018-07-21] MEDS: Carvedilol 3.125 MG TAB PER TUBE SCH (09:32)
[2018-07-21] MEDS: Aspirin Chewable 81 MG TAB PO SCH (09:33)
[2018-07-21] MEDS: Clopidogrel Bisulfate 75 MG TAB PO SCH (09:33)
[2018-07-21] MEDS: Amiodarone 200 MG TAB PER TUBE SCH ×2 (09:33→21:03)
[2018-07-21] MEDS: Pantoprazole 40 MG VIAL IVP SCH ×2 (09:34→21:03)
[2018-07-21] MEDS: Silver Sulfadiazine 1% Cream 50 GM JAR TOP SCH ×2 (09:35→21:04)
[2018-07-21] MEDS: Sodium Chloride 0.9% 1,000 ML IV SCH (09:37)
[2018-07-21] MEDS ORDERED: Carvedilol 3.125 MG TAB PER TUBE SCH (10:00)
--- NOTE | 2018-07-21 10:33 | PRG ---
DATE OF SERVICE: RENAL MEDICINE. SUBJECTIVE: Mr. Lewis is a 68-year-old white male, who was initially admitted for sepsis. He developed acute kidney injury, necessitating dialysis. His renal function has been stabilizing, he is making adequate urine output. I evaluated him this morning. I feel that we can hold off dialysis and we will re-evaluate his lab work again tomorrow. No other complaints. No acute events. In the interim, he also has received a cardiac cath with coronary artery stent placement. OBJECTIVE: VITAL SIGNS: Blood pressure is 171/74, heart rate 89, respiratory rate 28, and pulse ox 100%. GENERAL: Awake, comfortable, not in distress. HEENT: Pinkish conjunctivae. Anicteric sclerae. Positive for a trach collar. LUNGS: Decreased breath sounds. HEART: Normal sinus rhythm. No murmur. No gallops. No rubs. ABDOMEN: Globular, soft, nontender. No masses. EXTREMITIES: No edema. No deformities. Please note he has a PEG tube. MEDICATIONS: Medications of July 21, 2018, were reviewed. LABORATORY DATA: Laboratories of July 20, 2018: BUN 31, creatinine 1.5. Basic met for July 21, 2018, pending; July 20, 2018, hemoglobin 8. ASSESSMENT AND PLAN: 1. Acute kidney injury - secondary to presumed ischemic acute tubular necrosis. Continue supportive care. Hold off dialysis today. Re-evaluate in a.m. We will again recheck another basic met tomorrow. Overall, prognosis remains guarded. 2. Status post acute respiratory failure, resolved, currently on T-piece. 3. Status post sepsis, doing well. Continuing antibiotics. Job ID: [id number]
[2018-07-21] MEDS: Vancomycin HCl 1.25 GM in Sodium Chloride 0.9% 250 ML 250 ML IVPB SCH (12:01)
[2018-07-21] MEDS ORDERED: DC Sedation Protocol FS ONE (12:14)
[2018-07-21] MEDS: HumaLOG 300 UNITS/3 ML VIAL SC PRN (12:36)
--- NOTE | 2018-07-21 12:50 | PDOC.PN ---
- Subjective Encounter Start Date: 07/21/18 Encounter Start Time: 07:40 Subjective: is on trach collar, follows verbal stimuli - Objective Resuscitation Status - Order Detail: 06/30/18 04:33 Resuscitation Status Routine Resuscitation Status: FULL: Full Resuscitation MAR Reviewed: Yes Vital Signs & Weight: Vital Signs (12 hours) Temp Pulse Resp Pulse Ox 07/21/18 12:00 98.1 F 07/21/18 08:00 98 07/21/18 07:46 89 28 H 100 07/21/18 07:00 97.8 F 07/21/18 04:00 99.9 F H Weight Admit Weight 249 lb Weight 249 lb 1.957 oz Most Recent Monitor Data Heart Rate from ECG 115 NIBP 151/87 NIBP BP-Mean 108 Respiration from ECG 32 SpO2 98 I&O: 07/20/18 07/21/18 07/22/18 06:59 06:59 06:59 Intake Total 3215 2502.9 45 Output Total 1307 1855 500 Balance 1908 647.9 -455 Result Diagrams: 07/21/18 08:23 07/21/18 08:24 Additional Labs: Accuchecks 07/21/18 07/21/18 07/21/18 12:30 05:50 00:23 POC Glucose 169 H 138 H 128 H 07/20/18 18:03 POC Glucose 162 H Phys Exam - Physical Examination HEENT: PERRLA, sclera anicteric Neck: no JVD trach+ Respiratory: no wheezing, no rales Cardiovascular: RRR, no significant murmur Gastrointestinal: soft, no distention, positive bowel sounds peg+ Musculoskeletal: pulses present Neurological: non-focal, moves all 4 limbs Psychiatric: A&O x 3 Dx/Plan (1) Acute respiratory failure with hypoxia Code(s): J96.01 - ACUTE RESPIRATORY FAILURE WITH HYPOXIA Status: Acute Comment: s/p trach (2) Toxic metabolic encephalopathy Code(s): G92 - TOXIC ENCEPHALOPATHY Status: Acute Comment: resolving (3) Sepsis Code(s): A41.9 - SEPSIS, UNSPECIFIED ORGANISM Status: Acute Qualifiers: Sepsis type: Streptococcus group B Qualified Code(s): A40.1 - Sepsis due to streptococcus, group B (4) Physical deconditioning Code(s): R53.81 - OTHER MALAISE Status: Acute Comment: severe (5) Acute renal failure Status: Acute Qualifiers: Acute renal failure type: with acute tubular necrosis Qualified Code(s): N17.0 - Acute kidney failure with tubular necrosis Comment: HD held to see if he responds (6) CAD (coronary artery disease) Code(s): I25.10 - ATHSCL HEART DISEASE OF [place] CORONARY ARTERY W/O ANG PCTRS Status: Chronic Qualifiers: Coronary Disease-Associated Artery/Lesion type: [place] artery [place] vs. transplanted heart: [place] heart Associated angina: without angina Qualified Code(s): I25.10 - Atherosclerotic heart disease of [place] coronary artery without angina pectoris Comment: s/p cath with bare metal stent to rca (7) CHF (congestive heart failure) Code(s): I50.9 - HEART FAILURE, UNSPECIFIED Status: Acute Qualifiers: Heart failure type: combined systolic and diastolic Comment: ef of 45% (8) DM type 2 (diabetes mellitus, type 2) Status: Chronic Qualifiers: Diabetes mellitus termite treater insulin use: with fpc use Diabetes mellitus complication status: with kidney complications Diabetes mellitus complication detail: with chronic kidney disease Chronic kidney disease stage : on chronic dialysis Qualified Code(s): E11.22 - Type 2 diabetes mellitus with diabetic chronic kidney disease; N18.6 - End stage renal disease; Z79.4 - long term care phlebotomist (current) use of 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 (11) Group A streptococcal infection Code(s): B95.0 - STREPTOCOCCUS, GROUP A, CAUSING DISEASES CLASSD ELSWHR Status : Acute - Plan is slowly getting better, urine output is improving, last 24 was 1655ml -: on meropenem and vanc -: continue amiodarone, asp, coreg -: risperdal dose is reduced to HS -: hemostable, PT to mobilize pt as tolerated * . Review of Systems - Medications/Allergies Allergies/Adverse Reactions: Allergies Allergy/AdvReac Type Severity Reaction Status Date / Time morphine Allergy Anaphylaxis Verified 06/30/18 03:57 Medications: Current Medications Acetaminophen (Tylenol) 1,000 mg PO Q6H PRN PRN Reason: Mild Pain (1-3) Last Admin: 07/20/18 16:37 Dose: 1,000 mg Albuterol/Ipratropium (Duoneb) 3 ml NEB [id number] [facility] Last Admin: 07/21/18 07:46 Dose: 3 ml Amiodarone HCl (Cordarone) 400 mg PER TUBE BID [facility] Last Admin: 07/21/18 09:33 Dose: 400 mg Aspirin (Aspirin Chewable) 81 mg PO DAILY [facility] Last Admin: 07/21/18 09:33 Dose: 81 mg Bisacodyl (Dulcolax) 10 mg [place] DAILY PRN PRN Reason: Constipation Last Admin: 07/06/18 09:44 Dose: 10 mg Carvedilol (Coreg) 6.25 mg PER TUBE BID[facility] Clopidogrel Bisulfate (Plavix) 75 mg PO DAILY [facility] Last Admin: 07/21/18 09:33 Dose: 75 mg Dextrose/Water (Dextrose 50%) 25 gm SLOW IVP PRN PRN PRN Reason: Hypoglycemia Glucagon (Glucagon) 1 mg IM PRN PRN PRN Reason: Hypoglycemia Norepinephrine Bitartrate (Levophed) 250 mls @ 0 mls/hr IVPB INF [facility]; Protocol Last Admin: 07/03/18 14:43 Dose: 250 mls Vasopressin 40 unit/Miscellaneous Medication 1 each/ Sodium Chloride 102 mls @ 0 mls/hr IV INF PRN; Protocol PRN Reason: SBP>90 Dextrose/Water (D5w) 1,000 mls @ 0 mls/hr IV .Q0M PRN PRN Reason: Hypoglycemia Fluconazole/Sodium Chloride (200 mg/ Device) 100 mls @ 100 mls/hr IVPB 1800 [facility] Last Admin: 07/20/18 18:19 Dose: 100 mls Meropenem 1 gm/ Device 50 mls @ 100 mls/hr IVPB 0430,1630 [facility] Last Admin: 07/21/18 04:36 Dose: 50 mls Sodium Chloride (Normal Saline 0.9%) 1,000 mls @ 50 mls/hr IV .Q20H [facility] Last Admin: 07/21/18 09:37 Dose: 1,000 mls Vancomycin HCl 1.25 gm/ Sodium (Chloride) 250 mls @ 166.667 mls/hr IVPB Q24HR [facility] Last Admin: 07/21/18 12:01 Dose: 250 mls Insulin Human Lispro (Humalog) 0 units SC .MODERATE SLIDING SC PRN PRN Reason: Moderate Correctional Scale Last Admin: 07/21/18 12:36 Dose: 2 unit Insulin Human Regular (Humulin R) 0 units SC .MODERATE SLIDING SC PRN; Protocol PRN Reason: MODERATE SLIDING SCALE Last Admin: 07/10/18 17:19 Dose: 2 units Laxative/Stool Softener (Laxative Of Choice) 1 each PO DAILY PRN PRN Reason: Constipation Magnesium Hydroxide (Milk Of Magnesium) 30 ml PO DAILY PRN PRN Reason: Constipation Last Admin: 07/05/18 08:32 Dose: 30 ml Nitroglycerin (Nitrostat) 0.4 mg SL Q5MIN PRN PRN Reason: Chest Pain Hold Vancomycin For (Level >20) 0 each FS .AT DIALYSIS [facility] Ondansetron HCl (Zofran Odt) 4 mg PO Q6H PRN PRN Reason: Nausea/Vomiting Ondansetron HCl (Zofran) 4 mg IVP Q6H PRN PRN Reason: Nausea/Vomiting Pantoprazole Sodium (Protonix) 40 mg IVP Q12HR [facility] Last Admin: 07/21/18 09:34 Dose: 40 mg Risperidone (Risperidone) 0.5 mg PO HS [facility] Rosuvastatin Calcium (Crestor) 10 mg PO HS [facility] Last Admin: 07/20/18 20:30 Dose: 10 mg Silver Sulfadiazine (Silvadene) 0 gm TOP BID [facility] Last Admin: 07/21/18 09:35 Dose: 1 applic Sodium Chloride (Flush - Normal Saline) 10 ml IVF Q12HR [facility] Last Admin: 07/21/18 09:34 Dose: 10 ml Sodium Chloride (Flush - Normal Saline) 10 ml IVF PRN PRN PRN Reason: Saline Flush Last Admin: 07/16/18 09:52 Dose: 10 ml Sodium Chloride (Flush - Normal Saline) 10 ml IV Q12HR [facility] Last Admin: 07/21/18 09:34 Dose: 10 ml
[2018-07-21] MEDS: Carvedilol 6.25 MG TAB PER TUBE SCH (16:58)
[2018-07-21] MEDS: Fluconazole In NaCl,Iso-Osm 200 MG in Premix Bag 1 BAG IVPB SCH (16:59)
[2018-07-21] MEDS: Rosuvastatin 10 MG TAB PO SCH (21:03)
[2018-07-22 04:21] LABS: #Eosinphils 0.5 thou/uL (0.0-0.7); #Lymphocytes 1.5 thou/uL (1.20-3.40); #Monocytes 0.4 thou/uL (0.11-0.59); #Neutrophils 5.6 thou/uL (1.40-6.50); %Basophils 0.5 % (0.0-1.0); %Eosinophils 6.4 % (0.0-10.0); %Lymphocytes 18.1 % (21.0-51.0); %Monocytes 5.5 % (0.0-10.0); %Neutrophils 69.4 % (42.0-75.0); Hemoglobin 8.3 g/dL (14.0-18.0); Mean Corpuscular HGB CONC 32.5 g/dL (32.0-36.0); Mean Corpuscular Hemoglobin 30.2 pg (27.0-31.0); Mean Corpuscular Volume 92.8 fL (78.0-98.0); Mean Platelet Volume 6.9 fL (7.4-10.4); Platelet Count 198 thou/uL (130-400); RBC Distribution Width 14.3 % (11.5-14.5); Red Blood Cell (RBC) Count 2.73 mill/uL (4.70-6.10)
[2018-07-22 04:39] LABS: Anion Gap 12 mmol/L (10-20); BUN (Urea Nitrogen) 29 mg/dL (8.4-25.7); Calc. Creatinine Clearance 81 mL/min (70-130); Calcium 8.5 mg/dL (7.8-10.44); Carbon Dioxide 23 mmol/L (23-31); Chloride 111 mmol/L (98-107); Estimated GFR-MDRD 50; Glucose 173 mg/dL (80-115); Potassium 3.2 mmol/L (3.5-5.1); Sodium 143 mmol/L (136-145)
[2018-07-22] MEDS: MEROPENEM 1 GM/50 ML 1 GM in Premix Bag 1 BAG IVPB SCH ×2 (04:40→17:55)
[2018-07-22] MEDS: Sodium Chloride 0.9% 1,000 ML IV SCH ×2 (07:54→10:44)
[2018-07-22] MEDS: Carvedilol 6.25 MG TAB PER TUBE SCH ×2 (08:14→18:00)
[2018-07-22] MEDS: Pantoprazole 40 MG VIAL IVP SCH ×2 (08:22→20:49)
[2018-07-22] MEDS: Clopidogrel Bisulfate 75 MG TAB PO SCH (08:28)
[2018-07-22] MEDS: Silver Sulfadiazine 1% Cream 50 GM JAR TOP SCH ×2 (08:28→20:50)
[2018-07-22] MEDS: Aspirin Chewable 81 MG TAB PO SCH (08:28)
[2018-07-22] MEDS: Amiodarone 200 MG TAB PER TUBE SCH ×2 (08:28→20:49)
[2018-07-22] MEDS ORDERED: Potassium Chloride 20 MEQ in Premix Bag 1 BAG IVPB SCH (08:45)
--- NOTE | 2018-07-22 09:10 | PRG ---
DATE OF SERVICE: RENAL MEDICINE. SUBJECTIVE: Mr. Lewis is a 68-year-old white male, who came in with sepsis and was seen by the Renal Service due to the acute kidney injury. He was initiated on dialysis due to volume overload. Currently, the patient is having some evidence of renal recovery. He is making urine output and creatinine is holding steady. We will hold off dialysis today. If renal function continues to remain stable by tomorrow, consider removing the dialysis catheter. No other complaints today. OBJECTIVE: VITAL SIGNS: Blood pressure is 175/90, heart rate 91, respiratory rate 30, pulse ox 100%. GENERAL: Awake, alert, comfortable, not in distress. SKIN: Adequate turgor. HEENT: He has pinkish conjunctivae. Anicteric sclerae. No neck mass. No carotid bruits. No JVD. Positive for tracheostomy. LUNGS: Decreased breath sounds. HEART: Normal sinus rhythm. No murmur, no gallops or rubs. ABDOMEN: Globular, soft, nontender. No masses. Positive for PEG tube. EXTREMITIES: No edema. MEDICATIONS: Medications of July 22, 2018 was reviewed. LABORATORY DATA: Laboratories of July 22, 2018, white count 8, hemoglobin 8.3. Sodium 143, potassium 3.2, chloride 111, carbon dioxide 23, BUN 29, creatinine 1.41, glucose 173, calcium 8.5. ASSESSMENT AND PLAN: 1. Acute kidney injury-secondary to ischemic ATN, much improved renal function. Most recent GFR is now 50 mL/minute. The patient is diuresing. We will hold off any dialysis today. Re-evaluate again in a.m. 2. Mild hypokalemia, p.r.n. potassium replacement. We will probably give 20 mEq x1 dose today. 3. Agree with current management. Job ID: [id number]
[2018-07-22] MEDS ORDERED: Carvedilol 6.25 MG TAB PER TUBE SCH (09:15)
[2018-07-22] MEDS: HumaLOG 300 UNITS/3 ML VIAL SC PRN ×2 (10:04→18:19)
--- NOTE | 2018-07-22 10:16 | PRG ---
DATE OF SERVICE: 07/22/2018 SUBJECTIVE: This morning, he is awake, alert, and responsive. OBJECTIVE: VITAL SIGNS: Blood pressure 175/90, temperature 98, sats are 98% on trach collar, and pulse 80. GENERAL: He is awake and responsive. CHEST: Decreased breath sounds. Bilateral rhonchi. CARDIAC: Normal S1 and S2. No gallops. ABDOMEN: No masses. LABORATORY DATA: White count 8000, hemoglobin 8, hematocrit 25, platelet count normal. Lytes are normal. Creatinine 1.4. ASSESSMENT: 1. Renal failure, resolved. 2. Respiratory failure, resolved, status post trach. 3. Obesity. 4. Encephalopathy. 5. Sepsis syndrome. PLAN: He is on antibiotics as per Infectious Disease. All cultures are negative. His cellulitis is better. We will try and get speech to see him today. Otherwise, long-term placement. Discussed with social services designee. One half hour of critical time. Job ID: [id number]
[2018-07-22] MEDS: Vancomycin HCl 1.25 GM in Sodium Chloride 0.9% 250 ML 250 ML IVPB SCH (10:49)
--- NOTE | 2018-07-22 11:43 | PDOC.PN ---
- Subjective Encounter Start Date: 07/22/18 Encounter Start Time: 11:00 Subjective: awake, follows verbal stimuli -: is on trach collar - Objective Resuscitation Status - Order Detail: 06/30/18 04:33 Resuscitation Status Routine Resuscitation Status: FULL: Full Resuscitation MAR Reviewed: Yes Vital Signs & Weight: Vital Signs (12 hours) Temp Pulse Resp BP Pulse Ox 07/22/18 08:14 175/90 H 07/22/18 08:00 98.5 F 07/22/18 07:45 98 07/22/18 07:43 91 21 H 98 07/22/18 04:00 98.9 F 07/22/18 00:05 87 14 97 Weight Admit Weight 249 lb Weight 249 lb 1.957 oz Most Recent Monitor Data Heart Rate from ECG 83 NIBP 181/89 NIBP BP-Mean 119 Respiration from ECG 7 SpO2 98 I&O: 07/21/18 07/22/18 07/23/18 06:59 06:59 06:59 Intake Total 2502.9 2309 Output Total 1855 1835 175 Balance 647.9 474 -175 Result Diagrams: 07/22/18 04:17 07/22/18 04:17 Additional Labs: Accuchecks 07/22/18 07/22/18 07/21/18 09:56 00:36 16:13 POC Glucose 188 H 180 H 141 H 07/21/18 12:30 POC Glucose 169 H Phys Exam - Physical Examination HEENT: PERRLA, moist MMs Neck: no JVD trach+ Respiratory: no wheezing, no rales Cardiovascular: RRR, no significant murmur Gastrointestinal: soft, non-tender, positive bowel sounds peg+ Musculoskeletal: pulses present, edema present Neurological: non-focal, moves all 4 limbs Psychiatric: normal affect, A&O x 3 Dx/Plan (1) Acute respiratory failure with hypoxia Code(s): J96.01 - ACUTE RESPIRATORY FAILURE WITH HYPOXIA Status: Acute Comment: s/p trach (2) Toxic metabolic encephalopathy Code(s): G92 - TOXIC ENCEPHALOPATHY Status: Acute Comment: resolving (3) Sepsis Code(s): A41.9 - SEPSIS, UNSPECIFIED ORGANISM Status: Acute Qualifiers: Sepsis type: Streptococcus group B Qualified Code(s): A40.1 - Sepsis due to streptococcus, group B Comment: resolving (4) Physical deconditioning Code(s): R53.81 - OTHER MALAISE Status: Acute Comment: severe (5) Acute renal failure Status: Acute Qualifiers: Acute renal failure type: with acute tubular necrosis Qualified Code(s): N17.0 - Acute kidney failure with tubular necrosis Comment: HD held to see if he responds (6) CAD (coronary artery disease) Code(s): I25.10 - ATHSCL HEART DISEASE OF [place] CORONARY ARTERY W/O ANG PCTRS Status: Chronic Qualifiers: Coronary Disease-Associated Artery/Lesion type: [place] artery [place] vs. transplanted heart: [place] heart Associated angina: without angina Qualified Code(s): I25.10 - Atherosclerotic heart disease of [place] coronary artery without angina pectoris Comment: s/p cath with bare metal stent to rca (7) CHF (congestive heart failure) Code(s): I50.9 - HEART FAILURE, UNSPECIFIED Status: Acute Qualifiers: Heart failure type: combined systolic and diastolic Comment: ef of 45% (8) DM type 2 (diabetes mellitus, type 2) Status: Chronic Qualifiers: Diabetes mellitus mcc insulin use: with mcc use Diabetes mellitus complication status: with kidney complications Diabetes mellitus complication detail: with chronic kidney disease Chronic kidney disease stage : on chronic dialysis Qualified Code(s): E11.22 - Type 2 diabetes mellitus with diabetic chronic kidney disease; N18.6 - End stage renal disease; Z79.4 - remote computer terminal operator (current) use of 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 (11) Group A streptococcal infection Code(s): B95.0 - STREPTOCOCCUS, GROUP A, CAUSING DISEASES CLASSD ELSWHR Status : Acute - Plan is on meropenem and vanc -: will try speaking valve today and ongoing speech eval -: continue amiodarone, asp, plavix, coreg and crestor -: placement per pulm adv -: PT to mobilize pt more as tolerated * . Review of Systems - Medications/Allergies Allergies/Adverse Reactions: Allergies Allergy/AdvReac Type Severity Reaction Status Date / Time morphine Allergy Anaphylaxis Verified 06/30/18 03:57 Medications: Current Medications Acetaminophen (Tylenol) 1,000 mg PO Q6H PRN PRN Reason: Mild Pain (1-3) Last Admin: 07/20/18 16:37 Dose: 1,000 mg Albuterol/Ipratropium (Duoneb) 3 ml NEB [id number] [facility] Last Admin: 07/22/18 07:43 Dose: 3 ml Amiodarone HCl (Cordarone) 400 mg PER TUBE BID [facility] Last Admin: 07/22/18 08:28 Dose: 400 mg Aspirin (Aspirin Chewable) 81 mg PO DAILY [facility] Last Admin: 07/22/18 08:28 Dose: 81 mg Bisacodyl (Dulcolax) 10 mg [place] DAILY PRN PRN Reason: Constipation Last Admin: 07/06/18 09:44 Dose: 10 mg Carvedilol (Coreg) 12.5 mg PER TUBE BID-[facility] Clopidogrel Bisulfate (Plavix) 75 mg PO DAILY [facility] Last Admin: 07/22/18 08:28 Dose: 75 mg Dextrose/Water (Dextrose 50%) 25 gm SLOW IVP PRN PRN PRN Reason: Hypoglycemia Glucagon (Glucagon) 1 mg IM PRN PRN PRN Reason: Hypoglycemia Norepinephrine Bitartrate (Levophed) 250 mls @ 0 mls/hr IVPB INF [facility]; Protocol Last Admin: 07/03/18 14:43 Dose: 250 mls Vasopressin 40 unit/Miscellaneous Medication 1 each/ Sodium Chloride 102 mls @ 0 mls/hr IV INF PRN; Protocol PRN Reason: SBP>90 Dextrose/Water (D5w) 1,000 mls @ 0 mls/hr IV .Q0M PRN PRN Reason: Hypoglycemia Fluconazole/Sodium Chloride (200 mg/ Device) 100 mls @ 100 mls/hr IVPB 1800 [facility] Last Admin: 07/21/18 16:59 Dose: 100 mls Meropenem 1 gm/ Device 50 mls @ 100 mls/hr IVPB 0430,1630 [facility] Last Admin: 07/22/18 04:40 Dose: 50 mls Sodium Chloride (Normal Saline 0.9%) 1,000 mls @ 50 mls/hr IV .Q20H [facility] Last Admin: 07/22/18 10:44 Dose: 1,000 mls Vancomycin HCl 1.25 gm/ Sodium (Chloride) 250 mls @ 166.667 mls/hr IVPB Q24HR [facility] Last Admin: 07/22/18 10:49 Dose: 250 mls Insulin Human Lispro (Humalog) 0 units [place] .MODERATE SLIDING [place] PRN PRN Reason: Moderate Correctional Scale Last Admin: 07/22/18 10:04 Dose: 2 unit Insulin Human Regular (Humulin R) 0 units [place] .MODERATE SLIDING SC PRN; Protocol PRN Reason: MODERATE SLIDING SCALE Last Admin: 07/10/18 17:19 Dose: 2 units Laxative/Stool Softener (Laxative Of Choice) 1 each PO DAILY PRN PRN Reason: Constipation Magnesium Hydroxide (Milk Of Magnesium) 30 ml PO DAILY PRN PRN Reason: Constipation Last Admin: 07/05/18 08:32 Dose: 30 ml Nitroglycerin (Nitrostat) 0.4 mg SL Q5MIN PRN PRN Reason: Chest Pain Hold Vancomycin For (Level >20) 0 each FS .AT DIALYSIS [facility] Ondansetron HCl (Zofran Odt) 4 mg PO Q6H PRN PRN Reason: Nausea/Vomiting Ondansetron HCl (Zofran) 4 mg IVP Q6H PRN PRN Reason: Nausea/Vomiting Pantoprazole Sodium (Protonix) 40 mg IVP Q12HR [facility] Last Admin: 07/22/18 08:22 Dose: 40 mg Risperidone (Risperidone) 0.5 mg PO [facility] Last Admin: 07/21/18 21:03 Dose: 0.5 mg Rosuvastatin Calcium (Crestor) 10 mg PO [facility] Last Admin: 07/21/18 21:03 Dose: 10 mg Silver Sulfadiazine (Silvadene) 0 gm TOP BID [facility] Last Admin: 07/22/18 08:28 Dose: 1 applic Sodium Chloride (Flush - Normal Saline) 10 ml IVF Q12HR [facility] Last Admin: 07/22/18 08:22 Dose: 10 ml Sodium Chloride (Flush - Normal Saline) 10 ml IVF PRN PRN PRN Reason: Saline Flush Last Admin: 07/16/18 09:52 Dose: 10 ml Sodium Chloride (Flush - Normal Saline) 10 ml IV Q12HR [facility] Last Admin: 07/22/18 08:27 Dose: 10 ml
[2018-07-22] MEDS: Fluconazole In NaCl,Iso-Osm 200 MG in Premix Bag 1 BAG IVPB SCH (18:00)
--- NOTE | 2018-07-22 19:59 | EKG ---
Test Reason : CK RHYTHM Blood Pressure : / mmHG Vent. Rate : 085 BPM Atrial Rate : 085 BPM P-R Int : 154 ms QRS Dur : 088 ms QT Int : 332 ms P-R-T Axes : 041 038 151 degrees QTc Int : 395 ms Normal sinus rhythm ST depression, consider subendocardial injury Nonspecific T wave abnormality Abnormal ECG When compared with ECG of 30-JUN-2018 09:43, ST more depressed in Anterior leads Nonspecific T wave abnormality, worse in Anterolateral leads Confirmed by EZE BONILLA (2) on 07/22/2018 7:58:53 PM Referred By: AKI Confirmed By:EZE BONILLA
[2018-07-22] MEDS: Rosuvastatin 10 MG TAB PO SCH (20:48)
[2018-07-22] MEDS: risperiDONE 0.25 MG TAB PO SCH (20:49)
[2018-07-23] MEDS: HumaLOG 300 UNITS/3 ML VIAL SC PRN ×4 (02:06→17:11)
[2018-07-23] MEDS: MEROPENEM 1 GM/50 ML 1 GM in Premix Bag 1 BAG IVPB SCH ×2 (05:32→17:04)
[2018-07-23] MEDS: Carvedilol 6.25 MG TAB PER TUBE SCH ×2 (07:59→17:09)
[2018-07-23] MEDS ORDERED: risperiDONE 0.25 MG TAB PO SCH (08:03)
[2018-07-23] MEDS: Pantoprazole 40 MG VIAL IVP SCH (08:23)
[2018-07-23] MEDS: Clopidogrel Bisulfate 75 MG TAB PO SCH (08:23)
[2018-07-23] MEDS: Aspirin Chewable 81 MG TAB PO SCH (08:23)
[2018-07-23] MEDS: Amiodarone 200 MG TAB PER TUBE SCH ×2 (08:23→20:53)
[2018-07-23] MEDS: Silver Sulfadiazine 1% Cream 50 GM JAR TOP SCH ×2 (08:24→20:55)
--- NOTE | 2018-07-23 08:51 | PRG ---
DATE OF SERVICE: 07/23/2018 SUBJECTIVE: Joshua is much more awake, responsive, less agitated. OBJECTIVE: VITAL SIGNS: Sats 100% trach collar, temperature is 98, pulse 80, respiratory rate 16, blood pressure 165/86. GENERAL: Making good urine output. CHEST: Decreased breath sounds. No wheezing. CARDIAC: Normal S1 and S2. No gallops. ABDOMEN: No masses. IMPRESSION: 1. Multiorgan failure, sepsis syndrome, much improved. 2. Encephalopathy, much improved. 3. Severe deconditioning. 4. Diabetes. PLAN: Continue antibiotics, eventually Infectious Disease. Aggressive PT, eventually placement. We will try to downsize the medication. One-half hour of critical time. Job ID: [id number]
--- NOTE | 2018-07-23 09:06 | PRG ---
DATE OF SERVICE: 07/23/2018 SUBJECTIVE: Mr. Lewis is a 68-year-old white male, who was admitted for septic shock. He received a course of IV antibiotics. He was also seen by the Renal Service for his acute kidney injury secondary to a presumed ATN. His dialysis was initiated due to the volume overload. His renal function is much improved. He is diuresing well. We have stopped dialysis since last Saturday. My plan is to have the temporary femoral dialysis catheter pulled out. No other complaints. OBJECTIVE: VITAL SIGNS: Blood pressure 166/82, heart rate 86, respiratory rate 16, pulse ox 98%. GENERAL: The patient is awake, alert, comfortable, not in distress. Positive for a trach collar. LUNGS: Clear breath sounds. No wheezing. No crackles. HEART: Normal sinus rhythm. No murmur. No gallops or rubs. ABDOMEN: Globular, soft, nontender. No masses. EXTREMITIES: No edema. No deformities. Please note, there is a positive PEG tube. MEDICATIONS: Medications of 07/23/2018 reviewed. LABORATORY DATA: Laboratories of 07/22/2018; white count is 8, hemoglobin 8.3. Sodium 143, potassium 3.2, chloride 111, carbon dioxide 23, BUN 29, creatinine 1.41, glucose 173, calcium 8.5. We are awaiting results of his basic met for 07/23. ASSESSMENT AND PLAN: 1. Acute kidney injury-secondary to ischemic acute tubular necrosis, much improved. The dialysis has been discontinued. We will be requesting the nursing staff to pull out that temporary femoral dialysis catheter. 2. Status post sepsis, much improved. 3. Anemia, p.r.n. blood transfusion. Overall, I agree with current management. Job ID: [id number]
[2018-07-23 10:10] LABS: Anion Gap 11 mmol/L (10-20); BUN (Urea Nitrogen) 31 mg/dL (8.4-25.7); Calc. Creatinine Clearance 83 mL/min (70-130); Calcium 8.7 mg/dL (7.8-10.44); Carbon Dioxide 25 mmol/L (23-31); Chloride 113 mmol/L (98-107); Estimated GFR-MDRD 51; Glucose 166 mg/dL (80-115); Potassium 3.3 mmol/L (3.5-5.1); Sodium 146 mmol/L (136-145)
[2018-07-23 10:19] LABS: Vancomycin, Trough 11.3 ug/mL
--- NOTE | 2018-07-23 11:10 | PDOC.PN ---
- Subjective Encounter Start Date: 07/23/18 Encounter Start Time: 10:40 Subjective: awake, feels better -: follows verbal stimuli -: is moving all extremities - Objective Resuscitation Status - Order Detail: 06/30/18 04:33 Resuscitation Status Routine Resuscitation Status: FULL: Full Resuscitation MAR Reviewed: Yes Vital Signs & Weight: Vital Signs (12 hours) Temp Pulse Resp BP Pulse Ox 07/23/18 08:00 98.5 F 07/23/18 07:59 166/82 H 07/23/18 07:36 100 07/23/18 06:34 99 07/23/18 06:33 86 16 98 07/23/18 04:00 98.8 F 07/23/18 00:39 81 28 H 97 Weight Admit Weight 249 lb Weight 249 lb 1.957 oz Most Recent Monitor Data Heart Rate from ECG 74 NIBP 167/78 NIBP BP-Mean 107 Respiration from ECG 27 SpO2 98 I&O: 07/22/18 07/23/18 07/24/18 06:59 06:59 06:59 Intake Total 2309 2412 30 Output Total 1835 1965 280 Balance 474 447 -250 Result Diagrams: 07/22/18 04:17 07/23/18 09:47 Additional Labs: Accuchecks 07/23/18 07/23/18 07/22/18 07:17 02:05 18:16 POC Glucose 160 H 201 H 192 H Phys Exam - Physical Examination HEENT: PERRLA, sclera anicteric Neck: no JVD trach+ Respiratory: no wheezing, no rales Cardiovascular: RRR, no significant murmur Gastrointestinal: soft, no distention, positive bowel sounds peg+ Musculoskeletal: pulses present edema is slowly receding Neurological: non-focal, moves all 4 limbs Psychiatric: A&O x 3 Dx/Plan (1) Acute respiratory failure with hypoxia Code(s): J96.01 - ACUTE RESPIRATORY FAILURE WITH HYPOXIA Status: Acute Comment: s/p trach (2) Toxic metabolic encephalopathy Code(s): G92 - TOXIC ENCEPHALOPATHY Status: Acute Comment: resolving (3) Sepsis Code(s): A41.9 - SEPSIS, UNSPECIFIED ORGANISM Status: Acute Qualifiers: Sepsis type: Streptococcus group B Qualified Code(s): A40.1 - Sepsis due to streptococcus, group B Comment: resolving (4) Physical deconditioning Code(s): R53.81 - OTHER MALAISE Status: Acute Comment: severe (5) Acute renal failure Status: Acute Qualifiers: Acute renal failure type: with acute tubular necrosis Qualified Code(s): N17.0 - Acute kidney failure with tubular necrosis Comment: HD held to see if he responds (6) CAD (coronary artery disease) Code(s): I25.10 - ATHSCL HEART DISEASE OF [place] CORONARY ARTERY W/O ANG PCTRS Status: Chronic Qualifiers: Coronary Disease-Associated Artery/Lesion type: [place] artery [place] vs. transplanted heart: [place] heart Associated angina: without angina Qualified Code(s): I25.10 - Atherosclerotic heart disease of [place] coronary artery without angina pectoris Comment: s/p cath with bare metal stent to rca (7) CHF (congestive heart failure) Code(s): I50.9 - HEART FAILURE, UNSPECIFIED Status: Acute Qualifiers: Heart failure type: combined systolic and diastolic Comment: ef of 45% (8) DM type 2 (diabetes mellitus, type 2) Status: Chronic Qualifiers: Diabetes mellitus continuous churn buttermaker insulin use: with continuous churn buttermaker use Diabetes mellitus complication status: with kidney complications Diabetes mellitus complication detail: with chronic kidney disease Chronic kidney disease stage : on chronic dialysis Qualified Code(s): E11.22 - Type 2 diabetes mellitus with diabetic chronic kidney disease; N18.6 - End stage renal disease; 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 (11) Group A streptococcal infection Code(s): B95.0 - STREPTOCOCCUS, GROUP A, CAUSING DISEASES CLASSD ELSWHR Status : Acute - Plan is on vanc, meropenem and fluconazole -: asp, plavix, crestor, coreg, amiodarone 400mg bid -: risperdal HS prn -: peg feeding, speech to eval if he can swallow -: dc planning * . Review of Systems - Medications/Allergies Allergies/Adverse Reactions: Allergies Allergy/AdvReac Type Severity Reaction Status Date / Time morphine Allergy Anaphylaxis Verified 06/30/18 03:57 Medications: Current Medications Acetaminophen (Tylenol) 1,000 mg PO Q6H PRN PRN Reason: Mild Pain (1-3) Last Admin: 07/20/18 16:37 Dose: 1,000 mg Albuterol/Ipratropium (Duoneb) 3 ml NEB [id number] [facility] Last Admin: 07/23/18 06:33 Dose: 3 ml Amiodarone HCl (Cordarone) 400 mg PER TUBE BID [facility] Last Admin: 07/23/18 08:23 Dose: 400 mg Aspirin (Aspirin Chewable) 81 mg PO DAILY [facility] Last Admin: 07/23/18 08:23 Dose: 81 mg Bisacodyl (Dulcolax) 10 mg TN DAILY PRN PRN Reason: Constipation Last Admin: 07/06/18 09:44 Dose: 10 mg Carvedilol (Coreg) 12.5 mg PER TUBE BID-[facility] Last Admin: 07/23/18 07:59 Dose: 12.5 mg Clopidogrel Bisulfate (Plavix) 75 mg PO DAILY [facility] Last Admin: 07/23/18 08:23 Dose: 75 mg Dextrose/Water (Dextrose 50%) 25 gm SLOW IVP PRN PRN PRN Reason: Hypoglycemia Glucagon (Glucagon) 1 mg IM PRN PRN PRN Reason: Hypoglycemia Norepinephrine Bitartrate (Levophed) 250 mls @ 0 mls/hr IVPB INF [facility]; Protocol Last Admin: 07/03/18 14:43 Dose: 250 mls Vasopressin 40 unit/Miscellaneous Medication 1 each/ Sodium Chloride 102 mls @ 0 mls/hr IV INF PRN; Protocol PRN Reason: SBP>90 Dextrose/Water (D5w) 1,000 mls @ 0 mls/hr IV .Q0M PRN PRN Reason: Hypoglycemia Fluconazole/Sodium Chloride (200 mg/ Device) 100 mls @ 100 mls/hr IVPB 1800 [facility] Last Admin: 07/22/18 18:00 Dose: 100 mls Meropenem 1 gm/ Device 50 mls @ 100 mls/hr IVPB 0430,1630 [facility] Last Admin: 07/23/18 05:32 Dose: 50 mls Sodium Chloride (Normal Saline 0.9%) 1,000 mls @ 50 mls/hr IV .Q20H [facility] Last Admin: 07/22/18 10:44 Dose: 1,000 mls Vancomycin HCl 1.25 gm/ Sodium (Chloride) 250 mls @ 166.667 mls/hr IVPB Q24HR [facility] Last Admin: 07/22/18 10:49 Dose: 250 mls Insulin Human Lispro (Humalog) 0 units SC .MODERATE SLIDING SC PRN PRN Reason: Moderate Correctional Scale Last Admin: 07/23/18 07:29 Dose: 2 unit Insulin Human Regular (Humulin R) 0 units SC .MODERATE SLIDING SC PRN; Protocol PRN Reason: MODERATE SLIDING SCALE Last Admin: 07/10/18 17:19 Dose: 2 units Laxative/Stool Softener (Laxative Of Choice) 1 each PO DAILY PRN PRN Reason: Constipation Magnesium Hydroxide (Milk Of Magnesium) 30 ml PO DAILY PRN PRN Reason: Constipation Last Admin: 07/05/18 08:32 Dose: 30 ml Nitroglycerin (Nitrostat) 0.4 mg SL Q5MIN PRN PRN Reason: Chest Pain Hold Vancomycin For (Level >20) 0 each FS .AT DIALYSIS [facility] Ondansetron HCl (Zofran Odt) 4 mg PO Q6H PRN PRN Reason: Nausea/Vomiting Ondansetron HCl (Zofran) 4 mg IVP Q6H PRN PRN Reason: Nausea/Vomiting Pantoprazole Sodium (Protonix) 40 mg IVP Q12HR [facility] Last Admin: 07/23/18 08:23 Dose: 40 mg Risperidone (Risperidone) 0.25 mg PO [facility] Stop: 07/23/18 21:01 Rosuvastatin Calcium (Crestor) 10 mg PO [facility] Last Admin: 07/22/18 20:48 Dose: 10 mg Silver Sulfadiazine (Silvadene) 0 gm TOP BID [facility] Last Admin: 07/23/18 08:24 Dose: 1 applic Sodium Chloride (Flush - Normal Saline) 10 ml IVF Q12HR [facility] Last Admin: 07/23/18 08:23 Dose: 10 ml Sodium Chloride (Flush - Normal Saline) 10 ml IVF PRN PRN PRN Reason: Saline Flush Last Admin: 07/16/18 09:52 Dose: 10 ml Sodium Chloride (Flush - Normal Saline) 10 ml IV Q12HR [facility] Last Admin: 07/23/18 08:24 Dose: 10 ml
[2018-07-23] MEDS: Vancomycin HCl 1.25 GM in Sodium Chloride 0.9% 250 ML 250 ML IVPB SCH (11:26)
[2018-07-23] MEDS ORDERED: Vancomycin HCl 500 MG in Sodium Chloride 0.9% 100 ML IVPB SCH (14:00)
[2018-07-23] MEDS: Fluconazole In NaCl,Iso-Osm 200 MG in Premix Bag 1 BAG IVPB SCH (17:28)
[2018-07-23] MEDS: Rosuvastatin 10 MG TAB PO SCH (20:53)
[2018-07-23] MEDS: Sodium Chloride 0.9% 1,000 ML IV SCH (20:57)
[2018-07-24] MEDS: MEROPENEM 1 GM/50 ML 1 GM in Premix Bag 1 BAG IVPB SCH ×2 (04:45→15:36)
[2018-07-24] MEDS: Carvedilol 6.25 MG TAB PER TUBE SCH ×2 (08:25→16:50)
[2018-07-24] MEDS: Amiodarone 200 MG TAB PER TUBE SCH ×2 (08:25→20:32)
[2018-07-24] MEDS: Aspirin Chewable 81 MG TAB PO SCH (08:26)
[2018-07-24] MEDS: Clopidogrel Bisulfate 75 MG TAB PO SCH (08:26)
[2018-07-24] MEDS: Silver Sulfadiazine 1% Cream 50 GM JAR TOP SCH ×2 (08:27→20:31)
--- NOTE | 2018-07-24 09:01 | PRG ---
DATE OF SERVICE: SUBJECTIVE: Fritz Lewis this morning is awake, alert, and responsive. He is doing better. He is on T-piece. He has had a trach for day #9. It probably needs to be downsized next week ,avoiding this week fresh trach. OBJECTIVE: VITAL SIGNS: Blood pressure is 180/90, pulse 80, saturations 98%, respiratory rate 18. CHEST: Decreased breath sounds. Minimal rhonchi. CARDIAC: Normal S1 and S2. No gallops. ABDOMEN: No masses. IMPRESSION: 1. Status post multiorgan failure secondary to left leg cellulitis, felt to be Streptococcus. 2. Renal failure, resolved. 3. Respiratory failure, much improved. 4. Major encephalopathy, improved. 5. ARDS resolved. 6. Supraventricular tachycardia. 7. Diabetes, uncontrolled. 8. Severe deconditioning. PLAN: Plan is to transfer to LTAC. Antibiotics as per Infectious Disease. Probably can downsize the trach next week. He has a speaking valve in place. Otherwise, supportive care, PT. One-half hour of critical time. Job ID: [id number] [facility]
[2018-07-24] MEDS: Pot Chloride/Pot Bicarb/Cit Ac 25 mEq Effervescent Tablet PO SCH (09:30)
--- NOTE | 2018-07-24 09:59 | PRG ---
DATE OF SERVICE: 07/24/2018 SUBJECTIVE: Mr. Lewis is a 68-year-old white male, who was admitted for septic shock and seen by the Renal Service for his acute kidney injury secondary to a possible ischemic ATN. He was placed temporarily on dialysis. The dialysis has been discontinued due to the improved renal function. The right femoral dialysis catheter has been pulled out. No other complaints today. OBJECTIVE: VITAL SIGNS: Blood pressure 162/82, heart rate 82, respiratory rate 26, pulse ox 100%. GENERAL: Noted to be awake, supine, comfortable, not in distress. SKIN: Adequate turgor. HEENT: He has slightly pale conjunctivae. Anicteric sclerae. NECK: No neck mass. No carotid bruits. No JVD. Positive for tracheostomy. LUNGS: Decreased breath sounds. HEART: Normal sinus rhythm. No murmurs, gallops, or rubs. ABDOMEN: Globular, soft, nontender. No masses. EXTREMITIES: Trace edema. MEDICATIONS: Medications of July 24, 2018 was reviewed. LABORATORY DATA: Laboratories of July 24, 2018 shows the following; white count 8, hemoglobin 8.3. On July 23, 2018; sodium 146, potassium 3.3, chloride 113, carbon dioxide 25, BUN 31, creatinine 1.38, glucose 166, calcium 8.7. ASSESSMENT AND PLAN: 1. Acute kidney injury - secondary to ischemic ATN - resolved. The dialysis has been discontinued. In addition, right femoral dialysis catheter has been pulled out. 2. Hypernatremia/hypokalemia. We will recheck the patient's chemistries tomorrow. 3. Status post septic shock, much improved. 4. Overall, I agree with current management. Job ID: [id number]
[2018-07-24] MEDS: Vancomycin HCl 1.25 GM in Sodium Chloride 0.9% 250 ML 250 ML IVPB SCH (11:06)
[2018-07-24] MEDS: HumaLOG 300 UNITS/3 ML VIAL SC PRN ×2 (11:55→16:17)
--- NOTE | 2018-07-24 11:59 | PDOC.PN ---
- Subjective Encounter Start Date: 07/24/18 Encounter Start Time: 10:45 Subjective: awake, on trach collar -: follows verbal stimuli -: is moving all extremities - Objective Resuscitation Status - Order Detail: 06/30/18 04:33 Resuscitation Status Routine Resuscitation Status: FULL: Full Resuscitation MAR Reviewed: Yes Vital Signs & Weight: Vital Signs (12 hours) Temp Pulse Pulse Pulse Pulse Resp BP 07/24/18 08:33 82 85 82 07/24/18 08:25 184/94 H 07/24/18 07:28 76 16 07/24/18 07:07 07/24/18 07:00 98.6 F 07/24/18 04:00 98.0 F 07/24/18 00:46 76 25 H 07/24/18 00:00 97.9 F BP BP BP Pulse Ox Pulse Ox Pulse Ox 07/24/18 08:33 162/82 H 182/91 H 183/89 H 100 100 07/24/18 08:25 07/24/18 07:28 100 07/24/18 07:07 97 07/24/18 07:00 07/24/18 04:00 07/24/18 00:46 100 07/24/18 00:00 Weight Admit Weight 249 lb Weight 249 lb 1.957 oz Most Recent Monitor Data Heart Rate from ECG 73 NIBP 151/80 NIBP BP-Mean 103 Respiration from ECG 16 SpO2 100 I&O: 07/23/18 07/24/18 07/25/18 06:59 06:59 06:59 Intake Total 2412 2739 180 Output Total 1965 1800 460 Balance 447 939 -280 Result Diagrams: 07/22/18 04:17 07/23/18 09:47 Additional Labs: Accuchecks 07/24/18 07/23/18 06:06 17:12 POC Glucose 181 H 194 H Phys Exam - Physical Examination HEENT: PERRLA, sclera anicteric Neck: no JVD trach+ Respiratory: no wheezing, no rales Cardiovascular: RRR, no significant murmur Gastrointestinal: soft, non-tender, positive bowel sounds peg+ Musculoskeletal: pulses present edema is receding well Neurological: non-focal, moves all 4 limbs Dx/Plan (1) Acute respiratory failure with hypoxia Code(s): J96.01 - ACUTE RESPIRATORY FAILURE WITH HYPOXIA Status: Acute Comment: s/p trach (2) Toxic metabolic encephalopathy Code(s): G92 - TOXIC ENCEPHALOPATHY Status: Resolved (3) Sepsis Code(s): A41.9 - SEPSIS, UNSPECIFIED ORGANISM Status: Acute Qualifiers: Sepsis type: Streptococcus group B Qualified Code(s): A40.1 - Sepsis due to streptococcus, group B Comment: resolving (4) Physical deconditioning Code(s): R53.81 - OTHER MALAISE Status: Acute Comment: severe (5) Acute renal failure Status: Acute Qualifiers: Acute renal failure type: with acute tubular necrosis Qualified Code(s): N17.0 - Acute kidney failure with tubular necrosis Comment: HD held to see if he responds (6) CAD (coronary artery disease) Code(s): I25.10 - ATHSCL HEART DISEASE OF [place] CORONARY ARTERY W/O ANG PCTRS Status: Chronic Qualifiers: Coronary Disease-Associated Artery/Lesion type: [place] artery [place] vs. transplanted heart: [place] heart Associated angina: without angina Qualified Code(s): I25.10 - Atherosclerotic heart disease of [place] coronary artery without angina pectoris Comment: s/p cath with bare metal stent to rca (7) CHF (congestive heart failure) Code(s): I50.9 - HEART FAILURE, UNSPECIFIED Status: Acute Qualifiers: Heart failure type: combined systolic and diastolic Comment: ef of 45% (8) DM type 2 (diabetes mellitus, type 2) Status: Chronic Qualifiers: Diabetes mellitus retirement insulin use: with terminal operations manager use Diabetes mellitus complication status: with kidney complications Diabetes mellitus complication detail: with chronic kidney disease Chronic kidney disease stage : on chronic dialysis Qualified Code(s): E11.22 - Type 2 diabetes mellitus with diabetic chronic kidney disease; N18.6 - End stage renal disease; 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 (11) Group A streptococcal infection Code(s): B95.0 - STREPTOCOCCUS, GROUP A, CAUSING DISEASES CLASSD ELSWHR Status : Acute - Plan is on meropenem, vanc and diflucan -: nebs, asp, plavix, amiodarone, coreg -: speech to clear for swallowing, peg feeding -: awaiting ltac placement -: has speaking valve, change of trach size in 1 week * . Review of Systems - Medications/Allergies Allergies/Adverse Reactions: Allergies Allergy/AdvReac Type Severity Reaction Status Date / Time morphine Allergy Anaphylaxis Verified 06/30/18 03:57 Medications: Current Medications Acetaminophen (Tylenol) 1,000 mg PO Q6H PRN PRN Reason: Mild Pain (1-3) Last Admin: 07/20/18 16:37 Dose: 1,000 mg Albuterol/Ipratropium (Duoneb) 3 ml NEB [id number] [facility] Last Admin: 07/24/18 07:28 Dose: 3 ml Amiodarone HCl (Cordarone) 400 mg PER TUBE BID [facility] Last Admin: 07/24/18 08:25 Dose: 400 mg Aspirin (Aspirin Chewable) 81 mg PO DAILY [facility] Last Admin: 07/24/18 08:26 Dose: 81 mg Bisacodyl (Dulcolax) 10 mg TN DAILY PRN PRN Reason: Constipation Last Admin: 07/06/18 09:44 Dose: 10 mg Carvedilol (Coreg) 12.5 mg PER TUBE BID-[facility] Last Admin: 07/24/18 08:25 Dose: 12.5 mg Clopidogrel Bisulfate (Plavix) 75 mg PO DAILY [facility] Last Admin: 07/24/18 08:26 Dose: 75 mg Dextrose/Water (Dextrose 50%) 25 gm SLOW IVP PRN PRN PRN Reason: Hypoglycemia Glucagon (Glucagon) 1 mg IM PRN PRN PRN Reason: Hypoglycemia Norepinephrine Bitartrate (Levophed) 250 mls @ 0 mls/hr IVPB INF [facility]; Protocol Last Admin: 07/03/18 14:43 Dose: 250 mls Dextrose/Water (D5w) 1,000 mls @ 0 mls/hr IV .Q0M PRN PRN Reason: Hypoglycemia Fluconazole/Sodium Chloride (200 mg/ Device) 100 mls @ 100 mls/hr IVPB 1800 [facility] Last Admin: 07/23/18 17:28 Dose: 100 mls Meropenem 1 gm/ Device 50 mls @ 100 mls/hr IVPB 0430,1630 [facility] Last Admin: 07/24/18 04:45 Dose: 50 mls Sodium Chloride (Normal Saline 0.9%) 1,000 mls @ 50 mls/hr IV .Q20H [facility] Last Admin: 07/23/18 20:57 Dose: 1,000 mls Vancomycin HCl 1.25 gm/ Sodium (Chloride) 250 mls @ 166.667 mls/hr IVPB 1100 [facility] Last Admin: 07/24/18 11:06 Dose: 250 mls Insulin Human Lispro (Humalog) 0 units SC .MODERATE SLIDING SC PRN PRN Reason: Moderate Correctional Scale Last Admin: 07/24/18 11:55 Dose: 2 unit Insulin Human Regular (Humulin R) 0 units SC .MODERATE SLIDING SC PRN; Protocol PRN Reason: MODERATE SLIDING SCALE Last Admin: 07/10/18 17:19 Dose: 2 units Laxative/Stool Softener (Laxative Of Choice) 1 each PO DAILY PRN PRN Reason: Constipation Magnesium Hydroxide (Milk Of Magnesium) 30 ml PO DAILY PRN PRN Reason: Constipation Last Admin: 07/05/18 08:32 Dose: 30 ml Nitroglycerin (Nitrostat) 0.4 mg SL Q5MIN PRN PRN Reason: Chest Pain Hold Vancomycin For (Level >20) 0 each FS .AT DIALYSIS [facility] Ondansetron HCl (Zofran Odt) 4 mg PO Q6H PRN PRN Reason: Nausea/Vomiting Ondansetron HCl (Zofran) 4 mg IVP Q6H PRN PRN Reason: Nausea/Vomiting Pantoprazole Sodium (Protonix) 40 mg PO DAILY [facility] Last Admin: 07/24/18 08:26 Dose: 40 mg Potassium Bicarb/Potassium Chloride (K-Lyte Cl) 25 meq PO QAM-WM [facility] Stop: 07/28/18 08:01 Last Admin: 07/24/18 09:30 Dose: 25 meq Rosuvastatin Calcium (Crestor) 10 mg PO HS [facility] Last Admin: 07/23/18 20:53 Dose: 10 mg Silver Sulfadiazine (Silvadene) 0 gm TOP BID [facility] Last Admin: 07/24/18 08:27 Dose: 1 applic Sodium Chloride (Flush - Normal Saline) 10 ml IVF Q12HR [facility] Last Admin: 07/24/18 08:27 Dose: 10 ml Sodium Chloride (Flush - Normal Saline) 10 ml IVF PRN PRN PRN Reason: Saline Flush Last Admin: 07/16/18 09:52 Dose: 10 ml
[2018-07-24] MEDS: Fluconazole In NaCl,Iso-Osm 200 MG in Premix Bag 1 BAG IVPB SCH (18:42)
[2018-07-24] MEDS: Sodium Chloride 0.9% 1,000 ML IV SCH (18:53)
[2018-07-24] MEDS: Rosuvastatin 10 MG TAB PO SCH (20:32)
[2018-07-25] MEDS: MEROPENEM 1 GM/50 ML 1 GM in Premix Bag 1 BAG IVPB SCH (05:01)
[2018-07-25] MEDS: HumaLOG 300 UNITS/3 ML VIAL SC PRN ×2 (05:02→10:04)
[2018-07-25 05:41] LABS: #Basophils 0.1 thou/uL (0.0-0.2); #Eosinphils 0.4 thou/uL (0.0-0.7); #Lymphocytes 1.8 thou/uL (1.20-3.40); #Monocytes 0.5 thou/uL (0.11-0.59); #Neutrophils 5.4 thou/uL (1.40-6.50); %Basophils 1.3 % (0.0-1.0); %Eosinophils 5.4 % (0.0-10.0); %Lymphocytes 22.4 % (21.0-51.0); %Monocytes 5.6 % (0.0-10.0); %Neutrophils 65.3 % (42.0-75.0); Hemoglobin 7.3 g/dL (14.0-18.0); Mean Corpuscular HGB CONC 32.1 g/dL (32.0-36.0); Mean Corpuscular Hemoglobin 30.2 pg (27.0-31.0); Mean Corpuscular Volume 94.1 fL (78.0-98.0); Mean Platelet Volume 7.1 fL (7.4-10.4); Platelet Count 252 thou/uL (130-400); RBC Distribution Width 14.1 % (11.5-14.5); Red Blood Cell (RBC) Count 2.42 mill/uL (4.70-6.10); White Blood Cell (WBC) Count 8.2 thou/uL (4.8-10.8)
[2018-07-25 05:58] LABS: Anion Gap 12 mmol/L (10-20); BUN (Urea Nitrogen) 33 mg/dL (8.4-25.7); Calc. Creatinine Clearance 87 mL/min (70-130); Calcium 8.7 mg/dL (7.8-10.44); Carbon Dioxide 24 mmol/L (23-31); Chloride 115 mmol/L (98-107); Estimated GFR-MDRD 55; Glucose 184 mg/dL (80-115); Potassium 3.2 mmol/L (3.5-5.1); Sodium 148 mmol/L (136-145)
[2018-07-25] MEDS: Carvedilol 6.25 MG TAB PER TUBE SCH (07:53)
[2018-07-25] MEDS: Pot Chloride/Pot Bicarb/Cit Ac 25 mEq Effervescent Tablet PO SCH (07:53)
[2018-07-25] MEDS: Aspirin Chewable 81 MG TAB PO SCH (08:38)
[2018-07-25] MEDS: Clopidogrel Bisulfate 75 MG TAB PO SCH (08:38)
[2018-07-25] MEDS: Amiodarone 200 MG TAB PER TUBE SCH (08:38)
[2018-07-25] MEDS: Silver Sulfadiazine 1% Cream 50 GM JAR TOP SCH (08:38)
--- NOTE | 2018-07-25 09:10 | PRG ---
DATE OF SERVICE: 07/25/2018 SUBJECTIVE: This morning, he is awake, alert, responsive. Pulse 78, sats 98%, respiratory rate 21, blood pressure 130/80. Denies any respiratory distress. His #8 cuffed trach was replaced with a #6 cuffless trach without any problems. He has a speaking valve to which he is able to tolerate and talk. Blood pressure 167/83 thereafter. OBJECTIVE: CHEST: Decreased breath sounds. No wheezing. CARDIAC: Normal S1, S2. No gallops. ABDOMEN: Soft. LABORATORY DATA: Creatinine 1.3, potassium 3.2. Lytes are normal. H and H 7.3 and 22. ASSESSMENT AND PLAN: Respiratory failure, multiorgan failure, renal failure, encephalopathy, all resolved. He will be transferred to a long-term facility where aggressive PT supportive care. His #6 trach can be downsized to #4 and thereafter discontinue. One-half hour of critical time. Job ID: [id number]
--- NOTE | 2018-07-25 10:21 | PDOC.PN ---
- Subjective Encounter Start Date: 07/25/18 Encounter Start Time: 08:50 Subjective: No specific complaint - Objective Resuscitation Status - Order Detail: 06/30/18 04:33 Resuscitation Status Routine Resuscitation Status: FULL: Full Resuscitation Vital Signs & Weight: Vital Signs (12 hours) Temp Pulse Resp BP Pulse Ox 07/25/18 07:53 167/83 H 07/25/18 07:25 79 23 H 07/25/18 07:08 97 07/25/18 07:00 98.6 F 07/25/18 04:00 97.6 F 07/24/18 23:22 65 20 100 Weight Admit Weight 249 lb Weight 249 lb 1.957 oz Most Recent Monitor Data Heart Rate from ECG 73 NIBP 160/79 NIBP BP-Mean 106 Respiration from ECG 19 SpO2 100 I&O: 07/24/18 07/25/18 07/26/18 06:59 06:59 06:59 Intake Total 2739 2462 180 Output Total 1800 1265 250 Balance 939 1197 -70 Result Diagrams: 07/25/18 05:05 07/25/18 05:05 Additional Labs: Accuchecks 07/25/18 07/25/18 07/24/18 10:01 05:01 16:17 POC Glucose 165 H 180 H 163 H 07/24/18 11:51 POC Glucose 164 H Phys Exam - Physical Examination Neck: no JVD Respiratory: clear to auscultation bilateral Cardiovascular: irregular Gastrointestinal: soft Musculoskeletal: edema present (left jeferson abscess,left leg cellulitis..) Dx/Plan (1) Abscess of left thigh Code(s): L02.416 - CUTANEOUS ABSCESS OF LEFT LOWER LIMB Status: Acute (2) Acute renal failure Status: Acute Qualifiers: Acute renal failure type: with acute tubular necrosis Qualified Code(s): N17.0 - Acute kidney failure with tubular necrosis Comment: HD held to see if he responds (3) Acute respiratory failure with hypoxia Code(s): J96.01 - ACUTE RESPIRATORY FAILURE WITH HYPOXIA Status: Acute Comment: s/p trach (4) Cellulitis and abscess of left leg Code(s): L03.116 - CELLULITIS OF LEFT LOWER LIMB; L02.416 - CUTANEOUS ABSCESS OF LEFT LOWER LIMB Status: Acute Comment: resolving. (5) Diastolic CHF Code(s): I50.30 - UNSPECIFIED DIASTOLIC (CONGESTIVE) HEART FAILURE Status: Acute (6) Group A streptococcal infection Code(s): B95.0 - STREPTOCOCCUS, GROUP A, CAUSING DISEASES CLASSD ELSWHR Status : Acute - Plan -: Being transfered to LTAC. * .
[2018-07-25 11:27] LABS: Vancomycin, Trough 14.5 ug/mL
[2018-07-25 11:48] VITALS: BP 164/83
[2018-07-25] MEDS: Vancomycin HCl 1.25 GM in Sodium Chloride 0.9% 250 ML 250 ML IVPB SCH (11:56)
--- NOTE | 2018-07-25 12:17 | DIS ---
DATE OF ADMISSION: 06/30/2018 DATE OF DISCHARGE: 07/25/2018 ADMITTING DIAGNOSES: 1. Septic shock. 2. Diabetic ketoacidosis. 3. Left groin abscess. 4. Diabetes mellitus. 5. Acute kidney injury. DISCHARGE DIAGNOSES: 1. Septic shock. 2. Diabetic ketoacidosis. 3. Left groin abscess. 4. Diabetes mellitus. 5. Acute kidney injury. 6. Left leg cellulitis. CONSULTANTS: 1. Dr. Hermosillo. 2. Dr. Cervantes. 3. Dr. Jay. 4. Dr. Vargas. 5. Dr. Guerrero. PROCEDURES: Chest x-ray, placement of femoral dialysis catheter, dialysis therapy, echocardiogram, abdomen and pelvis CT, and I and D of abscess. COURSE OF HOSPITALIZATION: Hospitalization was prolonged. The patient has severe deconditioning at this time during transfer to [facility] for IV antibiotic therapy and possible physical therapy. Job ID: [id number]
[2018-07-25 12:22] VITALS: TEMP 98.8
== END 2018-07-25 13:30 | DRG 3 ==
LOC: ERS 00:02 → ERHOLD 02:20 → CCU 03:21
PROVIDERS: ADMIT Family Medicine; ATTEND Family Medicine
PROC: 5A1955Z Respiratory Ventilation, Greater than 96 Consecutive Hours (ICD-10-PCS; 2018-06-30)
PROC: 5A1D70Z Performance of Urinary Filtration, Intermittent, Less than 6 Hours Per Day (ICD-10-PCS; 2018-06-30)
PROC: 0J9C0ZX Drainage of Pelvic Region Subcutaneous Tissue and Fascia, Open Approach, Diagnostic (ICD-10-PCS; 2018-07-01)
PROC: 0JHN3XZ Insertion of Tunneled Vascular Access Device into Right Lower Leg Subcutaneous Tissue and Fascia, Percutaneous Approach (ICD-10-PCS; 2018-07-10)
PROC: 30233N1 Transfusion of Nonautologous Red Blood Cells into Peripheral Vein, Percutaneous Approach (ICD-10-PCS; 2018-07-13)
PROC: 0B113F4 Bypass Trachea to Cutaneous with Tracheostomy Device, Percutaneous Approach (ICD-10-PCS; principal; 2018-07-14)
PROC: 0DH63UZ Insertion of Feeding Device into Stomach, Percutaneous Approach (ICD-10-PCS; 2018-07-14)
PROC: 02703DZ Dilation of Coronary Artery, One Artery with Intraluminal Device, Percutaneous Approach (ICD-10-PCS; 2018-07-18)
PROC: 4A023N7 Measurement of Cardiac Sampling and Pressure, Left Heart, Percutaneous Approach (ICD-10-PCS; 2018-07-18)
PROC: B2111ZZ Fluoroscopy of Multiple Coronary Arteries using Low Osmolar Contrast (ICD-10-PCS; 2018-07-18)
PROC: B2151ZZ Fluoroscopy of Left Heart using Low Osmolar Contrast (ICD-10-PCS; 2018-07-18)
DX: A40.9 Streptococcal sepsis, unspecified (principal); R65.21 Severe sepsis with septic shock; I50.31 Acute diastolic (congestive) heart failure; N17.0 Acute kidney failure with tubular necrosis; J96.01 Acute respiratory failure with hypoxia; E11.10 Type 2 diabetes mellitus with ketoacidosis without coma; G92 Toxic encephalopathy; E87.1 Hypo-osmolality and hyponatremia; E87.2 Acidosis; L03.116 Cellulitis of left lower limb; L02.416 Cutaneous abscess of left lower limb; E27.40 Unspecified adrenocortical insufficiency; I47.1 Supraventricular tachycardia; I13.0 Hypertensive heart and chronic kidney disease with heart failure and stage 1 through stage 4 chronic kidney disease, or unspecified chronic kidney disease; N17.9 Acute kidney failure, unspecified; I25.10 Atherosclerotic heart disease of native coronary artery without angina pectoris; E11.22 Type 2 diabetes mellitus with diabetic chronic kidney disease; E87.5 Hyperkalemia; F17.210 Nicotine dependence, cigarettes, uncomplicated; E11.51 Type 2 diabetes mellitus with diabetic peripheral angiopathy without gangrene; I48.91 Unspecified atrial fibrillation; J44.9 Chronic obstructive pulmonary disease, unspecified; E66.01 Morbid (severe) obesity due to excess calories; Z68.33 Body mass index [BMI] 33.0-33.9, adult; E87.6 Hypokalemia; D64.9 Anemia, unspecified; G47.33 Obstructive sleep apnea (adult) (pediatric); Z88.5 Allergy status to narcotic agent; Z79.899 Other long term (current) drug therapy; N18.9 Chronic kidney disease, unspecified; Z95.5 Presence of coronary angioplasty implant and graft; E78.5 Hyperlipidemia, unspecified; I25.2 Old myocardial infarction; R53.81 Other malaise
CPT/HCPCS: 36415; 36416; 36430; 36556; 71045; 74176; 76770; 80048; 80053; 80061; 80076; 80162; 80202; 81001; 82010; 82533; 82570; 82805; 83036; 83605; 83735; 84300; 84443; 84484; 85007; 85025; 85027; 85347; 85520; 86704; 86706; 86803; 86850; 86900; 86901; 87040; 87070; 87077; 87086; 87149; 87205; 87340; 90935; 92928; 93005; 93010; 93306; 93454; 93798; 93970; 94002; 94003; 94640; 94660; 96361; 96374; 96375; 99152; 99153; C1725; C1752; C1769; C1876; C1887; C9113; G0257; G0365; J0583; J0696; J1160; J1450; J1644; J1650; J1720; J1815; J1825; J1940; J2001; J2060; J2185; J2250; J2405; J2540; J2543; J2704; J2765; J3010; J3370; J3480; J3490; J7050; J7070; J7620; P9016; P9045; P9047; Q9967